=== PATIENT | male | born 1945 | race Caucasian/White ===

== ENCOUNTER 2019-05-23 00:13 | Observation (INO) | payer OTHER ==
--- OUTSIDE RECORDS SUMMARY | 2019-05-23 00:16 | XMS REPORT | Clinical Summary ---
:1945 Author Organization [facility] Address [address] [place] [id number] Care Team Providers Name Role Phone Unavailable Primary Care Provider Unavailable Allergies No Known Allergies Medications Medication Sig Dispensed Refills Start Date End Date Status metFORMIN (GLUCOPHAGE) Take 500 mg by 0 Active 500 MG tablet mouth 2 (two) times daily with breakfast and dinner. losartan (COZAAR) 25 MG Take 25 mg by 0 Active tabletIndications: mouth daily. hypertension metoprolol (TOPROL-XL) Take 100 mg by 0 Active 100 MG 24 hr mouth daily. tabletIndications: hypertension venlafaxine Take 150 mg by 0 Active (EFFEXOR-XR) 150 MG 24 mouth daily. hr capsule chlorthalidone Take 25 mg by 0 Active (HYGROTON) 25 MG tablet mouth daily. cholecalciferol, Take 1,000 Units 0 Active vitamin D3, 1,000 unit by mouth nightly. capsule multivitamin per tablet Take 1 tablet by 0 Active mouth daily. Active Problems Problem Noted Date TIA (transient ischemic attack) 11/23/2016 Social History Tobacco Use Types Packs/Day Years Used Date Former Smoker Comments: quit 10 years ago Alcohol Use Drinks/Week oz/Week Comments No Sex Assigned at Date Recorded Not on file Job Start Date Occupation Industry Not on file Not on file Not on file Travel History Travel Start Travel End No recent travel history available. Last Filed Vital Signs Not on file Plan of Treatment Not on file Results Not on fileafter 05/22/2018 Insurance Payer Benefit Plan / Group Subscriber ID Type Phone Address MEDICARE MEDICARE A B xxxxxxxxxx Medicare [facility] GENERIC MEDICARE xxxxxxxxxx Medigap SUPPLEMENT/INDIVIDUAL SUPPLEMENT Advance Directives For more information, please contact:[address] [phone] Code Status Date Activated Date Inactivated Comments Full Code 11/23/2016 2:57 PM 11/26/2016 3:48 PM This code status was determined by: Patient
[2019-05-23 01:23] LABS: Absolute Lymphocytes (CBC) 1.8 K/uL (0.7-4.9); Basophils % 0.6 % (0-1.3); Eosinophils % 4.6 % (0-4.4); Hematocrit 43.9 % (39.6-49.0); Lymphocytes % 27.4 % (15.3-44.8); MPV 8.7 fL (7.6-11.3); Monocytes % 7.2 % (3.3-12.3); RBC Red Blood Cell Count 4.71 M/uL (4.33-5.43)
[2019-05-23 01:38] LABS: Protime INR 0.9
[2019-05-23] MEDS ORDERED: NITROGLYCERIN 0.4 MG/TAB SL ONE (01:50)
--- NOTE | 2019-05-23 02:46 | EDPHYS ---
Physician Documentation [facility] Name: Chaz Flowers Age: 73 yrs Sex: Male : 1945 Arrival Date: 05/23/2019 Time: 00:15 Bed 3 Private MD: ED Physician David Vieyra HPI: 05/23 01:18 This 73 yrs old Male presents to ER via EMS with complaints of Aphasia. ps1 01:18 patient was reading a book appx 45 min [employer] and had an episode of alexia and expressive ps1 aphasia. No UE/LE involvement. On ASA and plavix. Symptoms resolved. NIHSS 0. States that he has a hx of AAA and AD. Additionally has chest pain described as pressure or mild discomfort. His pain does not radiate. BP 180 systolic. . Historical: - Allergies: 01:00 NKA; ea - Home Meds: 01:00 venlafaxine 150 mg Oral cp24 1 cap once daily [Active]; Singulair 10 mg Oral tab 1 tab ea once daily [Active]; metoprolol succinate 100 mg Oral Tb24 1 tab once daily [Active]; Plavix Oral once daily [Active]; metformin 500 mg Oral tab 1 tab 2 times per day [Active]; losartan 25 mg Oral tab 1 tab once daily [Active]; Lipitor Oral nightly [Active]; Edith Oral daily [Active]; - PMHx: 01:00 Hypertension; Diabetes - NIDDM; AAA; ea - Immunization history:: Adult Immunizations up to date. - Social history:: Smoking status: Patient/guardian denies using tobacco. - Ebola Screening: : No symptoms or risks identified at this time. ROS: 01:18 Constitutional: Negative for fever, chills, and weight loss, Eyes: Negative for injury, ps1 pain, redness, and discharge, ENT: Negative for injury, pain, and discharge, Respiratory: Negative for shortness of breath, cough, wheezing, and pleuritic chest pain, Abdomen/GI: Negative for abdominal pain, nausea, vomiting, diarrhea, and constipation, Back: Negative for injury and pain, MS/Extremity: Negative for injury and deformity, Skin: Negative for injury, rash, and discoloration. 01:18 Cardiovascular: Positive for chest pain. 01:18 Neuro: Positive for alexia and expressive aphasia. Exam: 01:18 Radiologist reports: chronic changes. ps1 01:18 Constitutional: This is a well developed, well nourished patient who is awake, alert, and in no acute distress. Head/Face: Normocephalic, atraumatic. Eyes: Pupils equal round and reactive to light, extra-ocular motions intact. Lids and lashes normal. Conjunctiva and sclera are non-icteric and not injected. Chest/axilla: Normal chest wall appearance and motion. Nontender with no deformity. No lesions are appreciated. Cardiovascular: Regular rate and rhythm. No gallops, murmurs, or rubs. Normal PMI, no JVD. No pulse deficits. Respiratory: Lungs have equal breath sounds bilaterally, clear to auscultation and percussion. No rales, rhonchi or wheezes noted. No increased work of breathing, no retractions or nasal flaring. Abdomen/GI: Soft, non-tender, with normal bowel sounds. No distension or tympany. No guarding or rebound. No evidence of tenderness throughout. Skin: Warm, dry with normal turgor. Normal color with no rashes, no lesions, and no evidence of cellulitis. MS/ Extremity: Pulses equal, no cyanosis. Neurovascular intact. Full, normal range of motion. Neuro: Awake and alert, GCS 15, oriented to person, place, time, and situation. Cranial nerves II-XII grossly intact. Sensory grossly intact. Vital Signs: 00:15 BP 170 / 110; Pulse 68; Resp 18; Temp 98.4; Pulse Ox 97% on R/A; Weight 83.01 kg; ea Height 5 ft. 11 in. (180.34 cm); Pain 0/10; 00:30 BP 181 / 81; Pulse 62; Resp 14; Pulse Ox 97% on R/A; tl2 01:24 BP 175 / 94; Pulse 66; Resp 18; Pulse Ox 100% on R/A; ea 01:45 BP 142 / 92; Pulse 65; Resp 18; Pulse Ox 98% on R/A; ea 02:13 BP 150 / 86; Pulse 60; Resp 18; Pulse Ox 96% on R/A; tl2 03:27 BP 155 / 86; Pulse 58; Resp 18; Temp 97.9; Pulse Ox 98% on R/A; ea 03:39 BP 135 / 90; Pulse 64; Resp 18; Pulse Ox 97% on R/A; ea 00:15 Body Mass Index 25.52 (83.01 kg, 180.34 cm) ea NIH Stroke Scale Scores: 00:27 NIHSS Score: 0 ea MDM: 00:29 Patient medically screened. ps1 01:29 Data reviewed: vital signs, nurses notes, EKG, radiologic studies, CT scan, and as a ps1 result, I will admit patient. 05/23 00:17 Order name: glucometer results - FOR PT WITH NO ID; Complete Time: 02:02 lp1 05/23 00:27 Order name: Troponin (emerg Dept Use Only); Complete Time: 02:02 [facility] 05/23 00:27 Order name: Protime (+inr); Complete Time: 02:02 [facility] 05/23 00:27 Order name: CBC with Diff; Complete Time: 02:02 [facility] 05/23 00:27 Order name: CT Stroke Brain w/o Contrast [facility] 05/23 03:02 Order name: Lipid Profile [facility] 05/23 00:27 Order name: Stroke CXR 1 View [facility] 05/23 00:27 Order name: EKG; Complete Time: 00:29 [facility] 05/23 00:59 Order name: Angio Aorta For Dissection [facility] 05/23 03:02 Order name: CONS Physician Consult [facility] 05/23 03:02 Order name: Physical Therapy Consult [facility] 05/23 03:03 Order name: Stroke Protocol [facility] 05/23 00:27 Order name: Accucheck; Complete Time: 00:30 [facility] 05/23 00:27 Order name: Cardiac monitoring; Complete Time: 00:30 [facility] 05/23 00:27 Order name: EKG - Nurse/Tech; Complete Time: 00:40 [facility] 05/23 00:27 Order name: IV Saline Lock; Complete Time: 00:30 [facility] 05/23 00:27 Order name: Labs collected and sent; Complete Time: 00:30 [facility] 05/23 00:27 Order name: NPO; Complete Time: 00:30 [facility] 05/23 00:27 Order name: O2 Per Protocol; Complete Time: 00:30 [facility] 05/23 00:27 Order name: O2 Sat Monitoring; Complete Time: 00:30 [facility] 05/23 00:27 Order name: Stroke Swallow Screen; Complete Time: 00:41 [facility] 07/16 03:02 Order name: EKG Electrocardiogram EDCT EC:14 Rate is 62 beats/min. Rhythm is regular. QRS Valier is Normal. DE interval is normal. QRS ps1 interval is prolonged. QT interval is normal. No Q waves. T waves are Normal. No ST changes noted. Clinical impression: RBBB. Administered Medications: 01:42 Drug: Nitroglycerin 0.4 mg Route: Sublingual; ea 01:55 Drug: Nitroglycerin 0.4 mg Route: Sublingual; ea 01:55 Follow up: Response: No adverse reaction; Pain is decreased ea 02:00 Follow up: Response: No adverse reaction; Pain is decreased ea Point of Care Testing: Blood Glucose: 00:15 Blood Glucose: 185 mg/dL; ea Ranges: Critical Glucose Levels:Adult <50 mg/dl or >400 mg/dl <40 mg/dl or >180 mg/dl Disposition: 05/23/19 02:45 Hospitalization ordered by Linda Plaza for Observation. Preliminary diagnosis are TIA, Chest pain, Hypertensive urgency. - Bed requested for Telemetry/MedSurg (observation). - Status is Observation. ea - Condition is Stable. - Problem is new. - Symptoms are resolved. UTI on Admission? No NIH Stroke Scale - NIH Stroke Score Date: 05/23/2019 Time: 00:27 Total Score = 0 1a. Level of Consciousness (LOC) - 0(Alert) 1b. Level of Consciousness (LOC) (Year \T\ Age) - 0(Both) 1c. LOC Commands (Open \T\ Closes Eyes/Spa Associate) - 0(Both) 2. Best Gaze (Lateral Gaze Paresis) - 0(Normal) 3. Visual Field Loss - 0(No visual loss) 4. Facial Palsy - 0(Normal) 5a. Left Arm: Motor (10-second hold) - 0(No drift) 5b. Right Arm: Motor (10-second hold) - 0(No drift) 6a. Left Leg: Motor (5-second hold - always test supine) - 0(No drift) 6b. Right Leg: Motor (5-second hold - always test supine) - 0(No drift) 7. Limb Ataxia (finger/nose \T\ heel/lunsford - test with eyes open) - 0(Absent) 8. Sensory Loss (pinprick arms/legs/face) - 0(Normal) 9. Best Language: Aphasia (description/naming/reading) - 0(No aphasia) 10. Dysarthria (speech clarity - read or repeat words) - 0(Normal) 11. Extinction and Inattention (visual/tactile/auditory/spatial/personal) - 0(No abnormality) Initials: ronald Signatures: Dispatcher [employer] EDCT Minerva Gonzales, RN Siobhan Valentin, RN David Goff ea, MD MD ps1 Corrections: (The following items were deleted from the chart) 00:59 00:29 Dissection W/ Wo Con+CT.RAD.BRZ ordered. EDCT EDMS 01:29 01:18 Rate is 62 beats/min. Rhythm is regular. QRS Valier is Normal. DE interval ps1 is normal. QRS interval is prolonged. QT interval is normal. No Q waves. T waves are Normal. No ST changes noted. Clinical impression: RBBB. ps1 03:08 02:45 Hospitalization Ordered by Linda Plaza MD for Observation. Preliminary diagnosis is TIA; Chest pain; Hypertensive urgency. Bed requested for Telemetry/MedSurg (observation). Status is Observation. Condition is Stable. Problem is new. Symptoms are resolved. UTI on Admission? No. ps1 03:40 03:08 05/23/2019 02:45 Hospitalization Ordered by Linda Plaza MD for ea Observation. Preliminary diagnosis is TIA; Chest pain; Hypertensive urgency. Bed requested for Telemetry/MedSurg (observation). Status is Observation. Condition is Stable. Problem is new. Symptoms are resolved. UTI on Admission? No. mw
--- NOTE | 2019-05-23 02:46 | ER ---
Nurse's Notes [facility] Name: Chaz Flowers Age: 73 yrs Sex: Male : 1945 Arrival Date: 05/23/2019 Time: 00:15 Bed 3 Private MD: Diagnosis: TIA;Chest pain;Hypertensive urgency Presentation: 05/23 00:16 Presenting complaint: EMS states: Pt reports about an hour ago pt reports he was unable ea to speak or read, woke his up and called 911. Upon EMS arrival symptoms have subsided. BGL 208, 20 G IV to right AC. Transition of care: patient was not received from another setting of care. No acute neurological deficit is noted. The patients blood glucose was checked prior to arriving to the hospital and was found to be hyperglycemic. Onset of symptoms was May 23, 2019. Risk Assessment: Do you want to hurt yourself or someone else? Patient reports no desire to harm self or others. Initial Sepsis Screen: Does the patient meet any 2 criteria? No. Patient's initial sepsis screen is negative. Does the patient have a suspected source of infection? No. Patient's initial sepsis screen is negative. Care prior to arrival: 20 G IV to right AC, BGL 206, no neuro deficits noted per EMS. 00:16 Method Of Arrival: EMS: [facility] ea 00:16 Acuity: BRADY 3 ea Triage Assessment: 00:27 The onset of the patients symptoms was May 22, 2019 at 23:20. General: Appears in no ea apparent distress. Behavior is calm, cooperative, appropriate for age. Pain: Denies pain. Neuro: Level of Consciousness is awake, alert, obeys commands, Oriented to person, place, time, situation, Reports aphasia. Cardiovascular: Patient's skin is warm and dry. Respiratory: Airway is patent Respiratory effort is even, unlabored, Respiratory pattern is regular, symmetrical. Derm: Skin is pink, warm \T\ dry. Stroke Activation: Symptom onset < 3 hours Physician: Stroke Attending; Name: ; Notified At: ; Arrived At: Physician: Chief Stroke Resident; Name: ; Notified At: ; Arrived At: Physician: Stroke Resident; Name: ; Notified At: ; Arrived At: Physician: ED Attending; Name: ; Notified At: 00:16; Arrived At: Physician: ED Resident; Name: ; Notified At: ; Arrived At: Historical: - Allergies: 01:00 NKA; ea - Home Meds: 01:00 venlafaxine 150 mg Oral cp24 1 cap once daily [Active]; Singulair 10 mg Oral tab 1 tab ea once daily [Active]; metoprolol succinate 100 mg Oral Tb24 1 tab once daily [Active]; Plavix Oral once daily [Active]; metformin 500 mg Oral tab 1 tab 2 times per day [Active]; losartan 25 mg Oral tab 1 tab once daily [Active]; Lipitor Oral nightly [Active]; Edith Oral daily [Active]; - PMHx: 01:00 Hypertension; Diabetes - NIDDM; AAA; ea - Immunization history:: Adult Immunizations up to date. - Social history:: Smoking status: Patient/guardian denies using tobacco. - Ebola Screening: : No symptoms or risks identified at this time. Screenin:25 Abuse screen: Denies threats or abuse. Nutritional screening: No deficits noted. ea Tuberculosis screening: No symptoms or risk factors identified. Fall Risk IV access (20 points). Assessment: 00:27 VAN Scoring: Arm Drift: Patients demonstrates NO arm weakness. Patient is VAN Negative. ea 00:29 General: Appears in no apparent distress. Behavior is calm, cooperative, appropriate ea for age. Pain: Denies pain. Neuro: Level of Consciousness is awake, alert, obeys commands, Oriented to person, place, time, situation. Cardiovascular: Patient's skin is warm and dry. Respiratory: Airway is patent Respiratory effort is even, unlabored, Respiratory pattern is regular, symmetrical. Derm: Skin is pink, warm \T\ dry. Musculoskeletal: Circulation, motion, and sensation intact. 00:40 The patient has not been NPO before screening. The patient is alert, and able to follow ea commands. The patient does not exhibit slurred or garbled speech. The patient is not exhibiting difficulty speaking. The patient does not exhibit difficulty understanding words. The patient is able to swallow own secretions with no drooling or need for suction. Patient tolerated one teaspoon of water. No drooling, immediate coughing, gurgling, or clearing of the throat was noted. The patient passed the bedside swallow screening. Oral medications may be given as ordered. Contact Physician for further diet orders. Provider notified of bedside swallow screening results: David Vieyra MD. 01:21 Reassessment: Patient and/or family updated on plan of care and expected duration. Pain ea level reassessed. Patient is alert, oriented x 3, equal unlabored respirations, skin warm/dry/pink. Awaiting on labs and CT results Patient denies pain at this time. 02:13 Reassessment: Patient appears in no apparent distress at this time. Patient and/or tl2 family updated on plan of care and expected duration. Pain level reassessed. Patient is alert, oriented x 3, equal unlabored respirations, skin warm/dry/pink. Patient denies pain at this time. 03:15 T-PA (Activase) Screening: Contraindications: Other: not applicable. ea 03:27 Reassessment: Report called to receiving nurse on fourth floor. ea 03:33 Reassessment: Patient and/or family updated on plan of care and expected duration. Pain ea level reassessed. Patient is alert, oriented x 3, equal unlabored respirations, skin warm/dry/pink. 03:39 Reassessment: Patient and/or family updated on plan of care and expected duration. Pain ea level reassessed. Patient is alert, oriented x 3, equal unlabored respirations, skin warm/dry/pink. Pt admitted to fourth floor, taken via wheelchair per tech. Pt tolerating well Patient denies pain at this time. Vital Signs: 00:15 BP 170 / 110; Pulse 68; Resp 18; Temp 98.4; Pulse Ox 97% on R/A; Weight 83.01 kg; ea Height 5 ft. 11 in. (180.34 cm); Pain 0/10; 00:30 BP 181 / 81; Pulse 62; Resp 14; Pulse Ox 97% on R/A; tl2 01:24 BP 175 / 94; Pulse 66; Resp 18; Pulse Ox 100% on R/A; ea 01:45 BP 142 / 92; Pulse 65; Resp 18; Pulse Ox 98% on R/A; ea 02:13 BP 150 / 86; Pulse 60; Resp 18; Pulse Ox 96% on R/A; tl2 03:27 BP 155 / 86; Pulse 58; Resp 18; Temp 97.9; Pulse Ox 98% on R/A; ea 03:39 BP 135 / 90; Pulse 64; Resp 18; Pulse Ox 97% on R/A; ea 00:15 Body Mass Index 25.52 (83.01 kg, 180.34 cm) ea NIH Stroke Scale Scores: 00:27 NIHSS Score: 0 ea ED Course: 00:15 Patient arrived in ED. ea 00:23 Triage completed. ea 00:24 Patient has correct armband on for positive identification. Bed in low position. Call ea light in reach. Side rails up X2. 00:25 Arm band placed on right wrist. Patient placed in an exam room, on a stretcher, on ea pulse oximetry. 00:27 David Vieyra MD is Attending Physician. ps1 00:36 Maintain EMS IV. Dressing intact. Good blood return noted. Site clean \T\ dry. Gauge \T\ ea site: 20 G to right AC. 00:41 X-ray completed. Portable x-ray completed in exam room. Patient tolerated procedure kw well. 00:42 Stroke CXR 1 View In Process Unspecified. EDMS 00:58 Siobhan Bowen RN is Primary Nurse. ea 01:16 CT Stroke Brain w/o Contrast In Process Unspecified. EDMS 01:18 EKG done, by ED staff, reviewed by David Vieyra MD. ag4 01:20 Angio Aorta For Dissection In Process Unspecified. EDMS 02:44 Linda Plaza MD is Hospitalizing Provider. ps1 03:16 No provider procedures requiring assistance completed. Patient admitted, IV remains in ea place. Administered Medications: 01:42 Drug: Nitroglycerin 0.4 mg Route: Sublingual; ea 01:55 Drug: Nitroglycerin 0.4 mg Route: Sublingual; ea 01:55 Follow up: Response: No adverse reaction; Pain is decreased ea 02:00 Follow up: Response: No adverse reaction; Pain is decreased ea Point of Care Testing: Blood Glucose: 00:15 Blood Glucose: 185 mg/dL; ea Ranges: Outcome: 02:45 Decision to Hospitalize by Provider. ps1 03:16 Instructed on the need for admit, Demonstrated understanding of instructions. ea 03:25 Admitted to Med/surg accompanied by tech, via wheelchair, room 421, with chart, Report ea called to Report called to receiving nurse on fourth floor 03:25 Condition: stable 03:40 Patient left the ED. ea NIH Stroke Scale - NIH Stroke Score Date: 05/23/2019 Time: 00:27 Total Score = 0 1a. Level of Consciousness (LOC) - 0(Alert) 1b. Level of Consciousness (LOC) (Year \T\ Age) - 0(Both) 1c. LOC Commands (Open \T\ Closes Eyes/Title Attorney) - 0(Both) 2. Best Gaze (Lateral Gaze Paresis) - 0(Normal) 3. Visual Field Loss - 0(No visual loss) 4. Facial Palsy - 0(Normal) 5a. Left Arm: Motor (10-second hold) - 0(No drift) 5b. Right Arm: Motor (10-second hold) - 0(No drift) 6a. Left Leg: Motor (5-second hold - always test supine) - 0(No drift) 6b. Right Leg: Motor (5-second hold - always test supine) - 0(No drift) 7. Limb Ataxia (finger/nose \T\ heel/lunsford - test with eyes open) - 0(Absent) 8. Sensory Loss (pinprick arms/legs/face) - 0(Normal) 9. Best Language: Aphasia (description/naming/reading) - 0(No aphasia) 10. Dysarthria (speech clarity - read or repeat words) - 0(Normal) 11. Extinction and Inattention (visual/tactile/auditory/spatial/personal) - 0(No abnormality) Initials: ea Signatures: Dispatcher [employer] Kathi Serna Taylor, CASSY RN tl2 Siobhan Bowen RN RN ea Singer, Phillip, MD MD ps1 Guzman, Adan ag4
[2019-05-23] MEDS ORDERED: ONDANSETRON 4 MG/2 ML VIAL IV PRN (02:49)
[2019-05-23] MEDS ORDERED: NA CHLORIDE 0.9% 1,000 ML IV SCH (03:00)
[2019-05-23 04:04] VITALS: BMI 26.6
[2019-05-23] MEDS: LOSARTAN POTASSIUM 50 MG TABLET PO SCH ×2 (04:08→10:18)
--- NOTE | 2019-05-23 04:31 | P.HP ---
Certification for Inpatient Patient admitted to: Observation With expected LOS: <2 Midnights Patient will require the following post-hospital care: None Practitioner: I am a practitioner with admitting privileges, knowledge of patient current condition, hospital course, and medical plan of care. Services: Services provided to patient in accordance with Admission requirements found in Title 42 Section 412.3 of the Code of Federal Regulations Patient History Date of Service: 05/23/19 Reason for admission: TIA/CVA/Alexia History of Present Illness: Patient is a 73yo who came into the hospital after having difficulty reading. He was laying down for bed and was going to reach 1 of his mystery novels per his normal routine at night. His had gone to bed next to him. He opened the book and he suddenly was unable to read the words. He tried to read a book that he had read the night before but was still unable to figure out what words the letters were making. He woke up his and the only thing he could get out was "I can't read." He said this 3 different times. He couldn't explain anything more than this. EMS was called to their home. His blood pressure was elevated at 170s over 90s when they arrived. Because of the alexia, decision was made to bring him into the emergency room for further evaluation. In the emergency room CT of the head was unremarkable. His blood pressure has remained elevated. He contributes that to stress. However, he does state that his laborer operator wanted to increase his blood pressure medications because his blood pressure was on the higher side a couple weeks ago. He has a history of aortic dissection as well as any prior abdominal aortic aneurysm. His blood pressure is been monitor very closely by his laborer operator. However, a couple weeks ago when he was at his yearly visit he was told that his blood pressure was a little too high. It was explained to him that his blood pressure needs to be kept around 120s systolic and less than 80s diastolic. Per his recollection, his blood pressure at that appointment was 150s over 90s. Because of his numerous symptoms will admit him to the hospital for stroke workup. Will get an MRI stroke protocol. Will get Cardiology to see the patient as well. At this time, we do not have Neurology available but in light of the fact that his symptoms have resolved he probably had a TIA. Unless MRI shows anything worrisome he will probably be able to get discharged if his blood pressure is stabilized. Allergies No Known Allergies Allergy (Verified 02/17/18 23:51) Home Medications: Aspirin [Aspirin EC 81 MG] 81 mg PO BEDTIME 02/17/18 Atorvastatin Calcium [Lipitor] 40 mg PO BEDTIME 02/17/18 Chlorthalidone 25 mg PO DAILY 02/17/18 Clopidogrel Bisulfate [Plavix] 75 mg PO DAILY 02/17/18 Clopidogrel Bisulfate [Plavix] 75 mg PO DAILY 02/17/18 Fexofenadine HCl [Ediht Allergy] 180 mg PO DAILY 02/17/18 Losartan Potassium 25 mg PO DAILY 02/17/18 Metformin HCl [Metformin HCl ER] 750 mg PO BID 02/17/18 Metoprolol Succinate [Toprol Xl] 100 mg PO DAILY 02/17/18 Montelukast Sodium [Singulair] 10 mg PO BEDTIME 02/17/18 Multivit-Min/FA/Lycopen/Lutein [Men 50 Plus Multivitamin Tab] 1 each PO DAILY Venlafaxine HCl [Venlafaxine HCl ER] 150 mg PO DAILY 02/17/18 Vit B Comp No.3/Folic/C/Biotin [Stable Hand-Roberta Rx Tablet] 1 each PO DAILY 02/17/18 Vit D3/Folic Acid/B2/B6/B12 [Folgard Tablet] 1 tab PO DAILY 02/17/18 Codeine/APAP [Tylenol W/Codeine #3 tab] 1 tab PO Q6HP PRN #15 tab 02/18/18 - Past Medical/Surgical History Diabetic: Yes -: diabetes -: Aortic dissection -: strokes 3x in november -: HTN -: knee surgeries 2x R 1xL -: tonsilectomy - Family History Father Medical History: Heart disease Brother Medical History: Heart disease Notes: Abdominal aortic aneurysm - Social History Smoking Status: Former smoker Alcohol use: No CD- Drugs: No Caffeine use: Yes Review of Systems 10-point ROS is otherwise unremarkable Physical Examination - Vital Signs Temperature: 97.1 F Blood Pressure: 165/90 Pulse: 59 Respirations: 18 Pulse Ox (%): 96 - Physical Exam General: Alert, In no apparent distress, Oriented x3 HEENT: Atraumatic, PERRLA, Mucous membr. moist/pink, EOMI, Sclerae nonicteric Neck: Supple, 2+ carotid pulse no bruit, No LAD, Without JVD or thyroid abnormality Respiratory: Clear to auscultation bilaterally, Normal air movement Cardiovascular: Regular rate/rhythm, Normal S1 S2, No murmurs Gastrointestinal: Normal bowel sounds, Soft and benign, Non-distended, No tenderness Musculoskeletal: No clubbing, No swelling, No tenderness Integumentary: No rashes Neurological: Normal gait, Normal speech, Normal strength at 5/5 x4 extr, Normal tone, Sensation intact, Cranial nerves 3-12 intact, Normal affect Lymphatics: No axilla or inguinal lymphadenopathy - Studies Laboratory Data (last 24 hrs) 05/23/19 01:00: WBC 6.5, Hgb 14.8, Hct 43.9, Plt Count 165 05/23/19 01:00: PT 10.7, INR 0.90 Assessment & Plan - Problems (Diagnosis) (1) CVA (cerebral vascular accident) Current Visit: Yes Status: Acute (2) Alexia Current Visit: Yes Status: Acute (3) TIA (transient ischemic attack) Current Visit: Yes Status: Acute (4) History of hypertension Current Visit: Yes Status: Acute (5) History of aortic dissection Current Visit: Yes Status: Acute (6) History of abdominal aortic aneurysm (AAA) Current Visit: Yes Status: Acute - Plan Plan: 1. Anti-platelet therapy and statin therapy 2. MRI stroke protocol 3. Blood pressure control 4. Cardiology consult 5. ? echocardiogram 6. DVT prophylaxis 7. No need for PT or ST as his symptoms are back to baseline; bedside swallow eval is normal 8. GI and DVT prophylax Discharge Plan: Home Plan to discharge in: 24 Hours - Advance Directives Does patient have a Living Will: No Does patient have a Durable POA for Healthcare: No - Code Status/Comfort Care Code Status Assessed: Yes Code Status: Full Code Critical Care: No Time Spent Managing PTS Care (In Minutes): 45
[2019-05-23 05:53] LABS: Urine Appearance CLEAR; Urine Bilirubin NEGATIVE (NEG); Urine Blood TRACE (NEG); Urine Color YELLOW; Urine Glucose NEGATIVE (NEG); Urine Protein NEGATIVE (NEG); Urine Specific Gravity >=1.030 (1.005-1.030); Urine Urobilinogen 0.2 mg/dL (0.2-1.0); Urine pH 5.5 (5.0-7.0)
[2019-05-23 05:55] LABS: Urine Microscopic Reflex ORDER UMIC
[2019-05-23 06:04] LABS: Urine Bacteria <20 /HPF (NONE SEEN); Urine RBC <5 /HPF (NONE SEEN)
[2019-05-23 06:05] LABS: Urine Culture Reflex Order NOT NEEDED
[2019-05-23] MEDS: ACETAMINOPHEN 500 MG TAB PO PRN ×2 (06:35→10:27)
--- NOTE | 2019-05-23 08:01 | RAD REPORT ---
EXAM DESCRIPTION: RAD - Chest Single View - 05/23/2019 12:44 am CLINICAL HISTORY: Chest pain COMPARISON: November 2016 TECHNIQUE: AP portable chest image was obtained 0041 hours . FINDINGS: Lungs are clear. Heart and vasculature are normal. No measurable pleural effusion and no p neumothorax. No acute bony abnormality seen. No acute aortic findings suspected. IMPRESSION: No acute cardiopulmonary process. No significant change from the comparison study.
[2019-05-23 08:22] VITALS: TEMP 97.3
[2019-05-23 08:24] VITALS: BP 159/82
[2019-05-23] MEDS ORDERED: ATORVASTATIN 20 MG TAB PO SCH (09:00)
[2019-05-23] MEDS ORDERED: CLOPIDOGREL 75 MG TABLET PO SCH (09:00)
[2019-05-23] MEDS ORDERED: ASPIRIN EC 325 MG TABLET PO SCH (09:00)
[2019-05-23] MEDS ORDERED: ENOXAPARIN 40 MG/0.4 ML SQ SCH (09:00)
[2019-05-23 09:19] LABS: Potassium 4.4 mmol/L (3.5-5.1)
--- NOTE | 2019-05-23 10:00 | RAD REPORT ---
EXAM DESCRIPTION: CT - Angio Aorta For Dissection - 05/23/2019 6:46 am CLINICAL HISTORY: The patient is 73 years old and is Male; hx of ascending aortic aneurysm and AAA, FND. TECHNIQUE: Axial computed tomographic angiography images of the chest, abdomen and pelvis with intra venous contrast using CT angiography protocol. Sagittal and coronal reformatted images were created and reviewed. This CT exam was performed using one or more of the following dose reduction techniq ues: automated exposure control, adjustment of the mA and/or kV according to patient size, and/or u se of iterative reconstruction technique. MIP reconstructed images were created and reviewed. COMPARISON: CTA of the chest, abdomen, and pelvis May 17, 2019. FINDINGS: VASCULATURE: AORTA: The ascending aorta measures 3.7 cm. The proximal descending thoracic aorta measures appr oximately 4.3 cm. Minimal eccentric mural thrombus is noted in stable from prior exam. The infrarenal abdominal aorta measures approximately 3.7 cm. Eccentric mural thrombus is noted and also stable fro m prior exam. No aortic aneurysm. No dissection. PULMONARY ARTERIES: Unremarkable as visualized. No pulmonary embolism is identified. GREAT VESSELS OF AORTIC ARCH: No acute findings. No dissection. No arterial occlusion or sig nificant stenosis. CELIAC TRUNK AND MESENTERIC ARTERIES: No acute findings. No occlusion or significant stenosis. RENAL ARTERIES: No acute findings. No occlusion or significant stenosis. ILIAC ARTERIES: Aneurysmal dilatation of the right common iliac artery measuring 3.8 x 2.5 cm wi th mural thrombus is noted in also unchanged. CHEST: LUNGS: Mild bilateral centrilobular emphysematous changes of the lungs are present. There is no lobar consolidation. PLEURAL SPACE: Unremarkable. No significant effusion. No pneumothorax. HEART: Unremarkable. No cardiomegaly. No significant pericardial effusion. MEDIASTINUM: The tracheobronchial tree is widely patent. ABDOMEN: LIVER: Unremarkable. No mass. GALLBLADDER AND BILE DUCTS: The gallbladder is contracted with multiple calcified gallstones. Th ere is no ductal dilatation. PANCREAS: Atrophy of the pancreas is noted. No ductal dilation. SPLEEN: The spleen is diffusely heterogeneous, secondary to the phase of contrast. ADRENALS: Unremarkable. No mass. KIDNEYS AND URETERS: A large left renal cyst measuring approximately 2.7 cm is present. No follo w-up imaging is recommended. The kidneys enhance symmetrically. No hydronephrosis. No solid mass. STOMACH AND BOWEL: The stomach is well distended with food contents and fluid. The small bowel i s normal in caliber. Stool is present throughout the colon. No evidence of bowel obstruction. No sign ificant bowel wall thickening. Colonic diverticulosis is noted, without associated inflammatory tyler es to suggest diverticulitis. PELVIS: APPENDIX: The appendix is normal in caliber without surrounding inflammation. BLADDER: Unremarkable. No mass. REPRODUCTIVE: Unremarkable as visualized. CHEST, ABDOMEN and PELVIS: INTRAPERITONEAL SPACE: Unremarkable. No significant fluid collection. No free air. BONES/JOINTS: No acute fracture. No dislocation. SOFT TISSUES: Small bilateral fat containing inguinal hernia are present. LYMPH NODES: Unremarkable. No enlarged lymph nodes. IMPRESSION: 1. Aneurysmal dilatation of the abdominal aorta, similar to prior exam. No evidence of dissection. Recommend follow-up every 2 years. Reference: J Am Giana Radiol 2013;10:789-794. 2. 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 3. Cholelithiasis. 4. Colonic diverticulosis without evidence of diverticulitis. Electronically signed by: Evelia Desouza MD 05/23/2019 1:50 AM CDT Due to temporary technical issues with the PACS/Fluency reporting system, reports are being signed by the in house radiologist as a courtesy to ensure prompt reporting. The interpreting radiologist is f ully responsible for the content of the report.
--- NOTE | 2019-05-23 10:14 | RAD REPORT ---
EXAM DESCRIPTION: CT - Ct Stroke Brain Wo Cont - 05/23/2019 1:30 am ADDENDUM #1 THIS REPORT CONTAINS FINDINGS THAT MAY BE CRITICAL TO PATIENT CARE: The findings were verbally discussed via telephone conference with Dr. David Vieyra by Dr. Benja Desouza on 1:25 AM CDT .The results were acknowledged and understood. Electronically signed by: Evelia Desouza MD 05/23/2019 1:25 AM CDT End of Addendum EXAM DESCRIPTION: CT Head Without Intravenous Contrast CLINICAL HISTORY: The patient is 73 years old and is Male; expressive aphasia and alexia TECHNIQUE: Axial computed tomography images of the head/brain without intravenous contrast. Sagitt al and coronal reformatted images were created and reviewed. This CT exam was performed using one o r more of the following dose reduction techniques: automated exposure control, adjustment of the mA and/or kV according to patient size, and/or use of iterative reconstruction technique. COMPARISON: No relevant prior studies available. FINDINGS: BRAIN: There is patchy hypoattenuation of the deep white matter which is non-specific, b ut most likely owing to chronic small vessel ischemic change in a patient of this age group. There is diffuse cerebral atrophy present, consistent with this patient's age. No intracranial hemorrhage , mass effect, or midline shift is seen. There are no extra-axial fluid collections. VENTRICLES: Unremarkable. No ventriculomegaly. BONES/JOINTS: No acute fracture. SOFT TISSUES: Unremarkable. SINUSES: Unremarkable as visualized. No acute sinusitis. MASTOID AIR CELLS: Unremarkable as visualized. No mastoid effusion. IMPRESSION: Age-related atrophy and chronic white matter ischemic changes, with no evidence of an ac arminda intracranial abnormality. Electronically signed by: Evelia Desouza MD 05/23/2019 1:21 AM CDT Due to temporary technical issues with the PACS/Fluency reporting system, reports are being signed by the in house radiologist as a courtesy to ensure prompt reporting. The interpreting radiologist is f ully responsible for the content of the report.
--- NOTE | 2019-05-23 10:25 | RAD REPORT ---
EXAM DESCRIPTION: MRI - Brain W/Wo Cont - 05/23/2019 9:58 am CLINICAL HISTORY: ALEXIA Headache, drowsiness, CVA symptomology COMPARISON: MRA Head Wo Cont dated 05/23/2019; Angio Aorta For Dissection dated 05/23/2019; Ct Stroke Brain Wo Cont dated 05/23/2019; MRA Neck W/Wo Cont dated 05/23/2019; Brain Wo Cont dated 11/23/2016; MR STROKE PROTOCOL dated 12/04/2010 TECHNIQUE: Multi-sequence, multiplanar MR imaging of the brain was performed with contrast. FINDINGS: No intracranial hemorrhage, hydrocephalus, or extra-axial fluid collection.Moderate areas T2 and FLAIR hyperintensity in the periventricular and deep white matter seen most compatible with ch ronic microvascular ischemic changes. No edema or shift of midline structures. No intracranial mass. DWI is negative for acute CVA. The midline structures are normally formed. Mastoid air cells and paranasal sinuses are clear. Post-contrast images show no abnormal enhancement to suggest tumor or infection. IMPRESSION: Negative for acute CVA or other acute intracranial abnormality. No pathologic post-contrast enhancement suspected.
--- NOTE | 2019-05-23 10:28 | RAD REPORT ---
EXAM DESCRIPTION: MRI - MRA Head Wo Cont - 05/23/2019 9:58 am CLINICAL HISTORY: Alexia Headache, drowsiness, CVA symptomology COMPARISON: Ct Stroke Brain Wo Cont dated 05/23/2019 FINDINGS: 3D noncontrast [id number] MR angiography of the hoh of [place] was performed. No aneurysm, flow-limiting stenosis or vascular malformation is seen. Forward flow seen in codominant vertebral arteries. The visualized dural venous sinuses appear patent. IMPRESSION: No significant flow abnormality of the hoh of [place] is identified.
--- NOTE | 2019-05-23 10:34 | RAD REPORT ---
EXAM DESCRIPTION: MRI - MRA Neck W/Wo Cont - 05/23/2019 9:58 am CLINICAL HISTORY: ALEXIA Headache, drowsiness, CVA symptomology COMPARISON: No comparisons FINDINGS: Contrast enhance 2D [id number] MR angiography of the neck vessels was performed. A left aortic arch is identified with 3 vessel origins of the great arteries. There is evidence of at herosclerotic narrowing at proximal aspect of the right common carotid artery. The left common caroti d are also demonstrates focal area of proximal stenosis. No significant stenosis is seen involving the internal carotid arteries bilaterally. Antegrade flow i s seen in both vertebral arteries. IMPRESSION: No significant internal carotid artery stenosis suspected.
[2019-05-23 10:37] VITALS: O2SAT 96
--- NOTE | 2019-05-23 11:09 | EKG ---
Test Date: 2019-05-23 Test Time: 00:37:17 [employer] Counter Person: [id number] MEASUREMENT RESULTS: Intervals: Rate: 61 NH: 144 QRSD: 116 QT: 432 QTc: 434 [place]: P: 83 NH: 144 QRS: -82 T: 69 INTERPRETIVE STATEMENTS: sinus rhythm Left axis deviation Right bundle branch block Abnormal ECG Compared to ECG 11/23/2016 10:02:56 [facility] Electronically Signed On 05-23-19 11:07:55 CDT by Saad Moore
--- NOTE | 2019-05-23 11:09 | EKG ---
Test Date: 2019-05-23 Test Time: 01:14:06 Geospatial Technologist: [id number] MEASUREMENT RESULTS: Intervals: Rate: 62 RI: 122 QRSD: 122 QT: 414 QTc: 420 [place]: P: 67 RI: 122 QRS: -77 T: 68 INTERPRETIVE STATEMENTS: Normal sinus rhythm Left axis deviation Right bundle branch block Abnormal ECG Compared to ECG 05/23/2019 00:37:17 No significant changes Electronically Signed On 05-23-19 11:07:25 CDT by Saad Moore
--- NOTE | 2019-05-23 12:23 | P.SSS ---
Patient History Date of Service: 05/23/19 Reason for admission: TIA/CVA/Alexia History of Present Illness: Patient is a 73yo who came into the hospital after having difficulty reading. He was laying down for bed and was going to reach 1 of his mystery novels per his normal routine at night. His had gone to bed next to him. He opened the book and he suddenly was unable to read the words. He tried to read a book that he had read the night before but was still unable to figure out what words the letters were making. He woke up his and the only thing he could get out was "I can't read." He said this 3 different times. He couldn't explain anything more than this. EMS was called to their home. His blood pressure was elevated at 170s over 90s when they arrived. Because of the alexia, decision was made to bring him into the emergency room for further evaluation. In the emergency room CT of the head was unremarkable. His blood pressure has remained elevated. He contributes that to stress. However, he does state that his control officer manager wanted to increase his blood pressure medications because his blood pressure was on the higher side a couple weeks ago. He has a history of aortic dissection as well as any prior abdominal aortic aneurysm. His blood pressure is been monitor very closely by his control officer manager. However, a couple weeks ago when he was at his yearly visit he was told that his blood pressure was a little too high. It was explained to him that his blood pressure needs to be kept around 120s systolic and less than 80s diastolic. Per his recollection, his blood pressure at that appointment was 150s over 90s. Because of his numerous symptoms will admit him to the hospital for stroke workup. Will get an MRI stroke protocol. Will get Cardiology to see the patient as well. At this time, we do not have Neurology available but in light of the fact that his symptoms have resolved he probably had a TIA. Unless MRI shows anything worrisome he will probably be able to get discharged if his blood pressure is stabilized. Allergies No Known Allergies Allergy (Verified 02/17/18 23:51) Home Medications: Aspirin Enteric Coated [Ecotrin*] 325 mg PO DAILY #30 tab 05/23/19 Atorvastatin Calcium [Lipitor*] 40 mg PO BEDTIME #60 tab 05/23/19 Clopidogrel Bisulfate [Plavix*] 1 tab PO DAILY 05/23/19 Fexofenadine HCl [Edith Allergy] 1 tab PO DAILY 05/23/19 Insulin Detemir [Levemir] 10 units SQ BEDTIME 05/23/19 Metformin ER [Glucophage ER*] 750 mg PO BID 05/23/19 Metoprolol Succinate [Toprol Xl] 200 mg PO DAILY #30 tab.er.24h 05/23/19 Montelukast [Singulair*] 1 tab PO DAILY 05/23/19 Valsartan 1 tab PO DAILY 05/23/19 Venlafaxine HCl [Venlafaxine HCl ER] 150 mg PO DAILY 05/23/19 - Past Medical/Surgical History Diabetic: Yes -: diabetes -: Aortic dissection -: TIA -: HTN -: Abdominal aneurysm -: knee surgeries 2x R 1xL -: tonsilectomy - Family History Father -: Heart disease Notes: AAA Brother -: Heart disease Notes: Abdominal aortic aneurysm Mother -: Heart disease, Other (see notes) Notes: asthma - Social History Smoking Status: Former smoker Alcohol use: No CD- Drugs: No Caffeine use: Yes Place of Residence: Home Review of Systems 10-point ROS is otherwise unremarkable Physical Examination - Vital Signs Temperature: 97.3 F Blood Pressure: 159/82 Pulse: 62 Respirations: 15 Pulse Ox (%): 96 - Physical Exam General: Alert, In no apparent distress HEENT: Atraumatic, PERRLA, Mucous membr. moist/pink, EOMI, Sclerae nonicteric Neck: Supple, 2+ carotid pulse no bruit, No LAD, Without JVD or thyroid abnormality Respiratory: Clear to auscultation bilaterally, Normal air movement Cardiovascular: Regular rate/rhythm, Normal S1 S2 Gastrointestinal: Normal bowel sounds, No tenderness Musculoskeletal: No tenderness Integumentary: No rashes Neurological: Normal gait, Normal speech, Normal strength at 5/5 x4 extr, Normal tone, Normal affect Lymphatics: No axilla or inguinal lymphadenopathy - Studies Laboratory Data (last 24 hrs) 05/23/19 01:00: WBC 6.5, Hgb 14.8, Hct 43.9, Plt Count 165 05/23/19 01:00: PT 10.7, INR 0.90 - Diagnosis (Problem(s)) (1) TIA (transient ischemic attack) Current Visit: Yes Status: Acute (2) History of abdominal aortic aneurysm (AAA) Current Visit: Yes Status: Chronic (3) History of aortic dissection Current Visit: Yes Status: Chronic (4) History of hypertension Current Visit: Yes Status: Chronic Treatment Summary: Overall during the hospital stay patient remained stable Patient was initially admitted to the hospital for alexia, with concerns of CVA. Head CT brain MRI and MRA carotid Doppler CT dissection was done which were all within normal limits. Patient's symptoms are most consistent with a TIA. Cardiology was also consulted along with Neurology. Patient had elevated blood pressure for past 3 weeks and has been getting adjusted with blood pressure medication while his primary care doctor's office. Patient however has not been able to control his blood pressure. Cardiology recommended the patient be started on metoprolol 200 mg instead of 100 mg. Patient blood pressure did stabilize here with new medication changes. After discussing the case with neurologist neurology recommended the patient to be discharged home under stable condition and plan be seen outpatient by or Neurology. Patient was advised to continue taking all his other medication except aspirin was increased to 325 was also prescribed Lipitor for statin along with Plavix as well. Patient demonstrated understanding and thus was discharged home under stable condition - Disposition Disposition: ROUTINE DISCHARGE Condition: GOOD Patient Discharge Instructions: Please followup with your primary care provider in about 1-2 days post discharge. Please followup with urology and cardiology in about 1 week post discharge. New medication. Aspirin 325 mg daily. Lipitor 40 mg daily. Change in medication. Metoprolol changed to 200 mg daily. Continue taking all her other medications as instructed by her primary care provider Diet: Regular Activity: Ad florencio
--- NOTE | 2019-05-24 13:47 | CON ---
Date of Consultation: 05/23/2019 Admitted to service on 05/23/2019. I saw the patient on 05/23/2019. Reason For Consultation: TIA. History Of Present Illness: Mr. Flowers is a 73-year-old white male. He sees in [facility] office on a regular basis. He has a history of diabetes, hypertension, what sounds like a chronic aortic dissection and an abdominal aortic aneurysm. He abdominal aneurysm ultrasound and apparently that has not changed in the size. He also has a history of hypertension and diabetes, bot h of which are well controlled. He came in with an episode of TIA, where he had some expressive apha isabel that lasted about an hour and then it went away. He was hypertensive 165/90, which is unusual fo r him. His glucose . Allergies: HE HAS NO ALLERGIES. Medications: At home include aspirin, Singulair, valsartan, venlafaxine, Plavix, Lipitor, insulin, a nd metoprolol. Review of Systems: Negative. Social History: Negative. Family History: Noncontributory. Physical Examination: Vital Signs: Stable except with blood pressure 165/90. He was afebrile. He was in sinus rhythm. HEENT: Negative. Neck: Supple without any lymphadenopathy, JVD, thyromegaly, or bruit. Chest: Clear to auscultation and percussion. Cardiac: Revealed a regular rhythm and rate . Abdomen: Obese but benign. Extremities: Revealed no clubbing, cyanosis, or edema. Skin: Dry and intact. Neurologic: He was nonfocal when I saw him. He had good pulses distally bilaterally. Diagnostic Data: Unremarkable. Impression And Plan: 1.Transient ischemic attack. 2.Diabetes. 3.Hypertension. 4.History of abdominal aortic aneurysm. 5.Dyslipidemia. 6.Chronic obstructive pulmonary disease. 7.Depression. I think Mr. Flowers needs his metoprolol increased to 100 b.i.d. to better control his blood pressu re. I think we will need to increase his aspirin from 81 mg to 325 mg. Continue the Plavix. Obtain a Neurology consult. I think he needs to have an echocardiogram and a carotid Doppler done. I am n ot so sure when Mr. Flowers's stress test was done in the office last, but he will need one mostly because of his risk factors in the near future. I will make arrangements for . We will se e what the echo, carotids, and neurological consultation says [facility] Voice ID: [id number] Report ID: [id number]
== END 2019-05-23 14:47 | disposition home or self-care (01) ==
LOC: ER 00:13 → 4TH 00:24 → ERHOLD 03:05
PROVIDERS: ADMIT Hospitalist; ATTEND Family Medicine
DX: G45.9 Transient cerebral ischemic attack, unspecified (principal); R48.0 Dyslexia and alexia; E11.9 Type 2 diabetes mellitus without complications; I10 Essential (primary) hypertension; E78.5 Hyperlipidemia, unspecified; J44.9 Chronic obstructive pulmonary disease, unspecified; F32.9 Major depressive disorder, single episode, unspecified; I45.10 Unspecified right bundle-branch block; R94.31 Abnormal electrocardiogram [ECG] [EKG]; Z79.82 Long term (current) use of aspirin; Z79.4 Long term (current) use of insulin; Z79.02 Long term (current) use of antithrombotics/antiplatelets; Z79.899 Other long term (current) drug therapy; Z87.891 Personal history of nicotine dependence; Z86.79 Personal history of other diseases of the circulatory system
CPT/HCPCS: 93005 ×2; 85025; 80048; 36415; 85610; 80061; 82962 ×3; 84484; 71275; 74175; 70450; 71045; 70553; 70544; 70549; 97163; 99285; Q9967; A9577; J1650; J7030; G0378 ×2; 81003; 81015

== ENCOUNTER 2022-01-28 10:38 | Emergency (ER) | payer OTHER ==
--- OUTSIDE RECORDS SUMMARY | 2022-01-28 10:41 | XMS REPORT | Continuity of Care Document ---
:1945 Author Organization [facility] t Address [address] [place] [address] Care Team Providers Name Role Phone Marquis Attending Clinician Unavailable Marquis Admitting Clinician Unavailable UNDEFINED Admitting Clinician Unavailable Payers Payer Name Policy Type Policy Number Effective Date Expiration Date S ource Problems This patient has no known problems. Allergies, Adverse Reactions, Alerts Allergy Allergy Status Severity Reaction(s) Onset Inactive Treating Comm ents Source Name Type Date Date Clinician No Known DA Active U [facility] Drug - Clear Allergie 00:00: [address] No Known DA Active U [facility] Drug 02-12 Clear Allergie 00:00: [address] Medications This patient has no known medications. Procedures Procedure Date / Time Performed Performing Clinician Moses ilir [id number] 2021-02-20 00:00:00 [email or web address] [facility] Or [facility] Encounters Start End Encounter Admission Attending Care Care Encounter Source Date/Time Date/Time Type Type Clinicians Facility Department ID 2021-02-20 Inpatient MAYDA Juan ADMI [id number] [facility] 10:05:00 [facility] [id number] [facility] 2021-02-12 Inpatient MAYDA ChoTO [id number] [facility] 10:30:00 [facility] [id number] [facility] 2021-02-12 2021-02-12 Outpatient MARIE Cho LABO [id number] 05-27 [facility] 17:40:00 17:40:00 Jose [id number] [facility] 2021-02-12 2021-02-12 Outpatient DANIELA ChoWU REFE [id number] 05-27 [facility] 15:57:00 15:57:00 Jose [id number] [facility] Results Test Description Test Time Test Comments Results Result Comments Source GLUBED 2021-02-21 11:40:00 Test Item Value Reference Range Interpretation Comme nts GLUBED (test code = GLUBED) 180 mg/dL 60-125 H BASIC METABOLIC [id number] 06:50:00 Test Item Value Reference Range Interpretation Comments SODIUM (test code = 144 mmol/L 136-145 N NA) POTASSIUM (test code = 5.1 mmol/L 3.5-5.1 N K) CHLORIDE (test code = 107.0 mmol/L 98-107 N CL) CARBON DIOXIDE (test 28.4 mmol/L 21-32 N code = CO2) GLUCOSE (test code = 104 mg/dL 70-110 N GLU) BLOOD UREA NITROGEN 26 mg/dL 7-18 H (test code = BUN) GLOMERULAR FILTRATION 58.6 >60 Unit o f measure: RATE (test code = GFR) mL/mi n/1.73 [id number] Range:Healthy Adults >90 mL/min/1.73 m2 For Chronic Kidney Disease: St age II Mild Decrease in GFR 60-90 St age III Moderate Decrease in GFR 30-59 Stage IV Severe Decre ase in GFR 15- 29 Stage V Kidney Failure <15 CREATININE (test code 1.21 mg/dL 0.55-1.30 N = CREAT) CALCIUM (test code = 8.3 mg/dL 8.2-10.1 N CA) HGB [id number] 05:52:00 Test Item Value Reference Range Interpretation Comments HEMOGLOBIN (test code = HGB) 11.7 g/dL 12-16 L HEMATOCRIT (test code = HCT) 36.7 % 37-47 L SPECIMEN COMMENT: POD #[id number] 05:06:00 Test Item Value Reference Range Interpretation Comments GLUBED (test code = GLUBED) 100 mg/dL 60-125 N [id number] 20:27:00 Test Item Value Reference Range Interpretation Comments GLUBED (test code = GLUBED) 168 mg/dL 60-125 H [id number] 13:05:00 Test Item Value Reference Range Interpretation Comments GLUBED (test code = GLUBED) 132 mg/dL 60-125 H [id number] 08:47:00 Test Item Value Reference Range Interpretation Comments GLUBED (test code = GLUBED) 123 mg/dL 60-125 N [id number] 10:12:00 Test Item Value Reference Range Interpretation Comments FRUCTOSAMINE (test code = 235 RE FERENCE INTERVAL : FRUC) 0-285 umol/L Novel Coronavirus 2018 [id number] 08:51:00 Test Item Value Reference Range Interpretation Comments Novel Coronavirus Negative Negative Positive r esults are 2019 Inhouse (test indicativ e of the presence code = COVNONPUI) ofSARS-CoV -2 RNA, clinical correlation wit h patient historyand othe r diagnostic info rmation is necessary to determinepatien t infection status. Positiv e results do not rule out bacterial infection or co -infection with other viru ses. Negative result s do not preclude SARS-C oV-2 infection andsh ould not be used as the aranza e basis for patient managementdecis ions. Negative result s must be combined with otherclinical observations, p atient history, and epidemiological information . Detection of SARS-CoV-2 RNA may be affe cted bysample collec tion methods, storag e conditions, and /or stageof infection. Krysten l RNA mutations, vacc inations, antiviraltherap eutics, antibiotics, chemotherapeuti c orimmunosuppres eduard drugs have not been e valuated for effectson d etection. Results are for the identification of SARS-CoV-2 RNA usingthe Gutierrez M2000 Sy stem under the FDA Emergen cy UseAuthorizatio n. The testing is perf ormed by personneltraine d in the procedures for the Gutierrez M2000 molecular diagnostic SARS-CoV-2 assa y in vitro. Novel Coronavirus 2018 [id number] 08:51:00 Test Item Value Reference Range Interpretation Comments Novel Coronavirus Negative Negative Positive r esults are 2019 Inhouse (test indicativ e of the presence code = COVNONPUI) ofSARS-CoV -2 RNA, clinical correlation wit h patient historyand othe r diagnostic info rmation is necessary to determinepatien t infection status. Positiv e results do not rule out bacterial infection or co -infection with other viru ses. Negative result s do not preclude SARS-C oV-2 infection andsh ould not be used as the aranza e basis for patient managementdecis ions. Negative result s must be combined with otherclinical observations, p atient history, and epidemiological information . Detection of SARS-CoV-2 RNA may be affe cted bysample collec tion methods, storag e conditions, and /or stageof infection. Krysten l RNA mutations, vacc inations, antiviraltherap eutics, antibiotics, chemotherapeuti c orimmunosuppres eduard drugs have not been e valuated for effectson d etection. Results are for the identification of SARS-CoV-2 RNA usingthe TechflakesGB M2000 Sy stem under the FDA Emergen cy UseAuthorizatio n. The testing is perf ormed by personneltraine d in the procedures for the [employer]akes[employer] M2000 molecular diagnostic SARS-CoV-2 assa y in vitro. GLYCOSYLATED HEMOGLOBIN (HA1C)2021-02-12 18:00:00 Test Item Value Reference Range Interpretation Comments GLYCOSYLATED 6.6 % 4.8-5.9 H Any condition t hat shortens HEMOGLOBIN (HA1C) erythocyte survival or (test code = GLYHGB) decreas esmean erythrocyte age (e.g., wilmer very from acute blood los s,hemolytic anemai) will fa lsely lower HGBA1c resultsr egardless of the method used . HGBA1c results frompat ients with HbSS, HbCC and HbSc must be interpreted wit hcaution given the patho logical processes, incl uding anemia,increase d red cell turnover, trans fusion requirements, t hatadversely impact HGBA1c a s a marker of long-term glycemiccontrol . Alternative for ms of testing such as fructosaminesho uld be considered for these patients.Any co ndition that shortens erytho cyte survival or dec reasesmean erythrocyte age (e.g., recovery from a cute blood loss,hemolytic anemia) will falsely lower H GBA1c resultsregardle ss of the method used. H GBA1c results from mallorie butler HbSS, HbCC, and HbSc must be interpreted with cautiongiven th e pathological pr ocesses, including anemi a,increased red cell turnov er, transfusion req uirements, thatadversely i mpact HGBA1c as a marker of long-term glycemiccontrol . Alternative for ms of testing such as fructosaminesho uld be considered for these patients.DONE A T: [facility] [id number] [place] [address] GLYCOSYLATED HEMOGLOBIN (HA1C)2021-02-12 17:59:00 Test Item Value Reference Range Interpretation Comments GLYCOSYLATED 6.6 % 4.8-5.9 H Any condition t hat shortens HEMOGLOBIN (HA1C) erythocyte survival or (test code = GLYHGB) decreas esmean erythrocyte age (e.g., wilmer very from acute blood los s,hemolytic anemia) will fa lsely lower HGBA1c resultsr egardless of the method used . HGBA1c results from mallorie butler HbSS, HbCC, and HbSc must be interpreted with cautiongiven th e pathological pr ocesses, including anemi a,increased red cell turnov er, transfusion req uirements, thatadversely i mpact HGBA1c as a marker of long-term glycemiccontrol . Alternative for ms of testing such as fructosaminesho uld be considered for these patients. COMPREHENSIVE METABOLIC [id number] 12:19:00 Test Item Value Reference Range Interpretation Comments SODIUM (test code = 143 mmol/L 136-145 N NA) POTASSIUM (test code = 4.9 mmol/L 3.5-5.1 N K) CHLORIDE (test code = 104.0 mmol/L 98-107 N CL) CARBON DIOXIDE (test 32.0 mmol/L 21-32 N code = CO2) GLUCOSE (test code = 113 mg/dL 70-110 H GLU) BLOOD UREA NITROGEN 17 mg/dL 7-18 N (test code = BUN) GLOMERULAR FILTRATION 64.1 >60 Unit o f measure: RATE (test code = GFR) mL/mi n/1.73 [id number] Range:Healthy Adults >90 mL/min/1.73 m2 For Chronic Kidney Disease: St age II Mild Decrease in GFR 60-90 St age III Moderate Decrease in GFR 30-59 Stage IV Severe Decre ase in GFR 15- 29 Stage V Kidney Failure <15 CREATININE (test code 1.12 mg/dL 0.55-1.30 N = CREAT) TOTAL PROTEIN (test 6.9 g/dL 6.4-8.2 N code = PROT) ALBUMIN (test code = 3.9 g/dL 3.4-5.0 N ALB) GLOBULIN (test code = 3.0 g/dL 2.2-4.2 N GLOB) ALBUMIN/GLOBULIN RATIO 1.3 0.7-2.0 N (test code = A/G) CALCIUM (test code = 9.0 mg/dL 8.2-10.1 N CA) BILIRUBIN TOTAL (test 0.70 mg/dL 0.2-1.00 N code = BILT) SGOT/AST (test code = 26.0 U/L 15-37 N AST) SGPT/ALT (test code = 37.0 U/L 12-78 N Please note new ALT) normal range. ALKALINE PHOSPHATASE 77 U/L 46-116 N TOTAL (test code = ALKP) PROTHROMBIN [id number] 12:18:00 Test Item Value Reference Range Interpretation Comments PROTHROMBIN TIME 10.9 secs 10.1-12.5 N PATIENT (test code = PTP) INTERNATIONAL NORMAL 0.96 <2.0 RECOMME NDED THERAPEUTIC RATIO (test code = RANGE FOR ORAL INR) ANTICOAGULANTTR EATMENT: CONDI TION INRProphylaxis of venous thrombos is in 2.0 - 3.0 high-risk medic al or surgical patientsTreatme nt of venous thrombos is 2.0 - 3.0Prevention o f embolism 2.0 - 3.0Prevention o f recurrent embol ism, or 3.0 - 4. 5 patients with mechanical pros thetic intravascular v mauro IS PATIENT ON ANTICOAGULANTS ? KSas Lab been notified if Patient is on Heparin Drip? NOIf Yes, orderCBC, OCCULT BLOOD, PT every other day NTHROMBOPLASTIN TIME [id number] 12:18:00 Test Item Value Reference Range Interpretation Comments PTT ACTIVATED (test code = APTT) 31.3 secs 24.9-37.0 N IS PATIENT ON ANTICOAGULANTS ? NHas Lab been notified if Patient is on Heparin Drip? NOIf Yes, orderCBC, OCCULT BLOOD, PT every other day NCBC W/AUTO DIFF 2021-02-12 11:48:00 Test Item Value Reference Range Interpretation Comments WHITE BLOOD CELL (test code = WBC) 8.0 K/mm3 5.7-10.5 N RED BLOOD CELL (test code = RBC) 4.75 M/mm3 4.2-5.4 N HEMOGLOBIN (test code = HGB) 14.7 g/dL 12-16 N HEMATOCRIT (test code = HCT) 44.5 % 37-47 N MEAN CELL VOLUME (test code = MCV) 94 fL 80-98 N MEAN CELL HGB (test code = MCH) 30.9 pg 27-34 N MEAN CELL HGB CONCENTRATION (test 33.0 g/dL 30.8-34.1 N code = MCHC) RED CELL DISTRIBUTION WIDTH (test 13.3 % 11-16 N code = RDW) PLT (test code = PLT) 161 K/mm3 130-400 N MEAN PLATELET VOLUME (test code = 9.9 fL 8.9-12.1 N MPV) NEUTROPHIL % (test code = NT%) 61.6 % 45-70 N LYMPHOCYTE % (test code = LY%) 23.5 % 20-40 N MONOCYTE % (test code = MO%) 9.4 % 3-10 N EOSINOPHIL % (test code = EO%) 4.3 % 1-5 N BASOPHIL % (test code = BA%) 0.8 % 0.0-1.1 N NEUTROPHIL # (test code = NT#) 4.90 K/mm3 2.00-7.50 N LYMPHOCYTE # (test code = LY#) 1.87 K/mm3 1.50-4.00 N MONOCYTE # (test code = MO#) 0.75 K/mm3 0.2-0.8 N EOSINOPHIL # (test code = EO#) 0.34 K/mm3 0.04-0.4 N BASOPHIL # (test code = BA#) 0.06 K/mm3 0.02-0.10 N MANUAL DIFF REQUIRED (test code = NO MANUAL DIFF MDIFF) NUCLEATED RED BLOOD CELL (test 0 % 0-0 N code = NRBC)
[2022-01-28] MEDS ORDERED: LIDOCAINE 1% W/EPI 1:100,000 MDV 50 ML VIAL ONE (11:07)
[2022-01-28] MEDS ORDERED: TETANUS & DIPHTHERIA TOX,ADULT 0.5 ML VIAL ONE (12:00)
[2022-01-28] MEDS ORDERED: DERMABOND SKIN ADHESIVE TOP ONE (12:00)
--- NOTE | 2022-01-28 12:22 | EDPHYS ---
Physician Documentation [facility] Name: Chaz Flowers Age: 76 yrs Sex: Male : 1945 Arrival Date: 01/28/2022 Time: 10:42 Bed 5 Private MD: ED Physician Hany Ricci HPI: 01/28 11:01 This 76 yrs old Male presents to ER via Ambulatory with complaints of Laceration To [facility] Head. 11:01 Onset: The symptoms/episode began/occurred acutely, just prior to arrival. Associated [facility] signs and symptoms: Pertinent negatives: heavy bleeding, loss of consciousness, numbness distal to injury, suspected foreign body. This is a 76-year-old male with history of diabetes mellitus, hypertension the presents emerged department after a laceration to his head. Patient states he was walking and grazed his head against a metal shed. This occurred yesterday. Patient is not up-to-date on tetanus immunization. Wound continued to bleed, patient does take anticoagulants. Historical: - Allergies: 10:50 NKA; ab2 - Home Meds: 10:50 Plavix Oral once daily [Active]; Edith Oral daily [Active]; Lipitor Oral nightly ab2 [Active]; losartan 25 mg Oral tab 1 tab once daily [Active]; metformin 500 mg Oral tab 1 tab 2 times per day [Active]; metoprolol succinate 100 mg Oral Tb24 1 tab once daily [Active]; Singulair 10 mg Oral tab 1 tab once daily [Active]; venlafaxine 37.5 mg oral tab [Active]; - PMHx: 10:50 AAA; Diabetes - NIDDM; Hypertension; ab2 - Immunization history:: Adult Immunizations up to date, Client reports receiving the 2nd dose of the Covid vaccine. - Social history:: Smoking status: Patient denies any tobacco usage or history of. ROS: 11:01 Constitutional: Negative for fever, chills, and weight loss, Cardiovascular: Negative jm for chest pain, palpitations, and edema, Respiratory: Negative for shortness of breath, cough, wheezing, and pleuritic chest pain. 11:01 Skin: Positive for laceration(s). 11:01 All other systems are negative. Exam: 11:01 Constitutional: This is a well developed, well nourished patient who is awake, alert, jmm and in no acute distress. 11:01 Eyes: EOMI, no conjunctival erythema appreciated ENT: Moist Mucus Membranes Neck: Trachea midline, Supple Chest/axilla: Normal chest wall appearance and motion. Cardiovascular: Regular rate and rhythm. No edema appreciated Respiratory: Normal respirations, no respiratory distress appreciated Abdomen/GI: Non distended, soft Back: Normal ROM Skin: General appearance color normal 11:01 Head/face: 4 cm laceration noted to the top of the head. 11:01 Musculoskeletal/extremity: ROM: intact in all extremities. 11:01 Skin: Appearance: Color: normal in color. 11:01 Neuro: Orientation: is normal, Mentation: is normal, Memory: is normal. Vital Signs: 10:51 BP 134 / 95; Pulse 52; Resp 16; Temp 97.8(TE); Pulse Ox 98% on R/A; Weight 83.91 kg; ab2 Height 5 ft. 11 in. (180.34 cm); Pain 2/10; 11:10 BP 151 / 96; ap3 11:30 BP 94 / 80; Pulse 49; Resp 17 S; Pulse Ox 97% on R/A; jg9 10:51 Body Mass Index 25.80 (83.91 kg, 180.34 cm) ab2 Laceration: 12:20 Wound Repair of 4cm ( 1.6in ) subcutaneous laceration to scalp. Distal jmm neuro/vascular/tendon intact. Wound prep: Extensive cleansing by nurse. Skin closed with 1 thin layer Adhesive skin closure using Dermabond. Patient tolerated well. MDM: 11:44 Patient medically screened. [facility] 12:21 Data reviewed: vital signs, nurses notes. Counseling: I had a detailed discussion with nisha the patient and/or guardian regarding: the historical points, exam findings, and any diagnostic results supporting the discharge/admit diagnosis, the need for outpatient follow up, to return to the emergency department if symptoms worsen or persist or if there are any questions or concerns that arise at home. ED course: Wound was closed due to continued bleeding secondary to anticoagulant use. Family and patient given wound infection return precautions. Will cover patient with antibiotics. Patient otherwise given strict return precautions. Patient understood agrees plan of care.. 01/28 11:45 Order name: Dermabond; Complete Time: 12:27 jmm Administered Medications: 12:10 Drug: Tetanus-Diphtheria Toxoid Adult 0.5 ml {Technician Automatic: [employer]. Exp: jg9 03/28/2023. Lot #: [id number]. } Route: IM; Site: right deltoid; 12:11 Follow up: Response: No adverse reaction jg9 12:27 Not Given (Other Intervention Used): Lidocaine-Epinephrine -1%: (1:100,000) 20 ml 20 ml jg9 Infiltration once; to bedside Disposition: 12:57 Co-signature as Attending Physician, Hany Ricci MD. rn Disposition Summary: 01/28/22 12:21 Discharge Ordered Location: Home [facility] Condition: Stable [facility] Diagnosis - Laceration of the Scalp [facility] Followup: [facility] - With: Private Physician - When: 2 - 3 days - Reason: Recheck today's complaints, Continuance of care, Re-evaluation by your physician Discharge Instructions: - Discharge Summary Sheet [facility] - Facial Laceration [facility] - Sutures, [place], or Adhesive Wound Closure [facility] Forms: - Medication Reconciliation Form [facility] - Thank You Letter [facility] - Antibiotic Education [facility] - Prescription Opioid Use [facility] Prescriptions: - cefdinir 300 mg Oral capsule - take 1 capsule by ORAL route every 12 hours for 7 days; 14 capsule; Refills: 0, [facility] Product Selection Permitted Signatures: Bhaskar Guillen PA PA [facility] Hany Ricci MD MD rn Gilmore, Jennifer, RN RN jg9 Chiki Adames
--- NOTE | 2022-01-28 12:22 | ER ---
Nurse's Notes [facility] Name: Chaz Flowers Age: 76 yrs Sex: Male : 1945 Arrival Date: 01/28/2022 Time: 10:42 Bed 5 Private MD: Diagnosis: Laceration of the Scalp Presentation: 01/28 10:51 Chief complaint: Patient states: "Yesterday about 1630 I was walking and tried to duck ab2 under an awning and caught it on the sheet metal." Pt is on blood thinners. Pt denies LOC. Coronavirus screen: Vaccine status: Patient reports receiving the 2nd dose of the covid vaccine. Client denies travel out of the [place] in the last 14 days. At this time, the client does not indicate any symptoms associated with coronavirus-19. Ebola Screen: Patient negative for fever greater than or equal to 101.5 degrees Fahrenheit, and additional compatible Ebola Virus Disease symptoms Patient denies exposure to infectious person. Patient denies travel to an Ebola-affected area in the 21 days before illness onset. No symptoms or risks identified at this time. Initial Sepsis Screen: Does the patient meet any 2 criteria? No. Patient's initial sepsis screen is negative. Does the patient have a suspected source of infection? No. Patient's initial sepsis screen is negative. Risk Assessment: Do you want to hurt yourself or someone else? Patient reports no desire to harm self or others. Onset of symptoms is unknown. 10:51 Method Of Arrival: Ambulatory ab2 10:51 Acuity: BRADY 3 ab2 11:10 Complicating Factors: There are no complicating factors for this patient. ap3 Triage Assessment: 10:53 General: Appears in no apparent distress. comfortable, Behavior is calm, cooperative, ab2 appropriate for age. Pain: Complains of pain in left frontal area Pain currently is 2 out of 10 on a pain scale. Injury Description: Laceration sustained to left frontal area. Historical: - Allergies: 10:50 NKA; ab2 - Home Meds: 10:50 Plavix Oral once daily [Active]; Edith Oral daily [Active]; Lipitor Oral nightly ab2 [Active]; losartan 25 mg Oral tab 1 tab once daily [Active]; metformin 500 mg Oral tab 1 tab 2 times per day [Active]; metoprolol succinate 100 mg Oral Tb24 1 tab once daily [Active]; Singulair 10 mg Oral tab 1 tab once daily [Active]; venlafaxine 37.5 mg oral tab [Active]; - PMHx: 10:50 AAA; Diabetes - NIDDM; Hypertension; ab2 - Immunization history:: Adult Immunizations up to date, Client reports receiving the 2nd dose of the Covid vaccine. - Social history:: Smoking status: Patient denies any tobacco usage or history of. Screenin:10 Abuse screen: Denies threats or abuse. Nutritional screening: No deficits noted. ap3 Tuberculosis screening: No symptoms or risk factors identified. Fall Risk None identified. Assessment: 11:09 General: Appears in no apparent distress. comfortable, Behavior is calm, cooperative, ap3 appropriate for age. Pain: Complains of pain in left frontal area Pain began suddenly, 1 day ago. Neuro: Level of Consciousness is awake, alert, obeys commands, Oriented to person, place, time, situation, Gait is steady, Speech is normal. Cardiovascular: Patient's skin is warm and dry. Respiratory: Airway is patent Respiratory effort is even, unlabored, Respiratory pattern is regular, symmetrical. Musculoskeletal: Range of motion: intact in all extremities. Injury Description: Laceration is clean, lightly bleeding at this time. 12:30 Reassessment: Patient states symptoms have improved. jg9 Vital Signs: 10:51 BP 134 / 95; Pulse 52; Resp 16; Temp 97.8(TE); Pulse Ox 98% on R/A; Weight 83.91 kg; ab2 Height 5 ft. 11 in. (180.34 cm); Pain 2/10; 11:10 BP 151 / 96; ap3 11:30 BP 94 / 80; Pulse 49; Resp 17 S; Pulse Ox 97% on R/A; jg9 10:51 Body Mass Index 25.80 (83.91 kg, 180.34 cm) ab2 ED Course: 10:42 Patient arrived in ED. kz 10:53 Triage completed. ab2 10:54 Arm band placed on right wrist. ab2 10:59 Bhaskar Guillen PA is PHCP. [facility] 11:00 Hany Ricci MD is Attending Physician. jm 11:09 Prokisch, Joann, RN is Primary Nurse. ap3 11:10 Patient has correct armband on for positive identification. Bed in low position. Call ap3 light in reach. Side rails up X 1. Adult w/ patient. Pulse ox on. NIBP on. Door closed. Noise minimized. 12:12 No apparent distress. Resting quietly. Awaiting ED provider evaluation. jg9 12:33 No provider procedures requiring assistance completed. jg9 12:33 Patient did not have IV access during this emergency room visit. jg9 Administered Medications: 12:10 Drug: Tetanus-Diphtheria Toxoid Adult 0.5 ml {Automobile Parker: [employer]. Exp: jg9 03/28/2023. Lot #: [id number]. } Route: IM; Site: right deltoid; 12:11 Follow up: Response: No adverse reaction jg9 12:27 Not Given (Other Intervention Used): Lidocaine-Epinephrine -1%: (1:100,000) 20 ml 20 ml jg9 Infiltration once; to bedside Outcome: 12:21 Discharge ordered by MD. cameron 12:33 Discharged to home ambulatory. jg9 12:33 Condition: improved 12:33 Discharge instructions given to patient, Instructed on discharge instructions, follow up and referral plans. Demonstrated understanding of instructions, follow-up care, Prescriptions given X 1. 12:34 Patient left the ED. jg9 Signatures: Bhaskar Guillen PA PA jmm Prokisch, Amanda RN RN ap3 Chhaya Sneed RN RN jg9 Chiki Adames Kelly kz
[2022-01-28 12:40] VITALS: TEMP 97.8
[2022-01-28 12:42] VITALS: BP 94/80; O2SAT 97
== END 2022-01-28 12:34 | disposition home or self-care (01) ==
LOC: ER 10:38
PROC: 0JQ00ZZ Repair Scalp Subcutaneous Tissue and Fascia, Open Approach (ICD-10-PCS; principal; 2022-01-28)
DX: S01.01XA Laceration without foreign body of scalp, initial encounter (principal); W26.8XXA Contact with other sharp object(s), not elsewhere classified, initial encounter; Y93.01 Activity, walking, marching and hiking; E11.9 Type 2 diabetes mellitus without complications; I10 Essential (primary) hypertension; Z23 Encounter for immunization; Z79.01 Long term (current) use of anticoagulants
CPT/HCPCS: 90471; 90714; 99283

== ENCOUNTER 2022-04-06 21:47 | Emergency (ER) | payer OTHER ==
--- OUTSIDE RECORDS SUMMARY | 2022-04-06 21:50 | XMS REPORT | Continuity of Care Document ---
:1945 Author Organization [facility] t Address [address] [place] [address] Care Team Providers Name Role Phone Marquis Attending Clinician Unavailable Marquis Admitting Clinician Unavailable UNDEFINED Admitting Clinician Unavailable Payers Payer Name Policy Type Policy Number Effective Date Expiration Date S ource Problems This patient has no known problems. Allergies, Adverse Reactions, Alerts Allergy Allergy Status Severity Reaction(s) Onset Inactive Treating Comm ents Source Name Type Date Date Clinician No Known DA Active U [facility] - Clear Allergie 00:00: [address] No Known DA Active U [facility] 02-12 Clear Allergie 00:00: [address] Medications This patient has no known medications. Procedures Procedure Date / Time Performed Performing Clinician Moses ilir [id number] 2021-02-20 00:00:00 [email or web address] [facility] Encounters Start End Encounter Admission Attending Care Care Encounter Source Date/Time Date/Time Type Type Clinicians Facility Department ID 2021-02-20 Inpatient MAYDA Juan ADMI [id number] [facility] 10:05:00 Jose [id number] [facility] 2021-02-12 Inpatient MAYDA ChoTO [id number] [facility] 10:30:00 Jose [id number] [facility] 2021-02-12 2021-02-12 Outpatient MARIE Cho LABO [id number] 05-27 [facility] 17:40:00 17:40:00 Jose [id number] [facility] 2021-02-12 2021-02-12 Outpatient DANIELA ChoWU REFE [id number] 05-27 [facility] 15:57:00 15:57:00 Jose [id number] [facility] Results Test Description Test Time Test Comments Results Result Comments Source GLUBED 2021-02-21 11:40:00 Test Item Value Reference Range Interpretation Comme nts GLUBED (test code = GLUBED) 180 mg/dL 60-125 H BASIC METABOLIC [id number] 06:50:00 Test Item Value Reference Range Interpretation [...] RATE (test code = GFR) mL/mi n/1.73 [id number] Range:Healthy Adults >90 mL/min/1.73 m2 For Chronic Kidney Disease: St age II Mild Decrease in GFR 60-90 St age III Moderate Decrease in GFR 30-59 Stage IV Severe Decre ase in GFR 15- 29 Stage V Kidney Failure <15 CREATININE (test code 1.21 mg/dL 0.55-1.30 N = CREAT) CALCIUM (test code = 8.3 mg/dL 8.2-10.1 N CA) HGB [id number] 05:52:00 Test Item Value Reference Range Interpretation Comments HEMOGLOBIN (test code = HGB) 11.7 g/dL 12-16 L HEMATOCRIT (test code = HCT) 36.7 % 37-47 L SPECIMEN COMMENT: POD #[id number] 05:06:00 Test Item Value Reference Range Interpretation Comments GLUBED (test code = GLUBED) 100 mg/dL 60-125 N [id number] 20:27:00 Test Item Value Reference Range Interpretation Comments GLUBED (test code = GLUBED) 168 mg/dL 60-125 H [id number] 13:05:00 Test Item Value Reference Range Interpretation Comments GLUBED (test code = GLUBED) 132 mg/dL 60-125 H [id number] 08:47:00 Test Item Value Reference Range Interpretation Comments GLUBED (test code = GLUBED) 123 mg/dL 60-125 N [id number] 10:12:00 Test Item Value Reference Range Interpretation Comments FRUCTOSAMINE (test code = 235 RE FERENCE INTERVAL : FRUC) 0-285 umol/L Novel Coronavirus 2018 [id number] 08:51:00 Test Item Value Reference Range Interpretation [...] assa y in vitro. Novel Coronavirus 2018 [id number] 08:51:00 Test Item Value Reference Range Interpretation [...] for the identification of SARS-CoV-2 RNA usingthe [employer] M2000 Sy stem under the FDA Emergen cy UseAuthorizatio n. The testing is perf ormed by personneltraine d in the procedures for the [employer] M2000 molecular diagnostic SARS-CoV-2 assa y in [...] be considered for these patients.DONE A T: [facility] [id number] [place] [address] GLYCOSYLATED HEMOGLOBIN (HA1C)2021-02-12 17:59:00 Test Item Value [...] be considered for these patients. COMPREHENSIVE METABOLIC [id number] 12:19:00 Test Item Value Reference Range Interpretation [...] RATE (test code = GFR) mL/mi n/1.73 [id number] Range:Healthy Adults >90 mL/min/1.73 m2 For Chronic [...] N TOTAL (test code = ALKP) PROTHROMBIN [id number] 12:18:00 Test Item Value Reference Range Interpretation [...] v mauro IS PATIENT ON ANTICOAGULANTS ? PRas Lab been notified if Patient is on Heparin Drip? NOIf Yes, orderCBC, OCCULT BLOOD, PT every other day NTHROMBOPLASTIN TIME [id number] 12:18:00 Test Item Value Reference Range Interpretation [...]
[2022-04-07] MEDS ORDERED: ONDANSETRON 4 MG/2 ML VIAL ONE (02:54)
[2022-04-07] MEDS ORDERED: NA CHLORIDE 0.9% 1,000 ML ONE (02:55)
[2022-04-07 04:30] LABS: Absolute Lymphocytes (CBC) 0.5 K/uL (0.7-4.9); Hematocrit 49.5 % (39.6-49.0); Lymphocytes % 6.6 % (15.3-44.8); MPV 8.1 fL (7.6-11.3); RBC Red Blood Cell Count 5.32 M/uL (4.33-5.43)
[2022-04-07 04:32] LABS: Urine Blood Trace-intact (Negative); Urine Glucose Negative (Negative); Urine Protein 1+ (Negative); Urine Specific Gravity >=1.030 (1.005-1.030); Urine pH 5.5 (5.0-7.0)
[2022-04-07 04:49] LABS: Albumin 3.9 g/dL (3.4-5.0); Bilirubin Total 0.7 mg/dL (0.2-1.0); Protein, Total 7.3 g/dL (6.4-8.2)
--- NOTE | 2022-04-07 05:57 | EDPHYS ---
Physician Documentation [facility] Name: Chaz Flowers Age: 76 yrs Sex: Male : 1945 Arrival Date: 04/06/2022 Time: 21:51 Bed 23 Private MD: ED Physician Milind Hernandez HPI: 04/07 01:30 This 76 yrs old Male presents to ER via Ambulatory with complaints of Nausea/Vomiting. mh7 01:30 The patient presents to the emergency department with nausea, that is moderate, mh7 vomiting, that is intermittent, described as clear fluid, diarrhea, that is intermittent. Onset: The symptoms/episode began/occurred last night. Possible causes: unknown. The symptoms are aggravated by nothing. The symptoms are alleviated by nothing. Associated signs and symptoms: Pertinent negatives: abdominal pain, anorexia, belching, constipation, fever, flatulence, GI bleeding, hematuria. Severity of symptoms: At their worst the symptoms were moderate last night, in the emergency department the symptoms have improved moderately. Historical: - Allergies: 04/06 22:31 NKA; jb4 - Home Meds: 22:31 Edith Oral daily [Active]; Lipitor Oral nightly [Active]; losartan 25 mg Oral tab 1 jb4 tab once daily [Active]; metformin 500 mg Oral tab 1 tab 2 times per day [Active]; Plavix Oral once daily [Active]; venlafaxine 37.5 mg Oral tab [Active]; metoprolol succinate 100 mg Oral Tb24 1 tab once daily [Active]; Singulair 10 mg Oral tab 1 tab once daily [Active]; - PMHx: 22:31 AAA; Diabetes - NIDDM; Hypertension; jb4 - Immunization history:: Adult Immunizations up to date. - Social history:: Smoking status: Patient denies any tobacco usage or history of. ROS: 04/07 01:30 Constitutional: Negative for fever, chills, and weight loss, Eyes: Negative for injury, mh7 pain, redness, and discharge, Cardiovascular: Negative for chest pain, palpitations, and edema, Respiratory: Negative for shortness of breath, cough, wheezing, and pleuritic chest pain, Back: Negative for injury and pain, : Negative for injury, bleeding, discharge, and swelling, Skin: Negative for injury, rash, and discoloration, Neuro: Negative for headache, weakness, numbness, tingling, and seizure, Allergy/Immunology: Negative for hives, rash, and allergies, Endocrine: Negative for neck swelling, polydipsia, polyuria, polyphagia, and marked weight changes, Hematologic/Lymphatic: Negative for swollen nodes, abnormal bleeding, and unusual bruising. Exam: 01:30 Head/Face: Normocephalic, atraumatic. Eyes: Pupils equal round and reactive to light, mh7 extra-ocular motions intact. Lids and lashes normal. Conjunctiva and sclera are non-icteric and not injected. Cornea within normal limits. Periorbital areas with no swelling, redness, or edema. Neck: Trachea midline, no thyromegaly or masses palpated, and no cervical lymphadenopathy. Supple, full range of motion without nuchal rigidity, or vertebral point tenderness. No Meningismus. Chest/axilla: Normal chest wall appearance and motion. Nontender with no deformity. No lesions are appreciated. Cardiovascular: Regular rate and rhythm with a normal S1 and S2. No gallops, murmurs, or rubs. Normal PMI, no JVD. No pulse deficits. Respiratory: Lungs have equal breath sounds bilaterally, clear to auscultation and percussion. No rales, rhonchi or wheezes noted. No increased work of breathing, no retractions or nasal flaring. Abdomen/GI: Soft, non-tender, with normal bowel sounds. No distension or tympany. No guarding or rebound. No evidence of tenderness throughout. Back: No spinal tenderness. No costovertebral tenderness. Full range of motion. Skin: Warm, dry with normal turgor. Normal color with no rashes, no lesions, and no evidence of cellulitis. MS/ Extremity: Pulses equal, no cyanosis. Neurovascular intact. Full, normal range of motion. Neuro: Awake and alert, GCS 15, oriented to person, place, time, and situation. Cranial nerves II-XII grossly intact. Motor strength 5/5 in all extremities. Sensory grossly intact. Cerebellar exam normal. Normal gait. Psych: Awake, alert, with orientation to person, place and time. Behavior, mood, and affect are within normal limits. 01:30 Constitutional: The patient appears in no acute distress, alert, awake, uncomfortable. Vital Signs: 04/06 22:32 BP 101 / 66; Pulse 104; Resp 16; Temp 97.5; Pulse Ox 91% on R/A; Weight 83.91 kg (R); jb4 Height 5 ft. 11 in. (180.34 cm) (R); Pain 03/17; 04/07 01:52 BP 132 / 77; Pulse 90; Resp 17; Pulse Ox 96% on R/A; ll3 03:59 BP 107 / 87; Pulse 55; Resp 16; Pulse Ox 96% on R/A; ll3 05:25 BP 140 / 79; Pulse 71; Resp 17; Pulse Ox 97% on R/A; ll3 04/06 22:32 Body Mass Index 25.80 (83.91 kg, 180.34 cm) jb4 MDM: 05:50 Differential diagnosis: Nonspecific abd pain, gastritis, diverticulitis, viral 7 gastroenteritis, gastroenteritis. 05:50 Data reviewed: vital signs, nurses notes, old medical records, lab test result(s), CBC, [facility] electrolytes, radiologic studies, CT scan. Counseling: I had a detailed discussion with the patient and/or guardian regarding: the historical points, exam findings, and any diagnostic results supporting the discharge/admit diagnosis, the presence of at least one elevated blood pressure reading (>120/80) during this emergency department visit, lab results, radiology results, the need for outpatient follow up, to return to the emergency department if symptoms worsen or persist or if there are any questions or concerns that arise at home. Response to treatment: the patient's symptoms have resolved after treatment, the patient's blood pressure is in an acceptable range, mental status has returned to baseline, the patient no longer shows bradycardia, the patient is not short of breath, the patient is not tachycardic, the patient's pain is gone, the patient's temperature has normalized, the patient is now symptom free, patient is well hydrated. 05:57 Patient medically screened. [facility] 04/07 01:52 Order name: CBC with Diff; Complete Time: 05:03 [facility] 04/07 01:52 Order name: CMP; Complete Time: 05:03 [facility] 04/07 01:52 Order name: Lipase; Complete Time: 05:03 [facility] 04/07 02:46 Order name: CT Abd/Pelvis - Without Contrast [facility] 04/07 04:32 Order name: Urine Dipstick-Ancillary; Complete Time: 05:03 [facility] 04/07 01:52 Order name: IV Saline Lock; Complete Time: 03:58 [facility] 04/07 01:52 Order name: Labs collected and sent; Complete Time: 03:48 [facility] 04/07 01:52 Order name: Urine Dipstick-Ancillary (obtain specimen); Complete Time: 04:32 [facility] Administered Medications: 01:58 Not Given (Physicians discressionn): Pepcid (famotidine) 20 mg IVP once; dilute with 10 ll3 mL 0.9% NaCl; give over 2 minutes 03:58 Drug: NS 0.9% 1000 ml Route: IV; Rate: 1 bolus; Site: left wrist; ll3 06:12 Follow up: Response: No adverse reaction; IV Status: Completed infusion; IV Intake: ll3 1000ml 03:59 Drug: Zofran (Ondansetron) 4 mg Route: IVP; Site: left wrist; ll3 06:13 Follow up: Response: No adverse reaction; Marked relief of symptoms ll3 Disposition Summary: 04/07/22 05:57 Discharge Ordered Location: Home [facility] Problem: new [facility] Symptoms: are resolved [facility] Condition: Stable [facility] Diagnosis - Nausea with vomiting, unspecified [facility] - Diarrhea, unspecified [facility] - Cholelithiasis [facility] Followup: [facility] - With: Private Physician - When: 1 - 2 days - Reason: Worsening of condition, Recheck today's complaints, Continuance of care, Re-evaluation by your physician Followup: [facility] - With: Marek Ballesteros MD - When: 1 - 2 days - Reason: Worsening of condition, Recheck today's complaints, Continuance of care, Re-evaluation by your physician Discharge Instructions: - Discharge Summary Sheet [facility] - Cholelithiasis, [id number] 7 - Nausea and Vomiting, Adult, Adqw-[id number] [facility] - Diarrhea, Adult, [id number]-[id number] [facility] Forms: - Medication Reconciliation Form [facility] - Thank You Letter [facility] - Antibiotic Education [facility] - Prescription Opioid Use [facility] Prescriptions: - ondansetron 4 mg Oral tablet,disintegrating - place 1 tablet by TRANSLINGUAL route every 8 hours As needed; 10 tablet; [facility] Refills: 0, Product Selection Permitted - Pepcid 20 mg Oral Tablet - take 1 tablet by ORAL route every 12 hours for 5 days; 10 tablet; Refills: 0, [facility] Product Selection Permitted - dicyclomine 20 mg Oral Tablet - take 1 tablet by ORAL route 4 times per day As needed; 20 tablet; Refills: 0, 7 Product Selection Permitted Signatures: Dispatcher [employer] Lisandro Braxton RN RN jb4 Milind Hernandez MD MD mh7 Haroldo Nash RN RN ll3
--- NOTE | 2022-04-07 05:57 | ER ---
Nurse's Notes [facility] Name: Chaz Flowers Age: 76 yrs Sex: Male : 1945 Arrival Date: 04/06/2022 Time: 21:51 Bed 23 Private MD: Diagnosis: Nausea with vomiting, unspecified;Diarrhea, unspecified;Cholelithiasis Presentation: 04/06 22:30 Chief complaint: Patient states: Last night I started having diarrhea and vomiting. jb4 Every time I try to drink something I vomit. Coronavirus screen: Client presents with at least one sign or symptom that may indicate coronavirus-19. Standard/surgical mask placed on the client. Ebola Screen: No symptoms or risks identified at this time. Initial Sepsis Screen: Does the patient meet any 2 criteria? HR > 90 bpm. Yes Does the patient have a suspected source of infection? No. Patient's initial sepsis screen is negative. Risk Assessment: Do you want to hurt yourself or someone else? Patient reports no desire to harm self or others. Onset of symptoms was April 05, 2022. Transition of care: patient was not received from another setting of care. 22:30 Method Of Arrival: Ambulatory jb4 22:30 Acuity: BRADY 3 jb4 Triage Assessment: 22:33 General: Appears in no apparent distress. uncomfortable, Behavior is calm, cooperative, jb4 appropriate for age. Pain: Complains of pain in headache Pain does not radiate. Pain currently is 5 out of 10 on a pain scale. EENT: No signs and/or symptoms were reported regarding the EENT system. Neuro: Level of Consciousness is awake, alert, obeys commands, Oriented to person, place, time, situation. Cardiovascular: Patient's skin is warm and dry. Respiratory: Reports shortness of breath Airway is patent Respiratory effort is even, unlabored, Respiratory pattern is regular, symmetrical. GI: Reports diarrhea, nausea, vomiting. : No signs and/or symptoms were reported regarding the genitourinary system. Derm: Skin is intact, Skin is pink, warm \T\ dry. Musculoskeletal: Circulation, motion, and sensation intact. Range of motion: intact in all extremities. Historical: - Allergies: 22:31 NKA; jb4 - Home Meds: 22:31 Edith Oral daily [Active]; Lipitor Oral nightly [Active]; losartan 25 mg Oral tab 1 jb4 tab once daily [Active]; metformin 500 mg Oral tab 1 tab 2 times per day [Active]; Plavix Oral once daily [Active]; venlafaxine 37.5 mg Oral tab [Active]; metoprolol succinate 100 mg Oral Tb24 1 tab once daily [Active]; Singulair 10 mg Oral tab 1 tab once daily [Active]; - PMHx: 22:31 AAA; Diabetes - NIDDM; Hypertension; jb4 - Immunization history:: Adult Immunizations up to date. - Social history:: Smoking status: Patient denies any tobacco usage or history of. Screenin/31 01:52 Abuse screen: Denies threats or abuse. Nutritional screening: No deficits noted. ll3 Tuberculosis screening: No symptoms or risk factors identified. 05:00 Fall Risk No fall in past 12 months (0 pts). No secondary diagnosis (0 pts). IV access ll3 (20 points). Ambulatory Aid- None/Bed Rest/Nurse Assist (0 pts). Gait- Normal/Bed Rest/Wheelchair (0 pts) Mental Status- Oriented to own ability (0 pts). Total Robles Fall Scale indicates No Risk (0-24 pts). Assessment: 01:50 General: Appears uncomfortable, Behavior is calm, cooperative. Pain: Complains of pain ll3 in face and abdomen Pain currently is 7 out of 10 on a pain scale. Quality of pain is described as aching, Pain began 1 day ago. Is continuous. Neuro: Level of Consciousness is awake, alert, obeys commands, Oriented to person, place, time, situation, Reports headache. Respiratory: Respiratory effort is even, unlabored, Respiratory pattern is regular, symmetrical. GI: Abdomen is round non-distended, Stools are reported to be diarrhea. Abd is soft X 4 quads Abdomen is tender to palpation X 4 quads. Reports lower abdominal pain, upper abdominal pain, cramping, diarrhea, intolerance of fluids, intolerance of food, nausea, vomiting, since Yesterday. Derm: Skin is pink, warm \T\ dry. Musculoskeletal: Circulation, motion, and sensation intact. 03:30 Reassessment: No changes from previously documented assessment. Patient and/or family ll3 updated on plan of care and expected duration. Pain level reassessed. Patient is alert, oriented x 3, equal unlabored respirations, skin warm/dry/pink. 05:00 Reassessment: No changes from previously documented assessment. Patient and/or family ll3 updated on plan of care and expected duration. Pain level reassessed. Patient is alert, oriented x 3, equal unlabored respirations, skin warm/dry/pink. 06:11 Reassessment: Patient and/or family updated on plan of care and expected duration. Pain ll3 level reassessed. Patient is alert, oriented x 3, equal unlabored respirations, skin warm/dry/pink. Patient states feeling better. Vital Signs: 04/06 22:32 BP 101 / 66; Pulse 104; Resp 16; Temp 97.5; Pulse Ox 91% on R/A; Weight 83.91 kg (R); jb4 Height 5 ft. 11 in. (180.34 cm) (R); Pain 5/10; 04/07 01:52 BP 132 / 77; Pulse 90; Resp 17; Pulse Ox 96% on R/A; ll3 03:59 BP 107 / 87; Pulse 55; Resp 16; Pulse Ox 96% on R/A; ll3 05:25 BP 140 / 79; Pulse 71; Resp 17; Pulse Ox 97% on R/A; ll3 04/06 22:32 Body Mass Index 25.80 (83.91 kg, 180.34 cm) jb4 ED Course: 04/06 21:51 Patient arrived in ED. ja2 22:31 Triage completed. jb4 22:33 Arm band placed on right wrist. jb4 04/07 01:02 Milind Hernandez MD is Attending Physician. 7 01:39 Haroldo Nash, CASSY is Primary Nurse. ll3 01:52 Patient has correct armband on for positive identification. Bed in low position. Call ll3 light in reach. Side rails up X 1. 03:48 CT Abd/Pelvis - Without Contrast In Process Unspecified. EDMS 03:52 Missed attempt(s): 22 gauge in right antecubital area. lp1 03:59 Inserted saline lock: 20 gauge in left wrist, using aseptic technique. Blood collected. ll3 05:58 Marek Ballesteros MD is Referral Physician. 7 06:11 No provider procedures requiring assistance completed. IV discontinued, intact, ll3 bleeding controlled, No redness/swelling at site. Pressure dressing applied. Administered Medications: 01:58 Not Given (Physicians discressionn): Pepcid (famotidine) 20 mg IVP once; dilute with 10 ll3 mL 0.9% NaCl; give over 2 minutes 03:58 Drug: NS 0.9% 1000 ml Route: IV; Rate: 1 bolus; Site: left wrist; ll3 06:12 Follow up: Response: No adverse reaction; IV Status: Completed infusion; IV Intake: ll3 1000ml 03:59 Drug: Zofran (Ondansetron) 4 mg Route: IVP; Site: left wrist; ll3 06:13 Follow up: Response: No adverse reaction; Marked relief of symptoms ll3 Medication: 01:52 VIS not applicable for this client. ll3 Intake: 06:12 IV: 1000ml; Total: 1000ml. ll3 Outcome: 05:57 Discharge ordered by . [facility] 06:11 Discharged to home ambulatory, with significant other. ll3 06:11 Condition: stable 06:11 Discharge instructions given to patient, significant other, Instructed on discharge instructions, follow up and referral plans. medication usage, Demonstrated understanding of instructions, follow-up care, medications, Prescriptions given X 3. 06:12 Patient left the ED. ll3 Signatures: Dispatcher [employer] EDMS Jing Larsen RN RN lp1 Lisandro Tipton RN RN jb4 Milind Hernandez MD MD 7 Zulma Cagle Lynsea, RN RN ll3
[2022-04-07 06:57] VITALS: TEMP 97.5
[2022-04-07 07:01] VITALS: BP 140/79; O2SAT 97
--- NOTE | 2022-04-07 13:28 | RAD REPORT ---
EXAM DESCRIPTION: CT - Abdomen Pelvis Wo Contrast - 04/07/2022 6:42 am CLINICAL HISTORY: Nausea/vomiting COMPARISON: None Available. TECHNIQUE: CT of the abdomen and pelvis without IV contrast. Evaluation of the solid organs and vasc ulature is suboptimal due to lack of IV contrast. This exam was performed according to our department al dose-optimization program, which includes automated exposure control, adjustment of the mA and/or kV according to patient size and/or use of iterative reconstruction technique. FINDINGS: Lung Bases: The visualized lung bases are clear. Bones: Mild endplate spondylosis. Abdomen: Liver: The liver has normal size and decreased density. Gallbladder: Calcified gallstones. Spleen, Pancreas, and Adrenal Glands: The spleen, pancreas, and adrenal glands are unremarkable. Kidneys: The kidneys have normal size without evidence of hydronephrosis. No obstructing ureteral malik culi. 11.8 cm superior pole left renal cyst. No follow-up imaging for this structure recommended. Vasculature: 3.8 cm infrarenal abdominal aortic aneurysm. 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 Aortoiliac atherosclerosis. IVC is unremarkable. Stomach: The stomach and duodenum have normal course. Other: No free intraperitoneal air. No free fluid or lymphadenopathy. Pelvis: Bladder: Urinary bladder is decompressed. Bowel: No dilated loops of large or small bowel. Scattered diverticula of the colon. Appendix: Normal appendix. Pelvis: Prostate is not enlarged. Small fat-containing left inguinal hernia. IMPRESSION: 1. Cholelithiasis without other CT evidence of acute cholecystitis. 2. 3.8 cm infrarenal abdominal aortic aneurysm. Recommend follow-up every 2 years. Reference: J Am Giana Radiol 2013;10:789-794. 3. Diverticulosis without evidence of acute diverticulitis. Electronically signed by: Rocky Lorenzo 04/07/2022 4:05 AM CDT Due to temporary technical issues with the PACS/Fluency reporting system, reports are being signed by the in house radiologist without review as a courtesy to ensure prompt reporting. The interpreting r adiologist is fully responsible for the content of the report.
== END 2022-04-07 06:12 | disposition home or self-care (01) ==
LOC: ER 21:47
DX: K80.20 Calculus of gallbladder without cholecystitis without obstruction (principal); R19.7 Diarrhea, unspecified; E11.9 Type 2 diabetes mellitus without complications; I10 Essential (primary) hypertension; Z79.01 Long term (current) use of anticoagulants
CPT/HCPCS: 96361; 85025; 36415; 81003; 83690; 80053; 74176; 96374; 99284; J7030; J2405

== ENCOUNTER 2022-05-04 07:24 | Day surgery (SDC) | payer OTHER ==
--- NOTE | 2022-04-30 16:53 | RAD REPORT ---
EXAM DESCRIPTION: RAD - Chest Pa And Lat (2 Views) - 04/30/2022 4:24 pm CLINICAL HISTORY: Pre op pending cholecystectomy COMPARISON: Chest Single View dated 05/23/2019; Chest Single View dated 11/23/2016; Chest Pa And Lat ( 2 Views) dated 08/25/2016; CHEST SINGLE VIEW dated 12/29/2011 FINDINGS: Lines: None. Lungs: No evidence of edema or pneumonia. Pleural: No significant pleural effusions or pneumothorax. Cardiac: The heart size is within normal limits. Bones: No acute fractures. Other: IMPRESSION: No acute cardiopulmonary disease.
[2022-04-30 17:02] LABS: SARS-CoV-2 Antigen Rapid Res Negative (Negative)
[2022-05-04] MEDS ORDERED: NA CHLORIDE 0.9% 1,000 ML ONE (07:44)
[2022-05-04] MEDS ORDERED: CEFOXITIN SODIUM 1 GM/VIAL ONE (07:44)
[2022-05-04] MEDS ORDERED: propofoL 200 MG/20 ML VIAL IV ONE (08:04)
[2022-05-04] MEDS ORDERED: ROCURONIUM 50 MG/5 ML VIAL IV ONE (08:05)
[2022-05-04] MEDS ORDERED: FENTANYL CITR 100 MCG/2 ML ONE (08:05)
[2022-05-04] MEDS ORDERED: ONDANSETRON 4 MG/2 ML VIAL ONE (08:05)
[2022-05-04] MEDS ORDERED: LIDOCAINE 1% MPF 5 ML VIAL ONE (08:05)
[2022-05-04] MEDS ORDERED: ACETAMINOPHEN 500 MG TAB ONE (08:13)
[2022-05-04] MEDS ORDERED: CELECOXIB 100 MG CAPSULE ONE (08:13)
[2022-05-04] MEDS ORDERED: EPHEDRINE SULF 50 MG/ML VIAL ONE (08:50)
[2022-05-04] MEDS ORDERED: Phenylephrine HCl 10 MG/ML 1 ML VIAL ONE (08:57)
[2022-05-04] MEDS ORDERED: GLYCOPYRROLATE 0.2 MG/ML SYR ONE (08:59)
[2022-05-04] MEDS ORDERED: HYDROCODONE/APAP 7.5/325 MG TAB PO PRN (09:26)
[2022-05-04] MEDS ORDERED: SUGAMMADEX SODIUM 200 MG/2 ML VIAL IV ONE (09:33)
--- NOTE | 2022-05-04 09:36 | P.OP ---
Date of Service: 05/04/22 Preop diagnosis: Chronic cholecystitis and cholelithiasis Postop diagnosis: Same, umbilical hernia Procedure performed: Laparoscopic cholecystectomy, repair of umbilical hernia Surgeon: Jay Valentino MD Material Expediter: Hitesh CARVAJAL Estimated blood loss: Minimal Specimen: Gallbladder Findings: As above Anesthesia: General Complications: None Drains: None Fluids and blood products: None applicable Disposition: Recovery room Operative note: Patient brought to the OR and placed in the supine position. General anesthesia begun. Patient prepped and draped in the usual sterile fashion. Patient was noted to have a small umbilical hernia. Marcaine 0.5% infiltrated locally. A 2 cm curvilinear incision on top of the umbilicus was made. Subcutaneous tissue divided. Hernia identified and freed from the umbilical stalk. A 1 cm defect remained. #1 Vicryl stay suture placed. Peritoneal cavity entered with sharp and blunt dissection. 12 mm trocar placed into the peritoneal cavity under direct vision. Pneumoperitoneum established. 3 5 mm trochars placed into the peritoneal cavity under direct vision. 1 placed in the epigastric region just to the right of midline, and 2 in the right subcostal region. Laparoscopy revealed chronic inflammation of the gallbladder. Fundus identified and retracted superiorly. Infundibulum identified retracted inferolaterally. Cystic duct and cystic artery clearly identified with blunt dissection. Vascular clips used to clip both structures and then they were divided. Cautery used to remove the gallbladder from the liver bed. Bleeding on the liver bed controlled with cautery. Gallbladder retrieved through the umbilicus via Endo Catch bag. Right upper quadrant irrigated and effluent was clear. No evidence of bleeding or bile leakage appreciated. Trochars removed. Minimal oozing noted from the right lateral trocar site. Endo Close used to secure that bleeding with 3-0 Vicryl suture. No further evidence of oozing or bleeding noted. Remainder of the trochars removed under direct vision. Stay sutures tied to each other to reapproximate the fascial and hernia defect. Subcutaneous tissue was irrigated and bleeding controlled cautery. 3 of chromic was used to approximate subcutaneous tissue in close skin. Sterile dressing applied. Patient awakened and taken to recovery room in good general condition. CC: Dr. Cyr's office
[2022-05-04] MEDS ORDERED: Mastisol Adhesive Liq ONE (09:45)
[2022-05-04] MEDS ORDERED: HYDROMORPHONE HCL 1 MG/ML INJ ONE (10:10)
[2022-05-04] MEDS ORDERED: HYDROCODONE/APAP 7.5/325 MG TAB ONE (10:53)
[2022-05-04 11:34] VITALS: BP 122/70; TEMP 96.8; O2SAT 94
== END 2022-05-04 11:30 | disposition home or self-care (01) ==
LOC: OR 07:24
PROVIDERS: ATTEND Surgery
PROC: 0WQF0ZZ Repair Abdominal Wall, Open Approach (ICD-10-PCS; 2022-05-04)
PROC: 0FT44ZZ Resection of Gallbladder, Percutaneous Endoscopic Approach (ICD-10-PCS; principal; 2022-05-04 08:30)
DX: K80.10 Calculus of gallbladder with chronic cholecystitis without obstruction (principal); K42.9 Umbilical hernia without obstruction or gangrene
CPT/HCPCS: 36415; 82150; 82947 ×2; 88304; 71046; 87811; 47562; 49585; J2704; J2370; J3010; J1170; J7030; J0694; J2405

== ENCOUNTER 2022-09-02 08:54 | Emergency (ER) | payer OTHER ==
--- OUTSIDE RECORDS SUMMARY | 2022-09-02 08:58 | XMS REPORT | Continuity of Care Document ---
:1945 Author Organization [facility] t Address [address] [place] [address] Care Team Providers Name Role Phone Jose Cho Attending Clinician Unavailable Jose Cho Admitting Clinician Unavailable UNDEFINED Admitting Clinician Unavailable Payers Payer Name Policy Type Policy Number Effective Date Expiration Date S ource Problems Condition Condition Condition Status Onset Resolution Last Treating Co mments Source Name Details Category Date Date Treatment Clinician Date TIA TIA Disease Active [facility] (transient (transient 1-16 Daisha kes ischemic ischemic 00:00: Medica l attack) attack) 00 Center Allergies, Adverse Reactions, Alerts Allergy Allergy Status Severity Reaction(s) Onset Inactive Treating Comm ents Source Name Type Date Date Clinician No Known DA Active [facility] Clear Allergie 00:00: Dailey s 00 [facility] No Known DA Active U [facility] Clear Allergie 00:00: Dailey s 00 [facility] Social History Social Habit Start Date Stop Date Quantity Comments Source Alcohol intake 2016-11-23 2016-11-[address] [facility] 00:00:00 00:00:00 non-drinker of Medical Ce nter alcohol (finding) Tobacco Comment 2016-11-23 2016-11-23 quit [facility] [address] [facility] 00:[facility]00 [facility]00 [facility] Center Sex Assigned At [address] [facility] Daisha kes 00:00:00 [facility]:00 [facility] Smoking Status Start Date Stop Date Source Former smoker 2016-11-23 00:00:00 2016-11-23 00:00:[address] [facility] Medications Ordered Filled Start Stop Current Ordering Indication Dosage Frequency Signature Comments Components Source Medication Medication Date Date Medication? Clinician (SIG) Name Name venlafaxine Yes 150mg QD Take [address] (EFFEXOR-XR 1-19 [facility] ) 150 MG 24 13:48: mouth Medic al hr capsule 20 daily. Center chlorthalid Yes 25mg QD Take [address] [facility] one 1-19 by [facility] (HYGROTON) 13:48: daily. Medic al 25 MG 20 Center tablet cholecalcif Yes 1000U QD Take 1,[address] [facility] [address] melonie, 1-19 Units [facility] vitamin D3, 13:48: mouth Medic al 1,000 unit 20 nightly. Cente r capsule multivitami Yes 1{tbl} QD Take [address] [facility] per 1-19 tablet [facility] tablet 13:48: mouth Medical 20 daily. Center metFORMIN Yes 500mg Take [address] [facility] (GLUCOPHAGE 1-19 mg [facility] ) 500 MG 13:48: mouth 2 Medica l tablet 20 (two) Center times daily with breakfast and dinner. losartan Yes hypertensio 25mg QD Take [address] [address] (COZAAR) 25 1-19 n by mouth Luke s MG tablet 13:48: daily. Medica l 20 Center metoprolol Yes hypertensio 100mg QD Take [address] (TOPROL-XL) 1-19 n mg [facility] 100 MG 24 13:48: mouth Medical hr tablet 20 daily. Center Procedures Procedure Date / Time Performed Performing Clinician Sofía hazel [id number] 2021-02-20 00:00:00 [email or web address] [facility] Or [facility] Encounters Start End Encounter Admission Attending Care Care Encounter Source Date/Time Date/Time Type Type Clinicians Facility Department ID 2021-02-22 Inpatient EL ChoMAYDA johnsonTO [id number] [facility] 21:44:33 Jose [facility] 2021-02-12 2021-02-12 Outpatient MARIE Cho LABO [id number] [facility] 17:40:00 17:40:00 Jose 82 [facility] 2021-02-12 2021-02-12 Outpatient DANIELA ChoWU REFE [id number] [facility] 15:57:00 15:57:00 Jose 05 [facility] Results Test Description Test Time Test Comments Results Result Comments Source GLUBED 2021-02-21 11:40:00 Test Item Value Reference Range Interpretation Comme nts GLUBED (test code = GLUBED) 180 mg/dL 60-125 H BASIC METABOLIC [id number] 06:50:00 Test Item Value Reference Range Interpretation [...] RATE (test code = GFR) mL/mi n/1.73 [id number] Range:Healthy Adults >90 mL/min/1.73 m2 For Chronic Kidney Disease: Stage II Mild Decrease i n GFR 60-90 Stage III Moderate Decrea se in GFR 30-59 St age IV Severe Decre ase in GFR 15-29 St age V Kidney Failur e <15 CREATININE (test code 1.21 mg/dL 0.55-1.30 N = CREAT) CALCIUM (test code = 8.3 mg/dL 8.2-10.1 N CA) HGB [id number] 05:52:00 Test Item Value Reference Range Interpretation Comments HEMOGLOBIN (test code = HGB) 11.7 g/dL 12-16 L HEMATOCRIT (test code = HCT) 36.7 % 37-47 L SPECIMEN COMMENT: POD #[id number] 05:06:00 Test Item Value Reference Range Interpretation Comments GLUBED (test code = GLUBED) 100 mg/dL 60-125 N [id number] 20:27:00 Test Item Value Reference Range Interpretation Comments GLUBED (test code = GLUBED) 168 mg/dL 60-125 H [id number] 13:05:00 Test Item Value Reference Range Interpretation Comments GLUBED (test code = GLUBED) 132 mg/dL 60-125 H [id number] 08:47:00 Test Item Value Reference Range Interpretation Comments GLUBED (test code = GLUBED) 123 mg/dL 60-125 N [id number] 10:12:00 Test Item Value Reference Range Interpretation Comments FRUCTOSAMINE (test code = 235 RE FERENCE INTERVAL : FRUC) 0-285 umol/L Novel Coronavirus 2018 [id number] 08:51:00 Test Item Value Reference Range Interpretation [...] n. The testing is perf ormed by personneltralacy d in the procedures for the Gutierrez M2000 molecular diagnostic SARS-CoV-2 assa y in vitro. Novel Coronavirus 2018 [id number] 08:51:00 Test Item Value Reference Range Interpretation [...] for the identification of SARS-CoV-2 RNA usingthe [email or web address] M2000 Sy stem under the FDA Emergen cy UseAuthorizatio n. The testing is perf ormed by personneltraine d in the procedures for the [employer] M2000 molecular diagnostic SARS-CoV-2 assa y in [...] GBA1c resultsregardle ss of the method used. HG BA1c results from patientswi th HbSS, HbCC, and HbSc must be interpreted wit h cautiongiven th e pathological pr ocesses, including anemi a,increased red cell turnov er, transfusion req uirements, thatadversely i mpact HGBA1c as a marker of long-term glycemiccontrol . Alternative for ms of testing such as fructosaminesho uld be considered for these patients.DONE A T: [facility] [address] [facility] [place], [place] [address] GLYCOSYLATED HEMOGLOBIN (HA1C)2021-02-12 17:59:00 Test Item Value Reference Range Interpretation Comments GLYCOSYLATED 6.6 % 4.8-5.9 H Any condition t hat shortens HEMOGLOBIN (HA1C) erythocyte survival or (test code = GLYHGB) decreas esmean erythrocyte age (e.g., wilmer very from acute blood los s,hemolytic anemia) will fa lsely lower HGBA1c resultsr egardless of the method used . HGBA1c results from mallorie yarelimalina HbSS, HbCC, and HbSc must be interpreted with cautiongiven th e pathological pr ocesses, including anemi a,increased red cell turnov er, transfusion req uirements, thatadversely i mpact HGBA1c as a marker of long-term glycemiccontrol . Alternative for ms of testing such as fructosaminesho uld be considered for these patients. COMPREHENSIVE METABOLIC [id number] 12:19:00 Test Item Value Reference Range Interpretation [...] RATE (test code = GFR) mL/mi n/1.73 [id number] Range:Healthy Adults >90 mL/min/1.73 m2 For Chronic Kidney Disease: Stage II Mild Decrease i n GFR 60-90 Stage III Moderate Decrea se in GFR 30-59 St age IV Severe Decre ase in GFR 15-29 St age V Kidney Failur e <15 CREATININE (test code 1.12 mg/dL 0.55-1.30 [...] N TOTAL (test code = ALKP) PROTHROMBIN [id number] 12:18:00 Test Item Value Reference Range Interpretation Comments PROTHROMBIN TIME 10.9 secs 10.1-12.5 N PATIENT (test code = PTP) INTERNATIONAL NORMAL 0.96 <2.0 RECOMME NDED THERAPEUTIC RATIO (test code = RANGE FOR ORAL INR) ANTICOAGULANTTR EATMENT: CONDITION INRProphylaxis of venous thrombosis in 2 .0 - 3.0 high-risk medic al or surgical patientsTreatme nt of venous thrombos is 2.0 - 3.0Prevention o f embolism 2.0 - 3.0Prevention o f recurrent embol ism, or 3.0 - 4.5 patie nts with mechanical pros thetic intravascular v mauro IS PATIENT ON ANTICOAGULANTS ? NHas Lab been notified if Patient is on Heparin Drip? NOIf Yes, orderCBC, OCCULT BLOOD, PT every other day NTHROMBOPLASTIN TIME [id number] 12:18:00 Test Item Value Reference Range Interpretation Comments PTT ACTIVATED (test code = APTT) 31.3 secs 24.9-37.0 N IS PATIENT ON ANTICOAGULANTS ? [facility] been notified if Patient is on [...]
[2022-09-02 09:35] LABS: Absolute Lymphocytes (CBC) 0.8 K/uL (0.7-4.9); Hematocrit 43.6 % (39.6-49.0); Lymphocytes % 13.2 % (15.3-44.8); MCV 92.7 fL (80-100); MPV 7.8 fL (7.6-11.3)
[2022-09-02 09:43] LABS: Protime INR 1.01
[2022-09-02 09:51] LABS: Potassium 4.1 mmol/L (3.5-5.1)
--- NOTE | 2022-09-02 09:59 | RAD REPORT ---
EXAM DESCRIPTION: CT - Head Brain Wo Cont - 09/02/2022 9:37 am CLINICAL HISTORY: Headache, new or worsening COMPARISON: Ct Stroke Brain Wo Cont dated 05/23/2019; Ct Stroke Brain Wo Cont dated 11/23/2016 TECHNIQUE: All CT scans are performed using dose optimization technique as appropriate and may inclu de automated exposure control or mA/KV adjustment according to patient size. FINDINGS: No intracranial hemorrhage, hydrocephalus or extra-axial fluid collection.No areas of brai n edema or evidence of midline shift. Chronic small vessel ischemic changes. The paranasal sinuses and mastoids are clear. The calvarium is intact. IMPRESSION: No acute intracranial abnormality.
--- NOTE | 2022-09-02 09:59 | RAD REPORT ---
EXAM DESCRIPTION: RAD - Chest Pa And Lat (2 Views) - 09/02/2022 9:44 am CLINICAL HISTORY: CHEST PAIN COMPARISON: Chest Pa And Lat (2 Views) dated 04/30/2022; Chest Single View dated 05/23/2019; Chest Sin gle View dated 11/23/2016; Chest Pa And Lat (2 Views) dated 08/25/2016; CHEST SINGLE VIEW dated 011 FINDINGS: Lines: None. Lungs: No evidence of edema or pneumonia. Pleural: No significant pleural effusions or pneumothorax. Cardiac: The heart size is within normal limits. Mediastinum: Within normal limits. Bones: No acute fractures. Other: None IMPRESSION: No acute cardiopulmonary disease.
[2022-09-02] MEDS ORDERED: KETOROLAC 30 MG/ML INJ ONE (10:44)
--- NOTE | 2022-09-02 11:28 | ER ---
Nurse's Notes [facility] Name: Chaz Flowers Age: 76 yrs Sex: Male : 1945 Arrival Date: 09/02/2022 Time: 08:56 Bed 2 Private MD: Remy Cyr T Diagnosis: Headache;left rib pain Presentation: 09/02 09:12 Chief complaint: Patient states: c/o left sided rib pain X 1 week after twisting in chair, then last night he started having a headache and cough which aggravate the rib pain, also not feeling as "sharp" as he normally does since last night. Coronavirus screen: Client presents with at least one sign or symptom that may indicate coronavirus-19. Ebola Screen: Patient negative for fever greater than or equal to 101.5 degrees Fahrenheit, and additional compatible Ebola Virus Disease symptoms Patient denies exposure to infectious person. Patient denies travel to an Ebola-affected area in the 21 days before illness onset. No symptoms or risks identified at this time. Initial Sepsis Screen: Does the patient meet any 2 criteria? No. Patient's initial sepsis screen is negative. Does the patient have a suspected source of infection? No. Patient's initial sepsis screen is negative. Risk Assessment: Do you want to hurt yourself or someone else? Patient reports no desire to harm self or others. Onset of symptoms was September 01, 2022. 09:12 Method Of Arrival: Ambulatory iw 09:12 Acuity: BRADY 3 iw Triage Assessment: 09:19 Headache History: The patient has had previous headaches and this one is different than mb8 previous episodes. Historical: - Allergies: 09:14 NKA; iw - PMHx: 09:14 Diabetes - NIDDM; AAA; Hypertension; iw - Immunization history:: Client reports receiving the 2nd dose of the Covid vaccine. - Social history:: Smoking status: Patient/guardian denies using tobacco, the patient reports quitting approximately 15 years ago. Screenin:18 Abuse screen: Denies threats or abuse. Denies injuries from another. Nutritional mb8 screening: No deficits noted. Tuberculosis screening: No symptoms or risk factors identified. Fall Risk None identified. Assessment: 09:16 General: Appears in no apparent distress. comfortable, Behavior is calm, cooperative, mb8 appropriate for age. Pain: Complains of pain in left ribs Pain does not radiate. Pain currently is 6 out of 10 on a pain scale. Quality of pain is described as aching. Neuro: Level of Consciousness is awake, alert, obeys commands, Oriented to person, place, time, situation, Appropriate for age Disease Case Manager are equal bilaterally Moves all extremities. Full function Gait is steady, Speech is normal, Facial symmetry appears normal, Reports headache Denies blurred vision dizziness, difficulty swallowing, paresthesias numbness photophobia diplopia. Cardiovascular: Denies chest pain, shortness of breath. 10:04 Reassessment: Patient and/or family updated on plan of care and expected duration. Pain mb8 level reassessed. Patient is alert, oriented x 3, equal unlabored respirations, skin warm/dry/pink. Vital Signs: 09:18 BP 145 / 77; Pulse 58; Resp 16; Temp 97.9; Pulse Ox 98% ; mb8 10:04 BP 127 / 81; Pulse 57; Resp 18; Pulse Ox 99% on R/A; mb8 ED Course: 08:56 Patient arrived in ED. mr 08:56 Remy Cyr MD is Private Physician. mr 09:03 Davis Jarquin DO is Attending Physician. ms3 09:13 Triage completed. iw 09:14 Arm band placed on. iw 09:16 Zaid Barrientos, RN is Primary Nurse. mb8 09:19 Patient has correct armband on for positive identification. Bed in low position. Call mb8 light in reach. Side rails up X2. Client placed on continuous cardiac and pulse oximetry monitoring. NIBP monitoring applied. 09:19 No provider procedures requiring assistance completed. mb8 09:25 Inserted saline lock: 20 gauge in right antecubital area, using aseptic technique. mb8 Blood collected. 09:27 PT-INR Sent. mb8 09:27 BMP Sent. mb8 09:27 CBC with Diff Sent. mb8 09:38 Head Brain Wo Cont In Process Unspecified. EDMS 09:46 Chest Pa And Lat (2 Views) XRAY In Process Unspecified. EDMS 11:28 Remy Cyr MD is Referral Physician. ms3 11:34 intact, bleeding controlled, No redness/swelling at site. Pressure dressing applied. mb8 Administered Medications: 10:55 Drug: Ketorolac 10 mg Route: IVP; Site: right antecubital; mb8 11:30 Follow up: Response: No adverse reaction; Pain is decreased mb8 Medication: 09:18 VIS not applicable for this client. mb8 Outcome: 11:28 Discharge ordered by . ms3 11:36 Discharged to home ambulatory. mb8 11:36 Condition: stable 11:36 Discharge instructions given to patient. 11:36 Discharge instructions given to Instructed on discharge instructions, follow up and referral plans. Demonstrated understanding of instructions, follow-up care. 11:37 Patient left the ED. mb8 Signatures: Dispatcher [employer] EDLiliane Perez mr Alina Altamirano, RN RN iw Davis Jarquin DO DO ms3 Zaid Barrientos RN RN mb8
--- NOTE | 2022-09-02 11:28 | EDPHYS ---
Physician Documentation [facility] Name: Chaz Flowers Age: 76 yrs Sex: Male : 1945 Arrival Date: 09/02/2022 Time: 08:56 Bed 2 Private MD: Remy Cyr T ED Physician Davis Jarquin HPI: 09/02 10:23 This 76 yrs old Male presents to ER via Ambulatory with complaints of Confusion, ms3 Headache, Shortness Of Breath, Rib pain. 10:23 The patient complains of pain to the posterior. The patient describes the headache as ms3 aching. Onset: The symptoms/episode began/occurred 2 day(s) ago. Associated signs and symptoms: Pertinent negatives: dizziness, vomiting. Severity of symptoms: At its worst the pain was moderate. The symptoms are alleviated by nothing. the symptoms are aggravated by nothing. 76-year-old male with past medical history of diabetes, AAA, hypertension presents for left-sided rib pain and cough. Patient states he hurt his left ribs 1 week ago when bending over his recliner arm to pick something up. Patient states last night he began coughing and this is creating pain. Patient also notes he developed a headache 2 days ago. Patient states his headache is the typical headache he normally gets. Patient states this headache has lasted slightly longer than normal. Patient denies trauma. Patient denies vomiting.. Historical: - Allergies: 09:14 NKA; iw - PMHx: 09:14 Diabetes - NIDDM; AAA; Hypertension; iw - Immunization history:: Client reports receiving the 2nd dose of the Covid vaccine. - Social history:: Smoking status: Patient/guardian denies using tobacco, the patient reports quitting approximately 15 years ago. ROS: 10:23 Constitutional: Negative for fever, and chills. Neck: Negative for injury, pain, and ms3 swelling, Respiratory: Negative for shortness of breath, cough, wheezing, and pleuritic chest pain, Abdomen/GI: Negative for abdominal pain, nausea, vomiting, diarrhea, and constipation, Back: Negative for injury and pain, MS/Extremity: Negative for injury and deformity, Skin: Negative for injury, rash, and discoloration. 10:23 Cardiovascular: Positive for chest pain. 10:23 Neuro: Positive for headache. 10:23 All other systems are negative. Exam: 10:23 Constitutional: This is a well developed, well nourished patient who is awake, alert, ms3 and in no acute distress. Head/Face: Normocephalic, atraumatic. Neck: Trachea midline, no cervical lymphadenopathy. Supple, full range of motion without nuchal rigidity, or vertebral point tenderness. No Meningismus. Cardiovascular: Regular rate and rhythm with a normal S1 and S2. No gallops, murmurs, or rubs. Normal PMI, no JVD. No pulse deficits. Respiratory: Lungs have equal breath sounds bilaterally, clear to auscultation and percussion. No rales, rhonchi or wheezes noted. No increased work of breathing, no retractions or nasal flaring. 10:23 Skin: Warm, dry with normal turgor. Normal color with no rashes, no lesions, and no evidence of cellulitis. MS/ Extremity: Pulses equal, no cyanosis. Neurovascular intact. Full, normal range of motion. Psych: Awake, alert, with orientation to person, place and time. Behavior, mood, and affect are within normal limits. 10:23 Chest/axilla: Inspection: normal, Palpation: tenderness, that is moderate, of the left lateral anterior chest. Vital Signs: 09:18 BP 145 / 77; Pulse 58; Resp 16; Temp 97.9; Pulse Ox 98% ; mb8 10:04 BP 127 / 81; Pulse 57; Resp 18; Pulse Ox 99% on R/A; mb8 MDM: 09:14 Patient medically screened. ms3 10:23 Differential diagnosis: Headache vs ICH vs Rib fx vs PTX. ms3 11:28 Data reviewed: vital signs, nurses notes, lab test result(s), radiologic studies, and ms3 as a result, I will discharge patient. ED course: On reevaluation patient improved, in no apparent distress, nontoxic, ambulatory in the emergency department, speaking full sentences. Patient follow-up with primary care physician 2 to 3 days. Patient agrees plan. All questions answered. Return precautions discussed include worsening symptoms, or any other concerns.. 09/02 09:19 Order name: CBC with Diff; Complete Time: 10:40 ms3 09/02 09:19 Order name: BMP; Complete Time: 10:40 ms3 09/02 09:19 Order name: PT-INR; Complete Time: 10:40 ms3 09/02 09:19 Order name: CT Head Brain wo Cont ms3 09/02 09:19 Order name: Chest Pa And Lat (2 Views) XRAY; Complete Time: 10:40 ms3 09/02 09:19 Order name: Glucose, Ancillary Testing; Complete Time: 10:40 EDMS 09/02 09:23 Order name: Head Brain Wo Cont; Complete Time: 10:40 EDMS 09/02 09:27 Order name: Glucose Level; Complete Time: 09:27 mb8 Administered Medications: 10:55 Drug: Ketorolac 10 mg Route: IVP; Site: right antecubital; mb8 11:30 Follow up: Response: No adverse reaction; Pain is decreased mb8 Disposition Summary: 09/02/22 11:28 Discharge Ordered Location: Home ms3 Condition: Stable ms3 Diagnosis - Headache ms3 - left rib pain ms3 Followup: ms3 - With: Remy Cyr MD - When: 2 - 3 days - Reason: Recheck today's complaints Discharge Instructions: - Discharge Summary Sheet ms3 - General Headache Without Cause ms3 - Musculoskeletal Pain ms3 Forms: - Medication Reconciliation Form ms3 - Thank You Letter ms3 - Antibiotic Education ms3 - Prescription Opioid Use ms3 Signatures: Dispatcher [employer] Alina Olivares RN Davis Wiggins DO DO ms3 Zaid Barrientos RN RN mb8 Corrections: (The following items were deleted from the chart) 11:29 11:28 Pain in right shoulder ms3 ms3
[2022-09-02 11:46] VITALS: TEMP 97.9
[2022-09-02 11:52] VITALS: BP 127/81; O2SAT 99
== END 2022-09-02 11:37 | disposition home or self-care (01) ==
LOC: ER 08:54
DX: R51.9 Headache, unspecified (principal); R07.81 Pleurodynia; E11.9 Type 2 diabetes mellitus without complications; I10 Essential (primary) hypertension
CPT/HCPCS: 36415; 70450; 71046; 80048; 82947; 85025; 85610; 96374; 99284

== ENCOUNTER 2022-12-07 11:13 | Emergency (ER) | payer OTHER ==
--- OUTSIDE RECORDS SUMMARY | 2022-12-07 11:17 | XMS REPORT | Continuity of Care Document ---
:1945 Author Organization [facility] t Address [address] [place] [address] Care Team Providers Name Role Phone PCP, PATIENT DOES NOT HAVE A Primary Care Physician Unavaila Jose Smith Attending Clinician Unavailable Afsaneh Hartman Attending Clinician Unknown, Attending Attending Clinician Unavailable AFSANEH BYRNES Attending Clinician Unavailable Doctor Unassigned, [place] Attending Clinician Unavailable Jose Cho Admitting Clinician [...] 00:00: Medica l attack) attack) 00 Center No known No known Disease Unive rs active active ity of problems problems [facility] Allergies, Adverse Reactions, Alerts Allergy Allergy Status Severity Reaction(s) Onset Inactive Treating Comm ents Source Name Type Date Date Clinician No Known DA Active U [facility] Clear Allergie 00:00: Dailey s 00 [facility] No Known DA Active U [facility]- Clear Allergie 00:00: Dailey s 00 [facility] NO KNOWN Drug Active Univers ALLERGIE Class ity of S [facility] Social History Social Habit Start Date Stop Date Quantity Comments Source Exposure to 2022-09-30 2022-10-10 Not sure [facility] SARS-CoV-2 00:00:00 17:01:00 [facility] (event) [place] Tobacco use and 2022-10-10 2022-10-10 Smokeless tobacco Un iversity of exposure 00:00:00 00:00:00 non-user [facility] Alcohol intake 2016-11-23 2016-11-[address] [facility] 00:00:00 00:00:00 non-drinker of Medical Ce nter alcohol (finding) Tobacco Comment 2016-11-23 2016-11-23 quit [facility] 00:[facility]:00 00:00:00 [place] Sex Assigned At [birth year] [facility] 00:00:00 00:00:00 [facility] Smoking Status Start Date Stop Date Source Tobacco smoking [facility] consumption unknown Medical Bran ch Never smoked tobacco [facility] Former smoker 2016-11-23 00:00:00 2016-11-23 [facility] 00[facility] Center Medications Ordered Filled Start Stop Current Ordering Indication Dosage Frequency Signature Comments Components Source Medication Medication Date Date Medication? Clinician (SIG) Name Name metoprolol 2021-11 Yes 100mg Take 100 Un kinga succinate 2-03 mg by ity of XL 100 mg 17:30: mouth. [place] 24 hr 19 Medical tablet Branch losartan 25 2021-11 Yes 25mg Take 25 mg Univers mg tablet 2-03 by mouth. ity o f 17:04: [address] losartan 25 2021-11 Yes 25mg Take 25 mg Univers mg tablet 2-03 by mouth. ity o f 17:04: [address] cephALEXin 2021-11- Yes [id number] 500mg Take 1 Univers (KEFLEX) 2-03 12-14 capsule by ity of 500 mg 00:00: 05:59 mouth 4 [place] capsule 00 :00 (four) Medical times Branch daily for 10 days. cephALEXin 2021-11- Yes [id number] 500mg Take 1 Univers (KEFLEX) 2- 12-14 capsule by ity of 500 mg 00:00: 05:59 mouth 4 [place] capsule 00 :00 (four) Medical times Branch daily for 10 days. atorvastati 2021-11 Yes Univer s n 20 mg 2- ity of tablet 00:00: [place] [facility] Branch atorvastati 2021-11 Yes Univer s n 20 mg 2- ity of tablet 00:00: [address] clopidogreL 2021-11 Yes Univer s 75 mg 2- ity of tablet 00:00: [place] [facility] clopidogreL 2021-11 Yes Univer s 75 mg 2- ity of tablet 00:00: [address] venlafaxine Yes 150mg QD Take [address] (EFFEXOR-XR 1-19 mg by [facility]ukes ) 150 MG 24 13:48: mouth Medic al hr capsule 20 daily. [place] chlorthalid Yes 25mg QD Take 25 mg [...] times daily with breakfast and dinner. losartan 2016- Yes hypertensio 25mg QD Take [address] (COZAAR) 25 1-19 n by mouth Luke s MG tablet 13:48: daily. Medica l 20 [place] metoprolol Yes hypertensio 100mg QD Take [address] (TOPROL-XL) 1-19 n mg by [facility]ukes 100 MG 24 13:48: mouth Medical hr tablet 20 daily. [place] chlorthalid Yes 25mg QD Take 25 mg [...] MG tablet 13:48: daily. Medica l 20 [place] metoprolol Yes hypertensio 100mg QD Take [address] (TOPROL-XL) 1-19 n mg by Lukes 100 MG 24 13:48: mouth Medical hr tablet 20 daily. [place] venlafaxine Yes 150mg QD Take [address] (EFFEXOR-XR 1-19 mg [facility] ) 150 MG 24 13:48: mouth Medic al hr capsule 20 daily. Center Vital Signs Vital Name Observation Time Observation Value Comments Source Systolic blood 2022-10-10 23:04:00 119 mm[Hg] Univer sity of pressure [facility] Diastolic blood 2022-10-10 23:04:00 81 mm[Hg] [facility] Heart rate 2022-10-10 23:03:00 71 /min [facility] Body temperature 2022-10-10 23:03:00 36.5 Savita [facility] Respiratory rate 2022-10-10 23:03:00 16 /min [facility] Body weight 2022-10-10 23:03:00 82.101 kg [facility] Oxygen saturation in 2022-10-10 23:03:00 95 /min [facility] blood by [facility] Pulse oximetry Branch Procedures Procedure Date / Time Performed Performing Clinician Sourad e ASSIGNMENT OF BENEFITS 2022-10-10 22:46:39 Doctor Unassigned, No [facility] [id number] 2021-02-20 00:00:00 MATVA.[email or web address] [facility] Or [facility] Encounters Start End Encounter Admission Attending Care Care Encounter Source Date/Time Date/Time Type Type Clinicians Facility Department ID 2021-02-22 Inpatient NABIL Cho MAYDA SUAREZTO [id number] [facility] 21:44:33 Jose 28 [place] [facility] 2022-10-10 2022-10-10 Urgent Raman Byrnessanjuana [facility] [id number] [facility] 16:45:00 17:04:41 Care Unknown, Attending HEALTH [id number] ity of [place] [id number] Rohit as TIP?BLEA [id number] [address] OFFICE [facility] 2022-10-10 2022-10-10 Outpatient R SONIYA [facility] [id number] [facility] 16:45:00 17:04:[address] [facility] 2022-10-10 2022-10-10 Telephone [facility] [id number] Univers 00:00:00 00:00:00 [facility] [id number] it y of [place] [id number] Rohit as TIP?BLEA [id number] [address] MEDICAL OFFICE [facility] 2022-10-10 2022-10-10 Orders Doctor JOHNSON [id number] Univers 00:00:00 00:00:00 Only Unassigned, SHAKA [id number] [facility] [id number] Rohit as [id number] [address] 2021-02-12 2021-02-12 Outpatient MARIE Cho LABO [id number] [facility] 17:40:00 17:40:00 Jose 82 [facility] 2021-02-12 2021-02-12 Outpatient ANITHA ChoU REFE [id number] [facility] 15:57:00 15:57:00 Jose 05 [facility] Results Test Description Test Time Test Comments Results Result Comments Source GLUBED 2021-02-21 11:40:00 Test Item Value Reference Range Interpretation Comme nts GLUBED (test code = GLUBED) 180 mg/dL 60-125 H BASIC METABOLIC [id number] 06:50:00 Test Item Value Reference Range Interpretation [...] RATE (test code = GFR) mL/mi n/1.73 [id number] Range:Healthy Adults >90 mL/min/1.73 m2 For Chronic Kidney Disease: Stage II Mild Decrease i n GFR 60-90 Stage III Moderate Decrea se in GFR 30-59 St age IV Severe Decre ase in GFR 15-29 St age V Kidney Failur e <15 CREATININE (test code 1.21 mg/dL 0.55-1.30 N = CREAT) CALCIUM (test code = 8.3 mg/dL 8.2-10.1 N CA) HGB [id number] 05:52:00 Test Item Value Reference Range Interpretation Comments HEMOGLOBIN (test code = HGB) 11.7 g/dL 12-16 L HEMATOCRIT (test code = HCT) 36.7 % 37-47 L SPECIMEN COMMENT: POD #[id number] 05:06:00 Test Item Value Reference Range Interpretation Comments GLUBED (test code = GLUBED) 100 mg/dL 60-125 N [id number] 20:27:00 Test Item Value Reference Range Interpretation Comments GLUBED (test code = GLUBED) 168 mg/dL 60-125 H [id number] 13:05:00 Test Item Value Reference Range Interpretation Comments GLUBED (test code = GLUBED) 132 mg/dL 60-125 H [id number] 08:47:00 Test Item Value Reference Range Interpretation Comments GLUBED (test code = GLUBED) 123 mg/dL 60-125 N [id number] 10:12:00 Test Item Value Reference Range Interpretation Comments FRUCTOSAMINE (test code = 235 RE FERENCE INTERVAL : FRUC) 0-285 umol/L Novel Coronavirus 2018 [id number] 08:51:00 Test Item Value Reference Range Interpretation Comments Novel Coronavirus Negative Negative Positive r esults are 2018 Inhouse (test indicativ e of the presence [...] assa y in vitro. Novel Coronavirus 2018 [id number] 08:51:00 Test Item Value Reference Range Interpretation [...] for the identification of SARS-CoV-2 RNA usingthe Audit Verify M2000 Sy stem under the FDA Emergen cy UseAuthorizatio n. The testing is perf ormed by personneltralacy d in the procedures for the Audit Verify M2000 molecular diagnostic SARS-CoV-2 assa y in [...] for these patients.DONE A T: [facility] [address] [place], [place] [address] GLYCOSYLATED HEMOGLOBIN (HA1C)2021-02-12 17:59:00 Test [...] be considered for these patients. COMPREHENSIVE METABOLIC [id number] 12:19:00 Test Item Value Reference Range Interpretation [...] RATE (test code = GFR) mL/mi n/1.73 [id number] Range:Healthy Adults >90 mL/min/1.73 m2 For Chronic [...] N TOTAL (test code = ALKP) PROTHROMBIN [id number] 12:18:00 Test Item Value Reference Range Interpretation Comments PROTHROMBIN TIME 10.9 secs 10.1-12.5 N PATIENT (test code = PTP) INTERNATIONAL NORMAL 0.96 <2.0 RECOMME NDED THERAPEUTIC RATIO (test code = RANGE FOR ORAL INR) ANTICOAGULANTTR EATMENT: CONDITION INRPr ophylaxis of venous throm bosis in 2.0 - 3.0 high- risk medical or surg ical patientsTreatme nt of venous thrombos is 2.0 - 3.0Prevention o f embolism 2.0 - 3.0Prevention o f recurrent embol ism, or 3.0 - 4.5 patie nts with mechanical pros thetic intravascular v mauro IS PATIENT ON ANTICOAGULANTS ? NHas Lab been notified if Patient is on Heparin Drip? NOIf Yes, orderCBC, OCCULT BLOOD, PT every other day NTHROMBOPLASTIN TIME [id number] 12:18:00 Test Item Value Reference Range Interpretation [...]
--- NOTE | 2022-12-07 12:47 | RAD REPORT ---
EXAM DESCRIPTION: RAD - Shoulder Left 2 View - 12/07/2022 12:23 pm CLINICAL HISTORY: fall COMPARISON: No comparisons FINDINGS: Mild osteopenia. Left AC joint and glenohumeral joint arthritic changes are present. No ac [place] fracture or dislocation.
--- NOTE | 2022-12-07 12:48 | RAD REPORT ---
EXAM DESCRIPTION: RAD - Lumbar Spine 3 Views - 12/07/2022 12:23 pm CLINICAL HISTORY: fall Radiculopathy COMPARISON: Abdomen Pelvis Wo Contrast dated 04/07/2022 FINDINGS: Diffuse osteopenia is seen. Mild lower lumbar degenerative changes. No acute fracture or m alalignment suspected. Heavy aortic atherosclerosis with probable mild aortic aneurysm present.
--- NOTE | 2022-12-07 12:51 | RAD REPORT ---
EXAM DESCRIPTION: RAD - Pelvis - 12/07/2022 12:23 pm CLINICAL HISTORY: fall COMPARISON: No comparisons FINDINGS: No acute fracture or dislocation seen.
[2022-12-07] MEDS ORDERED: TRAMADOL HCL 50 MG TAB ONE (13:43)
[2022-12-07] MEDS ORDERED: DOXYCYCLINE 100 MG CAP PO ONE (13:44)
--- NOTE | 2022-12-07 14:18 | EDPHYS ---
Physician Documentation [facility] Name: Chaz Flowers Age: 77 yrs Sex: Male : 1945 Arrival Date: 12/07/2022 Time: 11:14 Bed 9 Private MD: Remy Cyr T ED Physician Hany Ricci HPI: 12/07 11:25 This 77 yrs old Male presents to ER via Ambulatory with complaints of Fall Injury, jmm Elbow Injury. 11:25 Details of fall: The patient fell from an upright position. Onset: The symptoms/episode jmm began/occurred acutely. Associated injuries: The patient sustained injury to the low back. Is a 77-year-old male with history of AAA, diabetes mellitus, hypertension the presents emerged department with complaints of left shoulder pain and right lower back pain after a fall which was sustained 2 days ago. Patient tripped and fell. Denies hitting his head. Patient did have a wound to the left elbow which was treated at home. Also complains of some swelling to the forearm and hand. Denies any pain or injury to that area. Patient is up-to-date on tetanus immunization. Historical: - Allergies: 11:42 No Known Allergies; ap3 - PMHx: 11:42 AAA; Diabetes - NIDDM; Hypertension; ap3 - Immunization history:: Client reports receiving the 2nd dose of the Covid vaccine, Flu vaccine is up to date. - Social history:: Smoking status: Patient denies any tobacco usage or history of. ROS: 11:25 Constitutional: Negative for fever, chills, and weight loss, Cardiovascular: Negative jmm for chest pain, palpitations, and edema, Respiratory: Negative for shortness of breath, cough, wheezing, and pleuritic chest pain. 11:25 Back: Positive for pain with movement. 11:25 MS/extremity: Positive for pain. 11:25 All other systems are negative. Exam: 11:25 Constitutional: This is a well developed, well nourished patient who is awake, alert, jmm and in no acute distress. Head/Face: atraumatic. Eyes: EOMI, no conjunctival erythema appreciated ENT: Moist Mucus Membranes Neck: Trachea midline, Supple Chest/axilla: Normal chest wall appearance and motion. Cardiovascular: Regular rate and rhythm. No edema appreciated Respiratory: Normal respirations, no respiratory distress appreciated Abdomen/GI: Non distended 11:25 Back: pain, that is moderate, of the lumbar area. 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 No bony tenderness appreciated the left elbow, full range of motion appreciated. Small laceration noted with some purulent drainage with some surrounding erythema.. 11:25 Skin: Appearance: Color: normal in color. 11:25 Neuro: Orientation: is normal, Mentation: is normal, Memory: is normal. 11:25 Psych: Behavior/mood is pleasant, cooperative. Vital Signs: 11:41 Pulse 75; Temp 97.3(O); Pulse Ox 99% ; ap3 11:42 Weight 81.65 kg; Height 5 ft. 10 in. (177.80 cm); ap3 11:44 BP 143 / 96; ap3 13:53 BP 132 / 84; Pulse 61; Pulse Ox 98% on R/A; ap3 11:42 Body Mass Index 25.83 (81.65 kg, 177.80 cm) ap3 MDM: 11:25 Patient medically screened. [facility] 14:15 Data reviewed: vital signs, nurses notes. I considered the following discharge [facility] prescriptions or medication management in the emergency department Medications were administered in the Emergency Department. See MAR. Historians other than the Patient: . Counseling: I had a detailed discussion with the patient and/or guardian regarding: the historical points, exam findings, and any diagnostic results supporting the discharge/admit diagnosis, radiology results, the need for outpatient follow up, to return to the emergency department if symptoms worsen or persist or if there are any questions or concerns that arise at home. ED course: Patient is alert nontoxic in appearance in the ED. Vital signs are normal. I do not currently suspect sepsis. I did ask some concerns his wound may be infected. Purulent drainage was appreciated on evaluation of the wound. The area was cleaned. Patient advised to follow-up with PCP for reevaluation. Patient otherwise given strict return precautions. Patient understood and agrees plan of care.. 12/07 11:25 Order name: Shoulder Left (2 View) XRAY; Complete Time: 12:49 [facility] 12/07 11:25 Order name: Lumbar Spine (3 Views) XRAY; Complete Time: 12:49 [facility] 12/07 11:25 Order name: Pelvis XRAY; Complete Time: 12:54 [facility] 12/07 13:27 Order name: Wound Care; Complete Time: 14:03 [facility] Administered Medications: 13:45 Drug: Doxycycline 100 mg Route: PO; ap3 14:58 Follow up: Response: No adverse reaction; Pain is decreased ap3 13:45 Drug: traMADol 50 mg Route: PO; ap3 14:59 Follow up: Response: No adverse reaction; Pain is decreased ap3 Disposition: 16:22 Co-signature as Attending Physician, Hany Ricci MD I reviewed the patient's care rn provided by the Advanced Practice Provider and agree with the diagnosis and treatment plan. Disposition Summary: 12/07/22 14:17 Discharge Ordered Location: Home [facility] Condition: Stable [facility] Diagnosis - Cellulitis of the left upper extremity [facility] - Strain of muscle, fascia and tendon of lower back, initial encounter [facility] Followup: [facility] - With: Remy Cyr MD - When: 2 - 3 days - Reason: Recheck today's complaints, Continuance of care, Re-evaluation by your physician Discharge Instructions: - Discharge Summary Sheet [facility] - Lumbosacral Strain [facility] - Cellulitis, Adult [facility] Forms: - Medication Reconciliation Form [facility] - Thank You Letter [facility] - Antibiotic Education [facility] - Prescription Opioid Use [facility] Prescriptions: - Doxycycline Hyclate 100 mg Oral Tablet - take 1 tablet by ORAL route every 12 hours; 20 tablet; Refills: 0, Product [facility] Selection Permitted - Tramadol 50 mg Oral Tablet - take 1 tablet by ORAL route every 8 hours as needed; 12 tablet; Refills: 0, [facility] Product Selection Permitted - orphenadrine citrate 100 mg Oral Tablet Sustained Release - take 1 tablet by ORAL route 2 times per day As needed; 20 tablet; Refills: 0, [facility] Product Selection Permitted Signatures: Dispatcher [employer] EDBhaskar Blanco PA PA Hany Osorio MD MD rn Prokisch, Amanda, RN RN ap3 Corrections: (The following items were deleted from the chart) 11:42 11:42 Allergies: NKA; ap3 ap3
--- NOTE | 2022-12-07 14:18 | ER ---
Nurse's Notes [facility] Name: Chaz Flowers Age: 77 yrs Sex: Male : 1945 Arrival Date: 12/07/2022 Time: 11:14 Bed 9 Private MD: Remy Cyr T Diagnosis: Cellulitis of the left upper extremity;Strain of muscle, fascia and tendon of lower back, initial encounter Presentation: 12/07 11:40 Chief complaint: Patient states: he slid on some steel, and landed on his left elbow on ap3 Wednesday12/05/2022. patient is complaining of pain to his left shoulder and lower back. Coronavirus screen: At this time, the client does not indicate any symptoms associated with coronavirus-19. Ebola Screen: No symptoms or risks identified at this time. Initial Sepsis Screen: Does the patient meet any 2 criteria? No. Patient's initial sepsis screen is negative. Does the patient have a suspected source of infection? No. Patient's initial sepsis screen is negative. Risk Assessment: Do you want to hurt yourself or someone else? Patient reports no desire to harm self or others. Onset of symptoms was December 05, 2022. 11:40 Method Of Arrival: Ambulatory ap3 11:44 Acuity: BRADY 4 ap3 Triage Assessment: 11:42 General: Appears uncomfortable, Behavior is calm, cooperative. Pain: Complains of pain ap3 in left shoulder, lower back, left elbow. Neuro: Level of Consciousness is awake, alert, obeys commands, Oriented to person, place, time, situation. Cardiovascular: Patient's skin is warm and dry. Respiratory: Airway is patent Respiratory effort is even, unlabored. Musculoskeletal: Reports pain in left shoulder, left elbow, lower back. Historical: - Allergies: 11:42 No Known Allergies; ap3 - PMHx: 11:42 AAA; Diabetes - NIDDM; Hypertension; ap3 - Immunization history:: Client reports receiving the 2nd dose of the Covid vaccine, Flu vaccine is up to date. - Social history:: Smoking status: Patient denies any tobacco usage or history of. Screenin:44 Abuse screen: Denies threats or abuse. Nutritional screening: No deficits noted. ap3 Tuberculosis screening: No symptoms or risk factors identified. 12:26 [facility] ED Fall Risk Assessment (Adult) History of falling in the last 3 months, ap3 including since admission Yes- single mechanical fall (1 pt) Confusion or Disorientation No (0 pts) Intoxicated or Sedated No (0 pts) Impaired Gait No (0 pts) Mobility Assist Device Used No (0 pt) Altered Elimination No (0 pt). Assessment: 13:53 Reassessment: Patient and/or family updated on plan of care and expected duration. Pain ap3 level reassessed. Patient is alert, oriented x 3, equal unlabored respirations, skin warm/dry/pink. Patient states symptoms have improved. General: Appears comfortable, Behavior is calm, cooperative. Vital Signs: 11:41 Pulse 75; Temp 97.3(O); Pulse Ox 99% ; ap3 11:42 Weight 81.65 kg; Height 5 ft. 10 in. (177.80 cm); ap3 11:44 BP 143 / 96; ap3 13:53 BP 132 / 84; Pulse 61; Pulse Ox 98% on R/A; ap3 11:42 Body Mass Index 25.83 (81.65 kg, 177.80 cm) ap3 ED Course: 11:14 Patient arrived in ED. am2 11:14 Remy Cyr MD is Private Physician. am2 11:15 [facility] 11:15 Hany Ricci MD is Attending Physician. jm 11:44 Triage completed. ap3 11:44 Arm band placed on right wrist. ap3 12:04 Joann Spain, RN is Primary Nurse. ap3 12:25 Shoulder Left (2 View) XRAY In Process Unspecified. EDMS 12:25 Lumbar Spine (3 Views) XRAY In Process Unspecified. EDMS 12:25 Pelvis XRAY In Process Unspecified. EDMS 12:26 Patient has correct armband on for positive identification. Bed in low position. Call ap3 light in reach. Side rails up X 1. Pulse ox on. NIBP on. Door closed. Noise minimized. 13:53 Dressings: ABD pad X 1; left elbow. Irrigation on left elbow irrigated with normal ap3 saline Hibiclens solution Patient tolerated well. 13:54 No provider procedures requiring assistance completed. Patient did not have IV access ap3 during this emergency room visit. 14:16 Remy Cyr MD is Referral Physician. jmm Administered Medications: 13:45 Drug: Doxycycline 100 mg Route: PO; ap3 14:58 Follow up: Response: No adverse reaction; Pain is decreased ap3 13:45 Drug: traMADol 50 mg Route: PO; ap3 14:59 Follow up: Response: No adverse reaction; Pain is decreased ap3 Medication: 13:54 VIS not applicable for this client. ap3 Outcome: 14:17 Discharge ordered by . nisha 14:58 Discharged to home ambulatory. ap3 14:58 Condition: good 14:58 Discharge instructions given to patient, Instructed on discharge instructions, follow up and referral plans. medication usage, Demonstrated understanding of instructions, follow-up care, medications, Prescriptions given X 3. 14:58 Patient left the ED. ap3 Signatures: Dispatcher [employer] EDMS Bhaskar Guillen PA PA jmm Moreno, Amanda am2 Prokisch, Amanda, RN RN ap3 Corrections: (The following items were deleted from the chart) 11:42 11:42 Allergies: NKA; ap3 ap3 12:22 11:41 Pulse 75bpm; Pulse Ox 99%; Temp 97.3F; ap3 ap3
[2022-12-07 15:03] VITALS: TEMP 97.3
[2022-12-07 15:05] VITALS: BP 132/84; O2SAT 98
== END 2022-12-07 14:58 | disposition home or self-care (01) ==
LOC: ER 11:13
DX: S39.012A Strain of muscle, fascia and tendon of lower back, initial encounter (principal); L03.114 Cellulitis of left upper limb
CPT/HCPCS: 72100; 72170

== ENCOUNTER 2023-06-09 15:35 | Emergency (ER) | payer OTHER ==
--- OUTSIDE RECORDS SUMMARY | 2023-06-09 15:42 | XMS REPORT | Continuity of Care Document ---
:1945 Author Organization [facility] t Address [address] [place] [address] [place] [id number] Care Team Providers Name Role Phone None, None Primary Care Physician Unavailable Jose Cho Attending Clinician Unavailable IzJennifer merritt MD Attending Clinician PUJA JOHNSON Attending Clinician Unavailable Dior Sánchez RN Attending Clinician Unavailable LEIA PERRY Attending Clinician Unavailable LEIA PERRY Attending Clinician Unavailable Izaiah CARCAMO Attending Clinician Unavailable Izaiah Medrano Attending Clinician Benjie TRAVELING SALES REPRESENTATIVE, Leon Jiang Attending Clinician Unavailable Puja Johnson MD Attending Clinician Ulices TRAVELING SALES REPRESENTATIVE, Homa Hameed Attending Clinician Unavailable Benjie TRAVELING SALES REPRESENTATIVE, Devika Bliss Attending Clinician Unavailable Doctor Unassigned, [place] Attending Clinician Unavailable Simi Pérez PT Attending Clinician Unavailable David Attending Clinician Unavailable JENN AMBRIZ Attending Clinician Unavailable DAIJA HERRERA Attending Clinician Unavailable Toni Waldrop Attending Clinician Unavailable Jacky Hartman Attending Clinician Unknown, Attending Attending Clinician Unavailable JACKY RAZA Attending Clinician Unavailable Jose Cho Admitting Clinician Unavailable LEIA PERRY Admitting Clinician Unavailable David Admitting Clinician Unavailable CONSUELO GARZA Admitting Clinician Unavailable DAIJA HERRERA Admitting Clinician Unavailable UNDEFINED Admitting Clinician Unavailable Toni Waldrop Admitting Clinician Unavailable Payers Payer Name Policy Type Policy Number Effective Date Expiration Date S joey MEDICARE PART A AND [id number] 2011 B 00:00:00 MEDICARE PART A \\T\\ [id number] 2011 B 00:00:00 [employer] SENIOR [id number] 2022 SUPPLEMENT 00:00:00 MEDICARE B-[place]: [id number] 2011 NOVOWM 00:00:00 [employer] LIFE [id number] INSURANCE COMPANY (MEDICARE SUPPLEMENT) Problems Condition Condition Condition Status Onset Resolution Last Treating Co mments Source Name Details Category Date Date Treatment Clinician Date Atrial Atrial Disease Active Univers fibrillati fibrillati 6 it y of on, on, 00:00: [place] unspecifie unspecifie 00 Me dical d type d type Branch Tendinitis Tendinitis Problem Active A zalea of long of Long 3-22 Orthope head of Head of 00:00: dic biceps Biceps 00 Sports brachii of Brachii of Me dicin left Left e shoulder Shoulder Anterior Anterior Problem Active Azale a to to 3-22 Orthope posterior Posterior 00:00: dic tear of Tear of 00 Sports superior Superior Medici n glenoid Glenoid e labrum of Labrum of left Left shoulder Shoulder Tear of Tear of Problem Active Kandace left Left 3-06 Orthope rotator Rotator 00:00: dic cuff Cuff 00 Sports Medicin e Pain of Pain of Problem Active Kandace left Left 3-06 Orthope shoulder Shoulder 00:00: dic joint Joint 00 Sports Medicin e 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 4-30 Or thope knee joint Knee Joint 00:00: di c 00 Sports Medicin e 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:00: dic prosthesis Prosthesis 00 Sp orts Medicin e 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 2-09 Orthope left knee Left Knee 00:00: dic joint Joint 00 Sports Medicin e TIA TIA Disease Active [facility] (transient [facility]-16 Daisha kes ischemic ischemic 00:00: Medica l attack) attack) 00 Center No known No known Disease Unive rs active active ity of problems problems [facility] Allergies, Adverse Reactions, Alerts Allergy Allergy Status Severity Reaction(s) Onset Inactive Treating Comm ents Source Name Type Date Date Clinician No Known DA Active [facility]07 Clear Allergie 00:00: Dailey s 00 [facility] No Known DA Active U [facility] 4-07 Clear Allergie 00:00: Dailey s 00 [facility] NO KNOWN Drug Active Univers ALLERGIE Class ity of S [facility] Social History Social Habit Start Date Stop Date Quantity Comments Source History SDOH University o f Alcohol Std Drinks [place] [facility] History SDOH University o f Alcohol Binge [place] [facility] History SDOH Social Unive rsity of Connections [facility] [place] [facility] ica Together Branch History SDOH Social Unive rsity of Connections Zoroastrian [place] [facility] History SDOH Social Unive rsity of Connections [place] [facility] Membership Branch History SDOH Social Unive rsity of Connections [place] [facility] Meetings Branch History SDOH 2023-05-05 2023-05-05 1 University o f Alcohol Frequency 00:00:00 00:00:00 [place] M edical Branch History SDOH Social 2023-05-05 2023-05-05 5 Unive rsity of Connections Phone 00:00:00 00:00:00 [place] M edical Branch History SDOH Social 2023-05-05 2023-05-05 3 Unive rsity of Connections Living 00:00:00 00:00:00 [place] [facility] History SDOH 2023-05-05 2023-05-05 3 University o f Physical Activity 00:00:00 00:00:00 [place] M edical DPW Branch History SDOH 2023-05-05 2023-05-05 1 University o f Physical Activity 00:00:00 00:00:00 [place] M edical MPS Branch History SDOH 2023-05-05 2023-05-05 4 University o f Financial 00:00:00 00:00:00 [place] [facility] History SDOH Food 2023-05-05 2023-05-05 1 Univers ity of Worry 00:00:00 00:00:00 [place] [facility] History SDOH Food 2023-05-05 2023-05-05 1 Univers ity of Scarcity 00:00:00 00:00:00 [place] [facility] History SDOH 2023-05-05 2023-05-05 2 University o f Transport Med 00:00:00 00:00:00 [place] Medic al Branch History SDOH 2023-05-05 2023-05-05 2 University o f Transport Non-Med 00:00:00 00:00:00 [place] M edical Branch History SDOH 2023-05-05 2023-05-05 2 University o f Housing Unable to 00:00:00 00:00:00 [place] M edical Pay Branch History SDOH 2023-05-05 2023-05-05 1 University o f Housing Places 00:00:00 00:00:00 [place] Medi malik Lived Branch History SDOH 2023-05-05 2023-05-05 2 University o f Housing Homeless 00:00:00 00:00:00 [place] Az dical Last Year Branch Exposure to 2023-03-07 2023-03-17 Not sure University SARS-CoV-2 (event) 00:00:00 08:45:00 [facility] Cigarettes smoked 2023-03-15 2023-03-15 [facility] (pack per 00:00:00 00:00:00 day) - Reported Tobacco use and 2022-10-10 2022-10-10 Smokeless Universit y of exposure 00:00:00 00:00:00 tobacco non-user [facility] [place] [facility] dical [place] Alcohol intake 2016-11-23 2016-11-[address] [facility] 00:00:00 00:00:00 non-drinker of Medical nter alcohol (finding) Tobacco Comment 2016-11-23 2016-11-23 quit [address] [facility] 00:00:00 00:00:00 ago [facility] History of tobacco 1958 2007-01-23 [facility]igarette [facility] use 00:[facility]:00 00:00:00 Sex Assigned At [address] Daisha kes 00:00:00 00:00:00 [facility] Smoking Status Start Date Stop Date Source Tobacco smoking [facility] consumption unknown Medical [facility] Ex-smoker 2023-03-15 00:00:00 2023-03-15 [facility] 00:[facility]:00 Never smoked tobacco [facility] Medications Ordered Filled Start Stop Current Ordering Indication Dosage Frequency Signature Comments Components Source Medication Medication Date Date Medication? Clinician (SIG) Name Name aspirin 81 Yes 81mg QD Take 81 mg U T MG EC 05-10 by mouth 1 Health tablet 16:23: (one) time 41 each day. valsartan Yes valsartan [facility] (Diovan) 05-10 320 mg Health 320 MG 16:23: tablet tablet 41 losartan 25 Yes 25mg Take 25 mg Univers mg tablet 6-28 by mouth. ity o f 18:14: [place] [address] [facility] Branch DULoxetine Yes 60mg Take 1 Unive rs 60 mg 6-28 capsule by ity of capsule 18:14: mouth in [place] 15 the Medical morning. Branch metFORMIN Yes 500mg Take 1 Unive rs 500 mg 6-28 tablet by ity of tablet 18:14: mouth in [place] [address] the [facility] Branch and 1 tablet in the evening. Take with meals. metoprolol 2023-0 Yes 12.5mg Take 1 Uni vers tartrate 6-28 half ity of 12.5 mg 18:14: tablet by [place] [address] [facility] the [place] morning and 1 half tablet in the evening. apixaban 5 3-0 Yes 5mg Take 1 Unive rs mg tablet 6-28 tablet by ity o f 18:14: mouth in [place] [address] the [facility] Branch and 1 tablet in the evening. aspirin 81 2023-0 Yes 81mg Take 1 Unive rs mg chewable 6-28 tablet by ity of tablet 18:14: mouth in [place] [address] the Medical morning. Branch atorvastati 2022-0 Yes 40mg Take 1 Univ ers n 40 mg 6-28 tablet by ity of tablet 18:14: mouth at [place] [address] bedtime. Medical Branch insulin 2022-0 Yes inject Univers regular 6-28 under the ity of human in 18:14: [place] NaCl 0.9% 15 now. Medical (NS) IV Branch infusion losartan 25 3-0 Yes 25mg Take 25 mg Univers mg tablet 6-28 by mouth. ity o f 18:14: [place] [address] Medical Branch DULoxetine 3-0 Yes 60mg Take 1 Unive rs 60 mg 6-28 capsule by ity of capsule 18:14: mouth in [place] [address] the Medical morning. Branch metFORMIN 3-0 Yes 500mg Take 1 Unive rs 500 mg 6-28 tablet by ity of tablet 18:14: mouth in [place] [address] the [facility] Branch and 1 tablet in the evening. Take with meals. metoprolol 2023-0 Yes 12.5mg Take 1 Uni vers tartrate 6-28 half ity of 12.5 mg 18:14: tablet by [place] 15 mouth in [facility] morning and 1 half tablet in the evening. apixaban 5 3-0 Yes 5mg Take 1 Unive rs mg tablet 6-28 tablet by ity o f 18:14: mouth in [place] [address] the [facility] Branch and 1 tablet in the evening. aspirin 81 2023-0 Yes 81mg Take 1 Unive rs mg chewable 6-28 tablet by ity of tablet 18:14: mouth in [place] [address] the Medical morning. Branch atorvastati Yes 40mg Take 1 Univ ers n 40 mg 05-05 tablet by ity of tablet 18:14: mouth at [place] 15 bedtime. Medical Branch insulin Yes inject Univers regular 05-05 under the ity of human in 18:14: [place] NaCl 0.9% 15 now. Medical (NS) IV Branch infusion metoprolol 2022- No 100mg Take 100 U nivers succinate 05-05- mg by ity of XL 100 mg 16:24: 00:00 mouth. [place] 24 hr 26 :00 Medical tablet Branch valsartan 2022- No 160mg Take 1 Univ ers 160 mg 05-05 tablet by ity of tablet 16:24: 00:00 mouth in [place] 26 :00 the Medical morning Branch and 1 tablet in the evening. aspirin Yes 81mg 81 mg, Univers chewable 05-05 Oral, ity of tablet 81 14:00: DAILY, [place] mg 00 First dose Medical on Wed Geraldine 05/05/23 at 0900, Until Discontinu ed, Routine DULoxetine Yes 60mg 60 mg, Unive rs (CYMBALTA) 05-05 Oral, ity of capsule 60 14:00: DAILY, [place] mg 00 First dose Medical on Wed [place] 05/05/23 at 0900, Until Discontinu ed, Routine Sliding Yes Subcutaneo Univ ers Scale 05-05 us, TID ity of Insulin - 13:00: MEALS+HS, Rohit as Lispro 00 First dose Medical (HumaLOG) on Wed [place] 05/05/23 at 0800, Until Discontinu ed, Routine apixaban Yes 5mg 5 mg, Univers (ELIQUIS) 05-05 Oral, BID, ity of tablet 5 mg 13:00: First dose [place] [address] [facility] 05/05/23 at Branch 0800, Until Discontinu ed, Routine
Indicatio ns: Non-Valvul ar Atrial Fibrillati on magnesium 2022- No 800mg 800 mg, Uni vers oxide 05-05 Oral, ity of (MAG-OX 13:00: 13:06 ONCE, 1 [place] 400) tablet 00 :00 dose, On Medi malik 800 mg [facility] 05/05/23 at 0800, Routine dextrose 0 Yes 250mL 250 mL, IV Un kinga 10% (D10W) 05-05 Infusion, ity of bolus 04:17: PRN - SEE [place] infusion 09 INSTRUCTIO Medic al 250 mL , Branch Administer over 60 Minutes, Other, If blood glucose is < or = 70 mg/dL and patient is unable to swallow or has mental status changes, Starting on [facility] 05/04/23 at 2317
If blood glucose is < or = 70 mg/dL and patient is unable to swallow or has mental status changes (Give glucagon order if patient needs fluid restrictio n): IF IV access available: Dextrose 10%. 1. 125 mL (? bag) of D10W IV infusion - equivalent to 12.5 g dextrose 2. Blood glucose - draw blood glucose 15 minutes after D10W Administra tion. 3. If blood glucose is < 80 mg/dL, repeat.
glucagon Yes 1mg 1 mg, Univers (GLUCAGEN 05-05 Intramuscu ity of DIAGNOSTIC 04:17: [place], PRN, [place] KIT) 06 Starting Medical injection [address] [facility] 05/04/23 at 2317, Until Discontinu ed, IVETH, Blood Glucose < or = 70 mg/dL and patient is NPO, unable to swallow or has mental changes. atorvastati Yes 40mg 40 mg, Univ ers n (LIPITOR) 05-05 Oral, QHS, it y of tablet 40 02:00: First dose [place] mg 00 on [facility] 05/04/23 at Branch 2100, Until Discontinu ed, Routine metoprolol 0 Yes 12.5mg 12.5 mg, U nivers succinate 05-05 Oral, BID, ity of XL (TOPROL 01:00: First dose [place] XL) tablet 00 on [facility] 12.5 mg 05/04/23 at Branch 2000, Until Discontinu ed, Routine NaCl 0.9% 0 2022- No 1000mL at 50 Univ ers (NS) IV 05-05 06-28 mL/hr, IV ity of infusion 01:00: 03:49 Infusion, Rohit as 1,000 mL 00 :54 CONTINUOUS Medic al , Starting Branch on Wed05/04/23 at 2000, Until Wed05/04/23 at 2249, Routine labetaloL 0 Yes 10mg 10 mg, Univer s (NORMODYNE) 05-05 Slow IV ity o f injection 00:50: Push, [place] 10 mg 06 [id number], 5 Medical doses, Branch Starting on Wed05/04/23 at 1950, Until Discontinu ed, Routine, Hypertensi on SBP> 220 NaCl 0.9% 2022- No 500mL at 999 Univ ers (NS) bolus 05-05-28 mL/hr, 500 it y of infusion 00:45: 00:18 mL, IV [place] 500 mL 00 :00 Piggyback, Medical ONCE, 1 Branch dose, On Wed05/04/23 at 1945, STAT metoprolol 2022-2022- Yes [id number] 12.5mg Take 0.5 Univers succinate 05-05- tablets by ity of XL 25 mg 24 00:00: 04:59 mouth in [place] hr tablet 00 :00 the Medical morning Branch and 0.5 tablets in the evening. Do all this for 120 days. metoprolol 2022-0 2022- Yes [id number] 12.5mg Take 0.5 Univers succinate 05-05- tablets by ity of XL 25 mg 24 00:00: 04:59 mouth in [place] hr tablet 00 :00 the Medical morning Branch and 0.5 tablets in the evening. Do all this for 120 days. losartan 25 2022-0 Yes 25mg Take 25 mg Univers mg tablet 6-27 by mouth. ity o f 22:13: [address] Branch metoprolol 2022-0 Yes 100mg Take 100 Un kinga succinate 6-27 mg by ity of XL 100 mg 22:13: mouth. [place] 24 hr 45 Medical tablet Branch losartan 25 2022-0 Yes 25mg Take 25 mg Univers mg tablet 6-27 by mouth. ity o f 22:13: [address] Branch metoprolol 2022-0 Yes 100mg Take 100 Un kinga succinate 6-27 mg by ity of XL 100 mg 22:13: mouth. [place] hr 45 Medical tablet Branch magnesium No 2g 2 g, IV Univ ers sulfate in 05-04 Piggyback, it y of water 2 21:30: 21:25 Administer Rohit as gram/50 mL 00 :00 over 60 Medica l (4 %) Minutes, Branch infusion 2 ONCE, 1 g dose, On Wed05/04/23 at 1630, Routine NaCl 0.9% No 1000mL at 999 Uni vers (NS) bolus 05-04 mL/hr, ity of infusion 21:30: 21:32 1,000 mL, Rohit as 1,000 mL 00 :00 IV Medical Infusion, Branch ONCE, 1 dose, On Wed05/04/23 at 1630, STAT iopamidol 2022- No [id number] 80mL 80 mL, U nivers (ISOVUE 05-04 Intravenou ity o f 370-500 mL) 21:07: 21:30 s, ONCE, 1 [place] injection 00 :00 dose, On Medica l 80 mL [facility] Branch 05/04/23 at 1630, Routine metoprolol 2022- No 25mg QD Take 25 mg [facility] succinate 03-15 05-08 by mouth 1 Hea lth XL 14:25: 00:00 (one) time (Toprol-XL) 00 :00 each day. 25 MG 24 hr Do not tablet crush or chew. valsartan Yes valsartan [facility] (Diovan) 03-15 320 mg Health 320 MG 13:45: tablet tablet 35 aspirin 81 0 Yes 81mg QD Take 81 mg U T MG EC 08 by mouth 1 Health tablet 13:38: (one) time 56 each day. amiodarone 0 Yes [id number] 200mg Q.5D Take 1 UT (Pacerone) 5-08 tablet Health 200 MG 00:00: (200 mg tablet 00 total) by mouth in the morning and 1 tablet (200 mg total) in the evening. atorvastati 0 Yes [id number] 40mg QD Take 1 UT n (Lipitor) 5-08 tablet (40 He alth 40 MG 00:00: mg total) tablet 00 by mouth 1 (one) time each day. metoprolol 2023-0 Yes [id number] 25mg QD Take 1 UT succinate 5-08 tablet (25 Heal th XL 00:00: mg total) (Toprol-XL) 00 by mouth 1 25 MG 24 hr (one) time tablet each day. Do not crush or chew. Eliquis 5 0 Yes 1737 5mg Q.5D Take 1 UT MG tablet 5-08 tablet (5 Healt h 00:00: mg total) 00 by mouth every 12 (twelve) hours. atorvastati 0 Yes [id number] 40mg QD Take 1 UT n (Lipitor) 5-08 tablet (40 He alth 40 MG 00:00: mg total) tablet 00 by mouth 1 (one) time each day. metoprolol Yes [id number] 25mg QD Take 1 UT succinate 5-08 tablet (25 Heal th XL 00:00: mg total) (Toprol-XL) 00 by mouth 1 25 MG 24 hr (one) time tablet each day. Do not crush or chew. Eliquis 5 Yes 1737 5mg Q.5D Take 1 UT MG tablet 5-08 tablet (5 Healt h 00:00: mg total) 00 by mouth every 12 (twelve) hours. amiodarone 2022- No [id number] 200mg Q.5D Take 1 UT (Pacerone) 03-15 06-30 tablet Health 200 MG 00:00: 00:00 (200 mg tablet 00 :00 total) by mouth in the morning and 1 tablet (200 mg total) in the evening. amiodarone 2022- No 200mg Q.5D Take 200 U T (Pacerone) 03-02 05-08 mg by Health 200 MG 00:00: 00:00 mouth in tablet 00 :00 the morning and 200 mg before bedtime. atorvastati 2022-2022- No UT n (Lipitor) 25 05-08 Health 40 MG 00:00: 00:00 tablet 00 :00 DULoxetine Yes UT (Cymbalta) 4-[address] 00:00: capsule 00 cloNIDine 2022- Yes UT (Catapres) 4-04 Health 0.1 MG 00:00: tablet 00 DULoxetine 2023-0 Yes UT (Cymbalta) 4-[address] 00:00: capsule 00 cloNIDine 0 Yes UT (Catapres) 4-04 Health 0.1 MG 00:00: tablet 00 Eliquis 5 2022- No 5mg Q.5D Take 5 mg UT MG tablet 02-02 05-08 by mouth Healt h 00:00: 00:00 every 12 00 :00 (twelve) hours. metoprolol 2021-11 Yes 100mg Take 100 Un kinga succinate 2-03 mg by ity of XL 100 mg 17:30: mouth. [place] 24 hr 19 Medical tablet Branch metoprolol 2021-11 Yes 100mg Take 100 Un kinga succinate 2-03 mg by ity of XL 100 mg 17:30: mouth. [place] 24 hr 19 Medical tablet Branch metoprolol 2021-11 Yes 100mg Take 100 Un kinga succinate 2-03 mg by ity of XL 100 mg 17:30: mouth. [place] 24 hr 19 Medical tablet Branch metoprolol 2021-11 Yes 100mg Take 100 Un kinga succinate 2-03 mg by ity of XL 100 mg 17:30: mouth. [place] 24 hr 19 Medical tablet Branch metoprolol 2021-11 Yes 100mg Take 100 Un kinga succinate 2-03 mg by ity of XL 100 mg 17:30: mouth. [place] 24 hr 19 Medical tablet Branch metoprolol 2021-11 Yes 100mg Take 100 Un kinga succinate 2-03 mg by ity of XL 100 mg 17:30: mouth. [place] 24 hr 19 Medical tablet Branch metoprolol 2021-11 Yes 100mg Take 100 Un kinga succinate 2-03 mg by ity of XL 100 mg 17:30: mouth. [place] 24 hr 19 Medical tablet Branch metoprolol 2021-11 Yes 100mg Take 100 Un kinga succinate 2-03 mg by ity of XL 100 mg 17:30: mouth. [place] 24 hr 19 Medical tablet Branch metoprolol 2021-11 Yes 100mg Take 100 Un kinga succinate 2-03 mg by ity of XL 100 mg 17:30: mouth. [place] 24 hr 19 Medical tablet Branch metoprolol 2021-11 Yes 100mg Take 100 Un kinga succinate 2-03 mg by ity of XL 100 mg 17:30: mouth. [place] 24 hr 19 Medical tablet Branch metoprolol 2021-11 Yes 100mg Take 100 Un kinga succinate 2-03 mg by ity of XL 100 mg 17:30: mouth. [place] 24 hr 19 Medical tablet Branch metoprolol 2021-11 Yes 100mg Take 100 Un kinga succinate 2-03 mg by ity of XL 100 mg 17:30: mouth. [place] 24 hr 19 Medical tablet Branch metoprolol 2021-11 Yes 100mg Take 100 Un kinga succinate 2-03 mg by ity of XL 100 mg 17:30: mouth. [place] 24 hr 19 Medical tablet Branch metoprolol 2021-11 Yes 100mg Take 100 Un kinga succinate 2-03 mg by ity of XL 100 mg 17:30: mouth. [place] 24 hr 19 Medical tablet Branch metoprolol 2021-11 Yes 100mg Take 100 Un kinga succinate 2-03 mg by ity of XL 100 mg 17:30: mouth. [place] 24 hr 19 Medical tablet Branch losartan 25 2021-11 Yes 25mg Take 25 mg Univers mg tablet 2-03 by mouth. ity o f 17:04: [address] losartan 25 2021-11 Yes 25mg Take 25 mg Univers mg tablet 2-03 by mouth. ity o f 17:04: [address] losartan 25 2021-11 Yes 25mg Take 25 mg Univers mg tablet 2-03 by mouth. ity o f 17:04: [address] losartan 25 2021-11 Yes 25mg Take 25 mg Univers mg tablet 2-03 by mouth. ity o f 17:04: [address] losartan 25 2021-11 Yes 25mg Take 25 mg Univers mg tablet 2-03 by mouth. ity o f 17:04: [address] losartan 25 2021-11 Yes 25mg Take 25 mg Univers mg tablet 2-03 by mouth. ity o f 17:04: [address] losartan 25 2021-11 Yes 25mg Take 25 mg Univers mg tablet 2-03 by mouth. ity o f 17:04: [address] losartan 25 2021-11 Yes 25mg Take 25 mg Univers mg tablet 2-03 by mouth. ity o f 17:04: [address] losartan 25 2021-11 Yes 25mg Take 25 mg Univers mg tablet 2-03 by mouth. ity o f 17:04: [address] losartan 25 2021-11 Yes 25mg Take 25 mg Univers mg tablet 2-03 by mouth. ity o f 17:04: [address] losartan 25 2021-11 Yes 25mg Take 25 mg Univers mg tablet 2-03 by mouth. ity o f 17:04: [address] losartan 25 2021-11 Yes 25mg Take 25 mg Univers mg tablet 2-03 by mouth. ity o f 17:04: [address] losartan 25 2021-11 Yes 25mg Take 25 mg Univers mg tablet 2-03 by mouth. ity o f 17:04: [address] losartan 25 2021-11 Yes 25mg Take 25 mg Univers mg tablet 2-03 by mouth. ity o f 17:04: [address] losartan 25 2021-11 Yes 25mg Take 25 mg Univers mg tablet 2-03 by mouth. ity o f 17:04: [address] losartan 25 2021-11 Yes 25mg Take 25 mg Univers mg tablet 2-03 by mouth. ity o f 17:04: [address] cephALEXin 2021-11- No [id number] 500mg Take 1 Univers (KEFLEX) 2- 12-14 capsule by ity of 500 mg 00:00: 05:59 mouth 4 [place] capsule 00 :00 (four) Medical times [place] daily for 10 days. cephALEXin 2021-11- No [id number] 500mg Take 1 Univers (KEFLEX) 2- 12-14 capsule by ity of 500 mg 00:00: 05:59 mouth 4 [place] capsule 00 :00 (four) Medical times [place] daily for 10 days. atorvastati 2021-11 Yes Univer s n 20 mg 2-02 ity of tablet 00:00: [facility] atorvastati 2021-11 Yes Univer s n 20 mg 2-02 ity of tablet 00:00: [facility] atorvastati 2021-11 Yes Univer s n 20 mg 2-02 ity of tablet 00:00: [facility] atorvastati 2021-11 Yes Univer s n 20 mg 2-02 ity of tablet 00:00: [facility] atorvastati 2021-11 Yes Univer s n 20 mg 2-02 ity of tablet 00:00: [place] 00 Medical Branch atorvastati 2021-11 Yes Univer s n 20 mg 2-02 ity of tablet 00:00: [place] 00 Medical Branch atorvastati 2021-11 Yes Univer s n 20 mg 2-02 ity of tablet 00:00: [place] 00 Medical Branch atorvastati 2021-11 Yes Univer s n 20 mg 2-02 ity of tablet 00:00: [place] 00 Medical Branch atorvastati 2021-11 Yes Univer s n 20 mg 2-02 ity of tablet 00:00: [place] 00 Medical Branch atorvastati 2021-11 Yes Univer s n 20 mg 2-02 ity of tablet 00:00: [place] 00 Medical Branch atorvastati 2021-11 Yes Univer s n 20 mg 2-02 ity of tablet 00:00: [place] 00 Medical Branch atorvastati 2021-11 Yes Univer s n 20 mg 2-02 ity of tablet 00:00: [place] 00 Medical Branch atorvastati 2021-11 Yes Univer s n 20 mg 2-02 ity of tablet 00:00: [place] 00 Medical Branch atorvastati 2021-11 Yes Univer s n 20 mg 2-02 ity of tablet 00:00: [place] 00 Medical Branch atorvastati 2021-11 Yes Univer s n 20 mg 2-02 ity of tablet 00:00: [place] 00 Medical Branch atorvastati 2021-11 Yes Univer s n 20 mg 2-02 ity of tablet 00:00: [place] [address] Medical Branch atorvastati 2021-11 Yes Univer s n 20 mg 2-02 ity of tablet 00:00: [place] 00 Medical Branch atorvastati 2021- Yes Univer s n 20 mg 2-02 ity of tablet 00:00: [place] 00 Medical Branch atorvastati 2021-3- No Unive rs n 20 mg 2-02 - ity of tablet 00:00: 00:00 [place] 00 :00 Medical Branch clopidogreL 2021- Yes Univer s 75 mg 2-01 ity of tablet 00:00: [place] 00 Medical Branch clopidogreL 2021- Yes Univer s 75 mg 2-01 ity of tablet 00:00: [place] 00 Medical Branch clopidogreL 2021- Yes Univer s 75 mg 2-01 ity of tablet 00:00: [place] 00 Medical Branch clopidogreL 2022-1 Yes Univer s 75 mg 2-01 ity of tablet 00:00: [place] [facility] clopidogreL 2022-1 Yes Univer s 75 mg 2-01 ity of tablet 00:00: [place] [facility] clopidogreL 2022-1 Yes Univer s 75 mg 2-01 ity of tablet 00:00: [place] [facility] Branch clopidogreL 2022-1 Yes Univer s 75 mg 2-01 ity of tablet 00:00: [place] [facility] Branch clopidogreL 2022-1 Yes Univer s 75 mg 2-01 ity of tablet 00:00: [place] [address] [facility] clopidogreL 2022-1 Yes Univer s 75 mg 2-01 ity of tablet 00:00: [place] [address] [facility] clopidogreL 2022-1 Yes Univer s 75 mg 2-01 ity of tablet 00:00: [place] [address] [facility] clopidogreL 2022-1 Yes Univer s 75 mg 2-01 ity of tablet 00:00: [place] [address] [facility] clopidogreL 2022-1 Yes Univer s 75 mg 2-01 ity of tablet 00:00: [place] [address] [facility] clopidogreL 2022-1 Yes Univer s 75 mg 2-01 ity of tablet 00:00: [place] [address] [facility] clopidogreL 2022-1 Yes Univer s 75 mg 2-01 ity of tablet 00:00: [place] [address] [facility] clopidogreL 2022-1 Yes Univer s 75 mg 2-01 ity of tablet 00:00: [place] [address] [facility] clopidogreL 2022-1 Yes Univer s 75 mg 2-01 ity of tablet 00:00: [place] [address] [facility] clopidogreL 2022-1 Yes Univer s 75 mg 2-01 ity of tablet 00:00: [place] [address] [facility] clopidogreL 2022-1 Yes Univer s 75 mg 2-01 ity of tablet 00:00: [place] [address] [facility] clopidogreL 2022-1 Yes Univer s 75 mg 2-01 ity of tablet 00:00: [place] [address] [facility] clopidogreL 2022-1 Yes Univer s 75 mg 2-01 ity of tablet 00:00: [place] [address] [facility] methocarbam methocarbam 2020-0 No methocarba K[facility]ace ol 500 mg ol 500 mg 4-14 mol 500 mg [facility] tablet 1 po tablet 1 po 00:00: tablet 1 dic every 6 every 6 00 po every 6 Spo rts hours prn hours prn hours prn Medicin muscle muscle muscle e spasm spasm spasm methocarbam methocarbam No methocarba Kandace ol 500 mg ol 500 mg 4-14 mol 500 mg [facility] tablet 1 po tablet 1 po 00:00: tablet 1 dic every 6 every 6 00 po every 6 Spo rts hours prn hours prn hours prn Medicin muscle muscle muscle e spasm spasm spasm multivitami Yes 1{tbl} QD Take [address] [facility] per 1-19 tablet by [facility] tablet 13:48: [facility] 20 daily. [place] metFORMIN Yes 500mg Take [address] [facility] (GLUCOPHAGE 1-19 mg by [facility] ) 500 MG 13:48: mouth 2 Medica l tablet 20 (two) Center times daily with breakfast and dinner. losartan Yes hypertensio 25mg QD Take [address] [facility] (COZAAR) 25 1-19 n by mouth [facility] MG tablet 13:48: daily. Medica l 20 [place] metoprolol Yes hypertensio 100mg QD Take [address] [facility] (TOPROL-XL) 1-19 n mg by [facility] 100 MG 24 13:48: mouth Medical hr tablet 20 daily. [place] venlafaxine Yes 150mg QD Take [address] (EFFEXOR-XR 1-19 mg by [facility] ) 150 MG 24 13:48: mouth Medic al hr capsule 20 daily. [place] chlorthalid Yes 25mg QD Take [address] [facility] one 1-19 by mouth [facility] (HYGROTON) 13:48: daily. Medic al 25 MG 20 Center tablet cholecalcif Yes 1000U QD Take 1,[address] [facility] [address] melonie, 1-19 Units by [facility] vitamin D3, 13:48: mouth Medic al 1,000 unit 20 nightly. Cente r capsule multivitami Yes 1{tbl} QD Take [address] n per 1-19 tablet by [facility] tablet 13:48: mouth Medical 20 daily. [place] metFORMIN Yes 500mg Take [address] [facility] [address] (GLUCOPHAGE 1-19 mg by [facility] ) 500 MG 13:48: mouth 2 Medica l tablet 20 (two) Center times daily with breakfast and dinner. losartan Yes hypertensio 25mg QD Take [address] [facility] (COZAAR) 25 1-19 n by mouth [facility] MG tablet 13:48: daily. Medica l 20 [place] metoprolol Yes hypertensio 100mg QD Take [address] [facility] [address] (TOPROL-XL) 1-19 n mg by [facility] 100 MG 24 13:48: mouth Medical hr tablet 20 daily. [place] venlafaxine Yes 150mg QD Take [address] (EFFEXOR-XR 1-19 mg by [facility] ) 150 MG 24 13:48: mouth Medic al hr capsule 20 daily. [place] chlorthalid Yes 25mg QD Take 25 mg [...] [facility] tablet 13:48: mouth Medical 20 daily. [place] metFORMIN Yes 500mg Take [address] [facility] (GLUCOPHAGE 1-19 mg by [facility] ) 500 MG 13:48: mouth 2 Medica l tablet 20 (two) Center times daily with breakfast and dinner. losartan Yes hypertensio 25mg QD Take [address] [facility] (COZAAR) 25 1-19 n by mouth [facility] MG tablet 13:48: daily. Medica l 20 [place] metoprolol Yes hypertensio 100mg QD Take [address] [address] (TOPROL-XL) 1-19 n mg by [facility] 100 MG 24 13:48: mouth Medical hr tablet 20 daily. [place] venlafaxine Yes 150mg QD Take [address] (EFFEXOR-XR 1-19 mg by [facility] ) 150 MG 24 13:48: mouth Medic al hr capsule 20 daily. Center metoprolol Yes hypertensio 100mg QD Take [address] [address] (TOPROL-XL) 1-19 n mg by [facility] 100 MG 24 13:48: mouth Medical hr tablet 20 daily. [place] venlafaxine Yes 150mg QD Take [address] (EFFEXOR-XR 1-19 mg by [facility] ) 150 MG 24 13:48: mouth Medic al hr capsule 20 daily. [place] chlorthalid 20170 Yes 25mg QD Take [address] [facility] one 1-19 by mouth [facility] (HYGROTON) 13:48: daily. Medic al 25 MG 20 Center tablet cholecalcif 20170 Yes 1000U QD Take 1,[address] melonie, 1-19 Units by [facility] vitamin D3, 13:48: mouth Medic al 1,000 unit 20 nightly. Cente r capsule multivitami 2017-0 Yes 1{tbl} QD Take [address] n per 1-19 tablet by [facility] tablet 13:48: mouth Medical 20 daily. [place] metFORMIN 2017 Yes 500mg Take [address] [facility] [address] (GLUCOPHAGE 1-19 mg by [facility] ) 500 MG 13:48: mouth 2 Medica l tablet 20 (two) Center times daily with breakfast and dinner. losartan Yes hypertensio 25mg QD Take [address] [facility] (COZAAR) 25 1-19 n by mouth Luke [facility] MG tablet 13:48: daily. Medica l 20 [place] chlorthalid Yes 25mg QD Take [address] [facility] one 1-19 by mouth [facility] (HYGROTON) 13:48: daily. Medic al 25 MG 20 Center tablet cholecalcif 20170 Yes 1000U QD Take 1,[address] melonie, 1-19 Units by [facility] vitamin D3, 13:48: mouth Medic al 1,000 unit 20 nightly. Cente r capsule multivitami 2017-0 Yes 1{tbl} QD Take [address] n per 1-19 tablet by [facility] tablet 13:48: mouth Medical 20 daily. Center metFORMIN 20170 Yes 500mg Take [address] [facility] (GLUCOPHAGE 1-19 mg by [facility] ) 500 MG 13:48: mouth 2 Medica l tablet 20 (two) Center times daily with breakfast and dinner. losartan 20170 Yes hypertensio 25mg QD Take [address] [facility] (COZAAR) 25 1-19 n by mouth Luke s MG tablet 13:48: daily. Medica l 20 [place] metoprolol Yes hypertensio 100mg QD Take [address] [address] (TOPROL-XL) 1-19 n mg by [facility] 100 MG 24 13:48: mouth Medical hr tablet 20 daily. [place] venlafaxine 2016- Yes 150mg QD Take [address] (EFFEXOR-XR 1-19 mg by [facility] ) 150 MG 24 13:48: mouth Medic al hr capsule 20 daily. [place] chlorthalid Yes 25mg QD Take [address] [facility] one 1-19 by mouth [facility] (HYGROTON) 13:48: daily. Medic al 25 MG 20 [place] tablet cholecalcif Yes 1000U QD Take 1,[address] melonie, 1-19 Units by [facility] vitamin D3, 13:48: mouth Medic al 1,000 unit 20 nightly. Cente r capsule acetaminoph acetaminoph No acetaminop K[facility] en 300 en 300 hen 300 [facility] mg-codeine mg-codeine mg-codeine dic 30 mg 30 mg 30 mg Sports tablet tablet tablet Medicin e amoxicillin amoxicillin No amoxicilli K[facility]ace 500 mg 500 mg n 500 mg [facility] capsule capsule capsule dic Sports Medicin e atorvastati atorvastati No atorvastat K[facility]ace n 20 mg n 20 mg in 20 mg [facility] pe tablet tablet tablet dic Sports Medicin e cefdinir cefdinir No cefdinir Aza mya 300 mg 300 mg 300 mg [facility] capsule capsule capsule dic Sports Medicin e cephalexin cephalexin No cephalexin K[facility]ace 500 mg 500 mg 500 mg [facility] capsule capsule capsule dic Sports Medicin e clopidogrel clopidogrel No clopidogre K[facility]ace 75 mg 75 mg l 75 mg [facility] tablet tablet tablet dic Sports Medicin e codeine 10 codeine 10 No codeine 10 [facility] mg-guaifene mg-guaifene mg-guaifen [facility] sin 100 sin 100 esin 100 dic mg/5 mL mg/5 mL mg/5 mL Sports oral liquid oral liquid oral M edicin liquid e dicyclomine dicyclomine No dicyclomin [facility] 20 mg 20 mg e 20 mg [facility] tablet tablet tablet dic Sports Medicin e doxycycline doxycycline No doxycyclin [facility] hyclate 100 hyclate 100 e hyclate [facility] mg tablet mg tablet 100 mg dic tablet Sports Medicin e famotidine famotidine No famotidine K[facility]ace 20 mg 20 mg 20 mg [facility] tablet tablet tablet dic Sports Medicin e metformin metformin No metformin Kandace 850 mg 850 mg 850 mg [facility] tablet tablet tablet dic Sports Medicin e metoprolol metoprolol No metoprolol [facility] succinate succinate succinate [facility] ER 200 mg ER 200 mg ER 200 mg dic tablet,exte tablet,exte tablet,ext Sports nded nded ended Medicin release 24 release 24 release 24 e hr hr hr montelukast montelukast No montelukas K[facility]ace 10 mg 10 mg t 10 mg [facility] tablet tablet tablet dic Sports Medicin e mupirocin 2 mupirocin 2 No mupirocin Kandace % topical % topical 2 % Ortho pe ointment ointment topical dic ointment Sports Medicin e ondansetron ondansetron No ondansetro Kandace 4 mg 4 mg n 4 mg [facility] disintegrat disintegrat disintegra dic ing tablet ing tablet ting Spo rts tablet Medicin e orphenadrin orphenadrin No orphenadri Kandace e citrate e citrate ne citrate [facility] ER 100 mg ER 100 mg ER 100 mg dic tablet,exte tablet,exte tablet,ext Sports nded nded ended Medicin release release release e Prevalite 4 Prevalite 4 No Prevalite Kandace gram oral gram oral 4 gram Ort hope powder powder oral dic powder Sports Medicin e tramadol 50 tramadol 50 No tramadol [facility] mg tablet 1 mg tablet 1 50 mg [facility] every 6 every 6 tablet 1 dic hours prn hours prn every 6 Sp orts pain G89.18 pain G89.18 hours prn Medicin pain e G89.18 valsartan valsartan No valsartan Kandace 320 mg 320 mg 320 mg [facility] tablet tablet tablet dic Sports Medicin e venlafaxine venlafaxine No venlafaxin K[facility]ace ER 150 mg ER 150 mg e ER 150 O r[facility]ope capsule,ext capsule,ext mg d ic ended ended capsule,ex Sports release 24 release 24 tended M edicin hr hr release 24 e hr acetaminoph acetaminoph No acetaminop Kandace en 300 en 300 hen 300 [facility] mg-codeine mg-codeine mg-codeine dic 30 mg 30 mg 30 mg Sports tablet tablet tablet Medicin e amoxicillin amoxicillin No amoxicilli K[facility]ace 500 mg 500 mg n 500 mg [facility] capsule capsule capsule dic Sports Medicin e atorvastati atorvastati No atorvastat Kandace n 20 mg n 20 mg in 20 mg Orth[facility] pe tablet tablet tablet dic Sports Medicin e cefdinir cefdinir No cefdinir Aza mya 300 mg 300 mg 300 mg [facility] capsule capsule capsule dic Sports Medicin e cephalexin cephalexin No cephalexin Kandace 500 mg 500 mg 500 mg [facility] capsule capsule capsule dic Sports Medicin e clopidogrel clopidogrel No clopidogre K[facility]ace 75 mg 75 mg l 75 mg [facility] tablet tablet tablet dic Sports Medicin e codeine 10 codeine 10 No codeine 10 K[facility]ace mg-guaifene mg-guaifene mg-guaifen [facility] sin 100 sin 100 esin 100 dic mg/5 mL mg/5 mL mg/5 mL Sports oral liquid oral liquid oral M edicin liquid e dicyclomine dicyclomine No dicyclomin K[facility]ace 20 mg 20 mg e 20 mg [facility] tablet tablet tablet dic Sports Medicin e doxycycline doxycycline No doxycyclin K[facility]ace hyclate 100 hyclate 100 e hyclate [facility] mg tablet mg tablet 100 mg dic tablet Sports Medicin e famotidine famotidine No famotidine Kandace 20 mg 20 mg 20 mg [facility] tablet tablet tablet dic Sports Medicin e metformin metformin No metformin Kandace 850 mg 850 mg 850 mg [facility] tablet tablet tablet dic Sports Medicin e metoprolol metoprolol No metoprolol K[facility]ace succinate succinate succinate [facility] ER 200 mg ER 200 mg ER 200 mg dic tablet,exte tablet,exte tablet,ext Sports nded nded ended Medicin release 24 release 24 release 24 e hr hr hr montelukast montelukast No montelukas Kandace 10 mg 10 mg t 10 mg [facility] tablet tablet tablet dic Sports Medicin e mupirocin 2 mupirocin 2 No mupirocin Kandace % topical % topical 2 % Ortho pe ointment ointment topical dic ointment Sports Medicin e ondansetron ondansetron No ondansetro K[facility]ace 4 mg 4 mg n 4 mg [facility] disintegrat disintegrat disintegra dic ing tablet ing tablet ting Spo rts tablet Medicin e orphenadrin orphenadrin No orphenadri Kandace e citrate e citrate ne citrate [facility] ER 100 mg ER 100 mg ER 100 mg dic tablet,exte tablet,exte tablet,ext Sports nded nded ended Medicin release release release e Prevalite 4 Prevalite 4 No Prevalite Kandace gram oral gram oral 4 gram Ort hope powder powder oral dic powder Sports Medicin e tramadol 50 tramadol 50 No tramadol K[facility]ace mg tablet 1 mg tablet 1 50 mg [facility] every 6 every 6 tablet 1 dic hours prn hours prn every 6 Sp orts pain G89.18 pain G89.18 hours prn Medicin pain e G89.18 valsartan valsartan No valsartan Kandace 320 mg 320 mg 320 mg [facility] tablet tablet tablet dic Sports Medicin e venlafaxine venlafaxine No venlafaxin K[facility]ace ER 150 mg ER 150 mg e ER 150 O r[facility]ope capsule,ext capsule,ext mg d ic ended ended capsule,ex Sports release 24 release 24 tended M edicin hr hr release 24 e hr Immunizations Ordered Filled Immunization Date Status Comments Sourc e Immunization Name Name pneumococcal pneumococcal 2021-01-15 Completed K[facility] conjugate PCV 7 conjugate PCV 7 00:00:00 [facility] pneumococcal pneumococcal 2021-01-15 Completed Kandace [facility] hoped[facility] conjugate PCV 7 conjugate PCV 7 00:00:00 [facility] Vital Signs Vital Name Observation Time Observation Value Comments Source Systolic blood 2023-05-05 22:03:00 139 mm[Hg[facility] Diastolic blood 2023-05-05 22:03:00 99 mm[Hg] [facility] Heart rate 2023-05-05 22:03:00 65 /min [facility] Body temperature 2023-05-05 20:48:00 36.28 Savita [facility] Respiratory rate 2023-05-05 20:48:00 20 /min [facility] Oxygen saturation in 2023-05-05 20:48:00 95 /min [facility] blood by [facility] Pulse oximetry Branch Body height 2023-05-05 03:17:00 180.3 cm [facility] Body weight 2023-05-05 03:17:00 74.844 kg [facility] BMI 2023-05-05 03:17:00 23.01 kg/m2 [facility] Systolic blood 2023-05-04 21:15:00 148 mm[Hg] Univer sity of pressure [facility] Diastolic blood 2023-05-04 21:15:00 90 mm[Hg] [facility] Heart rate 2023-05-04 21:15:00 55 /min [facility] Respiratory rate 2023-05-04 21:15:00 22 /min [facility] saturation in 2023-05-04 21:15:00 96 /min [facility] Arterial blood by [facility] Pulse oximetry Branch Body temperature 2023-05-04 19:39:00 36.39 Savita [facility] Body height 2023-05-04 19:39:00 180.3 cm [facility] Body weight 2023-05-04 19:39:00 74.844 kg [facility] BMI 2023-05-04 19:39:00 23.01 kg/m2 [facility] Systolic blood 2023-03-15 18:32:00 124 mm[facility]Hg[facility] Di[facility] blood 2023-03-15 18:32:00 75 mm[facility]Hg] [facility] Heart rate 2023-03-15 18:32:00 44 [facility] Body temperature 2023-03-15 18:32:00 36.56 [facility] Body height 2023-03-15 18:32:00 [facility]3 [facility] weight 2023-03-15 18:32:00 [facility]019 [facility] BMI 2023-03-15 18:32:00 23.99 [facility] saturation in 2023-03-15 18:32:00 97 /min [facility] Arterial blood by Pulse oximetry Height 2023-01-27 00:00:00 72 [in_i] [facility] BMI (Body Mass 2023-01-27 00:00:00 21.7 kg/m2 [facility]) Sports Medicine Body Weight 2023-01-27 00:00:00 160 [lb_av] [facility] Height 2023-01-11 00:00:00 72 [in_i] [facility] BMI (Body Mass 2023-01-11 00:00:00 21.7 kg/m2 [facility] Index) Sports Medicine Body Weight 2023-01-11 00:00:00 160 [lb_av] [facility] Systolic blood 2022-10-10 23:04:00 119 mm[Hg] [facility] Diastolic blood 2022-10-10 23:04:00 81 mm[Hg] [facility] Heart rate 2022-10-10 23:03:00 71 /min [facility] Body temperature 2022-10-10 23:03:00 36.5 Savita [facility] Respiratory rate 2022-10-10 23:03:00 16 /min [facility] Body weight 2022-10-10 23:03:00 82.101 kg [facility] Oxygen saturation in 2022-10-10 23:03:00 95 /min [facility] Arterial blood by [facility] Pulse oximetry Branch Procedures Procedure Date / Time Performing Clinician Source Performed POCT GLUCOSE (AUTOMATED) 2023-05-05 22:03:00 Leia Perry [facility] MR STROKE BRAIN WO 2023-05-05 20:25:00 Gurjit Waldrop [facility] POCT GLUCOSE (AUTOMATED) 2023-05-05 17:26:00 Leia Perry [facility] POCT GLUCOSE (AUTOMATED) 2023-05-05 14:23:00 Leia Perry [facility] MAGNESIUM 2023-05-05 09:29:00 Benjie [facility] TROPONIN I 2023-05-05 09:29:00 Benjie [facility] BASIC METABOLIC PANEL (NA, 2023-05-05 09:29:00 Benjie [facility] K, CL, CO2, GLUCOSE, BUN, Medica l Branch CREATININE, CA) LIPID PANEL (41044)(TOTAL 2023-05-05 09:29:00 Gurjit Waldrop [facility] CHOLESTEROL, [facility] TRIGLYCERIDES, HDL) CBC WITH DIFF 2023-05-05 09:29:00 Gurjit Waldrop [facility] HB ECG ROUTINE & RHYTHM 2023-05-05 00:24:15 Gurjit Waldrop [facility] CT HEAD WO CONTRAST 2023-05-04 21:07:00 Izaiah Carcamo [facility] PROTHROMBIN TIME / INR 2023-05-04 20:36:00 Izaiah Carcamo [facility] MAGNESIUM 2023-05-04 19:59:00 Izaaih Carcamo [facility] TROPONIN I 2023-05-04 19:59:00 Izaiah Carcamo [facility] COMP. METABOLIC PANEL 2023-05-04 19:59:00 Izaiah Carcamo [facility] ([id number]) [facility] CBC WITH DIFF 2023-05-04 19:59:00 Izaiah Carcamo [facility] N-TERMINAL PRO-BNP 2023-05-04 19:59:00 Izaiah Carcamo [facility] GLYCOSYLATED HEMOGLOBIN 2023-05-04 19:59:00 Gurjit Waldrop [facility] (A1C) [facility] POCT GLUCOSE (AUTOMATED) 2023-05-04 19:53:00 Izaiah Carcamo [facility] CONSENT/REFUSAL FOR 2023-05-04 19:31:45 Doctor Carlos, [facility] NO SHOW OR MISSED 2023-03-23 18:02:45 Doctor Carlos, [facility] APPOINTMENT POLICY [place] h ACKNOWLEDGEMENT PATIENT QUESTIONNAIRE 2023-03-03 05:01:00 Doctor Carlos, [facility] PHYSICIAN ORDERS 2023-02-12 05:01:00 Doctor Carlos, [facility] Name Medical Geraldine MRI, shoulder, w/o 2023-01-11 00:00:00 Kandace Or thopedic contrast Sports Medicine ASSIGNMENT OF BENEFITS 2022-10-10 22:46:39 [facility] [id number] 2021-02-20 00:00:00 MATVA.01 [facility] Gallbladder Surgery [facility] Knee Replacement [facility] Knee Surgery [facility] Thyroid Surgery [facility] Tonsillectomy [facility] Encounters Start End Encounter Admission Attending Care Care Encounter Source Date/Time Date/Time Type Type Clinicians Facility Department ID 2023-05-07 Outpatient [facility] [id number] [place] 10:45:46 [id number] [facility] 2023-04-30 Outpatient [facility] [id number] [place] 15:30:44 [id number] [facility] 2023-04-28 Outpatient [facility] [id number] [place] 09:36:31 [id number] [facility] 2023-04-08 Outpatient [facility] [id number] [place] 15:34:49 [id number] [facility] 2023-03-17 Outpatient [facility] [id number] [place] 09:50:15 [id number] [facility] 2023-03-15 Outpatient [facility] [id number] [place] 12:37:43 [id number] [facility] 2023-03-12 Outpatient [facility] [id number] [place] 17:14:11 [id number] [facility] 2023-03-09 Outpatient [facility] [id number] [place] 03:49:59 [id number] [facility] 2023-03-03 Outpatient [facility] [id number] [place] 11:04:46 [id number] [facility] 2023-02-02 Outpatient [facility] [id number] [place] 13:34:18 [id number] [facility] 2021-02-22 Inpatient DANIELA JuanTO DANIELATO [id number] [facility] 21:44:33 Jose [facility] 2023-05-07 2023-05-07 Telemedici Erin, UTP 6410 [id number] [place] 14:00:00 14:25:05 elijah BOYCE [id number] [facility] [id number] 2023-05-06 2023-05-06 Outpatient R ALEX [facility] [id number] Univers 13:45:00 13:45:00 PUJA ity of [facility] 2023-05-06 2023-05-06 Transition ELODIA Sánchez [id number] [id number] Univers 00:00:00 00:00:00 of Care Dior SYY 350.1.13.10 it y [place] [id number] [facility] [address] Branch 2023-05-04 2023-05-05 Outpatient X LEIA PERRY [facility] EDVIN [id number] Univers 17:44:00 17:30:00 LEIA PERRY ity of [facility] 2023-05-04 2023-05-05 Emergency FAZAL Perry [id number] Univers 17:44:00 17:30:00 Carrasco SHAKA 350.1.13.10 i ty of [facility] 4.2.7.2.686 Rohit as [id number] [facility] 098 Branch 2023-05-04 2023-05-04 Emergency X Izaiah CARCAMO [facility] ERT [id number] Univers 14:45:00 16:31:00 ity of [facility] 2023-05-04 2023-05-04 Emergency Izaiah Carcamo [facility] [id number] Univers 14:45:00 16:31:00 Tran [place] 350.1.13.10 i [place] [id number] [facility] 084 Branch 2023-05-04 2023-05-04 Ancillary Leon Waldrop [facility] 1.2.840. 114 [id number] Univers 13:45:00 14:13:04 Visit Puja Johnson 350.1.13.10 [place]y [place] [id number] Az dical NAL 179 Branch BUILDING 2023-04-23 2023-04-23 Outpatient ERIN [facility] [id number] [place] 16:00:00 16:00:00 JENNIFER Chin [facility] 2023-04-22 2023-04-22 Ancillary Ulices Homa Yoseph [facility] 1.2. 840.114 [id number] Univers 15:15:00 16:00:00 Visit Puja Johnson [id number] ity [place] [id number] Az dical NAL 179 [facility] 2023-04-22 2023-04-22 Outpatient R ALEX [facility] [id number] Univers 14:30:00 14:30:00 PUJA ity [facility] 2023-04-07 2023-04-07 Ancillary Devika Waldrop [facility] 1.2.840 .114 [id number] Univers 14:30:00 15:40:56 Visit Puja Johnson [id number] [facility] [id number] [id number] Az dical NAL 179 [facility] 2023-04-07 2023-04-07 Outpatient R ALEX [facility] [id number] Univers 14:30:00 15:40:56 PUJA ity [facility] 2023-04-01 2023-04-01 Ancillary Devika Waldrop [facility] 1.2.840 .114 [id number] Univers 14:30:00 15:15:00 Visit Puja Johnson [id number] ity [place] [id number] Az dical NAL 179 [facility] 2023-03-30 2023-03-30 Ancillary Leon Waldrop [facility] 1.2.840. 114 [id number] Univers 15:15:00 16:12:41 Visit Puja Johnson [id number] ity [place] [id number] Az dical NAL 179 [facility] 2023-03-24 2023-03-24 Ancillary Leon Waldrop [facility] 1.2.840. 114 [id number] Univers 13:45:00 14:30:00 Visit Puja Johnson [id number] [id number] [id number] Az dical NAL 179 [facility] 2023-03-23 2023-03-23 Ancillary Leon Waldrop [facility] 1.2.840. 114 [id number] Univers 13:45:00 14:20:49 Visit Puja Johnson 350.1.13.10 [facility] [place] [phone] Az dical NAL 179 [facility] 2023-03-23 2023-03-23 Outpatient R ALEX [facility] [id number] Univers 13:45:00 14:20:49 PUJA [facility] 2023-03-23 2023-03-23 Orders Doctor ELIZABETH 1.2.840.114 [id number] Univers 00:00:00 00:00:00 Only Unassigned, SHAKA 350.1.13.10 ity of [place] [facility] 4.2.7.2.686 Rohit as [phone] [address] 2023-03-18 2023-03-18 Ancillary Leon Waldrop [facility] 1.2.840. 114 [id number] Univers 13:00:00 13:45:00 Visit Puja Johnson 350.1.13.10 it[facility] [place] [phone] Az dical NAL 179 [facility] 2023-03-16 2023-03-16 Ancillary Leon Waldrop [facility] 1.2.840. 114 [id number] Univers 13:00:00 13:45:00 Visit Puja Johnson 350.1.13.10 it[facility] [place] [phone] Az dical NAL 179 [facility] 2023-03-15 2023-03-15 Office TAM Dixon 6410 1.2.840.114 [id number] [place] 13:00:00 14:35:58 Visit Jennifer WHITMAN 350.1.13.58 Health 9.2.7.2.686 [id number] 8 2023-03-09 2023-03-09 Ancillary Simi Pérez [facility] 1.2.840. 114 [id number] Univers 13:00:00 13:57:45 Visit Puja Johnson 350.1.13.10 [place] [phone] Az dical NAL [address] [place] [address] 2023-03-03 2023-03-03 Outpatient R ALEX [facility] [id number] [facility] 10:15:00 11:35:20 PUJA ity [facility] 2023-03-03 2023-03-03 Orders Doctor JOHNSON 1.2.840.114 [id number] Univers 00:00:00 00:00:00 Only Unassigned, SHAKA 350.1.13.10 ity of [place] [facility] 4.2.7.2.686 Rohit as [phone] [address] 2023-02-22 2023-02-22 Outpatient ANNABELLE_Marquis AOSM AOSM 593 [id number] Kandace 00:00:00 00:00:00 _Roselyn [id number] [facility] 2023-02-12 2023-02-12 Orders Doctor JOHNSON 1.2.840.114 [id number] Univers 00:00:00 00:00:00 Only Unassigned, SHAKA 350.1.13.10 ity of [place] [facility] 4.2.7.2.686 Rohit as [phone] [address] 2023-01-31 2023-02-04 Inpatient E KATINA [facility] 9367 [facility] 21:36:00 16:02:00 JENN 2023-01-31 2023-01-31 Outpatient JAVIER [facility] ESTELLE 9370 [facility] 00:00:00 23:59:00 DAIJA 2023-01-272023-01-27 Outpatient MAYDA العلي RADI [id number] 625 [facility] 10:24:00 10:24:00 Toni [facility] 2023-01-27 2023-01-27 Outpatient MAYDA العلي MEDI [id number] [facility] 08:00:00 08:00:00 Toni Serge [facility] 2023-01-27 2023-01-27 Toni Simpson AOSM [place] - Ortho [id number] K[place]ace 00:00:00 00:00:00 MD Benjie: [place] [facility] [address] FOG_Ofc dic [facility] [place] [facility] [place] [address] , Ph. [phone] 2023-01-15 2023-01-15 Outpatient FOG_Mathews AOSM AOSM 593 7326-20 Kandace 00:00:00 00:00:00 _Roselyn [id number] Orth ope [facility] 2023-01-15 2023-01-15 Outpatient FOG_Mathews AOSM AOSM 593 7326-20 Kandace 00:00:00 00:00:00 _Roselyn 403915 Orth [facility] 2023-01-11 2023-01-11 Outpatient FOG_Mathews AOSM AOSM 593 7326-20 Kandace 00:00:00 00:00:00 _Roselyn 090806 Orth [facility]pe [facility] 2023-01-11 2023-01-11 Toni Calvin [facility] [place] - [place] [id number] K[place]ace 00:00:00 00:00:00 MD Benjie: [place] [facility] [address] FOG_Ofc dic [facility] Spor [facility], [place] [address] , Ph. [phone] 2023-01-05 2023-01-05 Outpatient FOG_Mathews AOSM AOSM 593 7326-20 Kandace 00:00:00 00:00:00 _Roselyn 593410 Orth ope dic [facility] 2022-10-10 2022-10-10 Urgent Jacky Raza [facility] 1.2.840.114 [id number] [facility] 16:45:00 17:04:41 Care Unknown, [facility] HEALTH 350.1.13.10 ity of [place] 4.2.7.2.686 Rohit as TIP?BLEA [id number] [address] MEDICAL OFFICE [facility] 2022-10-10 2022-10-10 Outpatient R RY [facility] [id number] Univers 16:45:00 17:04:41 RANNC ity [facility] 2022-10-10 2022-10-10 Telephone Ry [facility] 1.2.840.114 [id number] Univers 00:00:00 00:00:00 [facility] 350.1.13.10 it y of [place] 4.2.7.2.686 Rohit as TIP?BLEA [phone] [address] OFFICE [facility] 2022-10-10 2022-10-10 Orders Doctor ELIZABETH 1.2.840.114 [id number] Univers 00:00:00 00:00:00 Only Unassigned, SHAKA 350.1.13.10 ity of [place] [facility] 4.2.7.2.686 Rohit as [id number] [address] 2021-02-12 2021-02-12 Outpatient MARIE Cho LABO [id number] [facility] 17:40:00 17:40:00 Joes 82 [facility] 2021-02-12 2021-02-12 Outpatient ANITHA ChoU REFE [id number] [facility] 15:57:00 15:57:[address] [place] [address] Results Test Description Test Time Test Comments Results Result Comments Source POCT GLUCOSE (AUTOMATED) 2023-05-05 22:04:37 Test Item Value Reference Range Interpretation Comme nts POCT GLU (test code = 7724665950) 125 mg/dL 70-110 H Lab Interpretation (test code = 98330-7) Abnormal [facility] GLUCOSE (AUTOMATED)2023-05-05 17:31:40 Test Item Value Reference Range Interpretation Comments POCT GLU (test code = 8084549088) 216 mg/dL 70-110 H Lab Interpretation (test code = Abnormal 31786-5) [facility] GLUCOSE (AUTOMATED)2023-05-05 14:24:47 Test Item Value Reference Range Interpretation Comments POCT GLU (test code = 1950991944) 172 mg/dL 70-110 H Lab Interpretation (test code = Abnormal 43903-7) [facility]2023-[facility]-05 01:56:29 Test Item Value Reference Range Interpretation Comments HGB A1C (test code = 6.4 % 4.0-5.7 H 4548-4) RADHA (test code = RADHA) Reference RangesNormal: <5.7%Prediabetes: 5.7 - 6.4%Diabetes: > 6.5% Lab Interpretation (test Abnormal code = 61501-0) [facility]th[facility] Time / [id number] 21:21:54 Test Item Value Reference Range Interpretation Comments PROTIME PATIENT (test 14.4 See_Comment [Auto mated message] code = 5964-2) The system [employer] generated this result transmitted ref erence range: 12.0 - 1 4.7 Seconds. The re ference range was not u sed to interpret this result as normal/abnor mal. INR (test code = 6301-6) 1.2 Nor mal INR <1.1; Warfarin Therap eutic range 2.0 to 3. 0 or 2.5 to 3.5, dep ending upon the indica tions. Lab Interpretation (test Normal code = 40644-1) [facility] [id number] 20:26:46 Test Item Value Reference Range Interpretation Comments TROPONIN I (test code = 0.015 ng/mL <=0.034 0319020742) RADHA (test code = RADHA) Reference (Normal) Range (defined by the 99th percentile reference limit): <= 0.034 ng/mL Note: Cardiac troponin begins to rise 3-4 hours after the onset of ischemia. Repeat in 4-6 hours if the sample was drawn within 3-4 hours of the onset of the symptom and found normal. Diagnosis of myocardial injury is made with acute changes in cTn concentrations with at least one serial sample above the 99th percentile upper reference limit (URL), taken together with the patient's clinical presentation. Biotin has been reported to cause a negative bias, interpret results relative to patient's use of biotin. Lab Interpretation Normal (test code = 04040-6) [facility]-TERMINAL [id number] 20:23:42 Test Item Value Reference Range Interpretation Comments NT-proBNP (test code = 568 pg/mL <=450 H 8506033046) RADHA (test code = RADHA) Biotin has been reported to cause a negative bias, interpret results relative to patient's use of biotin. Lab Interpretation (test Abnormal code = 85579-2) [facility]2023-06-27 20:14:42 Test Item Value Reference Range Interpretation Comments MAGNESIUM (test code = 9079880646) 1.4 mg/dL 1.7-2.4 L Lab Interpretation (test code = Abnormal 31743-6) [facility]. METABOLIC PANEL (85532)2023-05-04 20:14:41 Test Item Value Reference Range Interpretation Comments NA (test code = 142 mmol/L 135-145 0781737885) K (test code = 4.2 mmol/L 3.5-5.0 3583534097) CL (test code = 101 mmol/L 98-108 2684732034) CO2 TOTAL (test code = 29 mmol/L 23-31 6529142515) AGAP (test code = 12 2-16 8132347641) BUN (test code = 14 mg/dL 7-23 2203511338) GLUCOSE (test code = 134 mg/dL 70-110 H 4302686068) CREATININE (test code = 1.00 mg/dL 0.60-1.25 2160940578) TOTAL BILI (test code = 1.2 mg/dL 0.1-1.1 H 2177648785) CALCIUM (test code = 9.4 mg/dL 8.6-10.6 4259538971) T PROTEIN (test code = 6.6 g/dL 6.3-8.2 2847354377) ALBUMIN (test code = 4.0 g/dL 3.5-5.0 2123916183) ALK PHOS (test code = 77 U/L 34-122 8901875786) ALTv (test code = 28 U/L 5-50 1742-6) AST(SGOT) (test code = 22 U/L 13-40 9278706072) eGFR (test code = 72.6 mL/min/1.73m2 2110878706) RADHA (test code = RADHA) Association of Glomerular Filtration Rate (GFR) and Staging of Kidney Disease* + --+ --+ ------+| GFR (mL/min/1.73 m2) ?| With Kidney Damage ?| ?Without Kidney Damage+ --------+ --------+ +| ?>90 ?| ?Stage one ?| ? Normal ?+ ---+ ---+ -------+| ?60-89 ?| ?Stage two ?| ? Decreased GFR ? + --+ --+ ------+| ?30-59 ?| ?Stage three ?| ? Stage three ? + --+ --+ ------+| ?15-29 ?| ?Stage four ? | ? Stage four ?+ ---+ ---+ -------+| ?<15 (or dialysis) ? ?| ?Stage five ? | ? Stage five ?+ ---+ ---+ -------+ *Each stage assumes the associated GFR level has been in effect for at least three months. ?Stages 1 to 5, with or without kidney disease, indicate chronic kidney disease. Notes: Determination of stages one and two (with eGFR >59mL/min/1.73 m2) requires estimation of kidney damage for at least three months as defined by structural or functional abnormalities of the kidney, manifested by either:Pathological abnormalities or Markers of kidney damage (including abnormalities in the composition of the blood or urine or abnormalities in imaging tests). Lab Interpretation Abnormal (test code = 98924-2) [facility] WITH [id number] 20:05:24 Test Item Value Reference Range Interpretation Comments WBC (test code = 10.51 See_Comment [Automated 2660-2) message] The sy stem which generated this result transmitted reference range : 4.20 - 10.70 10*3/?L. The reference range was not used to interpret this result as normal/abnormal . RBC (test code = 4.76 See_Comment [Automated 316-5) message] The sy stem which generated this result transmitted reference range : 4.26 - 5.52 10*6/?L. The reference range was not used to interpret this result as normal/abnormal . HGB (test code = 14.9 g/dL 12.2-16.4 718-7) HCT (test code = 44.7 % 38.4-49.3 4544-3) MCV (test code = 93.9 fL 81.7-95.6 787-2) MCH (test code = 31.3 pg 26.1-32.7 785-6) MCHC (test code = 33.3 g/dL 31.2-35.0 786-4) RDW-SD (test code = 46.3 fL 38.5-51.6 07850-1) RDW-CV (test code = 13.4 % 12.1-15.4 788-0) PLT (test code = 159 See_Comment [Automated 777-3) message] The sy stem which generated this result transmitted reference range : 150 - 328 10*3/ ?L. The reference r dion was not used to interpret this result as normal/abnormal . MPV (test code = 10.0 fL 9.8-13.0 54373-7) NRBC/100 WBC (test 0.0 See_Comment [Automat ed code = 1941726775) message] The system which generated this result transmitted reference range : 0.0 - 10.0 /100 WBCs. The refer ence range was not u sed to interpret th is result as normal/abnormal . NRBC x10^3 (test code See_Comment [Auto mated = 8209754283) message] The s ystem which generated this result transmitted reference range : 10*3/?L. The reference range was not used to interpret this result as normal/abnormal . GRAN MAT (NEUT) % 70.9 % (test code = 770-8) IMM GRAN % (test code 0.50 % = 6092313643) LYMPH % (test code = 14.1 % 736-9) MONO % (test code = 11.1 % 5905-5) EOS % (test code = 2.9 % 713-8) BASO % (test code = 0.5 % 706-2) GRAN MAT x10^3(ANC) 7.45 10*3/uL 1.99-6.95 H (test code = 2698992153) IMM GRAN x10^3 (test 0.05 10*3/uL 0.00-0.06 code = 1463094221) LYMPH x10^3 (test code 1.48 10*3/uL 1.09-3.23 = 731-0) MONO x10^3 (test code 1.17 10*3/uL 0.36-1.02 H = 742-7) EOS x10^3 (test code = 0.31 10*3/uL 0.06-0.53 711-2) BASO x10^3 (test code 0.05 10*3/uL 0.01-0.09 = 704-7) Lab Interpretation Abnormal (test code = 42168-7) [facility]2023-05-04 20:04:29 Test Item Value Reference Range Interpretation Comments POCT GLU (test code = 2589505826) 126 mg/dL 70-110 H Lab Interpretation (test code = Abnormal 22514-5) [facility]- MRI UP JNT W/O CONT [id number] 11:54:00 [facility] : 1945 Sex: M Patient Name: ASPNA BENEDICT Unit No: [id number] EXAMS: CPT CODE: [id number] [place] JNT W/[place] [address] MRI OF THE LEFT SHOULDER DIAGNOSIS: 1. Partial-thickness longitudinal split tear of the subscapularis tendon without retraction. Mild atrophy of the muscle is seen. There is partial thickness tearing of the biceps tendon with medial dislocation and a SLAP tear of the labrum which extends into the posterior labrum. 2. Low-grade partial tearing of the supraspinatus tendon anteriorly with tendinosis. No tendon retraction or muscular atrophy is seen. A small overlying bursal effusion is seenwhich may represent bursitis. 3. Mild infraspinatus tendinosis without evidence for tear, retractionor atrophy. COMMENT: COMPARISON: No prior exams available. Scans were performed in the paracoronal, parasagittal and axial planes utilizing T1 , spin density with fat saturation and T2-weighting with and without fat saturation. The rotator cuff is as described. The acromion is horizontal with AC jointdegenerative change. The labrum is torn. There is a moderate to large joint effusion. at 1154 Reported and signed by: Yohan Bernal MD CC: Technologist: BRANDY HERNANDEZ. Transcribed D/ (7377) Krista [facility] NAME: SAPNA BENEDICT [address] [place] [address] PHYS: Toni Melchor MD : 1945 AGE: 77 SEX: M [place] [address] LOC: Y.MRI PHONE #: [phone] EXAM DATE: 01/27/2023 STATUS: REG CLI FAX #: [phone] RAD #: D/C DT PAGE 1 Signed Report Patient Name: SAPNA BENEDICT Unit No: [id number] EXAMS: CPT CODE: [id number] [place] UP JNT W/[place] [address] (Continued) Orig Print D/T: S: 01/27/2023 (7323) [facility] NAME: SAPNA BENEDICT [address] [place] [address] PHYS: Toni Melchor MD : 1945 AGE: 77 SEX: M [place] [address] LOC: Y.MRI PHONE #: [phone] EXAM DATE: 01/27/2023 STATUS: REG CLI FAX #: [phone] RAD #: D/C DT PAGE 2 Signed [id number] 11:40:00 Test Item Value Reference Range Interpretation Comments GLUBED (test code = GLUBED) 180 mg/dL 60-125 H BASIC METABOLIC [id number] 06:50:00 Test Item Value Reference Range Interpretation [...] RATE (test code = GFR) mL/mi n/1.73 i9Cckddhlsw Range:Healthy Adults >90 mL/min/1.73 m2 For Chronic Kidney Disease: Stage II Mild Decrease i n GFR 60-90 Stage III Moderate Decrea se in GFR 30-59 St age IV Severe Decre ase in GFR 15-29 St age V Kidney Failur e <15 CREATININE (test code 1.21 mg/dL 0.55-1.30 N = CREAT) CALCIUM (test code = 8.3 mg/dL 8.2-10.1 N CA) HGB [id number] 05:52:00 Test Item Value Reference Range Interpretation Comments HEMOGLOBIN (test code = HGB) 11.7 g/dL 12-16 L HEMATOCRIT (test code = HCT) 36.7 % 37-47 L SPECIMEN COMMENT: POD #[id number] 05:06:00 Test Item Value Reference Range Interpretation Comments GLUBED (test code = GLUBED) 100 mg/dL 60-125 N [id number] 20:27:00 Test Item Value Reference Range Interpretation Comments GLUBED (test code = GLUBED) 168 mg/dL 60-125 H [id number] 13:05:00 Test Item Value Reference Range Interpretation Comments GLUBED (test code = GLUBED) 132 mg/dL 60-125 H [id number] 08:47:00 Test Item Value Reference Range Interpretation Comments GLUBED (test code = GLUBED) 123 mg/dL 60-125 N [id number] 10:12:00 Test Item Value Reference Range Interpretation Comments FRUCTOSAMINE (test code = 235 RE FERENCE INTERVAL : FRUC) 0-285 umol/L Novel Coronavirus 2018 [id number] 08:51:00 Test Item Value Reference Range Interpretation [...] n. The testing is perf ormed by shaun mendoza in the procedures for the Gutierrez M2000 molecular diagnostic SARS-CoV-2 assa y in vitro. Novel Coronavirus 2018 [id number] 08:51:00 Test Item Value Reference Range Interpretation [...] for the identification of SARS-CoV-2 RNA usingthe eDossea M2000 Sy stem under the FDA Emergen cy UseAuthorizatio n. The testing is perf ormed by personneltraine d in the procedures for the eDossea M2000 molecular diagnostic SARS-CoV-2 assa y in [...] be considered for these patients.DONE A T: [facility] [address] [facility] [place], [place] [address] GLYCOSYLATED HEMOGLOBIN (HA1C)2021-02-12 17:59:00 [...] be considered for these patients. COMPREHENSIVE METABOLIC [id number] 12:19:00 Test Item Value Reference Range Interpretation [...] RATE (test code = GFR) mL/mi n/1.73 q4Dshxrmjim Range:Healthy Adults >90 mL/min/1.73 m2 For Chronic Kidney Disease: Stage II Mild Decrease i n GFR 60-90 Stag e III Moderate Decrease in GFR 30-59 Stage IV Severe Decrease in GFR 15-29 Stage V Kidney Failure <15 CREATININE (test [...] N TOTAL (test code = ALKP) PROTHROMBIN [id number] 12:18:00 Test Item Value Reference Range Interpretation [...] v mauro IS PATIENT ON ANTICOAGULANTS ? [facility] been notified if Patient is on Heparin Drip? NOIf Yes, orderCBC, OCCULT BLOOD, PT every other day NTHROMBOPLASTIN TIME [id number] 12:18:00 Test Item Value Reference Range Interpretation Comments PTT ACTIVATED (test code = APTT) 31.3 secs 24.9-37.0 N IS PATIENT ON ANTICOAGULANTS ? [facility] Lab been notified if Patient is on [...] 0 % 0-0 N code = NRBC) Notes Date/Time Note Provider Source 2023-01-27 14:52:00-00:00 [id number] [place] [address] PATIENT NAME: SAPNA BENEDICT ADMIT DATE: ACCOUNT NO: [id number] ROOM NO: AGE: 77 REPORT TYPE: ELECTROCARDIOGRAM SEX: M ADMITTING PHYSICIAN: ATTENDING PHYSICIAN:Toni Waldrop MD Order: [id number] Test Reason : PRE OP CLEARANCE HTN Test Date/Time Stamp: WedJan 27 2023 14:52:09 Blood Pressure : / mmHG Vent. Rate : 050 BPM Atrial Rate : 050 BPM P-R Int : 152 ms QRS Dur : 120 ms QT Int : 436 ms P-R-T Axes : 068 -06 255 degre es QTc Int : 397 ms Sinus bradycardia Right bundle branch block T wave abnormality, consider lateral ischemia Abnormal ECG When compared with ECG of 12-FEB-2021 11:43, QRS axis shifted right Confirmed by ABNER GIVENS MD ([id number]) on 01/28/2023 7:18:30 PM Referred By: Toni Waldrop Confirmed by:ABNER Lock MD PATIENT NAME: SAPNA BENEDICT ACCOUNT #: Y [id number] 2021-02-24 18:31:00-00:00 [id number] [facility] [place] [address] PATIENT NAME: SAPNA BENEDICT ADMIT DATE: 02/20/21 ACCOUNT NO: [id number] ROOM NO: Y.[facility] AGE: 75 REPORT TYPE: OPERATIVE REPORT SEX: M ADMITTING PHYSICIAN:Jose Cho MD ATTENDING PHYSICIAN:Jose Cho MD OPERATION DATE: 02/20/2021 SURGEON: Jose Cho MD VIDEO MACHINES MECHANIC: Lizette Montilla PA-C. Knee arthroplasty requires an internal medicine physician assistant for hold ing of retractors for wide exposure so that the surgeon has both hands free to perform the surgery. In addition, with extremity estelle keara, the internal medicine physician assistant positions and stabilizes the leg in order for the surgeon to use his hands to ope rate. Retraction for exposure and visualization, and stabi lization of the extremity are vital to the procedure and not possible without an internal medicine physician assistant. Dr. Cho is not part of any residency or fellowship training progr [facility] and therefore required the help of the internal medicine physician assistant listed above for this surgery. PREOPERATIVE DIAGNOSIS: Left knee end-stage dege nerative disease. POSTOPERATIVE DIAGNOSIS: Left knee end-stage deg enerative disease. PROCEDURE: Left total knee arthroplasty. COMPONENTS USED: DePuy Sigma posterior stabilize d fixed-bearing knee system, femur size 5, tibia size 4, insert size 15, and patella size 41 oval. ANESTHESIA: TIVA. SPECIMENS: None. FINDINGS: End-stage degenerative disease of the left knee with complete joint space loss, osteophyte formation, subchondral sc lerosis, and bone on bone changes. ESTIMATED BLOOD LOSS: 50 mL. PROCEDURE DESCRIPTION: The patient was b ought to the operating room and placed in the supine position. After induction of anesthesia, a tourniquet was placed on the upper thigh. Sterile prepping and draping proceeded. The tour niquet was inflated. A midline incision was made, centered ov er the patella. Dissection was sharply carried down through the subcutaneous tissues. V MO-splitting arthrotomy was PATIENT NAME: SAPNA BENEDICT ACCOUNT #: Y [id number] performed. The patella was r etracted laterally by the internal medicine physician assistant and the leg was held in position by the internal medicine physician assistant. The proximal medial tibia wa s denuded, with release of medial soft-tissues, the extent of which was dictated by the patient's de formity. The ACL and PCL were released. The medial and lateral meniscal remnan ts and suprapatellar fat pad were removed. Osteophytes were removed. An extramedullary tibial cutting jig was pinned to the proximal tibia and the tibial cut was made. Its alignment was checked a nd found to be appropriate. The distal femoral cut was made and the knee was balanced in extension. The femur was sized, rotation was set, a nd the flexion gap was balanced to the extension gap. The femoral anterior-posterior, c hamfer, and notch-cuts were made. A spacer-block was used to check symmetry of the gaps and stability. The tibia was re-exposed and the leg was stabilized in the appropriate position by the internal medicine physician assistant for tibial preparation. The tib ia was sized and the tibial keel was drilled and punched after appro priate tibial rotation was set with an alignment dedra, as well as by using anatomic land pickering. The femoral intramedullary hole was plugged with bone from t he tibia. The trial femoral component was impacted onto the distal femur and found to have an excellent fit. A trial polyethylene was inserted. The knee was found to have excellent sym metric stability in the medial-lateral and [place]-posterior directions in flexion and e xtension. The patella was held in a slightly everted posit ion with knee in extension. Patellar width was checked with calipers. A cut of the patellar articular surface was performed and checked with ad napier to ensure symmetry. Sizing was then performed and 3 lug holes were dril led with the jig in place, taking care to medialize and superiorize the component as mu ch as possible, given bony anatomy. Excess lateral patellar bone was recess ed and excess suprapatellar soft tissue was resected. The trial patellar com ponent was placed. Knee mgegm-dv-qendef, stability, and patellar tr acking were found to be excellent. The trials were removed, and as the cement was m ixed, all cut surfaces were thoroughly washed and dried. The internal medicine physician assistant held the retractors for exposure and held the leg in the appropriate positions for ce mentation. The cement was applied to the final compone nts and the cut surfaces with digital pressurization and then the components were impacted in to position. The knee was brought into full extension with the trial polyethylene. Once the cement had hardened, the tourniquet was deflated. Excess cement was carefully looked for and removed. Thorough irrigation with several liters of antib iotic solution was performed. The tourniquet was deflated. Adequate hemostasis was obtained and confirmed. PATIENT NAME: SAPNA BENEDICT ACCOUNT #: [id number] The final polyethylene component was engaged. Lo malik anesthetic was injected into the capsule, arthrotomy site, and subcutane ous region. The arthrotomy was repaired, and after further i rrigation, the subcutaneous tissues were closed in a multi-layered fashion. This was followed by skin closure. Sterile dressing was applied. The patient was awakened and transferred to the recovery room in stable condition. Dictated By: Jose Cho MD WT: OP:MARVEL//NTS Conf#: [id number]#: [id number] Authenticated by Jose Cho MD On 03/03/20 21 12:42:43 PM at 1243 PATIENT NAME: SAPNA BENEDICT ACCOUNT #: Y [id number] 2021-02-21 10:16:00-00:00 [facility] ([facility]) Pain Management Progress Note REPORT#:[id number] REPORT STATUS: Signed DATE:02/21/21 TIME: 1016 PATIENT: SAPNA BENEDICT UNIT #: [id number] ROOM/BED: [address] : 46 AGE: 75 SEX: M ATTEND: Brennan Cho MD ADM AUTHOR: Elisa Spaulding TRIMMER OPERATOR THREE KNIFE * ALL edits or amendments must be made on the AT Internet/[employer] document * Subjective Chief Complaint: KNEE PAIN S/P LEFT TKA Comments: Hematology: 02/22 400 Hematology Hgb (12 - 16 g/dL) 11.7 L Hct (37 - 47 %) 36.7 L Last Documented: Result Date Time Pulse Ox 94 02/21 0715 B/P 108/64 02/21 0715 B/P Mean 78.7 02/21 0715 O2 Delivery Nasal cannula 02/21 715 Temp 36.8 02/21 0715 Pulse 75 02/21 0715 Resp 14 02/21 07 O2 Flow Rate 3 02/21 0710 FiO2 28 02/21 0208 History: PMH: OA, IDDM, HTN, GERD, TIA POD: 1 APMS RN: Wiliam DEVRIES RN MD who placed block: DR CAGLE Type of block: AC S/S Time block wore off: 0430 Activity status: ABMULATED; CURENTLY IN BED EAT ING BREAKFAST Pain: TOLERATED Physical Exam: VAS: 1 LOS: 1 Resp Quality: 1 Side Effects: NONE PATIENT LOOKS COMFORTABLE AT THIS TIME. MOTOR M VMT AND STRENGTH INTACT. Plan: ANTICIPATE D/C HOME TODAY; BLOCK FOLLOW-UP Electronically Signed by Elisa Spaulding NP on at 1029 RPT #:[id number] END OF REPORT 2021-02-21 10:16:00-00:00 [facility] ([facility]) Pain Management Progress Note REPORT#:[id number] REPORT STATUS: Signed DATE:02/21/21 TIME: 1016 PATIENT: SAPNA BENEDICT UNIT #: [id number] AGE: 75 SEX: M ATTEND: Brennan Cho MD ADM AUTHOR: Elisa Spaulding NP * ALL edits or amendments must be made on the AT Internet/[employer] document * Elisa Spaulding 02/21/21 1016: Subjective Chief Complaint: KNEE PAIN S/P LEFT TKA Comments: Hematology: 02/210 Hematology Hgb (12 - 16 g/dL) 11.7 L Hct (37 - 47 %) 36.7 L Last Documented: Result Date Time Pulse Ox 94 02/21 0715 B/P 108/64 02/21 0715 B/P Mean 78.7 02/21 0715 O2 Delivery Nasal cannula 02/21 715 Temp 36.8 02/21 0715 Pulse 75 02/21 0715 Resp 14 02/21 0715 O2 Flow Rate 3 02/21 0710 FiO2 28 02/21 0208 History: PMH: OA, IDDM, HTN, GERD, TIA POD: 1 APMS RN: Wiliam DEVRIES RN MD who placed block: DR CAGLE Type of block: AC S/S Time block wore off: 0430 Activity status: ABMULATED; CURENTLY IN BED EAT ING BREAKFAST Pain: TOLERATED Physical Exam: VAS: 1 LOS: 1 Resp Quality: 1 Side Effects: NONE PATIENT LOOKS COMFORTABLE AT THIS TIME. MOTOR M VMT AND STRENGTH INTACT. Plan: ANTICIPATE D/C HOME TODAY; BLOCK FOLLOW-UP Martha Cagle 02/22/21 0906: Attestations Physician Attestation Agree w/findings plan: Agree with the findings and plan as documented Elisa Mendoza NP. Pao Cagle MD Electronically Signed by Elisa Spaulding TRIMMER OPERATOR THREE KNIFE on at 1029 RPT #:[id number] END OF REPORT 2021-02-21 10:16:00-00:00 [facility] ([facility]) Pain Management Progress Note REPORT#:[id number] REPORT STATUS: Signed DATE:02/21/21 TIME: 1016 PATIENT: SAPNA BENEDICT UNIT #: [id number] ROOM/BED: [address] : 46 AGE: 75 SEX: M ATTEND: Brennan Cho MD ADM AUTHOR: Elisa Spaulding TRIMMER OPERATOR THREE KNIFE * ALL edits or amendments must be made on the AT Internet/computer document * Elisa Spaulding 02/21/21 1016: Subjective Chief Complaint: KNEE PAIN S/P LEFT TKA Comments: Hematology: 02/21 0400 Hematology Hgb (12 - 16 g/dL) 11.7 L Hct (37 - 47 %) 36.7 L Last Documented: Result Date Time Pulse Ox 94 02/21 0715 B/P 108/64 02/21 0715 B/P Mean 78.7 02/21 0715 O2 Delivery Nasal cannula 02/21 715 Temp 36.8 02/21 0715 Pulse 75 02/21 0715 Resp 14 02/21 07 O2 Flow Rate 3 02/21 0710 FiO2 28 02/21 0208 History: PMH: OA, IDDM, HTN, GERD, TIA POD: 1 APMS RN: Wiliam DEVRIES RN MD who placed block: DR CAGLE Type of block: AC S/S Time block wore off: 0430 Activity status: ABMULATED; CURENTLY IN BED EAT ING BREAKFAST Pain: TOLERATED Physical Exam: VAS: 1 LOS: 1 Resp Quality: 1 Side Effects: NONE PATIENT LOOKS COMFORTABLE AT THIS TIME. MOTOR M VMT AND STRENGTH INTACT. Plan: ANTICIPATE D/C HOME TODAY; BLOCK FOLLOW-UP Martha Cagle 02/22/21 0906: Attestations Physician Attestation Agree w/findings plan: Agree with the findings and plan as documented Elisa Mendoza NP. Pao Cagle MD Electronically Signed by Elisa Spaulding NP on at 1029 at 0913 RPT #:[id number] END OF REPORT 2021-02-21 09:12:00-00:00 [facility] ([facility]) Clinical Note REPORT#:[id number] REPORT STATUS: Signed DATE:02/21/21 TIME: 911 PATIENT: SAPNA BENEDICT UNIT #: [id number] ROOM[facility]BED: [facility] : [facility] AGE: 75 SEX: M ATTEND: Brennan Cho MD ADM AUTHOR: Marcelo Archibald MD * ALL edits or amendments must be made on the el [employer]/computer document * Clinical Note Note: [facility] Marcelo hair M.D. (cell text [phone]) Assessment/Plan 1.) Anemia of acute blood loss- .Hgb 11.7, asymp tomatic. 2.) S/p Left TKA- .acute pain control. Anticoagu lation as per Dr. Cho. 3.) Hypertension- . follow BP trend. 4.) Diabetes-2 OsteoArthriti s Hyperlipidemia Asthma- .continue on Rx. SSInsulin. * OK for DISCHARGE per Internal Medicine. Prior Events/Overnight: Uneventful. Chief Complaint: No significant complaints. Very pleased with outcome. Objective Vital Signs: Date Time Temp Pulse Resp B/P B/P Pulse O2 O2 F low FiO2 Mean Ox Delivery Rate 02/21 0715 98.2 75 14 108/64 78.7 94 Nasal cannula 02/21 0710 Nasal 3 cannula 02/21 0413 97.9 64 16 121/71 87.4 95 Nasal cannula 02/21 0208 95 Nasal 2 28 cannula 02/20 2215 97.9 66 14 107/64 78.5 95 Nasal cannula / 1945 Nasal 3 cannula / 1935 98 Nasal 3 32 cannula / 1913 98.2 61 16 103/62 75.7 97 Nasal cannula / 1525 96.6 58 18 144/75 97.8 100 Nasal cannula / 1450 97 Nasal 3 32 cannula /15 1448 Nasal 3 cannula /15 1423 96.1 56 16 131/71 91.1 97 Nasal cannula 04/15 1400 97.1 50 15 108/59 96 Nasal 3 cannula /15 1345 51 14 90/51 94 Nasal 3 cannula / 1331 Nasal 3 97 cannula /15 1330 50 16 95/55 95 Nasal 3 cannula /15 1315 50 19 109/63 95 Nasal 3 cannula /15 1300 49 18 101/59 95 Nasal 3 cannula /15 1257 Simple 8 99 mask 02/20 1246 97.1 54 12 106/57 98 Simple 6 mask 02/20 1007 98.0 50 17 122/60 100 Simple 6 mask Gen: Alert, oriented, in mild discomfort Neck: No Masses, No Thyromegaly- CV: Regular Rate Rhythm / Edema- no significant Resp: Clear To Ascultation / Normal Respiratory Effort ABD: NonTender / NonDistended MS/Skin: No sign of compartment syndrome / +ankl e DF/PF / nl capillary refill of toes Other: Labs/X-ray: Laboratory Tests: 02/214 399 2013 125 Chemistry Sodium (136 - 145 mmol/L) 144 Potassium (3.5 - 5.1 mmol/L) 5.1 Chloride (98 - 107 mmol/L) 107.0 Carbon Dioxide (21 - 32 mmol/L) 28.4 BUN (7 - 18 mg/dL) 26 H Creatinine (0.55 - 1.30 mg/dL) 1.21 Glomerular Filtr Rate (>60) 58.6 Glucose (70 - 110 mg/dL) 104 POC Glucose (60 - 125 mg/dL) 100 168 H 132 H Calcium (8.2 - 10.1 mg/dL) 8.3 Hematology Hgb (12 - 16 g/dL) 11.7 L Hct (37 - 47 %) 36.7 L Marcelo Toledo M.D. at 0938 RPT #:[id number] END OF REPORT 2021-02-21 08:29:00-00:00 [facility] ([facility]) Discharge Summary REPORT#:[id number] REPORT STATUS: Signed DATE:02/21/21 TIME: 828 PATIENT: SAPNA BENEDICT UNIT #: [id number] ROOM/BED: [address] : 46 AGE: 75 SEX: M ATTEND: Brennan Cho MD ADM AUTHOR: Mel Valiente NP * ALL edits or amendments must be made on the AT Internet/computer document * General Information Discharge date: 02/21/21 Hospital course: Discharge Diagnosis: Left Knee Degenerative Dise ase Procedure: Left Knee Arthroplasty Hospital Course and Findings The patient underwent the pr ocedure without incident. Findings were significant for degenerative disease of the knee. The patien t was hemodynamically and medically monitored during the postoperative per iod. Anticoagulation was instituted for postoperative DVT prophylaxis. Th e patient was progressively able to tolerate PO pain med ications and the appropriate diet. Physical therapy was instituted, with a progressive ability to am bulate and perform exercises. The patient was eventually deemed stable and saf e for discharge. Despite factors which projected a longer hospita l stay, the patient fulfilled criteria for earlier than expected disch arge, including control of pain, early mobilization with therapy, and a stable hemodyna marcos status. At discharge, the patient was comfortabl e, with a controlled pain level. There were no chest or abdominal symptoms present. Dis charge physical examination demonstrated stable vital signs and no acute dis tress. The patient had an intact wound with no signifi cant drainage, and no calf tenderness and a negative Meredith's sign bilaterally. There were no neurolog ic or vascular deficits or changes from the preoperative state. Laboratory Tests: 02/214 3991 0834 Chemistry Sodium (136 - 145 mmol/L) 144 Potassium (3.5 - 5.1 mmol/L) 5.1 Chloride (98 - 107 mmol/L) 107.0 Carbon Dioxide (21 - 32 mmol/L) 28.4 BUN (7 - 18 mg/dL) 26 H Creatinine (0.55 - 1.30 mg/dL) 1.21 Glomerular Filtr Rate (>60) 58.6 Glucose (70 - 110 mg/dL) 104 POC Glucose (60 - 125 mg/dL) 100 168 H 132 H 12 3 Calcium (8.2 - 10.1 mg/dL) 8.3 Hematology Hgb (12 - 16 g/dL) 11.7 L Hct (37 - 47 %) 36.7 L Vital Signs: Date Time Temp Pulse Resp B/P B/P Pulse O2 O2 F low FiO2 Mean Ox Delivery Rate 02/21 0715 36.8 75 14 108/64 78.7 94 Nasal cannula 02/21 0710 Nasal 3 cannula 02/21 0413 36.6 64 16 121/71 87.4 95 Nasal cannula 02/21 0208 95 Nasal 2 28 cannula 02/20 2215 36.6 66 14 107/64 78.5 95 Nasal cannula 02/20 1945 Nasal 3 cannula 02/20 1935 98 Nasal 3 32 cannula 02/20 1913 36.8 61 16 103/62 75.7 97 Nasal cannula 02/20 1525 35.9 58 18 144/75 97.8 100 Nasal cannula 02/20 1450 97 Nasal 3 32 cannula 02/20 1448 Nasal 3 cannula 02/20 1423 35.6 56 16 131/71 91.1 97 Nasal cannula 02/20 1400 36.2 50 15 108/59 96 Nasal 3 cannula 02/20 1345 51 14 90/51 94 Nasal 3 cannula 02/20 1331 Nasal 3 97 cannula 02/20 1330 50 16 95/55 95 Nasal 3 cannula 02/20 1315 50 19 109/63 95 Nasal 3 cannula 02/20 1300 49 18 101/59 95 Nasal 3 cannula 02/20 1257 Simple 8 99 mask 02/20 1246 36.2 54 12 106/57 98 Simple 6 mask 02/20 1007 36.7 50 17 122/60 100 Simple 6 mask Disposition: Discharged to home Discharge Condition: Stable Instructions: Instruction sheet given to patient Activity: Ambulate with assistance, with weight- bearing as instructed in the hospital. Diet: As per preoperatively Prescriptions 1. Pain Medications: As per discharge prescription, with progressive weaning as pain decreases PATIENT RECEIVED A LIST OF A LL NEWLY PRESCRIBED MEDICATIONS AND WAS EDUCATED ON ALL NEW MEDICATIONS 2. Anticoagulation: As per discharge prescription, or PreOp anticoa gulant, as discussed with patient 3. Physical Therapy: Will undergo PT for gait training, mobilization , xaaaa-ss-[id number], and strengthening. Patient was i nformed to that they need to arrange for therapy as quickly as possible. The imp ortance of early advancement of [id number] with home exercises, and physical therapy was stresse d to the patient. Follow-up Appointment: Patient instructe d to arrange appointment for an office visit in 2 weeks Med Rec Med Rec Discharge meds: Stop taking the following medications: ACETAMINOPHEN (TYLENOL) 500 MG TAB 1,000 MILLIGRAM ORAL EVERY 6 HOURS NEEDED. a s needed for PAIN MULTIVITAMIN (MULTIPLE VITAMIN) 1 TAB TAB 1 TABLET ORAL DAILY. CLOPIDOGREL (PLAVIX) 75 MG TAB 75 MILLIGRAM ORAL DAILY. ASPIRIN (ASPIRIN) 81 MG TAB.CHEW 81 MILLIGRAM ORAL DAILY. Continue taking these medications: VENLAFAXINE XR (EFFEXOR XR) 150 MG CAP.SR.24H 150 MILLIGRAM ORAL DAILY. VALSARTAN (DIOVAN) 320 MG TAB 320 MILLIGRAM ORAL DAILY. metFORMIN (GLUCOPHAGE) 850 MG TAB 850 MILLIGRAM ORAL TWICE DAILY WITH MEALS. METOPROLOL SUCC XL (TOPROL XL) 200 MG TAB.SR.24H 200 MILLIGRAM ORAL BEDTIME. ATORVASTATIN (LIPITOR) 10 MG TAB 10 MILLIGRAM ORAL BEDTIME. MONTELUKAST (SINGULAIR) 10 MG TAB 10 MILLIGRAM ORAL BEDTIME. FUROSEMIDE (LASIX) 20 MG TAB 20 MILLIGRAM ORAL DAILY. CHOLECALCIFEROL (VITAMIN D3) (VITAMIN D3) 400 UN ITS TAB 400 UNITS ORAL BEDTIME. ASCORBIC ACID (VITAMIN C) 250 MG TAB 250 MILLIGRAM ORAL TWICE DAILY. MAGNESIUM CHLORIDE ER (SLOW-MAG) (Unknown Streng th) TAB.SA Unknown Dose ORAL BEDTIME. FEXOFENADINE (NANDINI ALLERGY) 180 MG TAB 180 MILLIGRAM ORAL DAILY NEEDED. as needed f or ALLERGIES CALCIUM CARBONATE (TUMS) 200 MG CALCIUM (500 MG) TAB.CHEW 1,000 MILLIGRAM ORAL EVERY 6 HOURS NEEDED. a s needed for occ gerd INSULIN DETEMIR (LEVEMIR) 100 UNIT/ML VIAL 15 UNITS SUBCUTANEOUS BEDTIME. Discharge Instructions PCP )( Discharge to: Home/Self Care Discharge Instructions Additional Discharge Routines: None )( Diet: Regular Electronically Signed by Mel Valiente NP on 02/21 at 0830 at 1225 RPT #:[id number] END OF REPORT 2021-02-21 08:29:00-00:00 [facility] ([facility]) Discharge Summary REPORT#:[id number] REPORT STATUS: Signed DATE:02/21/21 TIME: 828 PATIENT: SAPNA BENEDICT UNIT #: [id number] AGE: 75 SEX: M ATTEND: Brennan Cho MD ADM AUTHOR: Mel Valiente NP * ALL edits or amendments must be made on the el [employer]/computer document * General Information Discharge date: 02/21/21 Hospital course: Discharge Diagnosis: Left Knee Degenerative Dise ase Procedure: Left Knee Arthroplasty Hospital Course and Findings The patient underwent the pr ocedure without incident. Findings were significant for degenerative disease of the knee. The patien t was hemodynamically and medically monitored during the postoperative per iod. Anticoagulation was instituted for postoperative DVT prophylaxis. Th e patient was progressively able to tolerate PO pain med ications and the appropriate diet. Physical therapy was instituted, with a progressive ability to am bulate and perform exercises. The patient was eventually deemed stable and saf e for discharge. Despite factors which projected a longer hospita l stay, the patient fulfilled criteria for earlier than expected disch arge, including control of pain, early mobilization with therapy, and a stable hemodyna marcos status. At discharge, the patient was comfortabl e, with a controlled pain level. There were no chest or abdominal symptoms present. Dis charge physical examination demonstrated stable vital signs and no acute dis tress. The patient had an intact wound with no signifi cant drainage, and no calf tenderness and a negative Meredith's sign bilaterally. There were no neurolog ic or vascular deficits or changes from the preoperative state. Laboratory Tests: 02/21 02/21 02/20 02/20 02/20 0454 0400 2013 1251 0834 Chemistry Sodium (136 - 145 mmol/L) 144 Potassium (3.5 - 5.1 mmol/L) 5.1 Chloride (98 - 107 mmol/L) 107.0 Carbon Dioxide (21 - 32 mmol/L) 28.4 BUN (7 - 18 mg/dL) 26 H Creatinine (0.55 - 1.30 mg/dL) 1.21 Glomerular Filtr Rate (>60) 58.6 Glucose (70 - 110 mg/dL) 104 POC Glucose (60 - 125 mg/dL) 100 168 H 132 H 12 3 Calcium (8.2 - 10.1 mg/dL) 8.3 Hematology Hgb (12 - 16 g/dL) 11.7 L Hct (37 - 47 %) 36.7 L Vital Signs: Date Time Temp Pulse Resp B/P B/P Pulse O2 O2 F low FiO2 Mean Ox Delivery Rate 02/21 0715 36.8 75 14 108/64 78.7 94 Nasal cannula 02/21 0710 Nasal 3 cannula 02/21 0413 36.6 64 16 121/71 87.4 95 Nasal cannula 02/21 0208 95 Nasal 2 28 cannula 02/20 2215 36.6 66 14 107/64 78.5 95 Nasal cannula 02/20 1945 Nasal 3 cannula 02/20 1935 98 Nasal 3 32 cannula 02/20 1913 36.8 61 16 103/62 75.7 97 Nasal cannula 02/20 1525 35.9 58 18 144/75 97.8 100 Nasal cannula 02/20 1450 97 Nasal 3 32 cannula 02/20 1448 Nasal 3 cannula 02/20 1423 35.6 56 16 131/71 91.1 97 Nasal cannula 02/20 1400 36.2 50 15 108/59 96 Nasal 3 cannula 02/20 1345 51 14 90/51 94 Nasal 3 cannula 02/20 1331 Nasal 3 97 cannula 02/20 1330 50 16 95/55 95 Nasal 3 cannula 02/20 1315 50 19 109/63 95 Nasal 3 cannula 02/20 1300 49 18 101/59 95 Nasal 3 cannula 02/20 1257 Simple 8 99 mask 02/20 1246 36.2 54 12 106/57 98 Simple 6 mask 02/20 1007 36.7 50 17 122/60 100 Simple 6 mask Disposition: Discharged to home Discharge Condition: Stable Instructions: Instruction sheet given to patient Activity: Ambulate with assistance, with weight- bearing as instructed in the hospital. Diet: As per preoperatively Prescriptions 1. Pain Medications: As per discharge prescription, with progressive weaning as pain decreases PATIENT RECEIVED A LIST OF A LL NEWLY PRESCRIBED MEDICATIONS AND WAS EDUCATED ON ALL NEW MEDICATIONS 2. Anticoagulation: As per discharge prescription, or PreOp anticoa gulant, as discussed with patient 3. Physical Therapy: Will undergo PT for gait training, mobilization , eodcl-xe-bgpsce, and strengthening. Patient was i nformed to that they need to arrange for therapy as quickly as possible. The imp ortance of early advancement of tarwx-ma-ihzepk with home exercises, and physical therapy was stresse d to the patient. Follow-up Appointment: Patient instructe d to arrange appointment for an office visit in 2 weeks Med Rec Med Rec Discharge meds: Stop taking the following medications: ACETAMINOPHEN (TYLENOL) 500 MG TAB 1,000 MILLIGRAM ORAL EVERY 6 HOURS NEEDED. a s needed for PAIN MULTIVITAMIN (MULTIPLE VITAMIN) 1 TAB TAB 1 TABLET ORAL DAILY. CLOPIDOGREL (PLAVIX) 75 MG TAB 75 MILLIGRAM ORAL DAILY. ASPIRIN (ASPIRIN) 81 MG TAB.CHEW 81 MILLIGRAM ORAL DAILY. Continue taking these medications: VENLAFAXINE XR (EFFEXOR XR) 150 MG CAP.SR.24H 150 MILLIGRAM ORAL DAILY. VALSARTAN (DIOVAN) 320 MG TAB 320 MILLIGRAM ORAL DAILY. metFORMIN (GLUCOPHAGE) 850 MG TAB 850 MILLIGRAM ORAL TWICE DAILY WITH MEALS. METOPROLOL SUCC XL (TOPROL XL) 200 MG TAB.SR.24H 200 MILLIGRAM ORAL BEDTIME. ATORVASTATIN (LIPITOR) 10 MG TAB 10 MILLIGRAM ORAL BEDTIME. MONTELUKAST (SINGULAIR) 10 MG TAB 10 MILLIGRAM ORAL BEDTIME. FUROSEMIDE (LASIX) 20 MG TAB 20 MILLIGRAM ORAL DAILY. CHOLECALCIFEROL (VITAMIN D3) (VITAMIN D3) 400 UN ITS TAB 400 UNITS ORAL BEDTIME. ASCORBIC ACID (VITAMIN C) 250 MG TAB 250 MILLIGRAM ORAL TWICE DAILY. MAGNESIUM CHLORIDE ER (SLOW-MAG) (Unknown Streng th) TAB.SA Unknown Dose ORAL BEDTIME. FEXOFENADINE (NANDINI ALLERGY) 180 MG TAB 180 MILLIGRAM ORAL DAILY NEEDED. as needed f or ALLERGIES CALCIUM CARBONATE (TUMS) 200 MG CALCIUM (500 MG) TAB.CHEW 1,000 MILLIGRAM ORAL EVERY 6 HOURS NEEDED. a s needed for occ gerd INSULIN DETEMIR (LEVEMIR) 100 UNIT/ML VIAL 15 UNITS SUBCUTANEOUS BEDTIME. Discharge Instructions PCP )( Discharge to: Home/Self Care Discharge Instructions Additional Discharge Routines: None )( Diet: Regular Electronically Signed by Mel Valiente TRIMMER OPERATOR THREE KNIFE on 02/21 at 0830 RPT #:[id number] END OF REPORT 2021-02-20 17:07:00-00:00 [facility] ([facility]) Clinical Note REPORT#:[id number] REPORT STATUS: Signed DATE:02/20/21 TIME: 1707 PATIENT: SAPNA BENEDICT UNIT #: [id number] [facility] AGE: 75 SEX: M ATTEND: Brennan Cho MD ADM AUTHOR: Marcelo Archibald MD * ALL edits or amendments must be made on the el ectronic/computer document * Clinical Note Note: [facility] Marcelo hair MD (cell text [phone]) Internal Medicine Consult at request of : Dr Brennan Cho Chief Complaint: left knee pain HPI: 75yo M is now s/p Left total knee arthropla sty(TKA) with adductor canal block by Dr. Cho. Mr. Saleem connolly has related 6/10 knee pain after he fell on his knee one month ago. Pain worse with activity. He has a limp and it has been getting worse. Comorbidities: see below. PmHx: .OsteoArthritis, diabetes2, hypertension, hyperlipidemia, TIA 2017 ALLERGY: Allergies: No Known Drug Allergies (Coded, 02/12/21) Home Medications: Home Medications: ACETAMINOPHEN (TYLENOL) 1,000 MG PO Q6H PRN PRN PAIN MULTIVITAMIN (MULTIPLE VITAMIN) 1 TAB PO DAILY VENLAFAXINE XR (EFFEXOR XR) 150 MG PO DAILY VALSARTAN (DIOVAN) 320 MG PO DAILY metFORMIN (GLUCOPHAGE) 850 MG PO BID MEALS CLOPIDOGREL (PLAVIX) 75 MG PO DAILY ASPIRIN 81 MG PO DAILY METOPROLOL SUCC XL (TOPROL XL) 200 MG PO BEDTIME ATORVASTATIN (LIPITOR) 10 MG PO BEDTIME MONTELUKAST (SINGULAIR) 10 MG PO BEDTIME FUROSEMIDE (LASIX) 20 MG PO DAILY CHOLECALCIFEROL (VITAMIN D3) (VITAMIN D3) 400 UN ITS PO BEDTIME ASCORBIC ACID (VITAMIN C) 250 MG PO BID MAGNESIUM CHLORIDE ER (SLOW-MAG) (Unknown Dose) PO BEDTIME FEXOFENADINE (NANDINI ALLERGY) 180 MG PO DAILY P RN PRN ALLERGIES CALCIUM CARBONATE (TUMS) 1,000 MG PO Q6H PRN PRN occ gerd INSULIN DETEMIR (LEVEMIR) 15 UNITS SUBQ BEDTIME SgHx: . tonsillectomy SHx: Tob: quit 2006 [41 pyhx] FHx: .No significa nt hx of DVT/PE. Alcohol: none Drugs: none Lives: with Vitals: Vital Signs: Date Time Temp Pulse Resp B/P B/P Pulse O2 O2 F low FiO2 Mean Ox Delivery Rate 02/20 1525 96.6 58 18 144/75 97.8 100 Nasal cannula 02/20 1448 Nasal 3 cannula 02/20 1423 96.1 56 16 131/71 91.1 97 Nasal cannula / 1400 97.1 50 15 108/59 96 Nasal 3 cannula 02/20 1345 51 14 90/51 94 Nasal 3 cannula 02/20 1331 Nasal 3 97 cannula 02/20 1330 50 16 95/55 95 Nasal 3 cannula /15 1315 50 19 109/63 95 Nasal 3 cannula /15 1300 49 18 101/59 95 Nasal 3 cannula 02/20 1257 Simple 8 99 mask 02/20 1246 97.1 54 12 106/57 98 Simple 6 mask 02/20 1007 98.0 50 17 122/60 100 Simple 6 mask 02/20 0801 97.0 50 18 137/64 98 Room air Gen: Alert, in mild discomfort, nl nutrition. Pl eaesd witeh outcome. EYE: Nl lids conjunctiva. ENT: Nl ears Nose, nl lips,. Neck: Supple, nl thyroid, No masses. CV: Regular Rate Rhythm, no heave or significant murmur. Edema- none Feet toes normal temperature. RESP: Clear to Auscultation, normal Respiratory effort. ABD: Soft, NonDistended,. LYM: No significant cervical Lymphadenopathy. MS: No sign of compartment syndrome, SOBEIDA wrap, i ce pack NEURO: Has pre-exisiting neuropathy, tiingling o f legs, +Ankle DF/PF . Preop Labs(02/12/21): CBC:. Hgb 14.7, Plt 161, CHEM: Na 143, K 4.9, Cr 1.12 (eGFR 64%), .hgbAic 6.6% Ekg: SB(48), RBBB (medium to high risk of complications or morbidi ty) (major surgery) (IV sedative, meds) Assessment Plan 1.) Anemia of Acute Blood Loss- .will recheck to ty. 2.) S/p Left TKA- .acute pain control. Anticoagu lation as per Dr. Cho. 3.) Hypertension- . follow BP trend. 4.) Diabetes-2 OsteoArthriti s Hyperlipidemia Asthma- .continue on Rx. SSInsulin. Marcelo Toledo M.D. Thanks! at 1744 RPT #:[id number] END OF REPORT 2021-02-20 11:05:00-00:00 [facility] ([facility]) Op/Inv Procedure Note - Brief REPORT#:[id number] REPORT STATUS: Signed DATE:02/20/21 TIME: 1105 PATIENT: SAPNA BENEDICT UNIT #: [id number] ROOM/BED: [facility]-A : 47 AGE: 75 SEX: M ATTEND: Brennan Cho MD ADM AUTHOR: Jose Cho MD * ALL edits or amendments must be made on the [employer]/computer document * Op/Inv Proc Note - Brief TEXT Brief Op/Inv Procedure Note Note details: Pre-procedure diagnosis: Left Knee Degenerative Joint Disease Post-procedure diagnosis: Same Procedures performed: Left Total Knee Arthroplas ty Primary Surgeon: MARQUIS Help Desk Team Leader: [Imelda MONTILLA PA-C] Findings: Severe degenerativ e disease see dictated operative report for details Complications: None Estimated Blood Loss in ml s: [50] at 1225 RPT #:[id number] END OF REPORT 2021-02-12 11:43:00-00:00 [id number] [place] [address] PATIENT NAME: SAPNA BENEDICT ADMIT DATE: ACCOUNT NO: [id number] ROOM NO: AGE: 75 REPORT TYPE: ELECTROCARDIOGRAM SEX: M ADMITTING PHYSICIAN:Jose Cho MD ATTENDING PHYSICIAN:Jose Cho MD Order: [id number] Test Reason : PRE OP CLEARANCE HX HTN Test Date/Time Stamp: WedFeb 12 2021 11:43:19 Blood Pressure : / mmHG Vent. Rate : 048 BPM Atrial Rate : 048 BPM P-R Int : 154 ms QRS Dur : 118 ms QT Int : 430 ms P-R-T Axes : 054 -56 -78 degree s QTc Int : 384 ms Marked sinus bradycardia Left axis deviation Right bundle branch block T wave abnormality, consider lateral ischemia Abnormal ECG No previous ECGs available Confirmed by ABNER GIVENS MD ([id number]) on 02/13/2021 7 :38:56 PM Referred By: Jose Cho Confirmed by:ROBERT GIVENS MD Electronically Signed by Abner Givens MD on 06/28 at 1939 PATIENT NAME: SAPNA BENEDICT ACCOUNT #: [id number]"
[2023-06-09 16:41] LABS: Absolute Lymphocytes (CBC) 1.5 K/uL (0.7-4.9); Hematocrit 39.3 % (39.6-49.0); Lymphocytes % 17.8 % (15.3-44.8); MCV 89.6 fL (80-100); MPV 7.7 fL (7.6-11.3); RBC Red Blood Cell Count 4.39 M/uL (4.33-5.43)
[2023-06-09] MEDS ORDERED: DIPHENHYDRAMINE 50 MG/ML VIAL ONE (16:41)
[2023-06-09] MEDS ORDERED: METOCLOPRAMIDE 10 MG/2mL INJ ONE (16:41)
[2023-06-09] MEDS ORDERED: NA CHLORIDE 0.9% 1,000 ML ONE (16:41)
[2023-06-09] MEDS ORDERED: KETOROLAC 30 MG/ML INJ ONE (16:41)
[2023-06-09] MEDS ORDERED: NA CHLORIDE 0.9% 500 ML ONE (16:42)
[2023-06-09 16:44] LABS: Protime INR 1.43
--- NOTE | 2023-06-09 16:51 | RAD REPORT ---
EXAM DESCRIPTION: RAD - Chest Single View - 06/09/2023 4:45 pm CLINICAL HISTORY: COUGH Chest pain. COMPARISON: <Comparisons> FINDINGS: Portable technique limits examination quality. The lungs are grossly clear. The heart is normal in size. Tortuous thoracic aorta up No displaced fra ctures. IMPRESSION: No acute intrathoracic process suspected.
[2023-06-09 17:07] LABS: Albumin 3.4 g/dL (3.4-5.0); Bilirubin Direct 0.2 mg/dL (0-0.2); Bilirubin Indirect, Calculated 0.4 mg/dL (0.2-0.8); Bilirubin Total 0.6 mg/dL (0.2-1.0); Magnesium 1.5 mg/dL (1.6-2.4); Potassium 3.8 mEq/L (3.5-5.1); Protein, Total 7.3 g/dL (6.4-8.2); Troponin High Sensitivity 21.4 pg/mL (<58.9)
[2023-06-09] MEDS ORDERED: Magnesium Sulfate 2gm IVPB 2 G/50 ML BAG IV ONE (17:44)
--- NOTE | 2023-06-09 17:55 | RAD REPORT ---
EXAM DESCRIPTION: CT - Head Brain Wo Cont - 06/09/2023 5:37 pm CLINICAL HISTORY: HEADACHE Headache, drowsiness COMPARISON: Head angio dated 06/09/2023; Head Brain Wo Cont dated 02/05/2023 TECHNIQUE: All CT scans are performed using dose optimization technique as appropriate and may inclu de automated exposure control or mA/KV adjustment according to patient size. FINDINGS: No intracranial hemorrhage, hydrocephalus or extra-axial fluid collection.Moderate general ized brain atrophy is present with moderate periventricular and deep white matter chronic microvascul ar ischemic changes.No areas of brain edema or evidence of midline shift. The paranasal sinuses and mastoids are clear. The calvarium is intact. IMPRESSION: No acute intracranial abnormality.
--- NOTE | 2023-06-09 17:57 | RAD REPORT ---
EXAM DESCRIPTION: CT - Head angio - 06/09/2023 5:37 pm CLINICAL HISTORY: HEADACHE Headache, drowsiness COMPARISON: Head Brain Wo Cont dated 02/05/2023; Head Brain Wo Cont dated 09/02/2022 TECHNIQUE: CT angiography of the head was performed with MIPs. All CT scans are performed using dose optimization technique as appropriate and may include automated exposure control or mA/KV adjustment according to patient size. FINDINGS: No evidence of large vessel occlusion. No evidence of aneurysm is detected. No flow-limiti ng stenosis or vascular malformation identified. Antegrade flow is seen in the vertebral arteries. Mildly dominant right vertebral artery. The visualized dural venous sinuses are patent. IMPRESSION: No significant flow abnormality is detected.
--- NOTE | 2023-06-09 18:02 | RAD REPORT ---
EXAM DESCRIPTION: CT - Neck Angio - 06/09/2023 5:37 pm CLINICAL HISTORY: HEADACHE Headache, drowsiness COMPARISON: Chest Angio dated 08/02/2020 TECHNIQUE: CT angiography of the neck vessels was performed with MIPs. All CT scans are performed using dose optimization technique as appropriate and may include automated exposure control or mA/KV adjustment according to patient size. FINDINGS: The included portions of the aortic arch demonstrates aneurysmal dilatation in of the desc ending thoracic aorta to 6.5 cm. There is evidence of possible focal dissection as well near the supe rior part of the aortic arch. This is incompletely assessed. Small dissection flap is noted proximal left subclavian artery, without definitive flow abnormality. Moderate plaque is seen proximal left internal carotid artery. Moderate mixed plaque is seen left carotid bulb. This results in 50% stenosis based on NASCET criteri a. Mild to moderate hard plaque is seen right carotid bulb resulting in approximate 50% stenosis. 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 This is a notable c hange relative to the 2019 prior study. CTA of the aorta would provide better evaluation. Moderate mixed plaque in both carotid bulbs result in moderate stenosis 50-70% based on NASCET criter ia. NASCET criteria used. Mild 0-49% stenosis Moderate 50-69% stenosis Severe 70-99% stenosis
--- NOTE | 2023-06-09 18:18 | EDPHYS ---
Physician Documentation [facility] Name: Chaz Flowers Age: 77 yrs Sex: Male : 1945 Arrival Date: 06/09/2023 Time: 15:35 Bed 4 Private MD: Remy Cyr T ED Physician Jayjay Quarles HPI: 06/09 15:59 This 77 yrs old Male presents to ER via Ambulatory with complaints of batool Headache. 15:59 The patient complains of pain to the right side of the back of head and right temporal batool area. The patient describes the headache as constant. Onset: The symptoms/episode began/occurred gradually. Associated signs and symptoms: The patient has no apparent associated signs or symptoms. Severity of symptoms: At its worst the pain was moderate, in the emergency department the pain is unchanged. Headache History: The patient has had previous headaches and this one is similar to previous episodes. The symptoms are alleviated by nothing. the symptoms are aggravated by nothing. The patient has experienced a previous episode. Historical: - Allergies: 15:55 Tramadol HCl; me1 - Home Meds: 15:55 metformin 500 mg Oral tab 1 tab 2 times per day [Active]; metoprolol succinate 25 mg me1 oral Tablet, Extended Release 24 hr 0.5 tabs once [Active]; Lipitor 40 mg oral tablet 1 tab every day at bedtime [Active]; Cymbalta 60 mg oral capsule,delayed release (e.c.) daily [Active]; valsartan 320 mg oral tablet 0.5 tab bid [Active]; Eliquis 5 mg oral tablet 1 tab every 12 hours [Active]; aspirin 81 mg Oral capsule daily [Active]; - PMHx: 15:55 AAA; Atrial fibrillation; CVA; Diabetes - NIDDM; Hypertension; me1 - PSHx: 15:55 Tonsillectomy; knee replacement; Cholecystectomy; me1 - Immunization history:: Adult Immunizations up to date. - Social history:: Smoking status: Patient/guardian denies using tobacco, but has a distant history of tobacco abuse. ROS: 16:00 Constitutional: Negative for fever, chills, and weight loss, Eyes: Negative for injury, batool pain, redness, and discharge, ENT: Negative for injury, pain, and discharge, Neck: Negative for injury, pain, and swelling, Cardiovascular: Negative for chest pain, palpitations, and edema, Respiratory: Negative for shortness of breath, cough, wheezing, and pleuritic chest pain, Abdomen/GI: Negative for abdominal pain, nausea, vomiting, diarrhea, and constipation, Back: Negative for injury and pain, : Negative for injury, bleeding, discharge, and swelling, MS/Extremity: Negative for injury and deformity, Skin: Negative for injury, rash, and discoloration, Psych: Negative for depression, anxiety, suicide ideation, homicidal ideation, and hallucinations, Allergy/Immunology: Negative for hives, rash, and allergies, Endocrine: Negative for neck swelling, polydipsia, polyuria, polyphagia, and marked weight changes, Hematologic/Lymphatic: Negative for swollen nodes, abnormal bleeding, and unusual bruising. 16:00 Neuro: Positive for headache. Exam: 16:00 Constitutional: This is a well developed, well nourished patient who is awake, alert, batool and in no acute distress. Head/Face: Normocephalic, atraumatic. Eyes: Pupils equal round and reactive to light, extra-ocular motions intact. Lids and lashes normal. Conjunctiva and sclera are non-icteric and not injected. Cornea within normal limits. Periorbital areas with no swelling, redness, or edema. ENT: Nares patent. No nasal discharge, no septal abnormalities noted. Tympanic membranes are normal and external auditory canals are clear. Oropharynx with no redness, swelling, or masses, exudates, or evidence of obstruction, uvula midline. Mucous membranes moist. Neck: Trachea midline, no thyromegaly or masses palpated, and no cervical lymphadenopathy. Supple, full range of motion without nuchal rigidity, or vertebral point tenderness. No Meningismus. Chest/axilla: Normal chest wall appearance and motion. Nontender with no deformity. No lesions are appreciated. Cardiovascular: Regular rate and rhythm with a normal S1 and S2. No gallops, murmurs, or rubs. Normal PMI, no JVD. No pulse deficits. Respiratory: Lungs have equal breath sounds bilaterally, clear to auscultation and percussion. No rales, rhonchi or wheezes noted. No increased work of breathing, no retractions or nasal flaring. Abdomen/GI: Soft, non-tender, with normal bowel sounds. No distension or tympany. No guarding or rebound. No evidence of tenderness throughout. Back: No spinal tenderness. No costovertebral tenderness. Full range of motion. Male : Normal genitalia with no discharge or lesions. Skin: Warm, dry with normal turgor. Normal color with no rashes, no lesions, and no evidence of cellulitis. MS/ Extremity: Pulses equal, no cyanosis. Neurovascular intact. Full, normal range of motion. Neuro: Awake and alert, GCS 15, oriented to person, place, time, and situation. Cranial nerves II-XII grossly intact. Motor strength 5/5 in all extremities. Sensory grossly intact. Cerebellar exam normal. Normal gait. Psych: Awake, alert, with orientation to person, place and time. Behavior, mood, and affect are within normal limits. 16:00 Neck: External neck: is normal, no acute changes, C-spine: appears grossly normal, no acute changes, ROM/movement: is normal, no acute changes, pain, is not appreciated, limited range of motion, is not appreciated, Meningeal signs: are not present, Kernig's sign is negative, Brudzinski's sign is negative, Lymph nodes: no appreciated lymphadenopathy. 16:13 ECG was reviewed by the Attending Physician. [facility] Vital Signs: 15:55 BP 158 / 98; Pulse 62; Resp 17; Temp 98.2(O); Pulse Ox 96% on R/A; Weight 75.3 kg; me1 Height 5 ft. 11 in. ; Pain 2/10; 16:59 BP 161 / 97; Pulse 60; Resp 12; Pulse Ox 96% ; bp 18:00 BP 177 / 102; Pulse 55; Resp 18; Pulse Ox 99% on R/A; db 15:55 Body Mass Index 23.15 (75.30 kg, 180.34 cm) me1 15:55 Pain Scale: Adult me1 Johny Coma Score: 16:02 Eye Response: spontaneous(4). Motor Response: obeys commands(6). Verbal Response: batool oriented(5). Total: 15. MDM: 15:41 Patient medically screened. [facility] 16:02 Differential diagnosis: cerebral vascular accident, hyponatremia, intracerebral batool hemorrhage, migraine, neoplasm, subarachnoid bleed, subdural hematoma, temporal arteritis, tension headache, traumatic injuries. Data reviewed: vital signs, nurses notes, lab test result(s), EKG, radiologic studies, CT scan, plain films. Consideration of Admission/Observation Escalation of care including admission/observation considered. I considered the following discharge prescriptions or medication management in the emergency department Medications were administered in the Emergency Department. See MAR. Test considered but Not performed: MRI: NO MRI BRAIN. Historians other than the Patient: Spouse/Significant Other: , INFORMED. Care significantly affected by the following chronic conditions: Diabetes, Hypertension, A FIB, CVA, AAA. Counseling: I had a detailed discussion with the patient and/or guardian regarding: the historical points, exam findings, and any diagnostic results supporting the discharge/admit diagnosis, the presence of at least one elevated blood pressure reading (>120/80) during this emergency department visit, lab results, radiology results. 06/09 15:57 Order name: Basic Metabolic Panel; Complete Time: 17:14 [facility] 06/09 15:57 Order name: CBC with Diff; Complete Time: 17:03 [facility] 06/09 15:57 Order name: LFT's; Complete Time: 17:14 [facility] 06/09 15:57 Order name: Magnesium; Complete Time: 17:14 [facility] 06/09 15:57 Order name: NT PRO-BNP; Complete Time: 17:14 [facility] 06/09 15:57 Order name: PT-INR; Complete Time: 17:03 [facility] 06/09 15:57 Order name: Troponin HS; Complete Time: 17:14 [facility] 06/09 15:57 Order name: XRAY Chest (1 view); Complete Time: 17:03 [facility] 06/09 15:57 Order name: CT Head Brain wo Cont; Complete Time: 18:16 [facility] 06/09 15:57 Order name: CT Head Angio; Complete Time: 18:16 [facility] 06/09 15:57 Order name: CT Neck Angio; Complete Time: 18:16 [facility] 06/09 15:57 Order name: EKG; Complete Time: 15:58 [facility] 06/09 15:57 Order name: Cardiac monitoring; Complete Time: 16:32 [facility] 06/09 15:57 Order name: EKG - Nurse/Tech; Complete Time: 16:32 [facility] 06/09 15:57 Order name: IV Saline Lock; Complete Time: 16:32 [facility] 06/09 15:57 Order name: Labs collected and sent; Complete Time: 16:32 [facility] 06/09 15:57 Order name: O2 Per Protocol; Complete Time: 16:32 batool 06/09 15:57 Order name: O2 Sat Monitoring; Complete Time: 16:32 [place] 06/09 15:57 Order name: Oxygen: 2 LITERS; Complete Time: 16:13 batool EC:13 Rate is 62 beats/min. Rhythm is regular. QRS [place] is Normal. NH interval is normal. QRS batool interval is normal. QT interval is normal. No Q waves. T waves are Normal. No ST changes noted. Clinical impression: NSR w/ Non-specific ST/T Changes and No evidence of ischemia. Interpreted by me. Reviewed by me. Administered Medications: 16:40 Drug: NS 0.9% IV 500 ml Route: IV; Rate: bolus; Site: right antecubital; db 18:58 Follow up: Response: No adverse reaction; IV Status: Completed infusion; IV Intake: db 500ml 16:40 Drug: NS 0.9% IV 1000 ml Route: IV; Rate: 125 ml/hr; Site: right antecubital; db 18:59 Follow up: Response: No adverse reaction; IV Status: Completed infusion db 16:40 Drug: diphenhydrAMINE IVP 50 mg Route: IVP; Site: right antecubital; db 18:59 Follow up: Response: No adverse reaction db 16:40 Drug: metoCLOPramide IVP 10 mg Route: IVP; Site: right antecubital; db 18:59 Follow up: Response: No adverse reaction db 16:42 Drug: Ketorolac IVP 15 mg Route: IVP; Site: right antecubital; db 18:59 Follow up: Response: No adverse reaction db 17:44 Drug: Magnesium Sulfate IVPB 2 grams Route: IVPB; Infused Over: 2 hrs; Site: right bp forearm; 18:58 Follow up: Response: No adverse reaction; IV Status: Completed infusion; IV Intake: db 100ml Disposition Summary: 06/09/23 18:17 Discharge Ordered Location: Home batool Problem: new batool Symptoms: have improved batool Condition: Stable batool Diagnosis - Headache batool - Hypomagnesemia batool - Occlusion and stenosis of bilateral carotid arteries - MODERATE batool - 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 batool Followup: batool - With: - When: 2 - 3 days - Reason: Recheck today's complaints, Continuance of care, Re-evaluation by your physician Followup: batool - With: - When: 2 - 3 days - Reason: Recheck today's complaints, Re-evaluation by your physician Discharge Instructions: - Discharge Summary Sheet batool - General Headache Without Cause batool - Hypomagnesemia batool - General Headache Without Cause, [id number] batool - Carotid Artery Disease batool Forms: - Medication Reconciliation Form batool - Thank You Letter batool - Antibiotic Education batool - Prescription Opioid Use batool - Patient Portal Instructions batool Prescriptions: - Fioricet with Codeine [id number] mg Oral capsule - take 2 capsule by ORAL route every 4 hours do not exceed 6 caps per day; 20 batool capsule; Refills: 0, Product Selection Permitted - ondansetron 4 mg Oral Film - take 1 Film by ORAL route every 6-8 hours for 5 days as needed for nausea and batool vomiting; 24 Film; Refills: 0, Product Selection Permitted Signatures: Dispatcher [employer] Jayjay Duron MD MD cha Peltier, Brian, RN RN bp Benton, Danielle RN RN db Estephanie Herman RN RN me1
--- NOTE | 2023-06-09 18:18 | ER ---
Nurse's Notes [facility] Name: Chaz Flowers Age: 77 yrs Sex: Male : 1945 Arrival Date: 06/09/2023 Time: 15:35 Bed 4 Private MD: Remy Cyr T Diagnosis: Headache;Hypomagnesemia;Occlusion and stenosis of bilateral carotid arteries-MODERATE;alf (current) use of anticoagulants Presentation: 06/09 15:54 Chief complaint: Patient states: persistent headache to right side since 8 pm last wi1 night. Coronavirus screen: Vaccine status: Patient reports receiving the 2nd dose of the covid vaccine. At this time, the client does not indicate any symptoms associated with coronavirus-19. Ebola Screen: No symptoms or risks identified at this time. Initial Sepsis Screen: Does the patient meet any 2 criteria? No. Patient's initial sepsis screen is negative. Does the patient have a suspected source of infection? No. Patient's initial sepsis screen is negative. Risk Assessment: Do you want to hurt yourself or someone else? Patient reports no desire to harm self or others. Onset of symptoms was June 08, 2023. 15:54 Method Of Arrival: [place] [facility] 15:54 Acuity: BRADY 3 wi1 Triage Assessment: 15:55 Headache History: The patient has had previous headaches and this one is similar to [facility] previous episodes. General: Appears uncomfortable, well groomed, well developed, well nourished, Behavior is calm, cooperative, appropriate for age. Pain: Complains of pain in right temporal area Pain currently is 2 out of 10 on a pain scale. Quality of pain is described as aching. Neuro: Level of Consciousness is awake, alert, obeys commands, Oriented to person, place, time, situation, Appropriate for age. Cardiovascular: Capillary refill < 3 seconds Patient's skin is warm and dry. Respiratory: Respiratory effort is even, unlabored, Respiratory pattern is regular, symmetrical. 18:57 Pain: Pain began gradually, Also complains of. db Historical: - Allergies: 15:55 Tramadol HCl; me1 - Home Meds: 15:55 metformin 500 mg Oral tab 1 tab 2 times per day [Active]; metoprolol succinate 25 mg me1 oral Tablet, Extended Release 24 hr 0.5 tabs once [Active]; Lipitor 40 mg oral tablet 1 tab every day at bedtime [Active]; Cymbalta 60 mg oral capsule,delayed release (e.c.) daily [Active]; valsartan 320 mg oral tablet 0.5 tab bid [Active]; Eliquis 5 mg oral tablet 1 tab every 12 hours [Active]; aspirin 81 mg Oral capsule daily [Active]; - PMHx: 15:55 AAA; Atrial fibrillation; CVA; Diabetes - NIDDM; Hypertension; me1 - PSHx: 15:55 Tonsillectomy; knee replacement; Cholecystectomy; me1 - Immunization history:: Adult Immunizations up to date. - Social history:: Smoking status: Patient/guardian denies using tobacco, but has a distant history of tobacco abuse. Screenin:00 [facility] ED Fall Risk Assessment (Adult) History of falling in the last 3 months, bp including since admission No falls in past 3 months (0 pts). Abuse screen: Denies threats or abuse. Denies injuries from another. Nutritional screening: No deficits noted. Tuberculosis screening: No symptoms or risk factors identified. Assessment: 16:00 General: SEE TRIAGE NOTE. bp 17:00 Reassessment: Patient appears in no apparent distress at this time. Patient is alert, bp oriented x 3, equal unlabored respirations, skin warm/dry/pink. 17:30 Reassessment: Patient appears in no apparent distress at this time. Patient and/or db family updated on plan of care and expected duration. Pain level reassessed. Patient is alert, oriented x 3, equal unlabored respirations, skin warm/dry/pink. Pain: Complains of pain in head. 18:45 Reassessment: Patient appears in no apparent distress at this time. Patient and/or db family updated on plan of care and expected duration. Pain level reassessed. Patient is alert, oriented x 3, equal unlabored respirations, skin warm/dry/pink. Patient states feeling better. Patient states symptoms have improved. Vital Signs: 15:55 BP 158 / 98; Pulse 62; Resp 17; Temp 98.2(O); Pulse Ox 96% on R/A; Weight 75.3 kg; me1 Height 5 ft. 11 in. ; Pain 2/10; 16:59 BP 161 / 97; Pulse 60; Resp 12; Pulse Ox 96% ; bp 18:00 BP 177 / 102; Pulse 55; Resp 18; Pulse Ox 99% on R/A; db 15:55 Body Mass Index 23.15 (75.30 kg, 180.34 cm) me1 15:55 Pain Scale: Adult me1 Johny Coma Score: 16:02 Eye Response: spontaneous(4). Motor Response: obeys commands(6). Verbal Response: batool oriented(5). Total: 15. ED Course: 15:39 Patient arrived in ED. mr 15:39 Remy Cyr MD is Private Physician. mr 15:40 Jayjay Quarles MD is Attending Physician. batool 15:47 Hermelindo Lomas, CASSY is Primary Nurse. bp 15:55 Triage completed. me1 16:03 Arm band placed on. me1 16:30 Inserted saline lock: 20 gauge in right forearm, using aseptic technique. Blood bp collected. 16:47 XRAY Chest (1 view) In Process Unspecified. EDMS 17:00 Patient has correct armband on for positive identification. Bed in low position. Call bp light in reach. Side rails up X2. 17:36 CT Head Brain wo Cont In Process Unspecified. EDMS 17:36 CT Head Angio In Process Unspecified. EDMS 17:38 CT Neck Angio In Process Unspecified. EDMS 18:16 Remy Cyr MD is Referral Physician. batool 18:16 Jaron Perez MD is Referral Physician. batool 18:56 Provided Education on: DISCHARGE AND FOLLOW UP. db 18:56 No provider procedures requiring assistance completed. IV discontinued, intact, db bleeding controlled, No redness/swelling at site. Administered Medications: 16:40 Drug: NS 0.9% IV 500 ml Route: IV; Rate: bolus; Site: right antecubital; db 18:58 Follow up: Response: No adverse reaction; IV Status: Completed infusion; IV Intake: db 500ml 16:40 Drug: NS 0.9% IV 1000 ml Route: IV; Rate: 125 ml/hr; Site: right antecubital; db 18:59 Follow up: Response: No adverse reaction; IV Status: Completed infusion db 16:40 Drug: diphenhydrAMINE IVP 50 mg Route: IVP; Site: right antecubital; db 18:59 Follow up: Response: No adverse reaction db 16:40 Drug: metoCLOPramide IVP 10 mg Route: IVP; Site: right antecubital; db 18:59 Follow up: Response: No adverse reaction db 16:42 Drug: Ketorolac IVP 15 mg Route: IVP; Site: right antecubital; db 18:59 Follow up: Response: No adverse reaction db 17:44 Drug: Magnesium Sulfate IVPB 2 grams Route: IVPB; Infused Over: 2 hrs; Site: right bp forearm; 18:58 Follow up: Response: No adverse reaction; IV Status: Completed infusion; IV Intake: db 100ml Medication: 18:56 VIS not applicable for this client. db Intake: 18:58 IV: 500ml; Total: 500ml. db 18:58 IV: 100ml; Total: 600ml. db Outcome: 18:17 Discharge ordered by . batool 18:56 Discharged to home ambulatory, with family. calvin 18:56 Condition: stable 18:56 Discharge instructions given to patient, family, Instructed on discharge instructions, follow up and referral plans. Prescriptions given X 2. 18:59 Patient left the ED. db Signatures: Dispatcher [employer] Jayjay Duron MD MD cha Rivera, Mary mr Peltier, Brian, RN RN Destiny Balderrama, RN RN Estephanie Rodriguez, CASSY RN me1
[2023-06-09 19:20] VITALS: TEMP 98.2
[2023-06-09 19:31] VITALS: BP 177/102; O2SAT 99
== END 2023-06-09 18:59 | disposition home or self-care (01) ==
LOC: ER 15:35
DX: R51.9 Headache, unspecified (principal); E83.42 Hypomagnesemia; I65.23 Occlusion and stenosis of bilateral carotid arteries; Z79.01 Long term (current) use of anticoagulants; I10 Essential (primary) hypertension; I48.91 Unspecified atrial fibrillation; E11.9 Type 2 diabetes mellitus without complications; Z79.82 Long term (current) use of aspirin; Z88.5 Allergy status to narcotic agent
CPT/HCPCS: 85025; 80048; 36415; 83735; 85610; 80076; 84484; 83880; 70450; 70496; 70498; 71045; Q9967; J3475; J2765; J1200; J7040; J7030; 93005

== ENCOUNTER 2024-02-11 11:32 | Emergency (ER) | payer OTHER ==
[2024-02-11 11:56] LABS: Absolute Eosinophils 0.3 K/uL (0-0.5); Absolute Lymphocytes (CBC) 1.1 K/uL (0.7-4.9); Absolute Monocytes 0.6 K/uL (0.1-1.3); Absolute Neutrophil 8.1 K/uL (1.8-8.0); Basophils % 0.4 % (0-1.3); Eosinophils % 2.6 % (0-4.4); Hematocrit 38.7 % (39.6-49.0); Hemoglobin 12.7 g/dL (13.6-17.9); Lymphocytes % 11.3 % (15.3-44.8); MCH 29.7 pg (27.0-35.0); MCHC 32.8 g/dL (32.0-36.0); MCV 90.6 fL (80-100); MPV 7.9 fL (7.6-11.3); Neutrophils % 79.7 % (41.7-73.7); Platelets 183 thou/uL (152-406); RBC Red Blood Cell Count 4.27 M/uL (4.33-5.43); Red Cell Distribution Width 14.6 % (12.1-15.2)
[2024-02-11 12:05] LABS: Protime INR 1.38
[2024-02-11 12:10] LABS: Anion Gap 7.1 mEq/L (5.0-15.0); Potassium 4.1 mEq/L (3.5-5.1)
--- NOTE | 2024-02-11 12:47 | RAD REPORT ---
EXAM DESCRIPTION: CT - Head C Spine Mike Garcia - 02/11/2024 12:25 pm CLINICAL HISTORY: Head and neck injury with chest and abdominal pain status post fall. Head and neck pain . TECHNIQUE: Computed axial tomography of the head and cervical spine was obtained Computed axial tomography of the chest, abdomen and pelvis was obtained. 100 cc Isovue-300 was given intravenously coronal and sagittal reconstruction was performed. All CT scans are performed using dose optimization technique as appropriate and may include automated exposure control or mA/KV adjustment according to patient size. COMPARISON: 2022 and January [address] chest FINDINGS: An intracranial bleed is not seen. Mild to moderate low-density periventricular, deep and subcortical white matter probably ischemic changes secondary to small vessel disease. The ventricles are normal in caliber. An extra-axial fluid collection is not noted. Fluid within the sinuses is not seen A cervical fracture is not seen. No dislocation is seen. Mild chronic posterior subluxation C5 on C6. Prominent spondylosis mid and distal cervical spine A mediastinal hematoma is not noted. A pleural effusion is not present. A lung contusion is not seen. 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 It contains thrombus. An intimal flap lies superior to this within the abdominal aorta. Several ulce rating plaques are present within the abdominal aorta. 2.5 centimeter right common iliac artery conta ining thrombus Mild compression fracture L2 vertebral body appears acute. Additional chronic compression deformities involve the spine. 1.7 centimeter left renal cyst IMPRESSION: No acute intracranial abnormality is seen A cervical fracture is not visualized. If the patient continues have symptoms to suggest intracranial /spinal cord pathology then MRI would be recommended. 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 It contains thrombus. An intimal flap lies superior to this within the abdominal aorta. Several ulcerating plaques are present within the abdominal aorta. 2.5 centimeter right common iliac artery containing thrombus
--- NOTE | 2024-02-11 13:17 | EDPHYS ---
Physician Documentation [facility] Name: Chaz Flowers Age: 78 yrs Sex: Male : 1945 Arrival Date: 02/11/2024 Time: 11:32 Bed 8 Private MD: ED Physician Hany Ricci HPI: 02/10 11:52 This 78 yrs old Male presents to ER via EMS with complaints of Fall Injury. rn 11:52 Details of fall: The patient fell from an upright position. Onset: The symptoms/episode rn began/occurred this morning. Associated injuries: The patient sustained injury to the low back. Severity of symptoms: At their worst the symptoms were moderate, in the emergency department the symptoms are unchanged. The patient has not experienced similar symptoms in the past. Patient reports fall in shower, from standing, landed on buttocks and slightly twisted. Reports mid and lower back pain. Takes Eliquis for atrial fibrillation. Denies head injury but not 100% sure. Reports mild dizziness. No chest pain or abdominal pain. No lower extremity or upper extremity injury or pain. Historical: - Allergies: 11:42 Tramadol HCl; ko1 - PMHx: 11:42 AAA; Atrial fibrillation; CVA; Diabetes - NIDDM; Hypertension; ko1 - PSHx: 11:42 Cholecystectomy; knee replacement; Tonsillectomy; ko1 - Immunization history:: Adult Immunizations unknown. - Infectious Disease History:: Denies. - Social history:: Smoking status: Patient denies any tobacco usage or history of. - Family history:: not pertinent. - Hospitalizations: : No recent hospitalization is reported. ROS: 11:52 Constitutional: Negative for fever, chills, and weight loss, Neck: Negative for injury, rn pain, and swelling, Cardiovascular: Negative for chest pain, palpitations, and edema, Respiratory: Negative for shortness of breath, cough, wheezing, and pleuritic chest pain, Abdomen/GI: Negative for abdominal pain, nausea, vomiting, diarrhea, and constipation, Back: Positive for back pain and injury MS/Extremity: Negative for injury and deformity, Skin: Negative for injury, rash, and discoloration, Neuro: Negative for headache, weakness, numbness, tingling, and seizure, Exam: 11:52 Constitutional: This is a well developed, well nourished patient who is awake, alert, rn and in no acute distress. Head/Face: Normocephalic, atraumatic. Eyes: Pupils equal round and reactive to light, extra-ocular motions intact. Lids and lashes normal. Conjunctiva and sclera are non-icteric and not injected. Cornea within normal limits. Periorbital areas with no swelling, redness, or edema. ENT: No oral injury noted Neck: No midline cervical tenderness Chest/axilla: Normal chest wall appearance and motion. Nontender with no deformity. No lesions are appreciated. Cardiovascular: Regular rate and rhythm. No pulse deficits. Respiratory: No increased work of breathing, no retractions or nasal flaring. Abdomen/GI: Soft, nontender, no distention, no ecchymosis Back: Mild. Lumbar spinal tenderness. No step-off Skin: Warm, dry MS/ Extremity: Pulses equal, no cyanosis. Neurovascular intact. Full, normal range of motion. Equal circumference. Neuro: Awake and alert, GCS 15, oriented to person, place, time, and situation. Cranial nerves II-XII grossly intact. Motor strength 5/5 in all extremities. Sensory grossly intact. 12:03 ECG was reviewed by the Attending Physician. rn Vital Signs: 11:42 BP 155 / 89; Pulse 62; Resp 16; Temp 97.7; Pulse Ox 95% ; Weight 74.84 kg; Height 5 ft. ko1 10 in. ; Pain 3/10; 12:17 BP 167 / 91; Pulse 64; Resp 16; Pulse Ox 95% ; ko1 13:17 BP 128 / 80; Pulse 58; Pulse Ox 97% on R/A; ap3 11:42 Body Mass Index 23.67 (74.84 kg, 177.8 cm) ko1 11:42 Pain Scale: Adult ko1 Johny Coma Score: 12:03 Eye Response: spontaneous(4). Motor Response: obeys commands(6). Verbal Response: ap3 oriented(5). Total: 15. MDM: 11:36 Patient medically screened. rn 13:11 Differential diagnosis: closed head injury, contusion, fracture, sprain, strain. Data rn reviewed: vital signs, nurses notes, lab test result(s), radiologic studies, CT scan. 13:13 Counseling: I had a detailed discussion with the patient and/or guardian regarding the rn historical points, exam findings, and any diagnostic results supporting the discharge/admit diagnosis, lab results, radiology results, the need for outpatient follow up, to return to the emergency department if symptoms worsen or persist or if there are any questions or concerns that arise at home. Response to treatment: the patient's symptoms have mildly improved after treatment, and as a result, I will discharge patient. 13:14 Care significantly affected by the following chronic conditions: Thoracic and abdominal rn aneurysm history. ED course: CT shows acute small L2 compression fracture from trauma and fall today. Incidentally we see some progression of known thoracic aneurysm as well as abdominal aortic aneurysm. No evidence of leak or rupture. Patient has had thrombus identified in AAA before as today. Patient already on anticoagulants. He has been taking blood pressure medication as needed told him he needs tighter blood pressure control and needs urgent follow-up with his wheat cleaner and vascular surgeon. Return precautions given and understood.. 02/10 11:41 Order name: CBC with Diff; Complete Time: 12:49 rn 02/10 11:41 Order name: Basic Metabolic Panel; Complete Time: 12:49 rn 02/10 11:41 Order name: Protime (+inr); Complete Time: 12:49 rn 02/10 11:41 Order name: Ptt, Activated; Complete Time: 12:49 rn 02/10 11:41 Order name: CT Traumagram (Head C Spine CAP W Con); Complete Time: 12:49 rn 02/10 11:41 Order name: IV Start; Complete Time: 11:45 rn EC:03 Rate is 67 beats/min. Rhythm is regular. Left axis deviation noted. QRS is positive in rn lead I and negative in lead aVF. WI interval is normal. QRS interval is normal. QT interval is normal. No Q waves. T waves are Normal. No ST changes noted. Clinical impression: NSR w/ Non-specific ST/T Changes. Interpreted by me. Reviewed by me. Administered Medications: 13:23 Not Given (Duplicate Order): [id number] mg PO once rn 13:40 Drug: Acetaminophen-Codeine PO (300 mg-30 mg) 1 tablet PO once; RASS on ADMIN: Combtv4, ap3 Very Agttd3, Agttd2, Rstlss1, AlertClm0, Drwsy-1, Lt Sdtn-2, Mod Sdtn-3, Dp Sdtn-4, UnArsble-5 Route: PO; 14:24 Follow up: Response: No adverse reaction; Pain is decreased; RASS: Alert and Calm (0) ap3 Disposition Summary: 02/11/24 13:17 Discharge Ordered Notes: Location: Home rn Problem: new rn Symptoms: have improved rn Condition: Stable rn Diagnosis - Wedge compression fracture of second lumbar vertebra, initial encounter for closed rn fracture - Abdominal aortic aneurysm, without rupture rn - Thoracic aortic aneurysm, without rupture rn Followup: rn - With: Private Physician - When: 1 - 2 days - Reason: Further diagnostic work-up, Recheck today's complaints, Re-evaluation by your physician Discharge Instructions: - Discharge Summary Sheet rn - Abdominal Aortic Aneurysm rn - Thoracic Aortic Aneurysm rn - Lumbar Spine Fracture rn Forms: - Medication Reconciliation Form rn - Thank You Letter rn - Antibiotic hvac journeyman - Prescription Opioid Use rn - Patient Portal Instructions rn - Leadership Thank You Letter rn Prescriptions: - acetaminophen-codeine 300-30 mg Oral tablet - take 1 tablet ORAL route every 4 to 6 hours As needed as needed for pain; 15 rn tablet; Refills: 0, Product Selection Permitted Signatures: Dispatcher [employer] EDMS Hany Ricci MD MD rn Joann Spain RN RN ap3 Sunshine Neri RN RN ko1 Corrections: (The following items were deleted from the chart) 11:42 11:42 CBC+H.LAB.BRZ ordered. EDMS EDMS 11:42 11:42 BASIC METABOLIC PANEL+C.LAB.BRZ ordered. EDMS EDMS 11:42 11:42 PROTIME (+INR)+COAG.LAB.BRZ ordered. EDMS EDMS 11:42 11:42 PTT, ACTIVATED+COAG.LAB.BRZ ordered. EDMS EDMS
--- NOTE | 2024-02-11 13:17 | ER ---
Nurse's Notes [facility] Name: Chaz Folwers Age: 78 yrs Sex: Male : 1945 Arrival Date: 02/11/2024 Time: 11:32 Bed 8 Private MD: Diagnosis: Wedge compression fracture of second lumbar vertebra, initial encounter for closed fracture;Abdominal aortic aneurysm, without rupture;Thoracic aortic aneurysm, without rupture Presentation: 02/10 11:40 Coronavirus screen: At this time, the client does not indicate any symptoms associated ko1 with coronavirus-19. Ebola Screen: No symptoms or risks identified at this time. Initial Sepsis Screen: Does the patient meet any 2 criteria? No. Patient's initial sepsis screen is negative. Does the patient have a suspected source of infection? No. Patient's initial sepsis screen is negative. Risk Assessment: Do you want to hurt yourself or someone else? Patient reports no desire to harm self or others. Onset of symptoms was February 11, 2024. Care prior to arrival: Medication(s) given: zofran 4 mg, fentanyl 50 mcg IV IV initiated. 20 GA, in the left forearm. 11:40 Method Of Arrival: EMS: [facility] ko1 11:40 Acuity: BRADY 3 ko1 11:42 Chief complaint: EMS states: patient got dizzy in bathroom and fell backwards striking ko1 his back on the shower, sustained a skin tear to left forearm denies hitting head or any LOC, he is on blood thinners for previous CVA. Triage Assessment: 11:42 General: Appears in no apparent distress. uncomfortable, Behavior is calm, cooperative, ko1 appropriate for age. Pain: Complains of pain in back. Historical: - Allergies: 11:42 Tramadol HCl; ko1 - PMHx: 11:42 AAA; Atrial fibrillation; CVA; Diabetes - NIDDM; Hypertension; ko1 - PSHx: 11:42 Cholecystectomy; knee replacement; Tonsillectomy; ko1 - Immunization history:: Adult Immunizations unknown. - Infectious Disease History:: Denies. - Social history:: Smoking status: Patient denies any tobacco usage or history of. - Family history:: not pertinent. - Hospitalizations: : No recent hospitalization is reported. Screenin:47 [facility] ED Fall Risk Assessment (Adult) History of falling in the last 3 months, ap3 including since admission Yes- single mechanical fall (1 pt) Confusion or Disorientation No (0 pts) Intoxicated or Sedated No (0 pts) Impaired Gait Yes (1 pt) Mobility Assist Device Used No (0 pt) Altered Elimination No (0 pt) Score/Fall Risk Level 3 or more points = High Risk Oriented to surroundings, Maintained a safe environment, Educated pt \T\ family on fall prevention, incl call for assistance when getting out of bed, Assessed \T\ reinforced patient's understanding of fall precautions, Provided non-skid footwear, Hourly rounding (assess needs \T\ fall precautionary measures) done, Used ambulatory aids as needed (educated on \T\ assisted with), Used gait belt as appropriate Implemented a Fall Risk Plan of Care, Apply high fall risk patient identification: yellow non skid footwear/ fall signage, Placed fall mat w/ non beveled edge next to bed, Remained w/in arm's length of patient and in sight while toileting, Offered frequent toileting (1:1 observation), Remained with patient while ambulating, Utilized family, sitter, or virtual music coordinator as indicated. 11:47 Abuse screen: Denies threats or abuse. Nutritional screening: No deficits noted. ap3 Tuberculosis screening: No symptoms or risk factors identified. Assessment: 11:52 Neuro: Reports old cva left last two fingers on left hand tingling but no other ko1 deficits. Cardiovascular: No deficits noted. Respiratory: Reports recent diagnosis of sleep apnea. GI: No deficits noted. : No deficits noted. EENT: No deficits noted. Derm: No deficits noted. Musculoskeletal: Reports pain in back. Vital Signs: 11:42 BP 155 / 89; Pulse 62; Resp 16; Temp 97.7; Pulse Ox 95% ; Weight 74.84 kg; Height 5 ft. ko1 10 in. ; Pain 3/10; 12:17 BP 167 / 91; Pulse 64; Resp 16; Pulse Ox 95% ; ko1 13:17 BP 128 / 80; Pulse 58; Pulse Ox 97% on R/A; ap3 11:42 Body Mass Index 23.67 (74.84 kg, 177.8 cm) ko1 11:42 Pain Scale: Adult ko1 [place] Coma Score: 12:03 Eye Response: spontaneous(4). Motor Response: obeys commands(6). Verbal Response: ap3 oriented(5). Total: 15. ED Course: 11:34 Patient arrived in ED. ko1 11:36 Hany Ricci MD is Attending Physician. rn 11:40 Sunshine Neri, CASSY is Primary Nurse. ko1 11:42 Triage completed. ko1 11:42 Arm band placed on right wrist. Patient placed in an exam room, on a stretcher, on ko1 monitor car operator, on pulse oximetry, Patient notified of wait time. 11:45 EKG done, by ED staff, reviewed by Hany Ricci MD. ap3 11:45 Maintain EMS IV. Dressing intact. Good blood return noted. Site clean \T\ dry. Gauge \T\ ap 3 site: 20 left FA. 11:47 Patient has correct armband on for positive identification. Bed in low position. Call ap3 light in reach. Side rails up X2. telemetry monitor on. Pulse ox on. NIBP on. 11:52 Protime (+inr) Sent. ko1 11:52 Ptt, Activated Sent. ko1 11:52 Basic Metabolic Panel Sent. ko1 11:52 CBC with Diff Sent. ko1 11:52 Initial lab(s) drawn, by me, sent to lab. ko1 12:27 CT Traumagram (Head C Spine CAP W Con) In Process Unspecified. EDMS 13:20 Assisted with urinal. ko1 13:40 No provider procedures requiring assistance completed. IV discontinued, intact, ap3 bleeding controlled, No redness/swelling at site. Pressure dressing applied. 13:41 Provided Education on: discharge instructions. ap3 Administered Medications: 13:23 Not Given (Duplicate Order): [id number] mg PO once rn 13:40 Drug: Acetaminophen-Codeine PO (300 mg-30 mg) 1 tablet PO once; RASS on ADMIN: Combtv4, ap3 Very Agttd3, Agttd2, Rstlss1, AlertClm0, Drwsy-1, Lt Sdtn-2, Mod Sdtn-3, Dp Sdtn-4, UnArsble-5 Route: PO; 14:24 Follow up: Response: No adverse reaction; Pain is decreased; RASS: Alert and Calm (0) ap3 Medication: 12:17 VIS not applicable for this client. ko1 Outcome: 13:17 Discharge ordered by . rn 13:40 Condition: good ap3 13:40 Discharge instructions given to patient, family, Instructed on discharge instructions, follow up and referral plans. medication usage, Demonstrated understanding of instructions, follow-up care, medications, Prescriptions given X 1, 14:24 Discharged to home via wheelchair, with family, ap3 14:24 Patient left the ED. ap3 Signatures: Dispatcher [employer] EDMS Hany Ricci MD MD rn Prokisch, Amanda, RN RN ap3 Sunshine Neri RN RN ko1 Corrections: (The following items were deleted from the chart) 11:42 11:40 Chief complaint: ko1 ko1
[2024-02-11] MEDS ORDERED: CODEINE 30MG/APAP 300MG TAB ONE (13:30)
[2024-02-11 14:45] VITALS: BP 128/80; TEMP 97.7; O2SAT 97
--- NOTE | 2024-02-14 12:51 | EKG ---
Test Date: 2024-02-11 Test Time: 11:41:27 Freelance Art Director: ALP MEASUREMENT RESULTS: Intervals: Rate: 67 PA: 146 QRSD: 118 QT: 430 QTc: 454 [place]: P: 78 PA: 146 QRS: -65 T: 133 INTERPRETIVE STATEMENTS: Sinus rhythm with premature atrial complexes Left axis deviation Right bundle branch block Abnormal ECG Compared to ECG 01/08/2024 20:33:29 Atrial premature complex(es) now present Sinus bradycardia no longer present Electronically Signed On 02-14-24 12:43:34 CDT by Arslan Field
== END 2024-02-11 14:24 | disposition home or self-care (01) ==
LOC: ER 11:32
DX: S32.020A Wedge compression fracture of second lumbar vertebra, initial encounter for closed fracture (principal); I71.40 Abdominal aortic aneurysm, without rupture, unspecified; I71.20 Thoracic aortic aneurysm, without rupture, unspecified; W18.30XA Fall on same level, unspecified, initial encounter; I10 Essential (primary) hypertension; E11.9 Type 2 diabetes mellitus without complications; Z88.5 Allergy status to narcotic agent
CPT/HCPCS: 85025; 80048; 36415; 85610; 85730; 70450; 72125; 71260; 74177; 99285; Q9967; 93005

== ENCOUNTER 2024-09-17 13:48 | Emergency (ER) | payer OTHER ==
[2024-09-17 14:26] LABS: Absolute Basophils 0.1 K/uL (0-0.5); Absolute Eosinophils 0.2 K/uL (0-0.5); Absolute Lymphocytes (CBC) 1.4 K/uL (0.7-4.9); Absolute Monocytes 0.3 K/uL (0.1-1.3); Absolute Neutrophil 4.7 K/uL (1.8-8.0); Basophils % 0.8 % (0-1.3); Eosinophils % 2.9 % (0-4.4); Hematocrit 48.4 % (39.6-49.0); Hemoglobin 15.5 g/dL (13.6-17.9); Lymphocytes % 20.4 % (15.3-44.8); MCH 28.7 pg (27.0-35.0); MCHC 32.1 g/dL (32.0-36.0); MCV 89.4 fL (80-100); MPV 8.1 fL (7.6-11.3); Monocytes % 4.9 % (3.3-12.3); Platelets 146 thou/uL (152-406); RBC Red Blood Cell Count 5.42 M/uL (4.33-5.43); Red Cell Distribution Width 14.8 % (12.1-15.2)
[2024-09-17 14:29] LABS: PT Prothrombin Time 16.4 SECONDS (9.4-12.5); Protime INR 1.48
[2024-09-17 14:45] LABS: Albumin 3.5 g/dL (3.4-5.0); Albumin/Globulin Ratio 0.9 (1.1-1.8); Anion Gap 9.5 mEq/L (5.0-15.0); Bilirubin Direct 0.2 mg/dL (0-0.2); Bilirubin Indirect, Calculated 0.4 mg/dL (0.2-0.8); Bilirubin Total 0.6 mg/dL (0.2-1.0); Globulin 3.8 g/dL (2.3-3.5); Magnesium 1.9 mg/dL (1.6-2.4); Potassium 4.5 mEq/L (3.5-5.1); Protein, Total 7.3 g/dL (6.4-8.2); Troponin High Sensitivity 27.4 pg/mL (<58.9)
[2024-09-17] MEDS ORDERED: FOLIC ACID 5 MG/ML VIAL ONE (14:45)
[2024-09-17] MEDS ORDERED: NA CHLORIDE 0.9% 2,000 ML ONE (14:45)
--- NOTE | 2024-09-17 14:48 | RAD REPORT ---
EXAM: CT Ct Stroke Brain Wo Cont HISTORY: STROKE ALERT COMPARISON: 03/23/2024 TECHNIQUE: Multiple contiguous axial images were obtained for a CT of the brain without contrast. Sag ittal and coronal reformats were performed. One or more of the following dose reduction techniques were used: Automated exposure control, adjus tment of the mA and kV according to patient size, and iterative reconstruction. Unless otherwise specified, incidental findings do not require dedicated imaging follow-up. FINDINGS: No evidence of hydrocephalus, intracranial hemorrhage, or extra-axial fluid collection. Moderate brain atrophy with moderate periventricular and deep white matter chronic microvascular isc hemic changes, stable. The calvarium is intact. The visualized paranasal sinuses and mastoid air cells are essentially clear . IMPRESSION: No evidence of acute intracranial abnormality. THIS REPORT CONTAINS FINDINGS THAT MAY BE CRITICAL TO PATIENT CARE. The findings were verbally commun icated via telephone to Rianna Kunz on 09/17/2024 2:44 PM.
--- NOTE | 2024-09-17 14:48 | RAD REPORT ---
EXAMINATION: CTA HEAD CLINICAL INDICATION: Male, 78 years old. STROKE TECHNIQUE: Axial CT images were obtained through the head after intravenous contrast utilizing angiog raphic protocol with 3D post-processing (maximum intensity projection images, volume rendered images and/or shaded surface rendered images). One or more of the following dose reduction technique s were used: Automated exposure control, adjustment of the mA and/or kV according to patient size, and/or iterative reconstruction. Unless otherwise specified, incidental findings do not require dedic ated imaging follow-up. COMPARISON: Noncontrast head CT of the same day FINDINGS: ICA: The petrous, cavernous, and supraclinoid segments of the bilateral internal carotid arteries are normal. BRIDGETT: Anterior cerebral arteries are normal bilaterally. The anterior communicating artery is patent. MCA: Middle cerebral arteries are normal bilaterally. STRATEGIC PARTNERSHIP MANAGER: Posterior cerebral arteries are normal bilaterally. Vertebrobasilar: The vertebral arteries are patent. The basilar artery is normal in appearance. 3D images confirm these findings. IMPRESSION: Normal head CTA.
--- NOTE | 2024-09-17 14:58 | RAD REPORT ---
EXAMINATION: CT Neck Angio CLINICAL INDICATION: Male, 78 years old. [facility] Bed Name: 7 TECHNIQUE: Axial CT images were obtained from the aortic arch to the skull base after intravenous con trast utilizing angiographic protocol. Multiplanar reformats, as well as 3D post-processing (maximum intensity projection images, volume rendered images and/or shaded surface rendered images) w ere generated and reviewed. One or more of the following dose reduction techniques were used: Automated exposure control, adjustment of the mA and/or kV according to patient size, and/or iterativ e reconstruction. Unless otherwise specified, incidental findings do not require dedicated imaging follow-up. COMPARISON: 02/11/2024. FINDINGS: AORTA: Fusiform aneurysmal dilation of the distal aortic arch measuring 4.4 cm in greatest transverse caliber. Crescentic filling defect seen along the lumen of the distal large. Normal three-vessel configuration of the arch. CCA: No artifact The common carotid arteries are patent and normal in caliber. ICA/ECA: Bilateral internal and external carotid arteries are patent. There is no significant interna l carotid artery stenosis. VERTEBRAL: The cervical vertebral arteries are patent to the skull base. Vertebral arteries are codom inant. SOFT TISSUE: No significant neck soft tissue abnormalities. The visualized lung apices are clear. 3D images confirm these findings. Multilevel moderate to advanced degenerative changes with straightening of normal cervical lordosis, stable. IMPRESSION: No significant flow abnormality of the neck vessels is identified. No fusiform aneurysmal dilation of the distal aortic arch. Crescentic filling defects at that level, incompletely imaged, which could relate to incomplete contrast mixing within the lumen versus a dissection flap. Additional evaluation by CT angiogram of the chest may be helpful if clinically vasquez cated. THIS REPORT CONTAINS FINDINGS THAT MAY BE CRITICAL TO PATIENT CARE. The findings were verbally commun icated via telephone to Jayjay Quarles MD on 09/17/2024 2:53 PM. NASCET criteria used to quantify ICA stenosis, with the following grading scheme: Mild 0-49% stenosis Moderate 50-69% stenosis Severe 70-99% stenosis Reference: [place] Symptomatic Carotid Endarterectomy Trial Collaborators; Misa MALDONADO, Jewell SINGH, Emir RAMESH, et al. Beneficial effect of carotid endarterectomy in symptomatic patients with high-grade carotid stenosis. N Engl J Med. 1990 15;325(7):445-53.
--- NOTE | 2024-09-17 15:03 | RAD REPORT ---
EXAMINATION: ONE VIEW CHEST XR CLINICAL INDICATION: Male, 78 years old.,COUGH TECHNIQUE: Frontal chest projection is submitted. Examination is limited by patient positioning and t echnique. COMPARISON: 03/23/2024 FINDINGS: The lungs are well inflated and clear. No pneumothorax or sizable effusion. The heart is normal in s ize. Mediastinal contours are unremarkable. IMPRESSION: No acute intrathoracic abnormalities.
--- NOTE | 2024-09-17 15:04 | EDPHYS ---
Physician Documentation [facility] Name: Chaz Flowers Age: 78 yrs Sex: Male : 1945 Arrival Date: 09/17/2024 Time: 13:48 Bed 7 Private MD: ED Physician Jayjay Quarles HPI: 09/17 14:45 This 78 yrs old Male presents to ER via Ambulatory with complaints of Blurred batool Vision, Weakness. 14:45 The patient's problem is reported as dysphasia, slurred speech, expressive aphasia. batool Onset: The symptoms/episode began/occurred at 12:00. Duration: This was a single incident, The episode is continuous, IMPROVED. Context: the episode(s) was witnessed, by family, . The symptoms are alleviated by nothing. The symptoms are aggravated by nothing. Associated signs and symptoms: Pertinent positives: lightheadedness. Severity of symptoms: At their worst the symptoms were moderate in the emergency department the symptoms have improved mildly. Patient's baseline: Neuro: alert and fully oriented. The patient has experienced similar episodes in the past, a few times. Historical: - Allergies: 13:57 Tramadol HCl; cm10 - Home Meds: 13:57 Eliquis 5 mg Oral tablet 1 tab every 12 hours [Active]; aspirin 81 mg Oral capsule cm10 daily [Active]; metformin 500 mg Oral tab 1 tab 2 times per day [Active]; metoprolol succinate 25 mg Oral Tablet 0.5 tabs once [Active]; valsartan 320 mg Oral tablet 0.5 tab BID [Active]; atorvastatin oral [Active]; venlafaxine oral [Active]; - PMHx: 13:57 AAA; Atrial fibrillation; CVA; Diabetes - NIDDM; Hypertension; cm10 - PSHx: 13:57 Cholecystectomy; knee replacement; Tonsillectomy; cm10 - Immunization history:: Adult Immunizations up to date. - Infectious Disease History:: Denies. - Social history:: Smoking status: Patient denies any tobacco usage or history of. - Family history:: not pertinent. ROS: 14:45 Constitutional: Negative for fever, chills, and weight loss, Eyes: Negative for injury, batool pain, redness, and discharge, ENT: Negative for injury, pain, and discharge, Neck: Negative for injury, pain, and swelling, Cardiovascular: Negative for chest pain, palpitations, and edema, Respiratory: Negative for shortness of breath, cough, wheezing, and pleuritic chest pain, Abdomen/GI: Negative for abdominal pain, nausea, vomiting, diarrhea, and constipation, Back: Negative for injury and pain, : Negative for injury, bleeding, discharge, and swelling, MS/Extremity: Negative for injury and deformity, Skin: Negative for injury, rash, and discoloration, Psych: Negative for depression, anxiety, suicide ideation, homicidal ideation, and hallucinations, Allergy/Immunology: Negative for hives, rash, and allergies, Endocrine: Negative for neck swelling, polydipsia, polyuria, polyphagia, and marked weight changes, Hematologic/Lymphatic: Negative for swollen nodes, abnormal bleeding, and unusual bruising, 14:45 Neuro: Positive for speech changes, visual changes, Exam: 14:45 Radiologist reports: NEG batool 14:45 Constitutional: This is a well developed, well nourished patient who is awake, alert, and in no acute distress. Head/Face: Normocephalic, atraumatic. Eyes: Pupils equal round and reactive to light, extra-ocular motions intact. Lids and lashes normal. Conjunctiva and sclera are non-icteric and not injected. Cornea within normal limits. Periorbital areas with no swelling, redness, or edema. ENT: Nares patent. No nasal discharge, no septal abnormalities noted. Tympanic membranes are normal and external auditory canals are clear. Oropharynx with no redness, swelling, or masses, exudates, or evidence of obstruction, uvula midline. Mucous membranes moist. Neck: Trachea midline, no thyromegaly or masses palpated, and no cervical lymphadenopathy. Supple, full range of motion without nuchal rigidity, or vertebral point tenderness. No Meningismus. Chest/axilla: Normal chest wall appearance and motion. Nontender with no deformity. No lesions are appreciated. Cardiovascular: Regular rate and rhythm with a normal S1 and S2. No gallops, murmurs, or rubs. Normal PMI, no JVD. No pulse deficits. Respiratory: Lungs have equal breath sounds bilaterally, clear to auscultation and percussion. No rales, rhonchi or wheezes noted. No increased work of breathing, no retractions or nasal flaring. Abdomen/GI: Soft, non-tender, with normal bowel sounds. No distension or tympany. No guarding or rebound. No evidence of tenderness throughout. Back: No spinal tenderness. No costovertebral tenderness. Full range of motion. Male : Normal genitalia with no discharge or lesions. Skin: Warm, dry with normal turgor. Normal color with no rashes, no lesions, and no evidence of cellulitis. MS/ Extremity: Pulses equal, no cyanosis. Neurovascular intact. Full, normal range of motion. Psych: Awake, alert, with orientation to person, place and time. Behavior, mood, and affect are within normal limits. 14:45 ECG was reviewed by the Attending Physician. 14:45 Neuro: Orientation: is normal, appropriate for stated age, Mentation: is normal, appropriate for stated age, Memory: is normal, appropriate for stated age, no acute changes, Cranial nerves: grossly normal, is grossly normal based on the patient's age, Cerebellar function: is grossly normal, is grossly normal based on the patient's age, no acute changes, Sensation: is normal, no obvious gross deficits, appropriate no acute changes, Gait: not applicable Deep tendon reflexes are normal, Babinski testing is normal, seizure activity, is not displayed by the patient, Vital Signs: 13:55 BP 92 / 70; Pulse 62; Resp 16; Temp 97.6; Pulse Ox 96% on R/A; Weight 74.84 kg; Height cm10 5 ft. 10 in. ; Pain 0/10; 14:53 BP 128 / 69; Pulse 60; Resp 15; Pulse Ox 100% ; ko1 16:35 BP 118 / 79; Pulse 55; Resp 19; Pulse Ox 98% ; ko1 17:11 BP 139 / 95; Pulse 55; Resp 18; Pulse Ox 97% ; ko1 19:02 BP 198 / 103; Pulse 56; Resp 18; Pulse Ox 97% ; vc1 19:15 BP 169 / 101; Pulse 60; Resp 18; Pulse Ox 100% ; vc1 20:00 BP 148 / 96; Pulse 61; Resp 17; Pulse Ox 98% ; vc1 13:55 Body Mass Index 23.67 (74.84 kg, 177.8 cm) cm10 13:55 Pain Scale: Adult cm10 NIH Stroke Scale Scores: 15:01 NIHSS Score: 1 batool 19:30 NIHSS Score: 0 vc1 Johny Coma Score: 14:45 Eye Response: spontaneous(4). Motor Response: obeys commands(6). Verbal Response: batool oriented(5). Total: 15. MDM: 13:58 Medical Screening Exam initiated batool 14:58 Differential diagnosis: CVA, TIA, metabolic disorder. TNKase (Tenecteplase) Screening: batool Not Applicable. Data reviewed: vital signs, nurses notes, lab test result(s), EKG, radiologic studies, CT scan, plain films. Consideration of Admission/Observation Patient was admitted/placed on observation. Escalation of care including admission/observation considered. I considered the following discharge prescriptions or medication management in the emergency department Medications were administered in the Emergency Department. See MAR. Independent interpretation of the following test(s) in the Emergency Department EKG: See my EKG interpretation above CT Scan: My interpretation is CT HEAD, CTA HEAD , CTA NECK . Test considered but Not performed: CT: NO CT CHEST RO DISSECTION. Historians other than the Patient: Spouse/Significant Other: . Care significantly affected by the following chronic conditions: Diabetes, Hypertension, Chronic Kidney Disease. Counseling: I had a detailed discussion with the patient and/or guardian regarding the historical points, exam findings, and any diagnostic results supporting the discharge/admit diagnosis, the presence of at least one elevated blood pressure reading (>120/80) during this emergency department visit, lab results, radiology results, the need to transfer to another facility. 09/17 14:00 Order name: Basic Metabolic Panel; Complete Time: 16:20 [facility] 09/17 14:00 Order name: CBC with Diff; Complete Time: 16:20 [facility] 09/17 14:00 Order name: LFT's; Complete Time: 16:20 [facility] 09/17 14:00 Order name: Magnesium; Complete Time: 16:20 [facility] 09/17 14:00 Order name: NT PRO-BNP; Complete Time: 16:20 [facility] 09/17 14:00 Order name: PT-INR; Complete Time: 16:20 [facility] 09/17 14:00 Order name: Troponin HS; Complete Time: 16:20 [facility] 09/17 14:00 Order name: Lipase; Complete Time: 16:20 [facility] 09/17 14:00 Order name: XRAY Chest (1 view); Complete Time: 16:20 [facility] 09/17 14:20 Order name: CT Stroke Brain w/o Contrast; Complete Time: 16:20 [facility] 09/17 14:20 Order name: CT Neck Angio; Complete Time: 16:20 [facility] 09/17 14:30 Order name: Head angio; Complete Time: 16:20 [facility] 09/17 14:00 Order name: Cardiac monitoring; Complete Time: 14:37 [facility] 09/17 14:00 Order name: EKG - Nurse/Tech; Complete Time: 14:48 [facility] 09/17 14:00 Order name: IV Saline Lock; Complete Time: 14:48 [facility] 09/17 14:00 Order name: Labs collected and sent; Complete Time: 14:48 [facility] 09/17 14:00 Order name: O2 Per Protocol; Complete Time: 14:37 [facility] 09/17 14:00 Order name: O2 Sat Monitoring; Complete Time: 14:38 [facility] 09/17 14:31 Order name: IV Saline Lock - Large Bore; Complete Time: 14:48 [facility] EC:45 Rate is 60 beats/min. Rhythm is regular. QRS [place] is Normal. NH interval is normal. QRS batool interval is normal. QT interval is normal. No Q waves. T waves are Normal. No ST changes noted. Clinical impression: NSR w/ Non-specific ST/T Changes and No evidence of ischemia. Interpreted by me. Reviewed by me. Administered Medications: 14:51 Drug: NS 0.9% IV 1000 ml IV at 1000 ml once; to be given as a bolus over 60 minutes ko1 Route: IV; Rate: 1000 ml; Site: right antecubital; 16:26 Follow up: Response: No adverse reaction; IV Status: Completed infusion; IV Intake: ko1 1000ml 14:52 Drug: foLIC Acid IVPB 1 mg IVPB once Route: IVPB; Site: right antecubital; ko1 15:07 Follow up: Response: No adverse reaction; IV Status: Completed infusion; IV Intake: [id number] 16:28 Drug: NS 0.9% IV 1000 ml IV at 1 bolus Per protocol; to be given as a bolus over 60 ko1 minutes Route: IV; Rate: 1 bolus; Site: left antecubital; 18:08 Follow up: Response: No adverse reaction; IV Status: Completed infusion; IV Intake: ko1 1000ml 18:07 Drug: NS 0.9% IV 1000 ml IV at 125 ml/hr continuous Route: IV; Rate: 125 ml/hr; Site: ko1 left antecubital; 19:52 Follow up: IV Status: Completed infusion; IV Intake: 1000ml vc1 19:35 Drug: hydrALAZINE PO 10 mg PO once Route: PO; vc1 20:39 Follow up: Response: No adverse reaction; Blood pressure is lowered vc1 19:35 Drug: Eliquis PO 5 mg PO once Route: PO; vc1 20:39 Follow up: Response: No adverse reaction vc1 19:37 Drug: hydrALAZINE IVP 5 mg IVP once Route: IVP; Site: left antecubital; vc1 20:39 Follow up: Response: No adverse reaction; Blood pressure is lowered vc1 Disposition Summary: 09/17/24 15:03 Transfer Ordered Notes: Transfer Location: [facility] batool Reason: Higher level of care batool Condition: Fair batool Problem: new batool Symptoms: have improved batool Accepting Physician: TO [facility] , NEURO(09/17/24 20:39) vc1 Diagnosis - Aortic aneurysm of unspecified site, without rupture batool - snf (current) use of anticoagulants batool - Aphasia following cerebral infarction batool - Cerebral infarction, unspecified batool - Acute kidney failure, unspecified batool - Essential (primary) hypertension batool - Bradycardia, unspecified batool Forms: - Medication Reconciliation Form batool - SBAR form batool NIH Stroke Scale - NIH Stroke Score Date: 09/17/2024 Time: 15:01 Total Score = 1 10. Dysarthria (speech clarity - read or repeat words) - 0(Normal) 11. Extinction and Inattention (visual/tactile/auditory/spatial/personal) - 0(No abnormality) 1a. Level of Consciousness (LOC) - 0(Alert) 1b. Level of Consciousness (LOC) (Month \T\ Age) - 0(Both) 1c. LOC Commands (Open \T\ Closes Eyes/Saddle Cutter) - 0(Both) 2. Best Gaze (Lateral Gaze Paresis) - 0(Normal) 3. Visual Field Loss - 0(No visual loss) 4. Facial Palsy - 0(Normal) 5a. Left Arm: Motor (10-second hold) - 0(No drift) 5b. Right Arm: Motor (10-second hold) - 0(No drift) 6a. Left Leg: Motor (5-second hold - always test supine) - 0(No drift) 6b. Right Leg: Motor (5-second hold - always test supine) - 0(No drift) 7. Limb Ataxia (finger/nose \T\ heel/[place] - test with eyes open) - 0(Absent) 8. Sensory Loss (pinprick arms/legs/face) - 0(Normal) 9. Best Language: Aphasia (description/naming/reading) - 1(Mild to moderate aphasia) Initials: batool NIH Stroke Scale - NIH Stroke Score Date: 09/17/2024 Time: 19:30 Total Score = 0 10. Dysarthria (speech clarity - read or repeat words) - 0(Normal) 11. Extinction and Inattention (visual/tactile/auditory/spatial/personal) - 0(No abnormality) 1a. Level of Consciousness (LOC) - 0(Alert) 1b. Level of Consciousness (LOC) (Month \T\ Age) - 0(Both) 1c. LOC Commands (Open \T\ Closes Eyes/Saddle Cutter) - 0(Both) 2. Best Gaze (Lateral Gaze Paresis) - 0(Normal) 3. Visual Field Loss - 0(No visual loss) 4. Facial Palsy - 0(Normal) 5a. Left Arm: Motor (10-second hold) - 0(No drift) 5b. Right Arm: Motor (10-second hold) - 0(No drift) 6a. Left Leg: Motor (5-second hold - always test supine) - 0(No drift) 6b. Right Leg: Motor (5-second hold - always test supine) - 0(No drift) 7. Limb Ataxia (finger/nose \T\ heel/[place] - test with eyes open) - 0(Absent) 8. Sensory Loss (pinprick arms/legs/face) - 0(Normal) 9. Best Language: Aphasia (description/naming/reading) - 0(No aphasia) Initials: vc1 Signatures: Dispatcher [employer] EDMS Jayjay Quarles MD MD cha Calcote, Vanessa RN RN vc1 Sunshine Neri RN RN ko1 Padmini Camejo RN RN cm10 Corrections: (The following items were deleted from the chart) 14:00 14:00 BASIC METABOLIC PANEL+C.LAB.BRZ ordered. EDMS EDMS 14:00 14:00 CBC+H.LAB.BRZ ordered. EDMS EDMS 14:00 14:00 HEPATIC FUNCTION+C.LAB.BRZ ordered. EDMS EDMS 14:00 14:00 MAGNESIUM+C.LAB.BRZ ordered. EDMS EDMS 14:00 14:00 PROBNP+C.LAB.BRZ ordered. EDMS EDMS 14:00 14:00 PROTIME (+INR)+COAG.LAB.BRZ ordered. EDMS EDMS 14:00 14:00 Troponin High Sensitivity+C.LAB.BRZ ordered. EDMS EDMS 14:00 14:00 Urinalysis+U.LAB.BRZ ordered. EDMS EDMS 14:00 14:00 LIPASE+C.LAB.BRZ ordered. EDMS EDMS 14:00 14:00 Chest Single View+RAD.RAD.BRZ ordered. EDMS EDMS 14:00 14:00 Head Brain Wo Cont+CT.RAD.BRZ ordered. EDMS EDMS 17:11 15:03 [facility] , NEURO batool batool 19:31 17:11 TO [facility] , NEURO batool batool 19:31 19:31 TO [facility] , NEURO batool batool 20:39 19:31 TO [facility] , NEURO batool vc1
--- NOTE | 2024-09-17 15:04 | ER ---
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 Pt states that he still feels weak and dizzy. Coronavirus screen: Client denies travel out of the [place] in the last 14 days. Ebola Screen: Patient denies travel to an Ebola-affected area in the 21 days before illness onset. No symptoms or risks identified at this time. Initial Sepsis Screen: Does the patient meet any 2 criteria? No. Patient's initial sepsis screen is negative. Does the patient have a suspected source of infection? No. Patient's initial sepsis screen is negative. Risk Assessment: Do you want to hurt yourself or someone else? Patient reports no desire to harm self or others. Onset of symptoms was September 17, 2024. 13:55 Method Of Arrival: Ambulatory 10 13:55 Acuity: BRADY 2 aa5 14:15 An acute neurological deficit is present. The patient has been moved to a treatment aa5 area. Pre-hospital glucose is not applicable to this patient. Stroke Activation: Symptom onset < 3 hours Physician: ED Attending; Name: ; Notified At: ; Arrived At: Physician: Mid-Level Provider; Name: ; Notified At: ; Arrived At: Physician: [not used]; Name: ; Notified At: ; Arrived At: Physician: [not used]; Name: ; Notified At: ; Arrived At: Physician: [not used]; Name: ; Notified At: ; Arrived At: Historical: - Allergies: 13:57 Tramadol HCl; cm10 - Home Meds: 13:57 Eliquis 5 mg Oral tablet 1 tab every 12 hours [Active]; aspirin 81 mg Oral capsule cm10 daily [Active]; metformin 500 mg Oral tab 1 tab 2 times per day [Active]; metoprolol succinate 25 mg Oral Tablet 0.5 tabs once [Active]; valsartan 320 mg Oral tablet 0.5 tab BID [Active]; atorvastatin oral [Active]; venlafaxine oral [Active]; - PMHx: 13:57 AAA; Atrial fibrillation; CVA; Diabetes - NIDDM; Hypertension; cm10 - PSHx: 13:57 Cholecystectomy; knee replacement; Tonsillectomy; cm10 - Immunization history:: Adult Immunizations up to date. - Infectious Disease History:: Denies. - Social history:: Smoking status: Patient denies any tobacco usage or history of. - Family history:: not pertinent. Screenin:53 [facility] ED Fall Risk Assessment (Adult) History of falling in the last 3 months, ko1 including since admission No falls in past 3 months (0 pts) Confusion or Disorientation No (0 pts) Intoxicated or Sedated No (0 pts) Impaired Gait No (0 pts) Mobility Assist Device Used No (0 pt) Altered Elimination No (0 pt) Score/Fall Risk Level 0 - 2 = Low Risk Oriented to surroundings, Maintained a safe environment, Educated pt \T\ family on fall prevention, incl call for assistance when getting out of bed, Assessed \T\ reinforced patient's understanding of fall precautions, Provided non-skid footwear, Hourly rounding (assess needs \T\ fall precautionary measures) done. Abuse screen: Denies threats or abuse. Denies injuries from another. Nutritional screening: No deficits noted. Tuberculosis screening: No symptoms or risk factors identified. Assessment: 14:15 Reassessment: at bedside . aa5 14:20 Reassessment: Pt to CT via stretcher, accompanied by me. . aa5 14:29 Reassessment: Pt currently in CT scan, accompanied by me. . aa5 19:30 Marina Swallow Protocol Brief Cognitive Screen What is your name? Normal, Where are you vc1 right now? Normal, What year is it? Normal. Oral Mechanism Examination Facial Symmetry: Normal, Motion: Normal, Lip Closure: Normal, Oral Mechanism Result: Normal. 3 oz Water Swallow Challenge: Pt able to drink all water without stopping, coughing, choking or throat clearing: Yes Result: HAILE SAUCEDA Notified: Jayjay Quarles MD. 19:30 VAN Scoring: Arm Drift: Patients demonstrates NO arm weakness. Patient is VAN Negative. vc1 [place] Swallow Protocol. TNKase (Tenecteplase) Screening: Contraindications: Patient reports onset of signs and symptoms of stroke greater than 6 hours ago: Yes. Is the patient on Aspirin, Heparin, or Warfarin: Yes. 20:00 General: Appears in no apparent distress. comfortable, slender, well groomed, well vc1 developed, well nourished, Behavior is calm, cooperative, appropriate for age. Pain: Denies pain. Neuro: Level of Consciousness is awake, alert, obeys commands, Oriented to person, place, time, situation, Appropriate for age. Cardiovascular: No deficits noted. Capillary refill < 3 seconds Patient's skin is warm and dry. Rhythm is sinus bradycardia. Respiratory: Airway is patent Respiratory effort is even, unlabored, Respiratory pattern is regular, agonal Breath sounds are clear bilaterally. GI: No deficits noted. No signs and/or symptoms were reported involving the gastrointestinal system. : No deficits noted. No signs and/or symptoms were reported regarding the genitourinary system. EENT: No deficits noted. No signs and/or symptoms were reported regarding the EENT system. Derm: Skin is intact, is healthy with good turgor, Skin is dry, Skin is normal, Skin temperature is warm. Musculoskeletal: No deficits noted. Circulation, motion, and sensation intact. Range of motion: intact in all extremities. Vital Signs: 13:55 BP 92 / 70; Pulse 62; Resp 16; Temp 97.6; Pulse Ox 96% on R/A; Weight 74.84 kg; Height cm10 5 ft. 10 in. ; Pain 0/10; 14:53 BP 128 / 69; Pulse 60; Resp 15; Pulse Ox 100% ; ko1 16:35 BP 118 / 79; Pulse 55; Resp 19; Pulse Ox 98% ; ko1 17:11 BP 139 / 95; Pulse 55; Resp 18; Pulse Ox 97% ; ko1 19:02 BP 198 / 103; Pulse 56; Resp 18; Pulse Ox 97% ; vc1 19:15 BP 169 / 101; Pulse 60; Resp 18; Pulse Ox 100% ; vc1 20:00 BP 148 / 96; Pulse 61; Resp 17; Pulse Ox 98% ; vc1 13:55 Body Mass Index 23.67 (74.84 kg, 177.8 cm) cm10 13:55 Pain Scale: Adult cm10 [place] Coma Score: 14:45 Eye Response: spontaneous(4). Motor Response: obeys commands(6). Verbal Response: batool oriented(5). Total: 15. NIH Stroke Scale Scores: 15:01 NIHSS Score: 1 batool 19:30 NIHSS Score: 0 vc1 ED Course: 13:49 Patient arrived in ED. mg5 13:57 Triage completed. cm10 13:58 Jayjay Quarles MD is Attending Physician. batool 13:59 Arm band placed on right wrist. Patient placed in an exam room. cm10 14:10 Sunshine Neri, RN is Primary Nurse. ko1 14:20 Initial lab(s) drawn, by me, sent to lab. Inserted saline lock: 20 gauge in right aa5 antecubital area, using aseptic technique. Blood collected. Flushed with 10 mL NS. 14:36 CT Stroke Brain w/o Contrast In Process Unspecified. EDMS 14:36 CT Neck Angio In Process Unspecified. EDMS 14:36 Head angio In Process Unspecified. EDMS 14:[address] Quarles with Celeste Gerard from the [facility] Transfer eb Center. 14:47 Dr. Hamilton the software engineer web applications neuro for [facility] with Dr Barab for patient transfer eb consultation. 14:48 EKG done, by ED staff, reviewed by Jayjay Quarles MD. aa5 14:53 Patient has correct armband on for positive identification. Allergy band placed. Fall ko1 risk band placed. Placed in gown. Bed in low position. Call light in reach. Side rails up X2. Provided Education on: labs, tests, meds. Client placed on continuous cardiac and pulse oximetry monitoring. NIBP monitoring applied. electronics engineering manager on. Door closed. Noise minimized. Lights dimmed. Warm blanket given. Pillow given. 14:53 No provider procedures requiring assistance completed. ko1 14:56 XRAY Chest (1 view) In Process Unspecified. EDMS 15:00 IV discontinued, intact, bleeding controlled, No redness/swelling at site. Pressure ko1 dressing applied. 15:15 Inserted saline lock: 20 gauge in left antecubital area, using aseptic technique. ko1 Flushed with 10 mL NS. 17:00 transfer approval from receiving facility. ko1 17:15 ED physician to see patient. ko1 Administered Medications: 14:51 Drug: NS 0.9% IV 1000 ml IV at 1000 ml once; to be given as a bolus over 60 minutes ko1 Route: IV; Rate: 1000 ml; Site: right antecubital; 16:26 Follow up: Response: No adverse reaction; IV Status: Completed infusion; IV Intake: ko1 1000ml 14:52 Drug: foLIC Acid IVPB 1 mg IVPB once Route: IVPB; Site: right antecubital; ko1 15:07 Follow up: Response: No adverse reaction; IV Status: Completed infusion; IV Intake: [id number] 16:28 Drug: NS 0.9% IV 1000 ml IV at 1 bolus Per protocol; to be given as a bolus over 60 ko1 minutes Route: IV; Rate: 1 bolus; Site: left antecubital; 18:08 Follow up: Response: No adverse reaction; IV Status: Completed infusion; IV Intake: ko1 1000ml 18:07 Drug: NS 0.9% IV 1000 ml IV at 125 ml/hr continuous Route: IV; Rate: 125 ml/hr; Site: [facility] left antecubital; 19:52 Follow up: IV Status: Completed infusion; IV Intake: 1000ml vc1 19:35 Drug: hydrALAZINE PO 10 mg PO once Route: PO; vc1 20:39 Follow up: Response: No adverse reaction; Blood pressure is lowered vc1 19:35 Drug: Eliquis PO 5 mg PO once Route: PO; vc1 20:39 Follow up: Response: No adverse reaction vc1 19:37 Drug: hydrALAZINE IVP 5 mg IVP once Route: IVP; Site: left antecubital; vc1 20:39 Follow up: Response: No adverse reaction; Blood pressure is lowered vc1 Medication: 14:53 VIS not applicable for this client. ko1 Intake: 15:07 IV: 10ml; Total: 10ml. ko1 16:26 IV: 1000ml; Total: 1010ml. ko1 18:08 IV: 1000ml; Total: 2010ml. ko1 19:52 IV: 1000ml; Total: 3010ml. vc1 Outcome: 15:03 ER care complete, transfer ordered by batool 20:35 Transferred by [facility] to [facility], Transfer form completed. vc1 X-rays sent w/ patient. Note: report called to CASSY Mak 20:35 Condition: good 20:35 Instructed on the need for transfer, 20:39 Patient left the ED. vc1 NIH Stroke Scale - NIH Stroke Score Date: 09/17/2024 Time: 15:01 Total Score = 1 10. Dysarthria (speech clarity - read or repeat words) - 0(Normal) 11. Extinction and Inattention (visual/tactile/auditory/spatial/personal) - 0(No abnormality) 1a. Level of Consciousness (LOC) - 0(Alert) 1b. Level of Consciousness (LOC) (Month \T\ Age) - 0(Both) 1c. LOC Commands (Open \T\ Closes Eyes/Makeup Sales Advisor) - 0(Both) 2. Best Gaze (Lateral Gaze Paresis) - 0(Normal) 3. Visual Field Loss - 0(No visual loss) 4. Facial Palsy - 0(Normal) 5a. Left Arm: Motor (10-second hold) - 0(No drift) 5b. Right Arm: Motor (10-second hold) - 0(No drift) 6a. Left Leg: Motor (5-second hold - always test supine) - 0(No drift) 6b. Right Leg: Motor (5-second hold - always test supine) - 0(No drift) 7. Limb Ataxia (finger/nose \T\ heel/[place] - test with eyes open) - 0(Absent) 8. Sensory Loss (pinprick arms/legs/face) - 0(Normal) 9. Best Language: Aphasia (description/naming/reading) - 1(Mild to moderate aphasia) Initials: [facility] NIH Stroke Scale - NIH Stroke Score Date: 09/17/2024 Time: 19:30 Total Score = 0 10. Dysarthria (speech clarity - read or repeat words) - 0(Normal) 11. Extinction and Inattention (visual/tactile/auditory/spatial/personal) - 0(No abnormality) 1a. Level of Consciousness (LOC) - 0(Alert) 1b. Level of Consciousness (LOC) (Month \T\ Age) - 0(Both) 1c. LOC Commands (Open \T\ Closes Eyes/Makeup Sales Advisor) - 0(Both) 2. Best Gaze (Lateral Gaze Paresis) - 0(Normal) 3. Visual Field Loss - 0(No visual loss) 4. Facial Palsy - 0(Normal) 5a. Left Arm: Motor (10-second hold) - 0(No drift) 5b. Right Arm: Motor (10-second hold) - 0(No drift) 6a. Left Leg: Motor (5-second hold - always test supine) - 0(No drift) 6b. Right Leg: Motor (5-second hold - always test supine) - 0(No drift) 7. Limb Ataxia (finger/nose \T\ heel/[place] - test with eyes open) - 0(Absent) 8. Sensory Loss (pinprick arms/legs/face) - 0(Normal) 9. Best Language: Aphasia (description/naming/reading) - 0(No aphasia) Initials: vc1 Signatures: Dispatcher [employer] EDMS Jayjay Quarles MD MD cha Calderon, Audri RN RN aa5 Marissa Santiago Vanessa, RN RN vc1 Sunshine Neri RN RN koPadmini Oh RN RN cm10 Cheryle Myles mg5 Corrections: (The following items were deleted from the chart) 14:54 13:55 Acuity: BRADY 3 cm10 aa5 19:51 19:09 BP 179 / 98; Pulse 56bpm; Resp 18bpm; Pulse Ox 97%; vc1 vc1
[2024-09-17] MEDS ORDERED: APIXABAN 5 MG TABLET ONE (19:32)
[2024-09-17] MEDS ORDERED: HYDRALAZINE HCL 20 MG/ML VIAL ONE (19:33)
[2024-09-17] MEDS ORDERED: HYDRALAZINE HCL 10 MG TABLET ONE (19:33)
[2024-09-17 21:07] VITALS: TEMP 97.6
[2024-09-17 21:13] VITALS: BP 148/96; O2SAT 98
--- NOTE | 2024-09-18 12:05 | EKG ---
Test Date: 2024-09-17 Test Time: 14:46:23 Insurance Sales Specialist: ROLA MEASUREMENT RESULTS: Intervals: Rate: 60 PA: QRSD: 116 QT: 420 QTc: 420 Pratt: P: PA: QRS: -79 T: -53 INTERPRETIVE STATEMENTS: Sinus bradycardia Left axis deviation Right bundle branch block Abnormal ECG Compared to ECG 03/23/2024 12:22:39 Atrial premature complex(es) no longer present Short PA interval no longer present Electronically Signed On 09-18-24 12:04:17 FOUNDRY HAND by Alejandro Dixon
== END 2024-09-17 20:39 | disposition short-term general hospital (02) ==
LOC: ER 13:48
DX: I63.9 Cerebral infarction, unspecified (principal); I10 Essential (primary) hypertension; R29.701 NIHSS score 1; N17.9 Acute kidney failure, unspecified; I71.9 Aortic aneurysm of unspecified site, without rupture; R00.1 Bradycardia, unspecified; Z79.01 Long term (current) use of anticoagulants; E11.9 Type 2 diabetes mellitus without complications
CPT/HCPCS: 93005; 85025; 80048; 36415; 83735; 85610; 82565; 80076; 84484; 83690; 83880; 70496; 70498; 70450; 71045; 99285; Q9967; J0360; J7030

== ENCOUNTER 2024-12-15 18:48 | Inpatient (IN) | payer OTHER ==
--- NOTE | 2024-12-15 19:07 | RAD REPORT ---
EXAM: CT brain without contrast HISTORY: Aphasia. COMPARISON: 2023 TECHNIQUE: Multiple contiguous axial images were obtained and a CT of the brain without contrast. Sagittal and coronal reformats were performed. Automated exposure control, adjustment of the mA and/or kV according to patient size, and/or itera tive reconstruction. Unless otherwise specified, incidental findings do not require dedicated imaging follow-u FINDINGS: An intracranial bleed is not seen Ventricles are normal caliber No extra-axial fluid collection noted Moderate low-density paraventricular, deep and subcortical white matter likely ischemic changes secon maddi to small vessel disease No fluid within the visualized sinuses or mastoids noted. IMPRESSION: No acute intracranial abnormality noted. If the patient's symptoms persist MRI of the brain would be recommended. Jayjay Page from the emergency room was notified at 7:03 PM December 15, 2024
[2024-12-15 19:25] LABS: Absolute Basophils 0.1 K/uL (0-0.5); Absolute Eosinophils 0.5 K/uL (0-0.5); Absolute Lymphocytes (CBC) 1.4 K/uL (0.7-4.9); Absolute Monocytes 0.5 K/uL (0.1-1.3); Absolute Neutrophil 4.2 K/uL (1.8-8.0); Basophils % 0.8 % (0-1.3); Hematocrit 46.1 % (39.6-49.0); Hemoglobin 15.3 g/dL (13.6-17.9); Lymphocytes % 20.6 % (15.3-44.8); MCH 29.6 pg (27.0-35.0); MCHC 33.2 g/dL (32.0-36.0); MCV 89.3 fL (80-100); MPV 7.9 fL (7.6-11.3); Monocytes % 7.4 % (3.3-12.3); Neutrophils % 63.2 % (41.7-73.7); Nucleated Red Blood Cells % 0.1 % (0-0); Platelets 157 thou/uL (152-406); RBC Red Blood Cell Count 5.16 M/uL (4.33-5.43); Red Cell Distribution Width 14.4 % (12.1-15.2)
[2024-12-15 19:34] LABS: PT Prothrombin Time 14.5 SECONDS (9.4-12.5); PTT, Activated Partial Thromb 37.3 SECONDS (24.3-36.9); Protime INR 1.39
--- NOTE | 2024-12-15 19:39 | RAD REPORT ---
EXAMINATION: CTA HEAD CLINICAL INDICATION: Aphasia TECHNIQUE: Axial CT images were obtained through the head after 100 cc Isovue-370 intravenous contras t utilizing angiographic protocol with 3D post-processing (maximum intensity projection images, volume rendered images and/or shaded surface rendered images). One or more of the following dose red uction techniques were used: Automated exposure control, adjustment of the mA and/or kV according to patient size, and/or iterative reconstruction. Unless otherwise specified, incidental findings do not require dedicated imaging follow-up. COMPARISON: 2023 FINDINGS: Distal internal carotid, basilar, anterior cerebral, middle cerebral and posterior cerebral arteries do not demonstrate a significant stenosis An aneurysm not noted. No large vessel occlusion IMPRESSION: No acute vascular abnormality displayed
--- NOTE | 2024-12-15 19:41 | RAD REPORT ---
EXAMINATION: Neck Angio CLINICAL INDICATION: Aphasia TECHNIQUE: Axial CT images were obtained from the aortic arch to the skull base after intravenous adm inistration of 100 cc Isovue-370 utilizing angiographic protocol. Multiplanar reformats, as well as 3D post-processing (maximum intensity projection images, volume rendered images and/or shaded surface rendered images) were generated and reviewed. One or more of the following dose reduction techniques were used: Automated exposure control, adjustment of the mA and/or kV according to patient size, and/or iterative reconstruction. Unless otherwise specified, incidental findings do not require dedicated imaging follow-up. COMPARISON: 2021 and 2023 FINDINGS: Low density involving the left lateral aspect of the aortic arch distal to the left subclavian artery has diminished in size from 2021 and is without significant change since 2023 this is consistent with a chronic dissection. Aortic arch 4.4 cm The great vessels do not demonstrate a significant abnormality. Mild plaque within the common carotid, internal and external carotid arteries. Vertebral arteries unremarkable No significant stenosis noted. A dissection is not seen. 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
[2024-12-15 19:45] LABS: Albumin 3.5 g/dL (3.4-5.0); Albumin/Globulin Ratio 0.9 (1.1-1.8); Anion Gap 6.2 mEq/L (5.0-15.0); Bilirubin Direct 0.2 mg/dL (0-0.2); Bilirubin Indirect, Calculated 0.4 mg/dL (0.2-0.8); Bilirubin Total 0.6 mg/dL (0.2-1.0); Globulin 3.7 g/dL (2.3-3.5); Potassium 4.2 mEq/L (3.5-5.1); Protein, Total 7.2 g/dL (6.4-8.2); Troponin High Sensitivity 21.2 pg/mL (<58.9)
[2024-12-15] MEDS ORDERED: NA CHLORIDE 0.9% 500 ML ONE (19:49)
[2024-12-15] MEDS ORDERED: FOLIC ACID 5 MG/ML VIAL ONE (19:49)
[2024-12-15] MEDS ORDERED: HYDRALAZINE HCL 20 MG/ML VIAL ONE (19:56)
--- NOTE | 2024-12-15 20:10 | RAD REPORT ---
Procedure: Chest Single View HISTORY: Aphasia COMPARISON:2023 FINDINGS: The lungs appear clear of acute infiltrate. No significant pleural effusion noted. The heart is normal size. Stable descending thoracic aortic aneursym IMPRESSION: No acute abnormality is displayed.
[2024-12-15 20:19] LABS: Specific Gravity > 1.030 (1.005-1.030); Sqamous Epithelial None Seen /HPF (None Seen); Urine Bacteria None Seen /HPF (<20); Urine Bilirubin NEGATIVE (Negative); Urine Blood Negative (Negative); Urine Clarity Clear (Clear); Urine Color Colorless (Yellow); Urine Culture Reflex Order NOT NEEDED; Urine Glucose NEGATIVE (Negative); Urine Ketones NEGATIVE (Negative); Urine Micro Reflex YN NO BILL MICROSCOPIC; Urine Nitrite NEGATIVE (Negative); Urine Protein NEGATIVE (Negative); Urine RBC <5 /HPF (None Seen); Urine Urobilinogen Normal (Normal); Urine WBC <5 /HPF (<5); Urine pH 7.5 (5.0-7.0)
--- NOTE | 2024-12-15 20:31 | EDPHYS ---
Physician Documentation [facility] Name: Chaz Flowers Age: 79 yrs Sex: Male : 1945 Arrival Date: 12/15/2024 Time: 18:48 Bed 8 Private MD: ED Physician Jayjay Quarles HPI: 12/15 18:50 This 79 yrs old Male presents to ER via Unassigned with complaints of S/S of Possible cp Stroke. 18:50 The patient presents to the emergency department with a speech or higher order brain cp function problem, aphasia. 18:50 Onset: The symptoms/episode began/occurred 45 minute(s) ago. cp 18:50 Context: occurred at home. cp 18:50 Patient's baseline: Neuro: alert and fully oriented, Motor: no deficits, Ambulation: cp walks without assistance, Speech: normal, The patient has a previous history of CVA. 18:50 Current symptoms: difficulty with speech. cp Historical: - Allergies: 18:56 Tramadol HCl; jl7 - Home Meds: 19:19 metoprolol succinate 25 mg Oral tablet 0.5 tabs once [Active]; Eliquis 5 mg Oral tablet jl7 1 tab every 12 hours [Active]; atorvastatin 40 mg oral tablet [Active]; metformin 500 mg Oral tab 1 tab 2 times per day [Active]; aspirin 81 mg Oral capsule daily [Active]; valsartan 320 mg Oral tablet 0.5 tab BID [Active]; donepezil oral [Active]; buspirone 15 mg Oral tablet [Active]; - PMHx: 18:56 AAA; Atrial fibrillation; CVA; Diabetes - NIDDM; Hypertension; jl7 - PSHx: 18:56 Cholecystectomy; knee replacement; Tonsillectomy; jl7 - Immunization history:: Adult Immunizations unknown. - Infectious Disease History:: Denies. - Social history:: Smoking status: unknown. ROS: 18:55 Neuro: Positive for speech changes, cp 18:55 Constitutional: Negative for body aches, chills, fever, cp 18:55 Cardiovascular: Negative for chest pain, 18:55 Eyes: Negative for injury, pain, redness, and discharge, cp 18:55 ENT: Negative for drainage from ear(s), ear pain, sore throat, difficulty swallowing, difficulty handling secretions, 18:55 Respiratory: Negative for cough, shortness of breath, wheezing, cp 18:55 Abdomen/GI: Negative for abdominal pain, vomiting, diarrhea, constipation, 18:55 All other systems are negative, Exam: 19:03 Head/Face: Normocephalic, atraumatic. cp 19:03 Constitutional: The patient appears in no acute distress, alert, awake, non-diaphoretic, non-toxic, well developed, well nourished, 19:03 Eyes: Periorbital structures: appear normal, Pupils: equal, round, and reactive to light and accomodation, Extraocular movements: intact throughout, Conjunctiva: normal, no exudate, no injection, Sclera: no appreciated abnormality, Lids and lashes: appear normal, bilaterally, 19:03 ENT: External ear(s): are unremarkable, Nose: is normal, Mouth: Lips: moist, Oral mucosa: moist, Posterior pharynx: Airway: no evidence of obstruction, patent, 19:03 Chest/axilla: Inspection: normal, 19:03 Cardiovascular: Rate: bradycardic, Rhythm: regular, Edema: is not appreciated, JVD: is not appreciated, 19:03 Respiratory: the patient does not display signs of respiratory distress, Respirations: cp normal, no use of accessory muscles, no retractions, labored breathing, is not present, Breath sounds: are clear throughout, no decreased breath sounds, no stridor, no wheezing, 19:03 Abdomen/GI: Inspection: abdomen appears normal, Palpation: abdomen is soft and non-tender, in all quadrants, 19:03 Back: pain, is absent, ROM is normal, 19:03 Neuro: Orientation: to person, place \T\ time. Mentation: able to follow commands, Cerebellar function: Romberg testing is negative, Motor: moves all fours, no focal deficits, Sensation: no obvious gross deficits, 20:12 ECG was reviewed by the Attending Physician. cp Vital Signs: 19:15 BP 178 / 117; Pulse 56; Resp 18 S; Temp 98.2; Pulse Ox 97% on R/A; Weight 79.38 kg; ha1 Height 5 ft. 6 in. ; 20:15 BP 177 / 93; Pulse 62; Resp 17 S; Pulse Ox 97% on R/A; ha1 21:15 BP 169 / 93; Pulse 62; Resp 17 S; Pulse Ox 97% on R/A; ha1 22:00 BP 179 / 104; Pulse 69; Resp 18 S; Pulse Ox 98% on R/A; ha1 23:00 BP 172 / 94; Pulse 61; Resp 18 S; Pulse Ox 98% on R/A; ha1 23:30 BP 146 / 101; Pulse 62; Resp 18 S; Pulse Ox 98% on R/A; ha1 19:15 Body Mass Index 28.25 (79.38 kg, 167.64 cm) ha1 NIH Stroke Scale Scores: 19:15 NIHSS Score: 0 ha1 19:25 NIHSS Score: 3 cp MDM: 18:51 Medical Screening Exam initiated cp 19:15 ED course: patient is not a tnk candidate due to taking prescribed Eliquis with last cp dose earlier today. 20:35 Data reviewed: vital signs, nurses notes, lab test result(s), EKG, radiologic studies, cp CT scan, plain films, and as a result, I will admit patient. 20:35 Management of patient was discussed with the following: Infrastructure Software Engineer: DR Perez who cp will consult and patient to be admitted to hospitalist services, DR Cosme after discussion. Independent interpretation of the following test(s) in the Emergency Department EKG: See my EKG interpretation above. 02 18:53 Order name: Basic Metabolic Panel; Complete Time: 19:46 cp 12/15 19:46 Interpretation: Normal except: GFR 63. cp 12/15 18:53 Order name: CBC with Diff; Complete Time: 19:26 cp 12/15 18:53 Order name: Hepatic Function; Complete Time: 19:46 cp 12/15 18:53 Order name: High Sensitivity Troponin; Complete Time: 19:46 cp 12/15 18:53 Order name: Magnesium; Complete Time: 19:46 cp 12/15 18:53 Order name: Protime (+inr); Complete Time: 19:46 cp 12/15 18:53 Order name: Ptt, Activated; Complete Time: 19:46 cp 12/15 18:55 Order name: Urinalysis W/Microscopic; Complete Time: 20:22 cp 12/15 19:28 Order name: Glucose, Ancillary Testing; Complete Time: 19:29 EDMS 12/15 22:09 Order name: CBC with Automated Diff EDMS 12/15 22:09 Order name: CBC with Automated Diff EDMS 12/15 22:09 Order name: Comprehensive Metabolic Panel EDMI 12/15 22:09 Order name: Comprehensive Metabolic Panel EDMI 12/15 22:09 Order name: Lipid Profile EDMI 12/15 22:09 Order name: Lipid Profile EDMI 12/15 18:53 Order name: CT Head Angio; Complete Time: 19:46 cp 12/15 18:53 Order name: CT Neck Angio; Complete Time: 19:46 cp 12/15 18:53 Order name: CT Stroke Brain w/o Contrast; Complete Time: 19:09 cp 12/15 19:09 Interpretation: Report reviewed. cp 12/15 18:53 Order name: Stroke CXR 1 View; Complete Time: 20:22 cp 12/15 22:09 Order name: Echo with Doppler EDMI 12/15 22:09 Order name: CONS Physician Consult EDMI 12/15 22:09 Order name: IRF Screen EDMI 12/15 22:09 Order name: Physical Therapy Consult EDMI 12/15 22:09 Order name: Speech Therapy Consult EDMI 12/15 22:09 Order name: EKG Electrocardiogram EDMI 12/15 18:53 Order name: Accucheck; Complete Time: 19:33 cp 12/15 18:53 Order name: Cardiac monitoring; Complete Time: 19:32 cp 12/15 18:53 Order name: EKG - Nurse/Tech; Complete Time: 20:10 cp 12/15 18:53 Order name: IV Saline Lock; Complete Time: 19:32 cp 12/15 18:53 Order name: Labs collected and sent; Complete Time: 19:32 cp 12/15 18:53 Order name: NPO; Complete Time: 19:33 cp 12/15 18:53 Order name: O2 Per Protocol; Complete Time: 19:33 cp 12/15 18:53 Order name: O2 Sat Monitoring; Complete Time: 19:33 cp 12/15 18:53 Order name: Stroke Swallow Screen; Complete Time: 21:55 cp EC:12 Rate is 55 beats/min. Rhythm is regular. WA interval is normal. QRS interval is cp prolonged at 120 msec. QT interval is normal. Interpreted by me. Reviewed by me. Administered Medications: 19:54 Drug: foLIC Acid IVPB 1 mg IVPB once Route: IVPB; Site: right antecubital; ha1 21:00 Follow up: Response: No adverse reaction; IV Status: Completed infusion; IV Intake: [id number] 19:54 Drug: NS 0.9% IV 500 ml 500 ml IV at 1 bolus once; to be given as a bolus over 60 ha1 minutes Volume: 500 ml; Route: IV; Rate: 1 bolus; Site: right antecubital; 21:28 Follow up: Response: No adverse reaction; IV Status: Completed infusion; IV Intake: ha1 500ml 19:59 Drug: hydrALAZINE IVP 10 mg IVP once Route: IVP; Site: right antecubital; ha1 20:20 Follow up: Response: No adverse reaction; Blood pressure is lowered ha1 21:30 Drug: Acetaminophen PO 1000 mg PO once Route: PO; ha1 22:20 Follow up: Response: No adverse reaction; Pain is unchanged, physician notified ha1 22:44 Drug: morphine IVP or IV 2 mg IVP once over 4 mins Route: IVP; Infused Over: 4 mins; ha1 Site: right antecubital; 23:00 Follow up: Response: No adverse reaction; Marked relief of symptoms; Pain is decreased; ha1 RASS: Alert and Calm (0) Point of Care Testing: Blood Glucose: 19:20 Blood Glucose: 104 mg/dL; ha1 Ranges: Critical Glucose Levels:Adult <50 mg/dl or >400 mg/dl <40 mg/dl or >180 mg/dl Disposition Summary: 12/15/24 20:31 Hospitalization Ordered Notes: Hospitalization Status: Observation cp Provider: Shalom Cosme cp Location: Telemetry/[facility] (observation) cp Condition: Stable cp Problem: new cp Symptoms: have improved cp Bed/Room Type: Standard cp Room Assignment: 215(12/15/24 23:00) sp Diagnosis - Dysphasia and aphasia cp Forms: - Medication Reconciliation Form cp - SBAR form cp - Leadership Thank You Letter cp NIH Stroke Scale - NIH Stroke Score Date: 12/15/2024 Time: 19:15 Total Score = 0 10. Dysarthria (speech clarity - read or repeat words) - 0(Normal) 11. Extinction and Inattention (visual/tactile/auditory/spatial/personal) - 0(No abnormality) 1a. Level of Consciousness (LOC) - 0(Alert) 1b. Level of Consciousness (LOC) (Month \T\ Age) - 0(Both) 1c. LOC Commands (Open \T\ Closes Eyes/Transportation Technician) - 0(Both) 2. Best Gaze (Lateral Gaze Paresis) - 0(Normal) 3. Visual Field Loss - 0(No visual loss) 4. Facial Palsy - 0(Normal) 5a. Left Arm: Motor (10-second hold) - 0(No drift) 5b. Right Arm: Motor (10-second hold) - 0(No drift) 6a. Left Leg: Motor (5-second hold - always test supine) - 0(No drift) 6b. Right Leg: Motor (5-second hold - always test supine) - 0(No drift) 7. Limb Ataxia (finger/nose \T\ heel/lunsford - test with eyes open) - 0(Absent) 8. Sensory Loss (pinprick arms/legs/face) - 0(Normal) 9. Best Language: Aphasia (description/naming/reading) - 0(No aphasia) Initials: ha1 NIH Stroke Scale - NIH Stroke Score Date: 12/15/2024 Time: 19:25 Total Score = 3 10. Dysarthria (speech clarity - read or repeat words) - 1(Mild to Moderate) 11. Extinction and Inattention (visual/tactile/auditory/spatial/personal) - 0(No abnormality) 1a. Level of Consciousness (LOC) - 0(Alert) 1b. Level of Consciousness (LOC) (Month \T\ Age) - 0(Both) 1c. LOC Commands (Open \T\ Closes Eyes/Transportation Technician) - 0(Both) 2. Best Gaze (Lateral Gaze Paresis) - 0(Normal) 3. Visual Field Loss - 0(No visual loss) 4. Facial Palsy - 0(Normal) 5a. Left Arm: Motor (10-second hold) - 0(No drift) 5b. Right Arm: Motor (10-second hold) - 0(No drift) 6a. Left Leg: Motor (5-second hold - always test supine) - 0(No drift) 6b. Right Leg: Motor (5-second hold - always test supine) - 0(No drift) 7. Limb Ataxia (finger/nose \T\ heel/lunsford - test with eyes open) - 1(Present in one limb) 8. Sensory Loss (pinprick arms/legs/face) - 0(Normal) 9. Best Language: Aphasia (description/naming/reading) - 1(Mild to moderate aphasia) Initials: cp Addendum: 12/24/2024 08:40 Co-signature as Attending Physician, Jayjay Quarles MD I agree with the [facility] assessment and plan of care. Signatures: Dispatcher [employer] Jayjay Duron MD MD [facility] Ines De Leon Corey, CLAUDE ARCE cp Mariah Traore, RN RN jl7 Agnes Patterson, CASSY RN ha1 Corrections: (The following items were deleted from the chart) 12/15 18:54 18:54 BASIC METABOLIC PANEL+C.LAB.BRZ ordered. EDMS EDMS 18:54 18:54 CBC+H.LAB.BRZ ordered. EDMS EDMS 18:54 18:54 HEPATIC FUNCTION+C.LAB.BRZ ordered. EDMS EDMS 18:54 18:54 Troponin High Sensitivity+C.LAB.BRZ ordered. EDMS EDMS 18:54 18:54 MAGNESIUM+C.LAB.BRZ ordered. EDMS EDMS 18:54 18:54 PROTIME (+INR)+COAG.LAB.BRZ ordered. EDMS EDMS 18:54 18:54 PTT, ACTIVATED+COAG.LAB.BRZ ordered. EDMS EDMS 18:54 18:54 Head Angio+CT.RAD.BRZ ordered. EDMS EDMS 18:54 18:54 Neck Angio+CT.RAD.BRZ ordered. EDMS EDMS 18:54 18:54 CT-STROKE BRAIN W/O CONTRAST+CT.RAD.BRZ ordered. EDMS EDMS 18:54 18:54 Chest Single View+RAD.RAD.BRZ ordered. EDMS EDMS 18:55 18:55 Urinalysis W/Microscopic+U.LAB.BRZ ordered. EDMS EDMS 19:26 19:00 NIHSS Score: 2 cp cp 23:00 20:31 cp sp
--- NOTE | 2024-12-15 20:31 | ER ---
Nurse's Notes [facility] Name: Chaz Flowers Age: 79 yrs Sex: Male : 1945 Arrival Date: 12/15/2024 Time: 18:48 Bed 8 Private MD: Diagnosis: Dysphasia and aphasia Presentation: 12/15 18:53 Chief complaint: EMS states: Toned out for sudden aphasia, pt with history of CVA and jl7 TIA, onset 1800. Coronavirus screen: At this time, the client does not indicate any symptoms associated with coronavirus-19. Ebola Screen: No symptoms or risks identified at this time. No acute neurological deficit is noted. The patients blood glucose was checked before arriving to the hospital and was found to be normal. Initial Sepsis Screen: Does the patient meet any 2 criteria? No. Patient's initial sepsis screen is negative. Does the patient have a suspected source of infection? No. Patient's initial sepsis screen is negative. Risk Assessment: Do you want to hurt yourself or someone else? Patient reports no desire to harm self or others. Onset of symptoms was December 15, 2024 at 18:00. 18:53 Method Of Arrival: EMS: [facility] 18:53 Acuity: BRADY 2 jl7 Triage Assessment: 18:56 The onset of the patients symptoms was December 15, 2024 at 18:00. General: Appears in jl7 no apparent distress. uncomfortable, Behavior is calm, cooperative, appropriate for age. Pain: Denies pain. Neuro: Level of Consciousness is awake, alert, obeys commands, Oriented to person, place, time, situation, Reports aphasia. Cardiovascular: Patient's skin is warm and dry. Respiratory: Airway is patent Respiratory effort is even, unlabored, Respiratory pattern is regular, symmetrical. Derm: Skin is pink, warm \\T\\ dry. Historical: - Allergies: 18:56 Tramadol HCl; jl7 - Home Meds: 19:19 metoprolol succinate 25 mg Oral tablet 0.5 tabs once [Active]; Eliquis 5 mg Oral tablet jl7 1 tab every 12 hours [Active]; atorvastatin 40 mg oral tablet [Active]; metformin 500 mg Oral tab 1 tab 2 times per day [Active]; aspirin 81 mg Oral capsule daily [Active]; valsartan 320 mg Oral tablet 0.5 tab BID [Active]; donepezil oral [Active]; buspirone 15 mg Oral tablet [Active]; - PMHx: 18:56 AAA; Atrial fibrillation; CVA; Diabetes - NIDDM; Hypertension; jl7 - PSHx: 18:56 Cholecystectomy; knee replacement; Tonsillectomy; jl7 - Immunization history:: Adult Immunizations unknown. - Infectious Disease History:: Denies. - Social history:: Smoking status: unknown. Screenin:25 [facility] ED Fall Risk Assessment (Adult) History of falling in the last 3 months, jl7 including since admission No falls in past 3 months (0 pts) Confusion or Disorientation No (0 pts) Intoxicated or Sedated No (0 pts) Impaired Gait No (0 pts) Mobility Assist Device Used No (0 pt) Altered Elimination No (0 pt) Score/Fall Risk Level 0 - 2 = Low Risk Oriented to surroundings, Maintained a safe environment. Abuse screen: Denies threats or abuse. Denies injuries from another. Nutritional screening: No deficits noted. Tuberculosis screening: No symptoms or risk factors identified. Assessment: 19:15 [place] Swallow Protocol Brief Cognitive Screen What is your name? Normal, Where are you ha1 right now? Normal, What year is it? Normal. Oral Mechanism Examination Facial Symmetry: Normal, Motion: Normal, Lip Closure: Normal, Oral Mechanism Result: Normal. 3 oz Water Swallow Challenge: Pt able to drink all water without stopping, coughing, choking or throat clearing: Yes Result: PASS. 19:15 General: Appears comfortable, Behavior is calm, cooperative. Pain: Complains of pain in ha1 headache Pain does not radiate. Pain currently is 7 out of 10 on a pain scale. Quality of pain is described as aching, Pain began gradually, 4 hours ago. Neuro: Level of Consciousness is awake, alert, obeys commands, Oriented to person, place, time, situation. Neuro: Reports patient states " early today I felt confused and slurred speech but I feel better my symptoms have resolved". Cardiovascular: Capillary refill < 3 seconds Patient's skin is warm and dry. Respiratory: Airway is patent Respiratory effort is even, unlabored, Respiratory pattern is regular, symmetrical. 19:15 VAN Scoring: Arm Drift: Patients demonstrates NO arm weakness. Patient is VAN Negative. ha1 Visual Disturbance: No visual disturbance noted. Aphasia: No aphasia noted. Neglect: No neglect noted. 19:15 [place] Swallow Protocol Notified: Jayjay Quarles MD. ha1 20:15 Reassessment: Patient and/or family updated on plan of care and expected duration. Pain ha1 level reassessed. Patient is alert, oriented x 3, equal unlabored respirations, skin warm/dry/pink. 21:20 Reassessment: Patient and/or family updated on plan of care and expected duration. Pain ha1 level reassessed. Patient is alert, oriented x 3, equal unlabored respirations, skin warm/dry/pink. 22:30 Reassessment: Patient and/or family updated on plan of care and expected duration. Pain ha1 level reassessed. Patient is alert, oriented x 3, equal unlabored respirations, skin warm/dry/pink. reports headache pain 8/10. Notified care provider Page. 23:30 Reassessment: Patient and/or family updated on plan of care and expected duration. Pain ha1 level reassessed. Patient is alert, oriented x 3, equal unlabored respirations, skin warm/dry/pink. Vital Signs: 19:15 BP 178 / 117; Pulse 56; Resp 18 S; Temp 98.2; Pulse Ox 97% on R/A; Weight 79.38 kg; ha1 Height 5 ft. 6 in. ; 20:15 BP 177 / 93; Pulse 62; Resp 17 S; Pulse Ox 97% on R/A; ha1 21:15 BP 169 / 93; Pulse 62; Resp 17 S; Pulse Ox 97% on R/A; ha1 22:00 BP 179 / 104; Pulse 69; Resp 18 S; Pulse Ox 98% on R/A; ha1 23:00 BP 172 / 94; Pulse 61; Resp 18 S; Pulse Ox 98% on R/A; ha1 23:30 BP 146 / 101; Pulse 62; Resp 18 S; Pulse Ox 98% on R/A; ha1 19:15 Body Mass Index 28.25 (79.38 kg, 167.64 cm) ha1 NIH Stroke Scale Scores: 19:15 NIHSS Score: 0 ha1 19:25 NIHSS Score: 3 cp ED Course: 18:49 Patient arrived in ED. hb 18:51 Jayjay Mora PA is PHCP. cp 18:51 Jayjay Quarles MD is Attending Physician. cp 18:56 Triage completed. jl7 18:56 Arm band placed on right wrist. jl7 19:01 CT Stroke Brain w/o Contrast In Process Unspecified. EDMS 19:15 Patient has correct armband on for positive identification. Placed in gown. Bed in low ha1 position. Call light in reach. Side rails up X 1. Adult w/ patient. 19:15 Provided Education on: plan of care . ha1 19:15 No provider procedures requiring assistance completed. Inserted saline lock: 22 gauge ha1 in right antecubital area, using aseptic technique. Blood collected. Flushed with 10 mL NS. 19:18 CT Head Angio In Process Unspecified. EDMS 19:18 CT Neck Angio In Process Unspecified. EDMS 19:33 Basic Metabolic Panel Sent. ha1 19:33 Hepatic Function Sent. ha1 19:33 High Sensitivity Troponin Sent. ha1 19:33 Magnesium Sent. ha1 19:33 Protime (+inr) Sent. ha1 19:33 Ptt, Activated Sent. ha1 19:41 Stroke CXR 1 View In Process Unspecified. EDMS 19:54 Agnes Patterson, CASSY is Primary Nurse. ha1 20:30 Shalom Cosme MD is Hospitalizing Provider. cp 02 00:14 Patient admitted, IV remains in place. ha1 Administered Medications: 12/15 19:54 Drug: foLIC Acid IVPB 1 mg IVPB once Route: IVPB; Site: right antecubital; ha1 21:00 Follow up: Response: No adverse reaction; IV Status: Completed infusion; IV Intake: [id number] 19:54 Drug: NS 0.9% IV 500 ml 500 ml IV at 1 bolus once; to be given as a bolus over 60 ha1 minutes Volume: 500 ml; Route: IV; Rate: 1 bolus; Site: right antecubital; 21:28 Follow up: Response: No adverse reaction; IV Status: Completed infusion; IV Intake: ha1 500ml 19:59 Drug: hydrALAZINE IVP 10 mg IVP once Route: IVP; Site: right antecubital; ha1 20:20 Follow up: Response: No adverse reaction; Blood pressure is lowered ha1 21:30 Drug: Acetaminophen PO 1000 mg PO once Route: PO; ha1 22:20 Follow up: Response: No adverse reaction; Pain is unchanged, physician notified ha1 22:44 Drug: morphine IVP or IV 2 mg IVP once over 4 mins Route: IVP; Infused Over: 4 mins; ha1 Site: right antecubital; 23:00 Follow up: Response: No adverse reaction; Marked relief of symptoms; Pain is decreased; ha1 RASS: Alert and Calm (0) Medication: 19:19 VIS not applicable for this client. jl7 Point of Care Testing: Blood Glucose: 19:20 Blood Glucose: 104 mg/dL; ha1 Ranges: Intake: 21:00 IV: 50ml; Total: 50ml. ha1 21:28 IV: 500ml; Total: 550ml. ha1 Outcome: 20:31 Decision to Hospitalize by Provider. cp 12/16 00:00 Admitted to Med/surg accompanied by tech, via wheelchair, with chart, ha1 Condition: stable 00:00 Instructed on the need for admit, Demonstrated understanding of instructions, ha1 00:00 Patient left the ED. ha1 NIH Stroke Scale - NIH Stroke Score Date: 12/15/2024 Time: 19:15 Total Score = 0 10. Dysarthria (speech clarity - read or repeat words) - 0(Normal) 11. Extinction and Inattention (visual/tactile/auditory/spatial/personal) - 0(No abnormality) 1a. Level of Consciousness (LOC) - 0(Alert) 1b. Level of Consciousness (LOC) (Month \\T\\ Age) - 0(Both) 1c. LOC Commands (Open \\T\\ Closes Eyes/Label Stitcher) - 0(Both) 2. Best Gaze (Lateral Gaze Paresis) - 0(Normal) 3. Visual Field Loss - 0(No visual loss) 4. Facial Palsy - 0(Normal) 5a. Left Arm: Motor (10-second hold) - 0(No drift) 5b. Right Arm: Motor (10-second hold) - 0(No drift) 6a. Left Leg: Motor (5-second hold - always test supine) - 0(No drift) 6b. Right Leg: Motor (5-second hold - always test supine) - 0(No drift) 7. Limb Ataxia (finger/nose \\T\\ heel/lunsford - test with eyes open) - 0(Absent) 8. Sensory Loss (pinprick arms/legs/face) - 0(Normal) 9. Best Language: Aphasia (description/naming/reading) - 0(No aphasia) Initials: ha1 NIH Stroke Scale - NIH Stroke Score Date: 12/15/2024 Time: 19:25 Total Score = 3 10. Dysarthria (speech clarity - read or repeat words) - 1(Mild to Moderate) 11. Extinction and Inattention (visual/tactile/auditory/spatial/personal) - 0(No abnormality) 1a. Level of Consciousness (LOC) - 0(Alert) 1b. Level of Consciousness (LOC) (Month \\T\\ Age) - 0(Both) 1c. LOC Commands (Open \\T\\ Closes Eyes/Label Stitcher) - 0(Both) 2. Best Gaze (Lateral Gaze Paresis) - 0(Normal) 3. Visual Field Loss - 0(No visual loss) 4. Facial Palsy - 0(Normal) 5a. Left Arm: Motor (10-second hold) - 0(No drift) 5b. Right Arm: Motor (10-second hold) - 0(No drift) 6a. Left Leg: Motor (5-second hold - always test supine) - 0(No drift) 6b. Right Leg: Motor (5-second hold - always test supine) - 0(No drift) 7. Limb Ataxia (finger/nose \\T\\ heel/lunsford - test with eyes open) - 1(Present in one limb) 8. Sensory Loss (pinprick arms/legs/face) - 0(Normal) 9. Best Language: Aphasia (description/naming/reading) - 1(Mild to moderate aphasia) Initials: cp Signatures: Dispatcher [employer] EDMS Jayjay Mora PA PA cp Nancy Ortez RN RN Mariah Traore RN RN jl7 Agnes Patterson RN RN [facility] Corrections: (The following items were deleted from the chart) 00:18 00:17 Patient left the ED. ha1 ha1 00:24 0207 20:10 BP 177 / 93; Pulse 62bpm; Resp 17bpm; Spontaneous; Pulse Ox 97% RA; ha1 ha1 08 07:12 0207 19:33 BP 178 / 117; Pulse 56bpm; Resp 18bpm; Spontaneous; Pulse Ox 97% ha1 RA; Temp 98.2F; 79.38 kg; Height 5 ft. 6 in.; BMI: 28.2; ha1 12/16 07:15 12/15 20:20 BP 177 / 93; Pulse 62bpm; Resp 17bpm; Spontaneous; Pulse Ox 97% RA; ha1 ha1
[2024-12-15] MEDS ORDERED: ACETAMINOPHEN 500 MG TAB ONE (21:45)
--- NOTE | 2024-12-15 22:29 | P.HP ---
Certification for Inpatient Patient admitted to: Inpatient With expected LOS: >2 Midnights Practitioner: I am a practitioner with admitting privileges, knowledge of patient current condition, hospital course, and medical plan of care. Services: Services provided to patient in accordance with Admission requirements found in Title 42 Section 412.3 of the Code of Federal Regulations Patient History Date of Service: 12/15/24 Reason for admission: CVA History of Present Illness: 79 yrs old Male with past medical history of atrial fibrillation, on Eliquis, history of stroke, diabetes, hypertension who was brought to ER with difficulty in speech. Patient is a poor historian hence most of the history is obtained from the chart review and also talking to the family member at the bedside. Patient started having expressive aphasia and difficulty in finding words appropriately for started all of a sudden. Patient has a previous history of stroke. Patient did not have any weakness . Denies any headache. No fever or chills. No nausea vomiting or diarrhea. Patient was assessed in the ER and is admitted for further management of possible stroke Allergies No Known Allergies Allergy (Verified 04/30/22 15:58) Home medications list reviewed: Yes Home Medications: Apixaban [Eliquis *] 5 mg PO BID 01/08/24 Atorvastatin Calcium [Lipitor] 40 mg PO BEDTIME 01/08/24 Insulin Detemir [Levemir] 10 units SQ BEDTIME 01/08/24 Metformin HCl 500 mg PO BID 01/08/24 Metoprolol Tartrate [Lopressor*] 12.5 mg PO DAILY 01/08/24 Valsartan [Diovan] 80 mg PO DAILY PRN 01/08/24 Venlafaxine HCl [Venlafaxine HCl ER] 150 mg PO DAILY 01/08/24 pyRIDostigmine bromide [Pyridostigmine [place]] 30 mg PO BID #60 03/24/24 - Past Medical/Surgical History Diabetic: Yes Past Medical History: Reviewed- Non-Contributory -: diabetes -: Aortic dissection -: TIA -: HTN -: Abdominal aneurysm Past Surgical History: Reviewed- Non-Contributory -: knee surgeries 2x R 1xL -: tonsilectomy - Family History Father -: Heart disease Notes: AAA Brother -: Heart disease Notes: Abdominal aortic aneurysm Mother -: Heart disease, Other (see notes) Notes: asthma - Social History Smoking Status: Never smoker Alcohol use: No CD- Drugs: No Caffeine use: Yes Review of Systems 10-point ROS is otherwise unremarkable Physical Examination - Vital Signs Temperature: 97.8 F Blood Pressure: 172/76 Pulse: 56 Respirations: 18 Pulse Ox (%): 94 - Physical Exam General: Alert, Oriented x2, Mild distress HEENT: Atraumatic, Normocephalic Neck: Supple Respiratory: Clear to auscultation bilaterally, Normal air movement Cardiovascular: Regular rate/rhythm, Normal S1 S2 Capillary refill: <2 Seconds Gastrointestinal: Soft and benign, W/out hepatosplenomegaly Musculoskeletal: No clubbing, No swelling Integumentary: No rashes Neurological: Normal tone, Sensation intact, Cranial nerves 3-12 intact, Normal reflexes 2+, Abnormal speech Lymphatics: No axilla or inguinal lymphadenopathy - Studies Laboratory Data (last 24 hrs) 12/15/24 12/15/24 12/15/24 19:13 19:13 19:13 WBC 6.70 Hgb 15.3 Hct 46.1 Plt Count 157 PT 14.5 H INR 1.39 APTT 37.3 H Sodium 138 Potassium 4.2 BUN 16 Creatinine 1.18 Glucose 102 Magnesium 2.0 Total Bilirubin 0.6 AST 20 ALT 28 Alkaline Phosphatase 120 H Assessment and Plan - Plan Expressive aphasia CVA/TIA No focal weakness Started on aspirin and statin CT CTA findings noted MRI brain ordered Monitor neuro vital signs Monitor under telemetry Neurology evaluation Hypertension Antihypertensives titrated Continue home medications and titrate as needed Hyperlipidemia Continue statin Atrial fibrillation Rate controlled Continue home medications and titrate as needed GI/DVT prophylaxis Advanced directive full code Discharge Plan: Home Plan to discharge in: 48 Hours - Advance Directives Does patient have a Living Will: No Does patient have a Durable POA for Healthcare: No - Code Status/Comfort Care Code Status: Full Code Time Spent Managing Pts Care (In Minutes): 48
[2024-12-15] MEDS ORDERED: MORPHINE 2 MG/ML SYR ONE (22:35)
[2024-12-15] MEDS ORDERED: ONDANSETRON 4 MG/2 ML VIAL ONE (23:20)
[2024-12-15] MEDS: ONDANSETRON 4 MG/2 ML VIAL IV PRN (23:30)
[2024-12-16 00:42] VITALS: O2SAT 98
[2024-12-16 01:14] VITALS: BMI 23.8
[2024-12-16] MEDS ORDERED: MORPHINE 2 MG/ML SYR IV PRN (03:45)
[2024-12-16] MEDS ORDERED: HYDROCODONE/APAP 5/325 MG TAB PO PRN (03:45)
[2024-12-16] MEDS: NA CHLORIDE 0.9% 1,000 ML IV SCH (04:02)
[2024-12-16 05:18] LABS: Absolute Lymphocytes (CBC) 1.3 K/uL (0.7-4.9); Absolute Monocytes 0.4 K/uL (0.1-1.3); Absolute Neutrophil 8.1 K/uL (1.8-8.0); Basophils % 0.3 % (0-1.3); Eosinophils % 0.3 % (0-4.4); Hematocrit 42.9 % (39.6-49.0); Hemoglobin 14.2 g/dL (13.6-17.9); Lymphocytes % 12.8 % (15.3-44.8); MCH 29.8 pg (27.0-35.0); MCV 90.2 fL (80-100); Monocytes % 3.8 % (3.3-12.3); Neutrophils % 82.8 % (41.7-73.7); Nucleated Red Blood Cells % 0.1 % (0-0); Platelets 155 thou/uL (152-406); RBC Red Blood Cell Count 4.76 M/uL (4.33-5.43); Red Cell Distribution Width 14.2 % (12.1-15.2)
[2024-12-16 05:31] LABS: Albumin 3.3 g/dL (3.4-5.0); Albumin/Globulin Ratio 0.9 (1.1-1.8); Anion Gap 11.6 mEq/L (5.0-15.0); Bilirubin Total 0.6 mg/dL (0.2-1.0); Globulin 3.5 g/dL (2.3-3.5); Potassium 4.6 mEq/L (3.5-5.1); Protein, Total 6.8 g/dL (6.4-8.2)
[2024-12-16] MEDS: ASPIRIN EC 81 MG TAB PO SCH (09:43)
[2024-12-16] MEDS ORDERED: MORPHINE 4 MG/ML SYR IV PRN (12:44)
--- NOTE | 2024-12-16 13:37 | P.PN ---
Subjective Date of Service: 12/16/24 Chief Complaint: CVA Patient still having difficulty finding words. He remembers his home address, could not remember his age and does not remember if he ate breakfast and what he ate. He denies any limb weakness. Physical Examination - Vital Signs Temperature: 98.1 F Blood Pressure: 104/65 Pulse: 64 Respirations: 16 Pulse Ox (%): 94 - Studies Laboratory Data (last 24 hrs) 12/15/24 12/15/24 12/15/24 19:13 19:13 19:13 WBC 6.70 Hgb 15.3 Hct 46.1 Plt Count 157 PT 14.5 H INR 1.39 APTT 37.3 H Sodium 138 Potassium 4.2 BUN 16 Creatinine 1.18 Glucose 102 Magnesium 2.0 Total Bilirubin 0.6 AST 20 ALT 28 Alkaline Phosphatase 120 H Assessment And Plan - Plan Physical examination General: Alert and oriented x3, NAD, HEENT: Conjunctiva not pale, anicteric sclera Neck: Supple, no elevated JVD Heart: Heart sounds 1 and 2 normal, regular rhythm, normal rate, no pedal edema Lungs: Clear to auscultation bilaterally, adequate breath sounds bilaterally, no rhonchi or crackles. Abdomen: Soft, nondistended, nontender, normal bowel sounds. Extremities: No tenderness, no deformity Skin: Normal skin turgor, no rash, no nodules or ulcers. Neuro: No focal motor deficit. Difficulty finding words. Psychiatry: Normal mood, no agitation. Diagnosis Expressive aphasia Suspected severe Essential hypertension Chronic atrial fibrillation Hyperlipidemia Plan Expressive aphasia CVA/TIA No focal weakness Continue aspirin and statin CT CTA findings noted MRI brain ordered Monitor neuro vital signs Monitor under telemetry Neurology consult. Echocardiogram is pending. PT/OT/ST consults Hypertension Patient is currently normotensive. Hold antihypertensives for permissive hypertension. Hyperlipidemia Continue statin Chronic atrial fibrillation Rate controlled Resume metoprolol and Eliquis. GI/DVT prophylaxis: Eliquis Advanced directive full code Discharge Plan: Home
[2024-12-16] MEDS: ACETAMINOPHEN 500 MG TAB PO PRN (17:31)
[2024-12-16] MEDS: APIXABAN 5 MG TABLET PO SCH (20:38)
[2024-12-16] MEDS: ATORVASTATIN 20 MG TAB PO SCH (20:38)
[2024-12-17] MEDS: HYDRALAZINE HCL 20 MG/ML VIAL IV PRN (05:48)
[2024-12-17] MEDS: VENLAFAXINE HCL XR 75 MG CAP PO SCH (08:51)
[2024-12-17] MEDS: METOPROLOL TAR 25 MG TAB PO SCH (08:52)
[2024-12-17] MEDS ORDERED: HOME MED 1 EA UNK (Venlafaxine Hcl [Venlafaxine Hcl Er] 150 MG Cap.Er.24h) PO SCH (09:00)
--- NOTE | 2024-12-17 12:17 | RAD REPORT ---
EXAM: CT brain without contrast HISTORY: Follow up aphasia COMPARISON: 12/15/2024 TECHNIQUE: Multiple contiguous axial images were obtained and a CT of the brain without contrast. Sag ittal and coronal reformats were performed. One or more of the following dose reduction techniques were used: Automated exposure control, adjust ment of the mA and/or kV according to patient size, and/or iterative reconstruction. FINDINGS: No evidence of hydrocephalus, intracranial hemorrhage, or extra-axial fluid collection. Moderate brain atrophy with moderate periventricular and deep white matter chronic microvascular isc hemic changes present. No evidence of midline shift or areas of brain edema. The calvarium is intact. The visualized paranasal sinuses and mastoid air cells are essentially clear . IMPRESSION: No evidence of acute intracranial abnormality.
--- NOTE | 2024-12-17 16:20 | P.PN ---
Subjective Date of Service: 12/17/24 Chief Complaint: CVA Patient reports his word finding difficulty has resolved. He also feels his memory is better. He develops nausea and vomited a couple of times after CT scan today. He denies any limb weakness. Physical Examination - Vital Signs Temperature: 97.5 F Blood Pressure: 143/84 Pulse: 54 Respirations: 16 Pulse Ox (%): 96 Assessment And Plan - Plan Physical examination General: Alert and oriented x3, NAD, HEENT: Conjunctiva not pale, anicteric sclera Neck: Supple, no elevated JVD Heart: Heart sounds 1 and 2 normal, regular rhythm, normal rate, no pedal edema Lungs: Clear to auscultation bilaterally, adequate breath sounds bilaterally, no rhonchi or crackles. Abdomen: Soft, nondistended, nontender, normal bowel sounds. Extremities: No tenderness, no deformity Skin: Normal skin turgor, no rash, no nodules or ulcers. Neuro: No focal motor deficit. Difficulty finding words. Psychiatry: Normal mood, no agitation. Diagnosis Expressive aphasia Suspected severe Essential hypertension Chronic atrial fibrillation Hyperlipidemia History of aortic aneurysm Plan Expressive aphasia CVA/TIA No focal weakness Aphasia resolved. Patient also had short-term memory impairment which has resolved. Patient is on Plavix and Eliquis which are continued. Continue statin. CT CTA findings noted. Patient has a history of chronic aortic aneurysm. Repeat CT head shows no acute stroke or hemorrhage. Patient reports he experienced transient difficulty reading a few months ago. It appears patient symptoms have been recurrent. Case discussed with neurology Dr. Perez who recommend to start empiric Keppra for possible seizures. MRI of the brain with and without contrast ordered. Obtain EEG and start low-dose Keppra per Dr. Perez. Moreover given his history of chronic aortic arch dissection will obtain CT dissection to r/o any steal syndrome. Monitor neuro vital signs Monitor under telemetry Echocardiogram is pending. Patient has no PT or ST needs at the moment. Hypertension Patient's blood pressure has been fluctuating. Given that he has a history of aortic aneurysm which is progressing, will restart patient's home antihypertensives. Labetalol IV as needed for systolic blood pressure greater than 160. Hyperlipidemia Continue statin Chronic atrial fibrillation Rate controlled Continue metoprolol and Eliquis. Chronic aortic aneurysm Patient has a history of aortic aneurysm at a different locations-thoracic, abdominal and iliac. Repeating CT dissection to re-evaluate. Aggressive blood pressure control. Labetalol prn for BP spikes. GI/DVT prophylaxis: Eliquis Advanced directive full code Discharge Plan: Home
[2024-12-17] MEDS: VALSARTAN 160 MG TAB PO SCH (16:35)
[2024-12-17] MEDS ORDERED: LABETALOL 20 MG/4ML SYRINGE IV PRN (16:48)
--- NOTE | 2024-12-17 20:48 | RAD REPORT ---
EXAM: CTA of the chest, abdomen and pelvis HISTORY: Chest pain and back pain H/o aortic dissection COMPARISON: 12/07/2024, 05/23/2019 TECHNIQUE: Multiple contiguous axial images were obtained a CTA of the chest and abdomen with contras t per aortic dissection protocol. This involves 3D reconstructions, MIPs, volume rendered images and/or shaded surface rendering. One or more of the following dose reduction techniques were used: Au tomated exposure control, adjustment of the mA and/or kV according to patient size, and/or iterative reconstruction. Unless otherwise specified, incidental findings do not require dedicated im aging follow-up. Sagittal and coronal 3-D MIP reformats were performed. FINDINGS: PULMONARY ARTERIES: Normal in caliber without filling defects to suggest pulmonary emboli. ASCENDING THORACIC AORTA: Normal caliber without evidence of dissection or aneurysmal dilatation. DESCENDING THORACIC AORTA: Distal aortic arch and descending thoracic aorta demonstrates aneurysmal dilatation measuring 5.7 cm, similar to comparison study. ABDOMINAL AORTA: Focal short segment dissection is present infrarenal abdominal aorta measuring 3 cm in length. Focal eccentric aneurysm also present of the abdominal aorta measuring up to 4.2 cm. Additional short segment dissection is seen proximal to the bifurcation along the right. No flow limi tation seen. These regions of the aorta demonstrated mural thrombus on 2019 study. CELIAC TRUNK: Atherosclerosis is present. SMA: Atherosclerosis is present. RACHAEL: Patent RENAL ARTERIES: Bilateral single renal arteries without significant atherosclerotic disease. MEDIASTINUM: No hilar or mediastinal lymphadenopathy. LUNGS: Prominent diffuse COPD. PLEURAL SPACE: No pleural effusion or pneumothorax. LIVER: Mild fatty liver.. SPLEEN: Unremarkable. PANCREAS: Unremarkable. KIDNEYS: 10 cm cyst projects from the superior aspect of the left kidney.. ADRENALS: Unremarkable. BOWEL: Prominent diverticulosis of the sigmoid colon without diverticulitis.. RETROPERITONEUM: No lymphadenopathy. BONES: Vertebroplasty cement is noted L2 vertebral body. Moderate compression deformity is seen T11 v ertebral body. ADDITIONAL FINDINGS: Aneurysmal dilatation right common iliac artery measuring up to 2.8 cm. IMPRESSION: Aneurysmal dilatation of the distal aortic arch and proximal descending thoracic aorta as detailed. Multifocal short segment dissections of infrarenal abdominal aorta without flow alteration. Prominent diffuse COPD. Prominent sigmoid diverticulosis without diverticulitis.
[2024-12-18] MEDS: CLOPIDOGREL 75 MG TABLET PO SCH (08:59)
[2024-12-18] MEDS ORDERED: VALSARTAN 80 MG TAB PO PRN (12:10)
[2024-12-18] MEDS: LOPERAMIDE HCL 2 MG CAPSULE PO ONE (12:59)
--- NOTE | 2024-12-18 14:01 | ECHO ---
HEIGHT: 5 ft 10 in WEIGHT: 166 lb 0 oz DATE OF STUDY: 12/18/[address]: Edwin Cosme DO 2-DIMENSIONAL: YES M.MODE: YES DOPPLER: YES COLOR FLOW: YES TDS: YES PORTABLE: YES DEFINITY: BUBBLE STUDY: DIAGNOSIS: STROKE CARDIAC HISTORY: CATHERIZATION: NO SURGERY: NO PROSTHETIC VALVE: NO PACEMAKER: NO MEASUREMENTS (cm) DIASTOLIC (NORMALS) SYSTOLIC (NORMALS) IVSd 1.3 (0.6-1.2) LA Diam 2.8 (1.9-4.0) LVEF 55-60% LVIDd 5.1 (3.5-5.7) LVIDs 3.7 (2.0-3.5) %FS 27% LVPWd 1.3 (0.6-1.2) Ao Diam 3.5 (2.0-3.7) 2 DIMENSIONAL ASSESSMENT: RIGHT ATRIUM: NORMAL LEFT ATRIUM: NORMAL RIGHT VENTRICLE: NORMAL LEFT VENTRICLE: NORMAL TRICUSPID VALVE: TRACE TRICUSPID REGURGITATION MITRAL VALVE: NORMAL PULMONIC VALVE: NORMAL AORTIC VALVE: NORMAL PERICARDIAL EFFUSION: NONE AORTIC ROOT: NORMAL LEFT VENTRICULAR WALL MOTION: NORMAL DOPPLER/COLOR FLOW: NORMAL COMMENTS: 1. NORMAL LEFT VENTRICULAR SYSTOLIC FUNCTION, EJECTION FRACTION 55-60%, NORMAL WALL MOTION 2. NORMAL DIASTOLIC FUCNTION TECHNOLOGIST: JORGE LUIS BARRAGAN
[2024-12-18 16:23] VITALS: BP 179/92; TEMP 98.1
--- NOTE | 2024-12-18 16:33 | RAD REPORT ---
EXAM: Brain W/Wo Cont CLINICAL INDICATION: 79 years Male r/o seizures. TECHNIQUE: Pre-contrast sagittal and axial T1-w, and axial T2-FLAIR, GRE, and diffusion-w sequences o f the brain with ADC maps. Post-contrast axial fat-saturated T2-w and T1-w, and sagittal volumetric T1-w images of the brain with axial and coronal reformations. Intravenous contrast material was admin istered for the examination.[id number] COMPARISON: 03/24/2024 MRI brain, head CT yesterday FINDINGS: INTRACRANIAL: Small acute infarct in the right centrum semiovale. No significant mass effect or midl ine shift. No hydrocephalus. Severe chronic small vessel ischemic changes including the subcortical and deep white matter and at the brainstem..Mild cerebral atrophy. No abnormal enhancemen t. VASCULATURE: Normal signal voids in the larger intracranial arteries and dural venous sinuses. SINUSES: No significant paranasal sinus thickening.No mastoid effusions. BONE: The marrow signal pattern is within normal limits. IMPRESSION: Small acute infarct in the right centrum semiovale. No abnormal enhancement. Severe chronic small ves ronal ischemic changes.
--- NOTE | 2024-12-18 18:08 | P.DS ---
Admission Date: 12/15/24 Discharge Date: 12/18/24 Disposition: ROUTINE DISCHARGE Discharge Condition: FAIR Reason for Admission: CVA Brief History of Present Illness: SAPNA HAD APHASIA THAT HAS RESOLVED. HE IS ALREADY ON ELIQUIS FOR A FIB. HE IS TO BE ON 5 MG BID BUT SOMEHOW HE REPORTS 2.5 MG BID. I ADDED ASPIRIN 81 MG DAILY. MRI CONFIRMS AN INFARCT IN CENTRUM SEMIOVALE. HE IS VERY EAGER TO GO HOME. HE IS DOING WELL. HE HAS BEEN WALKING AROUND. HE HAS ALSO A5.5 CM ANEURYSM IN ASCENDING AORTA THAT IS UNCHANGED. HE HAS APT WITH DR. HITCHCOCK ALREADY VIA DR. CRUM FOR THIS. Vital Signs/Physical Exam: Temp Pulse Resp BP Pulse Ox 98.1 F 54 14 179/92 H 93 12/18/24 16:00 12/18/24 16:00 12/18/24 16:00 12/18/24 16:00 12/18/24 16:00 General: Alert, In no apparent distress HEENT: Atraumatic, PERRLA, EOMI Neck: Supple, JVD not distended Respiratory: Clear to auscultation bilaterally, Normal air movement Cardiovascular: Regular rate/rhythm, Normal S1 S2 Gastrointestinal: Normal bowel sounds, No tenderness Musculoskeletal: No tenderness Integumentary: No rashes Neurological: Normal speech, Normal tone, Normal affect Lymphatics: No axilla or inguinal lymphadenopathy Laboratory Data at Discharge: WBC 9.80 thou/uL (4.3-10.9) 12/16/24 04:56 Hgb 14.2 g/dL (13.6-17.9) 12/16/24 04:56 Hct 42.9 % (39.6-49.0) 12/16/24 04:56 Plt Count 155 thou/uL (152-406) 12/16/24 04:56 PT 14.5 SECONDS (9.4-12.5) H 12/15/24 19:13 INR 1.39 12/15/24 19:13 APTT 37.3 SECONDS (24.3-36.9) H 12/15/24 19:13 Sodium 137 mEq/L (136-145) 12/16/24 04:56 Potassium 4.6 mEq/L (3.5-5.1) 12/16/24 04:56 BUN 14 mg/dL (7-18) 12/16/24 04:56 Creatinine 1.23 mg/dL (0.70-1.30) 12/16/24 04:56 Glucose 173 mg/dL (74-106) H 12/16/24 04:56 Magnesium 2.0 mg/dL (1.6-2.4) 12/15/24 19:13 Total Bilirubin 0.6 mg/dL (0.2-1.0) 12/16/24 04:56 AST 14 U/L (15-37) L 12/16/24 04:56 ALT 25 U/L (16-61) 12/16/24 04:56 Alkaline Phosphatase 114 U/L (45-117) 12/16/24 04:56 Triglycerides 77 mg/dL (<150) 12/16/24 04:56 Cholesterol 93 mg/dL (<200) 12/16/24 04:56 HDL Cholesterol 41 mg/dL (40-60) 12/16/24 04:56 Cholesterol/HDL Ratio 2.27 12/16/24 04:56 Home Medications: Atorvastatin Calcium [Lipitor] 40 mg PO BEDTIME 01/08/24 Insulin Detemir [Levemir] 10 units SQ BEDTIME 01/08/24 Metformin HCl 500 mg PO BID 01/08/24 Metoprolol Tartrate [Lopressor*] 12.5 mg PO DAILY 01/08/24 Valsartan [Diovan] 80 mg PO DAILY PRN 01/08/24 Venlafaxine HCl [Venlafaxine HCl ER] 150 mg PO DAILY 01/08/24 Apixaban [Eliquis] 5 mg PO BID #60 12/18/24 New Medications: Apixaban [Eliquis] 5 mg PO BID #60 Followup: Jaron Perez MD [ASSOCIATE-ACTIVE - CAN ADMIT] - Jeff Groves MD [Primary Care Provider] -
[2024-12-18] MEDS ORDERED: METFORMIN HCL 500 MG TAB PO SCH (21:00)
[2024-12-18] MEDS ORDERED: ATORVASTATIN 40 MG TAB PO SCH (21:00)
[2024-12-18] MEDS ORDERED: INSULIN GLARGINE 100 UNIT/ML SQ SCH (21:00)
--- NOTE | 2024-12-19 12:53 | EKG ---
Test Date: 2024-12-15 Test Time: 20:05:46 Accounting Systems Manager: DANIELA MEASUREMENT RESULTS: Intervals: Rate: 55 MN: 178 QRSD: 120 QT: 426 QTc: 407 [place]: P: 86 MN: 178 QRS: -70 T: -86 INTERPRETIVE STATEMENTS: Sinus bradycardia Right bundle branch block Left anterior fascicular block Bifascicular block T wave abnormality, consider inferolateral ischemia Abnormal ECG Compared to ECG 09/17/2024 14:46:23 Left anterior fascicular block now present Bifascicular block now present T-wave abnormality now present Possible ischemia now present Left-axis deviation no longer present Electronically Signed On 12-19-24 12:45:37 REGIONAL SALES DIRECTOR by Alejandro Dixon
== END 2024-12-18 18:12 | disposition home or self-care (01) | DRG 65 ==
LOC: ER 18:48 → ERHOLD 22:03 → 2ND 23:54
PROVIDERS: ADMIT Family Medicine; ATTEND Internal Medicine
DX: I63.9 Cerebral infarction, unspecified (principal); I48.20 Chronic atrial fibrillation, unspecified; I10 Essential (primary) hypertension; E78.5 Hyperlipidemia, unspecified; E11.9 Type 2 diabetes mellitus without complications; I71.9 Aortic aneurysm of unspecified site, without rupture; I71.40 Abdominal aortic aneurysm, without rupture, unspecified; I71.20 Thoracic aortic aneurysm, without rupture, unspecified; R47.02 Dysphasia; R47.01 Aphasia; R29.700 NIHSS score 0; Z79.4 Long term (current) use of insulin; Z79.01 Long term (current) use of anticoagulants; Z79.84 Long term (current) use of oral hypoglycemic drugs; Z79.82 Long term (current) use of aspirin; Z90.49 Acquired absence of other specified parts of digestive tract; Z86.73 Personal history of transient ischemic attack (TIA), and cerebral infarction without residual deficits; Z79.899 Other long term (current) drug therapy; Z96.659 Presence of unspecified artificial knee joint
CPT/HCPCS: 36415; 70450; 70496; 70498; 70553; 71045; 71275; 74175; 80048; 80053; 80061; 80076; 81001; 82565; 82947; 83735; 84484; 85025; 85610; 85730; 93005; 93306; 96365; 96375; 97116; 99285; A9577; J0360; J2270; J2405; J7030; J7040; Q9967

== ENCOUNTER 2025-02-07 22:57 | Emergency (ER) | payer OTHER ==
[2025-02-07] MEDS ORDERED: TRANEXAMIC ACID 1,000 MG/10 ML VIAL IV ONE (23:32)
[2025-02-07] MEDS ORDERED: HYDRALAZINE HCL 20 MG/ML VIAL ONE (23:32)
[2025-02-07] MEDS ORDERED: LIDOCAINE 2% W/EPI 1:200,000 MPF 20 ML VIAL IM ONE (23:34)
[2025-02-07 23:52] LABS: Absolute Basophils 0.1 K/uL (0-0.5); Absolute Eosinophils 0.8 K/uL (0-0.5); Absolute Lymphocytes (CBC) 1.7 K/uL (0.7-4.9); Absolute Monocytes 0.5 K/uL (0.1-1.3); Absolute Neutrophil 4.3 K/uL (1.8-8.0); Basophils % 0.8 % (0-1.3); Eosinophils % 10.4 % (0-4.4); Hematocrit 39.7 % (39.6-49.0); Hemoglobin 13.3 g/dL (13.6-17.9); Lymphocytes % 23.1 % (15.3-44.8); MCH 29.9 pg (27.0-35.0); MCHC 33.4 g/dL (32.0-36.0); MCV 89.5 fL (80-100); MPV 7.8 fL (7.6-11.3); Monocytes % 6.5 % (3.3-12.3); Neutrophils % 59.2 % (41.7-73.7); Nucleated Red Blood Cells % 0.1 % (0-0); PT Prothrombin Time 12.6 SECONDS (10-13.0); Platelets 175 thou/uL (152-406); Protime INR 1.11; RBC Red Blood Cell Count 4.43 M/uL (4.33-5.43); Red Cell Distribution Width 14.7 % (12.1-15.2)
[2025-02-08 00:05] LABS: Troponin High Sensitivity 23.7 pg/mL (<58.9)
--- NOTE | 2025-02-08 00:26 | EDPHYS ---
Physician Documentation [facility] Name: Chza Flowers Age: 79 yrs Sex: Male : 1945 Arrival Date: 02/07/2025 Time: 22:57 Bed 17 Private MD: ED Physician Tyrone Odom HPI: 02/08 01:29 This 79 yrs old Male presents to ER via Ambulatory with complaints of bleeding tongue. rt 01:29 Patient who is on anticoagulants presents to the ED with bleeding from his tongue after rt eating a salad. States that he was unable to get the bleeding to stop prompting him to come to the ED for further evaluation. Denies other acute complaints at this time, symptoms are mild in severity, no other aggravating alleviating factors.. Historical: - Allergies: 02/07 23:06 Tramadol HCl; lg3 - PMHx: 23:06 AAA; Atrial fibrillation; CVA; Diabetes - NIDDM; Hypertension; lg3 - PSHx: 23:06 Cholecystectomy; knee replacement; Tonsillectomy; lg3 - Immunization history:: Adult Immunizations up to date. - Infectious Disease History:: Denies. - Social history:: Smoking status: Patient denies any tobacco usage or history of. Patient/guardian denies using alcohol, street drugs. - Family history:: not pertinent. ROS: 02/08 01:29 Constitutional: Negative for fever, chills, and weight loss, Cardiovascular: Negative rt for chest pain, palpitations, and edema, Respiratory: Negative for shortness of breath, cough, wheezing, and pleuritic chest pain, Abdomen/GI: Negative for abdominal pain, nausea, vomiting, diarrhea, and constipation, MS/Extremity: Negative for injury and deformity, Skin: Negative for injury, rash, and discoloration, Neuro: Negative for headache, weakness, numbness, tingling, and seizure, ENT: Positive for Bleeding from tongue, Exam: :29 Constitutional: This is a well developed, well nourished patient who is awake, alert, rt and in no acute distress. Chest/axilla: Normal chest wall appearance and motion. Nontender with no deformity. No lesions are appreciated. Cardiovascular: Regular rate and rhythm with a normal S1 and S2. No gallops, murmurs, or rubs. Normal PMI, no JVD. No pulse deficits. Respiratory: Lungs have equal breath sounds bilaterally, clear to auscultation and percussion. No rales, rhonchi or wheezes noted. No increased work of breathing, no retractions or nasal flaring. Abdomen/GI: Soft, non-tender, with normal bowel sounds. No distension or tympany. No guarding or rebound. No evidence of tenderness throughout. Skin: Warm, dry with normal turgor. Normal color with no rashes, no lesions, and no evidence of cellulitis. MS/ Extremity: Pulses equal, no cyanosis. Neurovascular intact. Full, normal range of motion. Neuro: Awake and alert, GCS 15, oriented to person, place, time, and situation. Cranial nerves II-XII grossly intact. Motor strength 5/5 in all extremities. Sensory grossly intact. Cerebellar exam normal. Normal gait. 01:29 ENT: 0.5 cm laceration noted to the distal third of the tongue, mild oozing present. 01:32 ECG was reviewed by the Attending Physician. rt Vital Signs: 02/07 23:03 BP 168 / 112; Pulse 64; Resp 16; Temp 97.9(TE); Pulse Ox 99% on R/A; Weight 74.84 kg lg3 (R); Height 5 ft. 10 in. (R); Pain 0/10; 23:19 BP 167 / 102; Pulse 84; Pulse Ox 98% on R/A; dd2 23:30 BP 178 / 92; Pulse 59; Resp 16; Pulse Ox 99% on R/A; dd2 04 00:00 BP 146 / 77; Pulse 67; Resp 16; Pulse Ox 98% on R/A; dd2 00:00 BP 159 / 78; Pulse 70; Resp 16; Pulse Ox 98% on R/A; dd2 02/07 23:03 Body Mass Index 23.67 (74.84 kg, 177.8 cm) lg3 02/07 23:03 Pain Scale: Adult lg3 Laceration: 01:29 Wound Repair of 0.5cm ( 0.2in ) subcutaneous laceration to tongue. Minimal bleeding rt noted.. Distal neuro/vascular/tendon intact. Anesthesia: Local anesthetic administered with 1 mls of 1% lidocaine w/ Epi. Skin closed with 2 4-0 Vicryl using horizontal mattress sutures and sterile technique. Patient tolerated well. MDM: 02/07 23:15 Medical Screening Exam initiated rt 02/08 01:29 Differential Diagnosis Laceration, essential hypertension, hypertensive emergency. Data rt reviewed: vital signs, nurses notes, lab test result(s), EKG. I considered the following discharge prescriptions or medication management in the emergency department Medications were administered in the Emergency Department. See MAR. Care significantly affected by the following chronic conditions: Hypertension. Counseling: I had a detailed discussion with the patient and/or guardian regarding the historical points, exam findings, and any diagnostic results supporting the discharge/admit diagnosis, lab results, radiology results, the need for outpatient follow up. ED course: Good hemostasis obtained after suturing, directed pressure with tranexamic acid soaked gauze. The patient was noted to be hypertensive, this is improving with medications. He denies any chest pain, abdominal pain, similar symptoms to his previous AAA. He does not wish to have further evaluation of this at this time. Labs, EKG benign, stable for outpatient care, return precautions discussed.. 02/07 23:12 Order name: CBC with Diff; Complete Time: 00:12 vc1 02/07 23:12 Order name: Basic Metabolic Panel; Complete Time: 00:12 vc1 02/07 23:12 Order name: Troponin HS; Complete Time: 00:12 vc1 02/07 23:12 Order name: PT-INR; Complete Time: 00:12 vc1 02/07 23:12 Order name: XRAY Chest (1 view) vc1 02/07 23:12 Order name: Cardiac monitoring; Complete Time: 23:40 1 02/07 23:12 Order name: EKG - Nurse/Tech; Complete Time: 23:40 vc1 02/07 23:12 Order name: IV Saline Lock; Complete Time: 23:23 vc1 02/07 23:12 Order name: Labs collected and sent; Complete Time: 23:23 vc1 02/07 23:12 Order name: O2 Per Protocol; Complete Time: 23:23 vc02/07 23:12 Order name: O2 Sat Monitoring; Complete Time: 23:23 vc1 EC:32 Rate is 60 beats/min. Rhythm is regular, Junctional rhythm with No ectopy, Bifascicular rt block noted. QRS [place] is Normal. QRS interval is normal. QT interval is normal. No Q waves. No ST changes noted. Administered Medications: 02/07 23:39 Drug: hydrALAZINE IVP 20 mg IVP once Route: IVP; Site: right antecubital; kj2 23:54 Follow up: Response: No adverse reaction dd2 02/08 00:03 Drug: Lidocaine-Epinephrine Infiltration -1%: (1:100,000) 5 ml 20 ml Infiltration once; kj2 to bedside Volume: 20 ml; Route: Infiltration; 00:18 Follow up: Response: No adverse reaction dd2 00:04 Drug: tranexamic acid IV 1000 mg IV at calculated rate once; topical only {Note: kj2 Topically applied by provider as ordered.} Route: IV; Rate: calculated rate; Site: Other; 00:18 Follow up: Response: No adverse reaction dd2 00:18 Follow up: ADMINISTERED TOPICALLY TO TONGUE BY MD ROWDY dd2 Disposition Summary: 02/08/25 00:26 Discharge Ordered Notes: Location: Home rt Problem: new rt Symptoms: have improved rt Condition: Stable rt Diagnosis - Laceration to tongue rt Followup: rt - With: Private Physician - When: 2 - 3 days - Reason: Discharge Instructions: - Discharge Summary Sheet rt - Tongue Laceration rt Forms: - Medication Reconciliation Form rt - Antibiotic Education rt - Prescription Opioid Use rt - Patient Portal Instructions rt - Leadership Thank You Letter rt Signatures: Dispatcher [employer] EDSana Vines, RN RN lg3 Kristie Wright RN RN vc1 Tyrone Odom MD MD rt Janett Gonzales RN RN kj2 SAURAV LEAL RN dd2 Corrections: (The following items were deleted from the chart) 02/07 23:12 23:12 CBC+H.LAB.BRZ ordered. EDMS EDMS 23:12 23:12 BASIC METABOLIC PANEL+C.LAB.BRZ ordered. EDMS EDMS 23:12 23:12 Troponin High Sensitivity+C.LAB.BRZ ordered. EDMS EDMS 23:13 23:12 Chest Single View+RAD.RAD.BRZ ordered. EDMS EDMS 23:13 23:13 PROTIME (+INR)+COAG.LAB.BRZ ordered. EDMS EDMS
--- NOTE | 2025-02-08 00:26 | ER ---
Nurse's Notes [facility] Name: Chaz Flowers Age: 79 yrs Sex: Male : 1945 Arrival Date: 02/07/2025 Time: 22:57 Bed 17 Private MD: Diagnosis: Laceration to tongue Presentation: 02/07 23:03 Chief complaint: Patient states: tongue bleeding beginning 1929. Coronavirus screen: lg3 Client denies travel out of the [place] in the last 14 days. At this time, the client does not indicate any symptoms associated with coronavirus-19. Ebola Screen: No symptoms or risks identified at this time. Initial Sepsis Screen: Does the patient meet any 2 criteria? No. Patient's initial sepsis screen is negative. Does the patient have a suspected source of infection? No. Patient's initial sepsis screen is negative. Risk Assessment: Do you want to hurt yourself or someone else? Patient reports no desire to harm self or others. Onset of symptoms was February 07, 2025. 23:03 Method Of Arrival: Ambulatory lg3 23:03 Acuity: BRADY 3 lg3 Triage Assessment: 23:06 General: Appears in no apparent distress. comfortable, Behavior is calm, cooperative. lg3 Pain: Denies pain. EENT: moderate bleeding of tongue noted. Neuro: No deficits noted. De Jesus Agitation-Sedation Scale (RASS): 0 - Alert and Calm Level of Consciousness is awake, alert, obeys commands, Oriented to person, place, time, situation. Cardiovascular: No deficits noted. Denies chest pain, shortness of breath, Capillary refill < 3 seconds Clubbing of nail beds is absent JVD is absent Patient's skin is warm and dry. Respiratory: No deficits noted. Airway is patent Respiratory effort is even, unlabored, Respiratory pattern is regular, symmetrical, Breath sounds are clear bilaterally. GI: No deficits noted. No signs and/or symptoms were reported involving the gastrointestinal system. Abdomen is round non-distended. : No signs and/or symptoms were reported regarding the genitourinary system. Derm: No deficits noted. No signs and/or symptoms reported regarding the dermatologic system. Skin is intact, is healthy with good turgor, Skin is dry, Skin is normal, Skin temperature is warm. Musculoskeletal: No deficits noted. No signs and/or symptoms reported regarding the musculoskeletal system. Circulation, motion, and sensation intact. Range of motion: intact in all extremities. Historical: - Allergies: 23:06 Tramadol HCl; lg3 - PMHx: 23:06 AAA; Atrial fibrillation; CVA; Diabetes - NIDDM; Hypertension; lg3 - PSHx: 23:06 Cholecystectomy; knee replacement; Tonsillectomy; lg3 - Immunization history:: Adult Immunizations up to date. - Infectious Disease History:: Denies. - Social history:: Smoking status: Patient denies any tobacco usage or history of. Patient/guardian denies using alcohol, street drugs. - Family history:: not pertinent. Screenin:20 [facility] ED Fall Risk Assessment (Adult) History of falling in the last 3 months, kj2 including since admission No falls in past 3 months (0 pts) Confusion or Disorientation No (0 pts) Intoxicated or Sedated No (0 pts) Impaired Gait No (0 pts) Mobility Assist Device Used No (0 pt) Altered Elimination No (0 pt) Score/Fall Risk Level 0 - 2 = Low Risk Maintained a safe environment, Hourly rounding (assess needs \T\ fall precautionary measures) done. Abuse screen: Denies threats or abuse. Denies injuries from another. Nutritional screening: No deficits noted. Tuberculosis screening: No symptoms or risk factors identified. Assessment: 23:21 General: Appears in no apparent distress. Behavior is calm, cooperative. Pain: Denies kj2 pain. Neuro: Level of Consciousness is awake, alert, obeys commands, Oriented to person, place, time, situation. Cardiovascular: Patient's skin is warm and dry. Respiratory: Airway is patent Respiratory effort is unlabored. GI: No signs and/or symptoms were reported involving the gastrointestinal system. : No signs and/or symptoms were reported regarding the genitourinary system. 02/08 00:50 Reassessment: Patient is alert, oriented x 3, equal unlabored respirations, skin dd2 warm/dry/pink. Patient states feeling better. Patient states symptoms have improved. Vital Signs: 02/07 23:03 BP 168 / 112; Pulse 64; Resp 16; Temp 97.9(TE); Pulse Ox 99% on R/A; Weight 74.84 kg lg3 (R); Height 5 ft. 10 in. (R); Pain 0/10; 23:19 BP 167 / 102; Pulse 84; Pulse Ox 98% on R/A; dd2 23:30 BP 178 / 92; Pulse 59; Resp 16; Pulse Ox 99% on R/A; dd2 0403 00:00 BP 146 / 77; Pulse 67; Resp 16; Pulse Ox 98% on R/A; dd2 00:00 BP 159 / 78; Pulse 70; Resp 16; Pulse Ox 98% on R/A; dd2 02/07 23:03 Body Mass Index 23.67 (74.84 kg, 177.8 cm) lg3 02/07 23:03 Pain Scale: Adult lg3 ED Course: 02/07 22:59 Patient arrived in ED. im 23:06 Triage completed. lg3 23:06 Arm band placed on right wrist. lg3 23:09 Inserted saline lock: 20 gauge in right antecubital area, using aseptic technique. lg3 Blood collected. Flushed with 10 mL NS. 23:13 Tyrone Odom MD is Attending Physician. rt 23:18 Janett Gonzales RN is Primary Nurse. kj2 23:20 Patient has correct armband on for positive identification. Bed in low position. Call kj2 light in reach. Provided Education on: call light. 23:43 XRAY Chest (1 view) In Process Unspecified. EDMS 02/08 00:50 No provider procedures requiring assistance completed. IV discontinued, intact, dd2 bleeding controlled, No redness/swelling at site. Pressure dressing applied. Administered Medications: 02/07 23:39 Drug: hydrALAZINE IVP 20 mg IVP once Route: IVP; Site: right antecubital; kj2 23:54 Follow up: Response: No adverse reaction dd2 02/08 00:03 Drug: Lidocaine-Epinephrine Infiltration -1%: (1:100,000) 5 ml 20 ml Infiltration once; kj2 to bedside Volume: 20 ml; Route: Infiltration; 00:18 Follow up: Response: No adverse reaction dd2 00:04 Drug: tranexamic acid IV 1000 mg IV at calculated rate once; topical only {Note: kj2 Topically applied by provider as ordered.} Route: IV; Rate: calculated rate; Site: Other; 00:18 Follow up: Response: No adverse reaction dd2 00:18 Follow up: ADMINISTERED TOPICALLY TO TONGUE BY MD ROWDY dd2 Medication: 02/07 23:21 VIS not applicable for this client. kj2 Intake: Outcome: 02/08 00:26 Discharge ordered by . rt 00:50 Discharged to home ambulatory, dd2 00:50 Condition: improved 00:50 Discharge instructions given to patient, Instructed on discharge instructions, follow up and referral plans. Demonstrated understanding of instructions, follow-up care, 00:51 Patient left the ED. dd2 Signatures: Dispatcher [employer] Sana Fang, RN RN lg3 Tyrone Odom MD MD rt Meghna Wu Krystal, RN RN kj2 SAURAV LELA RN RN dd2
[2025-02-08 01:13] VITALS: TEMP 97.9
[2025-02-08 01:17] VITALS: BP 159/78; O2SAT 98
--- NOTE | 2025-02-08 05:20 | RAD REPORT ---
EXAM: XR Chest, 1 View CLINICAL HISTORY: The patient is 79 years old and is Male; CHEST PAIN TECHNIQUE: Frontal view of the chest. COMPARISON: No relevant prior studies available. FINDINGS: LUNGS: Unremarkable. No consolidation. PLEURAL SPACE: Unremarkable. No pneumothorax. HEART: Unremarkable. No cardiomegaly. MEDIASTINUM: Unremarkable. Normal mediastinal contour. BONES/JOINTS: Unremarkable. No acute fracture. VASCULATURE: Atherosclerosis of the aorta is present. UPPER ABDOMEN: Unremarkable as visualized. IMPRESSION: No acute cardiopulmonary process. Electronically signed by: Evelia Desouza MD 02/08/2025 12:01 AM CDT RP Due to temporary technical issues with the [employer] reporting system, reports are being heydi d by the in-house radiologist without review as a courtesy to ensure prompt reporting the interpreting radiologist is fully responsible for the content of the report. Transcribed Date/Time: 02/08/2025 5:19 AM
--- NOTE | 2025-02-09 13:27 | EKG ---
Test Date: 2025-02-07 Test Time: 23:36:39 [employer]: [facility] MEASUREMENT RESULTS: Intervals: Rate: 60 MT: QRSD: 116 QT: 434 QTc: 434 [place]: P: MT: QRS: -81 T: 3 INTERPRETIVE STATEMENTS: Junctional rhythm Right bundle branch block Left anterior fascicular block Bifascicular block Abnormal ECG Compared to ECG 12/15/2024 20:05:46 Junctional rhythm now present Sinus bradycardia no longer present T-wave abnormality no longer present Possible ischemia no longer present Bifascicular block still present Electronically Signed On 02-09-25 13:19:42 CDT by Alejandro Dixon
== END 2025-02-08 00:51 | disposition home or self-care (01) ==
LOC: ER 22:57
DX: S01.512A Laceration without foreign body of oral cavity, initial encounter (principal)
CPT/HCPCS: 93005; 85025; 80048; 36415; 85610; 84484; 71045; 99284; 12051; J0360